=== PATIENT | male | born 1940 | race Caucasian/White ===

== ENCOUNTER → 2016-06-15 | Outpatient (CLI) | payer MEDICARE, OTHER ==
[2016-06-15 15:42] LABS: Potassium 4.4 mmol/L (3.5-5.1)
== END | disposition home or self-care (01) ==
LOC: LABWHC1 15:02
PROVIDERS: ATTEND Internal Medicine Cardiovascular Disease
DX: I50.22 Chronic systolic (congestive) heart failure (principal)
CPT/HCPCS: 36415; 80051; 82565; 84450; 84460; 84520

== ENCOUNTER → 2017-01-10 | Outpatient (CLI) | payer MEDICARE, OTHER | LOC: LABWHC1 09:52 | PROVIDERS: ATTEND Internal Medicine Endocrinology, Diabetes & Metabolism | DX: E03.9 Hypothyroidism, unspecified (principal) | CPT/HCPCS: 36415; 84439; 84443 ==

== ENCOUNTER → 2017-01-25 | Outpatient (CLI) | payer MEDICARE, OTHER ==
[2017-01-25 12:53] LABS: ALT 41 U/L (21-72); AST 27 U/L (17-59)
== END | disposition home or self-care (01) ==
LOC: LABWHC1 11:52
PROVIDERS: ATTEND Internal Medicine Cardiovascular Disease
DX: I47.2 Ventricular tachycardia (principal)
CPT/HCPCS: 36415; 84450; 84460

== ENCOUNTER → 2017-10-10 | Outpatient (CLI) | payer MEDICARE, OTHER | END | disposition home or self-care (01) | LOC: LABWHC1 08:01 | PROVIDERS: ATTEND Internal Medicine Cardiovascular Disease | DX: I65.23 Occlusion and stenosis of bilateral carotid arteries (principal); I25.10 Atherosclerotic heart disease of native coronary artery without angina pectoris; I47.2 Ventricular tachycardia; I10 Essential (primary) hypertension | CPT/HCPCS: 36415; 84443; 84450; 84460 ==

== ENCOUNTER 2017-11-26 12:52 | Emergency (ER) | payer MEDICARE, OTHER ==
[2017-11-26 13:15] VITALS: RESP 18
[2017-11-26] MEDS ORDERED: ORPHENADRINE 30 MG/ML 2 ML VIAL IM STA (13:51)
--- NOTE | 2017-11-26 14:43 | XR ---
EXAMINATION TYPE: XR Hip LT and AP Pelvis DATE OF EXAM: 11/26/2017 COMPARISON: NONE HISTORY: Trauma and pain TECHNIQUE: A single AP view of the pelvis is obtained. Two views of the left hip are obtained. FINDINGS: There is no acute fracture/dislocation evident in the pelvis. The hip and sacroiliac join ts appear symmetric and unremarkable. The overlying soft tissue appears unremarkable. Two views of left hip show no acute fracture or dislocation. No focal lytic or sclerotic lesion seen in the proximal left femur. The overlying soft tissue is unremarkable. Mild osteophytic changes ar e noted within the hips, there is marginal spurring and joint space loss. Degenerative disc changes i n the visualized spine. Vascular calcifications are present within the pelvis. 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 IMPRESSION: There is no acute fracture or dislocation in the pelvis or left hip.
--- NOTE | 2017-11-26 14:44 | XR ---
Lumbar spine HISTORY: Pain 3 views of the lumbar spine There is a mild spinal curvature which could be positional. There is multilevel spondylosis. Sclerosi s present in the posterior elements compatible with facet arthropathy. Minimal retrolisthesis grade 1 C2-3, L3-4 and L4-5, L5-S1. Loss of disc height greatest at L5-S1 where there is vacuum phenomenon, L2-3. Common iliac stent noted incidentally on the left. IMPRESSION: Degenerative disc disease and facet arthropathy.
--- NOTE | 2017-11-26 14:56 | ED ---
Back Pain HPI - General Chief Complaint: Back Pain/Injury Stated Complaint: lt sided pain Time Seen by Provider: 11/26/17 13:24 Source: patient, RN notes reviewed, old records reviewed Limitations: no limitations - History of Present Illness Initial Comments: This patient is a 77 year old male with CC of left side back pain, worse with movements after lifting a ladder in his garage. HE reports this was 2 days ago, and he has been taking naproxen with little relief. Patient reports pain occasionally radiates down leg and in his left hip. Denies saddle anesthesias. He denies abdominal pain, nausea, vomiting. Patient has a history of heart disease. - Related Data Home Medications Medication Instructions Recorded Confirmed ALPRAZolam 1 mg PO BID 09/20/14 09/23/14 Allopurinol 300 mg PO HS 09/20/14 09/23/14 Amiodarone [Cordarone] 200 mg PO HS 09/20/14 09/23/14 Aspirin 325 mg PO DAILY 09/20/14 09/23/14 Atorvastatin [Lipitor] 20 mg PO HS 09/20/14 09/23/14 Carvedilol 25 mg PO BID 09/20/14 09/23/14 Furosemide [Lasix] 40 mg PO BID 09/20/14 09/23/14 Isosorbide Mononitrate ER [Imdur] 60 mg PO BID 09/20/14 09/23/14 Lisinopril 20 mg PO BID 09/20/14 09/23/14 Multivitamins, Thera [Multivitamin 1 tab PO DAILY 09/20/14 09/23/14 (formulary)] Potassium Chloride [K-Tab ER] 10 meq PO BID 09/20/14 09/23/14 Ranitidine HCl [Zantac] 150 mg PO BID 09/20/14 09/23/14 Theophylline 12 Hour [Ashok-Dur] 300 mg PO BID 09/20/14 09/23/14 Tiotropium 18 Mcg/Puff [Spiriva] 1 puff IH HS PRN 09/20/14 09/23/14 Previous Rx's Medication Instructions Recorded Cyclobenzaprine [Flexeril] 10 mg PO TID #15 tab 11/26/17 Ibuprofen [Motrin] 600 mg PO Q6HR PRN #20 tab 11/26/17 Allergies Allergy/AdvReac Type Severity Reaction Status Date / Time prednisone AdvReac Hallucinati Verified 11/26/17 13:15 ons Review of Systems ROS Statement: Those systems with pertinent positive or pertinent negative responses have been documented in the HPI. ROS Other: All systems not noted in ROS Statement are negative. Past Medical History Past Medical History: Myocardial Infarction ([place]), Thyroid Disorder Additional Past Medical History / Comment(s): HX HIATAL HERNIA. mac degeneration. PSORIASIS. GOUT History of Any Multi-Drug Resistant Organisms: None Reported Past Surgical History: Heart Catheterization With Stent Additional Past Surgical History / Comment(s): COLONOSCOPY. AICD/PACEMAKER- [employer]. GENERATOR CHANGE-09/23/2014. leg stents Past Psychological History: No Psychological Hx Reported Smoking Status: Never smoker Past Alcohol Use History: None Reported Past Drug Use History: None Reported General Exam - General Exam Comments Initial Comments: This is a 77 year old male, pleasant. No acute distress. Limitations: no limitations General appearance: alert, in no apparent distress Head exam: Present: atraumatic, normocephalic, normal inspection Eye exam: Present: normal appearance, PERRL, EOMI. Absent: scleral icterus, conjunctival injection, periorbital swelling ENT exam: Present: normal exam, mucous membranes moist Neck exam: Present: normal inspection. Absent: tenderness, meningismus, lymphadenopathy Respiratory exam: Present: normal lung sounds bilaterally. Absent: respiratory distress, wheezes, rales, rhonchi, stridor Cardiovascular Exam: Present: regular rate, normal rhythm, normal heart sounds. Absent: systolic murmur, diastolic murmur, rubs, gallop, clicks GI/Abdominal exam: Present: soft, normal bowel sounds. Absent: distended, tenderness, guarding, rebound, rigid Extremities exam: Present: normal inspection, full ROM, normal capillary refill. Absent: tenderness, pedal edema, joint swelling, calf tenderness Back exam: Present: normal inspection, tenderness (over left lumbar paraspinal muscles into flank area. ) Neurological exam: Present: alert, oriented X3, CN II-XII intact Psychiatric exam: Present: normal affect, normal mood Skin exam: Present: warm, dry, intact, normal color. Absent: rash Course Vital Signs 11/26/17 11/26/17 13:12 15:11 Temperature 98.3 F 97.9 F Pulse Rate 63 59 L Respiratory 18 18 Rate Blood Pressure 123/73 132/72 O2 Sat by Pulse 96 98 Oximetry Medical Decision Making - Medical Decision Making This is a 77 year old male with left back pain associated with movement. It occured after lifting a ladder. Lumbar spine xray shows significant DDD. No fracture. Patient given norflex, and toradol and reports improvement. Patient advised to follow up with PCP and return to ED if any alarming signs or symptoms occur. Discharge with short course of muscle relaxer. Patient agrees to treatment plan and will comply. - Radiology Data Radiology results: report reviewed Lumbar spine shows DDD and facet arthropathy. No acute changes in pelvis and hip. Disposition Clinical Impression: Sprain of left hip, DDD (degenerative disc disease), lumbar Disposition: HOME SELF-CARE Condition: Good Instructions: Acute Low Back Pain (ED), Hip Sprain (ED) Additional Instructions: Patient advised to take muscle relaxer and anti-inflammatory medicine as prescribed. Return to emergency department if any alarming signs or symptoms occur. Prescriptions: Cyclobenzaprine [Flexeril] 10 mg PO TID #15 tab Ibuprofen [Motrin] 600 mg PO Q6HR PRN #20 tab PRN Reason: Pain Is patient prescribed a controlled substance at d/c from ED?: No When asked, does pt state using other controlled substances?: No If prescribed controlled substance>3 days was MAPS reviewed?: No If opioid is for acute pain is fill amount 7 days or less?: No If Rx opioid, was Start Talking consent form obtained?: No Referrals: Ponce Hernandez MD [Primary Care Provider] - 1-2 days Time of Disposition: 14:54
[2017-11-26 15:13] VITALS: BP 132/72; PULSE 59; TEMP 97.9
== END 2017-11-26 15:11 | disposition home or self-care (01) ==
LOC: EC 12:52
DX: S73.102A Unspecified sprain of left hip, initial encounter (principal); M51.36 Other intervertebral disc degeneration, lumbar region; I25.2 Old myocardial infarction; M10.9 Gout, unspecified; Z95.810 Presence of automatic (implantable) cardiac defibrillator; Z98.890 Other specified postprocedural states; Z79.82 Long term (current) use of aspirin; Z79.899 Other long term (current) drug therapy; Z88.8 Allergy status to other drugs, medicaments and biological substances; X50.0XXA Overexertion from strenuous movement or load, initial encounter; Y92.015 Private garage of single-family (private) house as the place of occurrence of the external cause
CPT/HCPCS: 72100; 73502; 99284; 96372; J2360

== ENCOUNTER → 2017-12-16 | Outpatient (CLI) | payer MEDICARE, OTHER ==
[2017-12-16 11:22] LABS: T4, Free (Free Thyroxine) 1.76 ng/dL (0.78-2.19)
== END | disposition home or self-care (01) ==
LOC: LABWHC1 10:20
PROVIDERS: ATTEND Internal Medicine Endocrinology, Diabetes & Metabolism
DX: E03.9 Hypothyroidism, unspecified (principal)
CPT/HCPCS: 36415; 84439; 84443

== ENCOUNTER → 2018-03-14 | Outpatient (CLI) | payer MEDICARE, OTHER ==
[2018-03-14 15:43] LABS: T4, Free (Free Thyroxine) 1.82 ng/dL (0.78-2.19)
== END | disposition home or self-care (01) ==
LOC: LABWHC1 14:46
PROVIDERS: ATTEND Internal Medicine Endocrinology, Diabetes & Metabolism
DX: E03.9 Hypothyroidism, unspecified (principal)
CPT/HCPCS: 36415; 84439; 84443

== ENCOUNTER → 2018-11-01 | Outpatient (CLI) | payer MEDICARE, OTHER | END | disposition home or self-care (01) | LOC: LABWHC1 15:50 | PROVIDERS: ATTEND Internal Medicine Cardiovascular Disease | DX: E03.2 Hypothyroidism due to medicaments and other exogenous substances (principal) | CPT/HCPCS: 36415; 84443; 84450; 84460 ==

== ENCOUNTER → 2018-11-23 | Outpatient (CLI) | payer MEDICARE, OTHER ==
[2018-11-23 18:52] LABS: T4, Free (Free Thyroxine) 1.5 ng/dL (0.80-1.80)
== END | disposition home or self-care (01) ==
LOC: LABWHC1 14:16
PROVIDERS: ATTEND Internal Medicine Endocrinology, Diabetes & Metabolism
DX: E03.9 Hypothyroidism, unspecified (principal)
CPT/HCPCS: 36415; 84439; 84443

== ENCOUNTER → 2019-04-18 | Outpatient (CLI) | payer MEDICARE, OTHER ==
[2019-04-18 12:27] LABS: Basophils # (A) 0.2 k/uL (0-0.2); Basophils % (A) 2 %; Eosinophils # (A) 0.3 k/uL (0-0.7); Eosinophils % (A) 4 %; HCT 40.9 % (39.0-53.0); Lymphocytes # (A) 1.7 k/uL (1.0-4.8); Lymphocytes % (A) 21 %; MCH 31.1 pg (25.0-35.0); MCHC 31.9 g/dL (31.0-37.0); MCV 97.4 fL (80.0-100.0); Mean Platelet Volume 10.2; Monocytes # (A) 0.5 k/uL (0-1.0); Monocytes % (A) 7 %; Neutrophils # (A) 5.1 k/uL (1.3-7.7); Neutrophils % (A) 64 %; Platelet Count 125 k/uL (150-450); RDW 12.8 % (11.5-15.5)
[2019-04-18 12:31] LABS: Appearance,Urine Clear (Clear); Bilirubin,Urine Negative (Negative); Blood,Urine Negative (Negative); Color,Urine Light Yellow; Glucose,Urine (UA) Negative (Negative); Ketones,Urine Negative (Negative); Leukocyte Esterase,Urine Negative (Negative); Nitrite,Urine Negative (Negative); Protein,Urine Negative (Negative); Specific Gravity,Urine 1.011 (1.001-1.035); Urobilinogen,Urine <2.0 mg/dL (<2.0)
[2019-04-18 20:24] LABS: % Iron Saturation 20.56 (15.00-50.00); African American GFR (CKD) 46.8 (60.0-200.0); Albumin 4.1 g/dL (3.80-4.90); Anion Gap 7.8 mmol/L (4.00-12.00); BUN/Creat Ratio 19.38 Ratio (12.00-20.00); Calcium 8.8 mg/dL (8.7-10.3); Carbon Dioxide 30.2 mmol/L (21.6-31.8); Magnesium 2.3 mg/dL (1.5-2.4); Non-African American GFR(CKD) 40.4 (60.0-200.0); Phosphorus 3.3 mg/dL (2.4-5.1); Potassium 4.8 mmol/L (3.5-5.5); Uric Acid 10.3 mg/dL (3.7-8.7)
[2019-04-18 20:31] LABS: Ferritin 211.3 ng/mL (22.0-322.0)
[2019-04-19 04:05] LABS: Creatinine,Urine Random 52.4 mg/dL; Total Protein,Urine Random 4.5 mg/dL (0.0-13.5)
== END | disposition home or self-care (01) ==
LOC: LABWHC1 10:49
PROVIDERS: ATTEND Internal Medicine Nephrology
DX: E55.9 Vitamin D deficiency, unspecified (principal); N18.3 Chronic kidney disease, stage 3 (moderate); D63.1 Anemia in chronic kidney disease; R80.9 Proteinuria, unspecified; N25.81 Secondary hyperparathyroidism of renal origin; M10.9 Gout, unspecified; N39.0 Urinary tract infection, site not specified
CPT/HCPCS: 36415; 80048; 81003; 82040; 82306; 82570; 82728; 83540; 83550; 83735; 83970; 84100; 84156; 84443; 84450; 84460; 84550; 85025

== ENCOUNTER → 2019-06-15 | Outpatient (CLI) | payer MEDICARE ==
[2019-06-15 20:32] LABS: Magnesium 2.2 mg/dL (1.5-2.4); Potassium 4.1 mmol/L (3.5-5.5)
== END | disposition home or self-care (01) ==
LOC: LABWHC1 12:26
PROVIDERS: ATTEND Internal Medicine Cardiovascular Disease
DX: I47.2 Ventricular tachycardia (principal)
CPT/HCPCS: 36415; 83735; 84132; 84443

== ENCOUNTER → 2019-12-12 | Outpatient (CLI) | payer MEDICARE, OTHER ==
[2019-12-12 19:50] LABS: African American GFR (CKD) 33.7 (60.0-200.0); Anion Gap 8.1 mmol/L (4.00-12.00); Carbon Dioxide 30.9 mmol/L (21.6-31.8); Chol/HDL Ratio 2.95; LDL Cholesterol,Calculated 53.4 mg/dL (0.0-131.0); Non-African American GFR(CKD) 29.1 (60.0-200.0); Potassium 4.3 mmol/L (3.5-5.5); VLDL Calculation 20.6 mg/dL (5.00-40.00)
== END | disposition home or self-care (01) ==
LOC: LABWHC1 08:33
PROVIDERS: ATTEND Internal Medicine Cardiovascular Disease
DX: E78.2 Mixed hyperlipidemia (principal)
CPT/HCPCS: 36415; 80051; 80061; 82565; 84443; 84450; 84460; 84520

== ENCOUNTER → 2020-08-01 | Outpatient (CLI) | payer MEDICARE, OTHER ==
[2020-08-01 11:00] LABS: African American GFR (CKD) 39 (>60 ml/min/1.73 sqM); Anion Gap 7 mmol/L; Blood Urea Nitrogen 37 mg/dL (9-20); Calcium 9.4 mg/dL (8.4-10.2); Carbon Dioxide 31 mmol/L (22-30); Chloride 103 mmol/L (98-107); Glucose 139 mg/dL (74-99); Non-African American GFR(CKD) 34 (>60 ml/min/1.73 sqM); Potassium 4.2 mmol/L (3.5-5.1); Sodium 141 mmol/L (137-145)
== END | disposition home or self-care (01) ==
LOC: LABWHC1 09:19
PROVIDERS: ATTEND Internal Medicine Cardiovascular Disease
DX: I47.2 Ventricular tachycardia (principal)
CPT/HCPCS: 36415; 80048; 84443

== ENCOUNTER 2021-02-10 05:59 | Observation (INO) | payer MEDICARE, OTHER ==
[2021-02-10] MEDS ORDERED: ASPIRIN 81 MG PO STA (06:08)
[2021-02-10] MEDS ORDERED: NITROGLYCERIN SL TABS 0.4 MG TAB SUBLINGUAL STA (06:25)
--- NOTE | 2021-02-10 06:28 | ED ---
Chest Pain HPI - General Chief Complaint: Chest Pain Stated Complaint: Chest pain Time Seen by Provider: 02/10/21 06:08 Source: patient, family, RN notes reviewed Mode of arrival: ambulatory Limitations: no limitations - History of Present Illness Initial Comments: This is an 80-year-old male presents emergency Department chief complaint chest pain. Patient states he woke up around 4 AM and states he noticed chest pain. From his chest to his upper abdomen. Patient states that it was not going away initially started just gas. Patient states he became concerned. States took some aspirin was given take his nitro but did not take it. Patient states that he has a pacemaker with defibrillator, no history of stents as Flores states he has since his legs. Patient does have a history of hypertension, hyperlipidemia has been medication for several years. Patient states he had a myocardial infarction which believes was in 1998. Patient does see a current well tester. Patient denies any fevers chills no cough or cold-like symptoms no nausea vomiting diarrhea constipation - Related Data Home Medications Medication Instructions Recorded Confirmed ALPRAZolam 1 mg PO BID 09/20/14 09/23/14 Allopurinol 300 mg PO HS 09/20/14 09/23/14 Amiodarone [Cordarone] 200 mg PO HS 09/20/14 09/23/14 Aspirin 325 mg PO DAILY 09/20/14 09/23/14 Atorvastatin [Lipitor] 20 mg PO HS 09/20/14 09/23/14 Carvedilol 25 mg PO BID 09/20/14 09/23/14 Furosemide [Lasix] 40 mg PO BID 09/20/14 09/23/14 Isosorbide Mononitrate ER [Imdur] 60 mg PO BID 09/20/14 09/23/14 Multivitamins, Thera [Multivitamin 1 tab PO DAILY 09/20/14 09/23/14 (formulary)] Potassium Chloride [K-Tab ER] 10 meq PO BID 09/20/14 09/23/14 Ranitidine HCl [Zantac] 150 mg PO BID 09/20/14 09/23/14 Theophylline 12 Hour [Ashok-Dur] 300 mg PO BID 09/20/14 09/23/14 Tiotropium 18 Mcg/Puff [Spiriva] 1 puff IH HS PRN 09/20/14 09/23/14 lisinopriL [Lisinopril] 20 mg PO BID 09/20/14 09/23/14 Previous Rx's Medication Instructions Recorded Cyclobenzaprine [Flexeril] 10 mg PO TID #15 tab 11/26/17 Ibuprofen [Motrin] 600 mg PO Q6HR PRN #20 tab 11/26/17 Allergies Allergy/AdvReac Type Severity Reaction Status Date / Time prednisone AdvReac Hallucinati Verified 02/10/21 06:24 ons Review of Systems ROS Statement: Those systems with pertinent positive or pertinent negative responses have been documented in the HPI. ROS Other: All systems not noted in ROS Statement are negative. EKG Findings - EKG Comments: EKG Findings:: EKG performed at 6:11 normal sinus rhythm prolonged QT rate of 68 [place] 202 QRS 110 QT/QTC 498/498 Past Medical History Past Medical History: Myocardial Infarction ([place]), Thyroid Disorder Additional Past Medical History / Comment(s): HX HIATAL HERNIA. mac degeneration. PSORIASIS. GOUT History of Any Multi-Drug Resistant Organisms: None Reported Past Surgical History: Heart Catheterization With Stent Additional Past Surgical History / Comment(s): COLONOSCOPY. AICD/PACEMAKER- [employer]. GENERATOR CHANGE-09/23/2014. leg stents Past Psychological History: No Psychological Hx Reported Smoking Status: Former smoker Past Alcohol Use History: None Reported Past Drug Use History: None Reported General Exam Limitations: no limitations General appearance: alert, in no apparent distress Head exam: Present: atraumatic, normocephalic, normal inspection Eye exam: Present: normal appearance, PERRL, EOMI. Absent: scleral icterus, conjunctival injection, periorbital swelling ENT exam: Present: normal exam, mucous membranes moist Neck exam: Present: normal inspection, full ROM. Absent: tenderness, meningismus, lymphadenopathy Respiratory exam: Present: normal lung sounds bilaterally. Absent: respiratory distress, wheezes, rales, rhonchi, stridor Cardiovascular Exam: Present: regular rate, normal rhythm, normal heart sounds. Absent: systolic murmur, diastolic murmur, rubs, gallop, clicks GI/Abdominal exam: Present: soft, normal bowel sounds. Absent: distended, tenderness, guarding, rebound, rigid Neurological exam: Present: alert, oriented X3 Skin exam: Present: warm, dry, intact, normal color. Absent: rash Course Vital Signs 02/10/21 02/10/21 06:00 07:39 Temperature 97.7 F Pulse Rate 83 60 Respiratory 22 16 Rate Blood Pressure 184/96 160/71 O2 Sat by Pulse 96 98 Oximetry Chest Pain MDM - MDM 8-year-old male present emergency from for chest pain. Patient's initial troponin is negative, patient has CAD, multiple risk factors be admitted for cardiac observation. Disposition Clinical Impression: Chest pain Disposition: ADMITTED IP TO THIS HOSP Condition: Fair Referrals: None,Stated [Primary Care Provider] - 1-2 days
--- NOTE | 2021-02-10 06:46 | XR ---
EXAMINATION TYPE: Chest x-ray 2 views. DATE OF EXAM: 02/10/2021 COMPARISON: 11/16/2017 HISTORY: Cough TECHNIQUE: 2 views FINDINGS: There is no heart failure nor confluent pneumonic infiltrate. Costophrenic angles are clear . There are no hilar masses. There is left axillary pacemaker.There are chest leads. Bony thorax is in tact. IMPRESSION: No active cardiopulmonary disease. No change.
[2021-02-10 06:53] LABS: Albumin 3.7 g/dL (3.5-5.0); Basophils % (A) 1 %; Calcium 9.6 mg/dL (8.4-10.2); Eosinophils # (A) 0.4 k/uL (0-0.7); Eosinophils % (A) 5 %; HCT 41.1 % (39.0-53.0); HGB 13.9 gm/dL (13.0-17.5); Lymphocytes # (A) 1.7 k/uL (1.0-4.8); Lymphocytes % (A) 21 %; MCHC 33.9 g/dL (31.0-37.0); MCV 97.3 fL (80.0-100.0); Magnesium 2.3 mg/dL (1.6-2.3); Mean Platelet Volume 10.5; Monocytes # (A) 0.6 k/uL (0-1.0); Monocytes % (A) 8 %; Neutrophils % (A) 62 %; Platelet Count 128 k/uL (150-450); RBC 4.22 m/uL (4.30-5.90); RDW 12.5 % (11.5-15.5); Total Bilirubin 0.4 mg/dL (0.2-1.3); Total Protein 6.7 g/dL (6.3-8.2)
[2021-02-10 07:06] LABS: Partial Thromboplastin Time 22.5 sec (22.0-30.0); Prothrombin Time 10.5 sec (9.0-12.0)
[2021-02-10] MEDS ORDERED: NITROGLYCERIN SL TABS 0.4 MG TAB SUBLINGUAL PRN (07:46)
[2021-02-10] MEDS: ALPRAZolam 0.5 MG TAB PO PRN ×2 (10:47→20:57)
[2021-02-10] MEDS: lisinopriL 20 MG TAB PO SCH (10:47)
[2021-02-10] MEDS: ISOSORBIDE MONONITRATE ER 60 MG TAB.ER.24H PO SCH ×2 (10:47→20:51)
[2021-02-10] MEDS: carvediloL 12.5 MG TAB PO SCH ×2 (10:48→17:10)
[2021-02-10] MEDS: THEOPHYLLINE 24 HOUR 300 MG CAP.ER.24H PO SCH (10:50)
--- NOTE | 2021-02-10 12:21 | P.CRDCN ---
History of Present Illness Consult date: 02/10/21 History of present illness: HISTORY OF PRESENT ILLNESS: This is a 80-year-old male with a past medical history significant for ischemic cardiomyopathy, ventricular tachycardia with previous AICD implantation, congestive heart failure, coronary artery disease, hypertension and hyperlipidemia. Patient follows in the office with Dr. Yeboah. We have been asked to see the patient in consultation for chest pain. Patient examined at the bedside. Patient states he woke up around 4am today to use the restroom and developed chest discomfort. He states the pain felt like gas pains and went from the epigastric region to his umbilicus. He denied any radiation of the pain. Denied shortness of breath. Denied dizziness or lightheadedness. Patient states he chewed two aspirin and then came to the emergency room for further evaluation. He states his pain was already subsiding on his way to the hospital but was completely relieved with aspirin and sublingual nitro that he received in the ER. EKG reveals sinus mechanism with no signs of acute ischemia Chest xray no active cardiac pulmonary disease Laboratory data: WBC 8.0. Hemoglobin 13.3. Platelet count 128. Sodium 144. Potassium 4.0. BUN 32. Creatinine 1.76. Magnesium 2.3. ProBNP 631. Troponin negative 2. Current home cardiac medications include lisinopril 20 mg daily, Imdur 60 g t wice a day, Lipitor 20 mg daily, aspirin 325 mg daily, amiodarone 200 mg daily, Lasix 40 mg twice a day, carvedilol 25 mg twice a day Most recent echocardiogram obtained in June 2019 revealed ejection fraction 40%. Hypokinesis of the posterior wall from the base to the mid wall. Akinesis of the inferior wall at the base. Mild mitral regurgitation. Mild tricuspid regurgitation. Patient underwent nuclear stress test and June 2019 revealing evidence of prior inferior wall myocardial infarction with moderate LV dysfunction without any acute ischemia. Cardiac catheterization history: October 2011 revealing right coronary artery which is a large caliber vessel. 100% occluded by its ostium. Left main is a large caliber vessel that is angiographically normal. It bifurcates into left ci rcumflex and left anterior descending artery. Left circumflex is 100% occluded in the proximal portion. It fills by collaterals from the left coronary system. Proximal LAD appeared to have mild disease only in the range of 10-20%. Mid LAD appeared to have mild disease only. Distal LAD is normal. The LAD gives rise to the very first day and a branch which is almost like a ramus which appeared to be normal. Then the second third diagonal branches are small caliber arteries which also appeared to be normal. Medical management was recommended. REVIEW OF SYSTEMS: At the time of my exam: CONSTITUTIONAL: Denies fever or chills. HEENT: Denies blurred vision, vision changes, or eye pain. Denies hemoptysis CARDIOVASCULAR: Denies chest pain. Denies orthopnea. Denies PND. Denies palpitations RESPIRATORY: Denies shortness of breath. GASTROINTESTINAL: Denies abdominal pain. Denies nausea or vomiting. HEMATOLOGIC: Denies bleeding disorders. GENITOURINARY: Denies any blood in urine. SKIN: Denies pruitis. Denies rash. PHYSICAL EXAM: VITAL SIGNS: Reviewed. GENERAL: Well-developed in no acute distress. HEENT: Head is normocephalic. Pupils are equal, round. Sclerae anicteric. Mucous membranes of the mouth are moist. Neck supple. No JVD or thyromegaly LUNGS: Respirations even and unlabored. Lungs essentially clear to auscultation bilaterally. HEART: Regular rate and rhythm. S1 and S2 heard. ABDOMEN: Soft. Nondistended. Nontender. EXTREMITIES: Normal range of motion. No clubbing or cyanosis. Peripheral pulses intact. Trace bilateral lower extremity edema NEUROLOGIC: Awake and alert. Oriented x 3. ASSESSMENT: Chest pain, troponin negative x 2 Coronary artery disease with known occlusion of RCA and circumflex Ischemic cardiomyopathy Chronic systolic congestive heart failure History of ventricular tachycardia History of AICD implantation Chronic kidney disease Hypertension Hyperlipidemia Obesity: BMI 35.8 PLAN: An acute coronary event has been ruled out Resume home cardiac medications Obtain 2D echo to assess cardiac structure and function No plans for stress testing as patient as known occlusions of RCA and circumflex If patient continues to have chest pain, will consider cardiac catheterization Further recommendations pending patient's course Nurse practitioner note has been reviewed by physician. Signing provider agrees with the documented findings, assessment, and plan of care. Past Medical History Past Medical History: Myocardial Infarction ([place]), Thyroid Disorder Additional Past Medical History / Comment(s): HX HIATAL HERNIA. mac degeneration. PSORIASIS. GOUT History of Any Multi-Drug Resistant Organisms: None Reported Past Surgical History: Heart Catheterization With Stent Additional Past Surgical History / Comment(s): COLONOSCOPY. AICD/PACEMAKER- [employer]. GENERATOR CHANGE-09/23/2014. leg stents Past Psychological History: No Psychological Hx Reported Smoking Status: Former smoker Past Alcohol Use History: None Reported Past Drug Use History: None Reported Medications and Allergies Home Medications Medication Instructions Recorded Confirmed Type Amiodarone [Cordarone] 200 mg PO HS 09/20/14 02/10/21 History Aspirin 325 mg PO DAILY 09/20/14 02/10/21 History Atorvastatin [Lipitor] 20 mg PO HS 09/20/14 02/10/21 History Carvedilol 25 mg PO BID 09/20/14 02/10/21 History Furosemide [Lasix] 40 mg PO BID 09/20/14 02/10/21 History Isosorbide Mononitrate ER [Imdur] 60 mg PO BID 09/20/14 02/10/21 History Multivitamins, Thera [Multivitamin 1 tab PO DAILY 09/20/14 02/10/21 History (formulary)] Potassium Chloride [K-Tab ER] 10 meq PO BID 09/20/14 02/10/21 History Theophylline 12 Hour [Ashok-Dur] 300 mg PO BID 09/20/14 02/10/21 History lisinopriL [Lisinopril] 20 mg PO DAILY 09/20/14 02/10/21 History ALPRAZolam [Xanax] 0.5 mg PO BID PRN 02/10/21 02/10/21 History Allopurinol [Zyloprim] 100 mg PO BID 02/10/21 02/10/21 History Ergocalciferol [Vitamin D2 (1250 1,250 mcg PO MO 02/10/21 02/10/21 History Mcg = 96204 Iu)] Nitroglycerin Sl Tabs [Nitrostat] 0.4 mg SUBLINGUAL Q5M PRN 02/10/21 02/10/21 History Vit C/E/Zn/Coppr/Lutein/Zeaxan 1 cap PO BID 02/10/21 02/10/21 History [Preservision Areds 2 Softgel] calcitrioL [Calcitriol] 0.25 mcg PO MO 02/10/21 02/10/21 History Allergies Allergy/AdvReac Type Severity Reaction Status Date / Time prednisone AdvReac Hallucinati Verified 02/10/21 07:50 ons Physical Exam Vitals: Vital Signs Temp Pulse Resp BP Pulse Ox 02/10/21 07:39 60 16 160/71 98 02/10/21 06:00 97.7 F 83 22 184/96 96 Intake and Output 02/09/21 02/10/21 02/10/21 22:59 06:59 14:59 Other: Weight 100.698 kg Results 02/10/21 06:23 02/10/21 06:23 Cardiac Enzymes 02/10/21 02/10/21 02/10/21 Range/Units 06:23 06:23 08:21 AST 24 (17-59) U/L Troponin I <0.012 <0.012 (0.000-0.034) ng/mL Coagulation 02/10/21 Range/Units 06:23 PT 10.5 (9.0-12.0) sec APTT 22.5 (22.0-30.0) sec CBC 02/10/21 Range/Units 06:23 WBC 8.0 (3.8-10.6) k/uL RBC 4.22 L (4.30-5.90) m/uL Hgb 13.9 (13.0-17.5) gm/dL Hct 41.1 (39.0-53.0) % Plt Count 128 L (150-450) k/uL Comprehensive Metabolic Panel 02/10/21 Range/Units 06:23 Sodium 144 (137-145) mmol/L Potassium 4.0 (3.5-5.1) mmol/L Chloride 107 (98-107) mmol/L Carbon Dioxide 29 (22-30) mmol/L BUN 32 H (9-20) mg/dL Creatinine 1.76 H (0.66-1.25) mg/dL Glucose 134 H (74-99) mg/dL Calcium 9.6 (8.4-10.2) mg/dL AST 24 (17-59) U/L ALT 19 (4-49) U/L Alkaline Phosphatase 117 (38-126) U/L Total Protein 6.7 (6.3-8.2) g/dL Albumin 3.7 (3.5-5.0) g/dL Current Medications Generic Name Dose Route Start Last Admin Trade Name Freq PRN Reason Stop Dose Admin Allopurinol 100 mg 02/10/21 21:00 Allopurinol 100 Mg Tab PO BID ADDIE Alprazolam 0.5 mg 02/10/21 10:17 02/10/21 10:47 Alprazolam 0.5 Mg Tab PO 0.5 mg BID PRN Administration Anxiety Amiodarone HCl 200 mg 02/10/21 21:00 Amiodarone 200 Mg Tab PO HS ADDIE Aspirin 81 mg 02/11/21 09:00 Aspirin 81 Mg PO DAILY ADDIE Atorvastatin Calcium 20 mg 02/10/21 21:00 Atorvastatin 20 Mg Tab PO HS ADDIE Calcitriol 0.25 mcg 02/16/21 09:00 Calcitriol 0.25 Mcg Cap PO MO ADDIE Carvedilol 25 mg 02/10/21 10:30 02/10/21 10:48 Carvedilol 12.5 Mg Tab PO 25 mg AC-BID ADDIE Administration Furosemide 40 mg 02/10/21 16:00 Furosemide 40 Mg Tab PO BID@0900,1600 ADDIE Isosorbide Mononitrate 60 mg 02/10/21 11:00 02/10/21 10:47 Isosorbide Mononitrate Er 60 Mg Tab.Er.24h PO 60 mg BID ADDIE Administration Lisinopril 20 mg 02/10/21 11:00 02/10/21 10:47 Lisinopril 20 Mg Tab PO 20 mg DAILY ADDIE Administration Multivitamins 1 each 02/11/21 09:00 Multivitamins, Thera 1 Each Tab PO DAILY ADDIE Nitroglycerin 0.4 mg 02/10/21 07:46 Nitroglycerin Sl Tabs 0.4 Mg Tab SUBLINGUAL Q5M PRN Chest Pain Potassium Chloride 10 meq 02/10/21 21:00 Potassium Chloride Er 10 Meq Tab.Er.Prt PO BID ADDIE Theophylline 600 mg 02/10/21 12:00 02/10/21 10:50 Theophylline 24 Hour 300 Mg Cap.Er.24h PO 600 mg DAILY ADDIE Administration Intake and Output 02/09/21 02/10/21 02/10/21 22:59 06:59 14:59 Other: Weight 100.698 kg 02/10/21 06:23 02/10/21 06:23
--- NOTE | 2021-02-10 16:10 | P.HPIM ---
History of Present Illness H&P Date: 02/10/21 02/10/2021 This is a pleasant 80-year-old male who has a past medical history that is significant for congestive heart failure, hypertension, hyperlipidemia, COPD, chronic kidney disease stage III. Patient does follow closely with Dr. Veras as well as Dr. Hodges for endocrinology. He was just evaluated in the office last week with his PCP as well. Patient states that at the time, he was taking too much Lasix, and to cut back in half. Patient states that he has just been taking it daily for now. Patient presented to the emergency room yesterday after having some nonexertional chest pressure that presented from his midline sternum all the way down to his lower abdomen. Patient states that did not radiate, denies any shortness of breath, denies nausea, vomiting. Patient denied any dizziness or lightheadedness. Patient states that he took 2 chewable aspirin at home. When he got to the emergency room he was given 2 additional chewable aspirin, and a supplemental nitroglycerin. Chest pain has been resolved at this time, and patient is not experiencing any chest pain the time of my examination. Patient has an implantable ICD/pacemaker that he has had since 2003. Patient states that he has frequent episodes of arrhythmia, and was nervous which is why he came to the ER. Patient states that his [id number]-[id number]-chw had , and he developed the chest pain, yesterday after his services. Patient denies any heartburn, indigestion, history of GERD. He denies any cough. Vital signs remained stable this time, blood pressure 123/52, heart rate 62, 97% on 2 L nasal cannula, afebrile. Patient has a resumed on her home medications. Labwork revealed a [place] 32, creatinine of 1.76. Troponins were negative 3, proBNP 631. Patient was negative for COVID. Pat ient's chest x-ray was negative for an acute cardiopulmonary process. REVIEW OF SYSTEMS: CONSTITUTIONAL: No fever, no malaise, no fatigue. HEENT: No recent visual problems or hearing problems. Denied any sore throat. CARDIOVASCULAR: No chest pain, orthopnea, PND, no palpitations, no syncope. PULMONARY: No shortness of breath, no cough, no hemoptysis. GASTROINTESTINAL: No diarrhea, no nausea, no vomiting, no abdominal pain. NEUROLOGICAL: No headaches, no weakness, no numbness. HEMATOLOGICAL: Denies any bleeding or petechiae. GENITOURINARY: Denies any burning micturition, frequency, or urgency. MUSCULOSKELETAL/RHEUMATOLOGICAL: Denies any joint pain, swelling, or any muscle pain. ENDOCRINE: Denies any polyuria or polydipsia. The rest of the 14-point review of systems is negative. PHYSICAL EXAMINATION: GENERAL: The patient is alert and oriented x3, not in any acute distress. Well developed, well nourished. HEENT: Pupils are round and equally reacting to light. EOMI. No scleral icterus. No conjunctival pallor. Normocephalic, atraumatic. No pharyngeal erythema. No thyromegaly. CARDIOVASCULAR: S1 and S2 present. No murmurs, rubs, or gallops. PULMONARY: Chest is clear to auscultation, no wheezing or crackles. ABDOMEN: Soft, nontender, nondistended, normoactive bowel sounds. No palpable organomegaly. MUSCULOSKELETAL: No joint swelling or deformity. EXTREMITIES: No cyanosis, clubbing, or pedal edema. NEUROLOGICAL: Gross neurological examination did not reveal any focal deficits. SKIN: No rashes. Assessment and plan Hypothyroidism continue on Levoxyl Hypertension continue on current cardiac medications Hyperlipidemia continue on Lipitor Chest pain, atypical, troponins negative 3, echocardiogram pending, acute coronary event ruled out from cardiology Coronary artery disease known occlusion of RCA and circumflex Ischemic cardiomyopathy - patient has an AICD, pacemaker Chronic systolic congestive heart failure, echocardiogram pending, continues on oral Lasix Chronic kidney disease stage III due to uncontrolled hypertension, repeat labs in the morning COPD, not in acute exacerbation, patient is maintained on theophylline, follows with Dr. Haeth History of tobacco dependence, quit in 1998 - was a 3 pack per day smoker GI prophylaxis Protonix DVT prophylaxis encourage ambulation Plan Patient has an echocardiogram pending, cardiology would like to monitor patient for the next 24 hours. No plans for stress test due to no blockages, cardiology will plan for cardiac catheterization patient could be sent chest pain. If patient continues to be chest pain-free, patient will be discharged home to follow-up with Dr. Veras. Past Medical History Past Medical History: Myocardial Infarction (MT), Thyroid Disorder Additional Past Medical History / Comment(s): HX HIATAL HERNIA. mac degeneration. PSORIASIS. GOUT History of Any Multi-Drug Resistant Organisms: None Reported Past Surgical History: Heart Catheterization With Stent Additional Past Surgical History / Comment(s): COLONOSCOPY. AICD/PACEMAKER- [employer]. GENERATOR CHANGE-09/23/2014. leg stents Past Psychological History: No Psychological Hx Reported Smoking Status: Former smoker Past Alcohol Use History: None Reported Past Drug Use History: None Reported Medications and Allergies Home Medications Medication Instructions Recorded Confirmed Type Amiodarone [Cordarone] 200 mg PO HS 09/20/14 02/10/21 History Aspirin 325 mg PO DAILY 09/20/14 02/10/21 History Atorvastatin [Lipitor] 20 mg PO HS 09/20/14 02/10/21 History Carvedilol 25 mg PO BID 09/20/14 02/10/21 History Furosemide [Lasix] 40 mg PO BID 09/20/14 02/10/21 History Isosorbide Mononitrate ER [Imdur] 60 mg PO BID 09/20/14 02/10/21 History Multivitamins, Thera [Multivitamin 1 tab PO DAILY 09/20/14 02/10/21 History (formulary)] Potassium Chloride [K-Tab ER] 10 meq PO BID 09/20/14 02/10/21 History Theophylline 12 Hour [Ashok-Dur] 300 mg PO BID 09/20/14 02/10/21 History lisinopriL [Lisinopril] 20 mg PO DAILY 09/20/14 02/10/21 History ALPRAZolam [Xanax] 0.5 mg PO BID PRN 02/10/21 02/10/21 History Allopurinol [Zyloprim] 100 mg PO BID 02/10/21 02/10/21 History Ergocalciferol [Vitamin D2 (1250 1,250 mcg PO MO 02/10/21 02/10/21 History Mcg = 35580 Iu)] Nitroglycerin Sl Tabs [Nitrostat] 0.4 mg SUBLINGUAL Q5M PRN 02/10/21 02/10/21 History Vit C/E/Zn/Coppr/Lutein/Zeaxan 1 cap PO BID 02/10/21 02/10/21 History [Preservision Areds 2 Softgel] calcitrioL [Calcitriol] 0.25 mcg PO MO 02/10/21 02/10/21 History Allergies Allergy/AdvReac Type Severity Reaction Status Date / Time prednisone AdvReac Hallucinati Verified 02/10/21 07:50 ons Physical Exam Vitals: Vital Signs Temp Pulse Resp BP Pulse Ox 02/10/21 07:39 60 16 160/71 98 02/10/21 06:00 97.7 F 83 22 184/96 96 Intake and Output 02/09/21 02/10/21 02/10/21 22:59 06:59 14:59 Other: Weight 100.698 kg Results CBC & Chem 7: 02/10/21 06:23 02/10/21 06:23 Labs: Abnormal Lab Results - Last 24 Hours (Table) 02/10/21 02/10/21 Range/Units 06:23 06:23 RBC 4.22 L (4.30-5.90) m/uL Plt Count 128 L (150-450) k/uL BUN 32 H (9-20) mg/dL Creatinine 1.76 H (0.66-1.25) mg/dL Glucose 134 H (74-99) mg/dL
[2021-02-10] MEDS: PANTOPRAZOLE 40 MG TABLET PO SCH (17:07)
[2021-02-10] MEDS: FUROSEMIDE 40 MG TAB PO SCH (17:07)
[2021-02-10] MEDS: POTASSIUM CHLORIDE ER 10 MEQ TAB.ER.PRT PO SCH (20:51)
[2021-02-10] MEDS: allopurinoL 100 MG TAB PO SCH (20:51)
[2021-02-10] MEDS ORDERED: ATORVASTATIN 20 MG TAB PO SCH (21:00)
[2021-02-10] MEDS ORDERED: AMIODARONE 200 MG TAB PO SCH (21:00)
[2021-02-10 21:47] VITALS: RESP 16
[2021-02-11 06:32] LABS: African American GFR (CKD) 46 (>60 ml/min/1.73 sqM); Anion Gap 9 mmol/L; Blood Urea Nitrogen 28 mg/dL (9-20); Calcium 9.4 mg/dL (8.4-10.2); Carbon Dioxide 27 mmol/L (22-30); Chloride 106 mmol/L (98-107); Glucose 112 mg/dL (74-99); Non-African American GFR(CKD) 40 (>60 ml/min/1.73 sqM); Potassium 3.8 mmol/L (3.5-5.1); Sodium 142 mmol/L (137-145)
[2021-02-11] MEDS: PANTOPRAZOLE 40 MG TABLET PO SCH (08:52)
[2021-02-11] MEDS: carvediloL 12.5 MG TAB PO SCH (08:52)
[2021-02-11] MEDS: allopurinoL 100 MG TAB PO SCH (08:52)
[2021-02-11] MEDS: ISOSORBIDE MONONITRATE ER 60 MG TAB.ER.24H PO SCH (08:52)
[2021-02-11] MEDS: THEOPHYLLINE 24 HOUR 300 MG CAP.ER.24H PO SCH (08:53)
[2021-02-11] MEDS: FUROSEMIDE 40 MG TAB PO SCH (08:53)
[2021-02-11] MEDS: POTASSIUM CHLORIDE ER 10 MEQ TAB.ER.PRT PO SCH (08:53)
[2021-02-11] MEDS: lisinopriL 20 MG TAB PO SCH (08:53)
[2021-02-11] MEDS ORDERED: ASPIRIN 81 MG PO SCH (09:00)
[2021-02-11] MEDS ORDERED: MULTIVITAMINS, THERA 1 EACH TAB PO SCH (09:00)
[2021-02-11] MEDS ORDERED: ASPIRIN 325 MG TAB PO SCH ×2 (09:00)
[2021-02-11 09:31] LABS: Basophils # (A) 0.03 X 10*3/uL (0.00-0.10); Basophils % (A) 0.3 %; Eosinophils # (A) 0.04 X 10*3/uL (0.04-0.35); Eosinophils % (A) 0.4 %; HCT 35.4 % (39.6-50.0); HGB 11.4 g/dL (13.0-17.0); Lymphocytes # (A) 1.07 X 10*3/uL (0.90-5.00); Lymphocytes % (A) 11.6 %; MCH 31.1 pg (27.0-32.0); MCHC 32.2 g/dL (32.0-37.0); MCV 96.7 fL (80.0-97.0); Monocytes # (A) 0.91 X 10*3/uL (0.20-1.00); Monocytes % (A) 9.9 %; Neutrophils # (A) 7.13 X 10*3/uL (1.80-7.70); Neutrophils % (A) 77.4 %; Platelet Count 117 X 10*3/uL (140-440); RBC 3.66 X 10*6/uL (4.40-5.60); RDW 12.6 % (11.5-14.5); WBC 9.22 X 10*3/uL (4.50-10.00)
--- NOTE | 2021-02-11 11:12 | P.PN ---
Subjective Progress Note Date: 02/11/21 HISTORY OF PRESENT ILLNESS: This is a 80-year-old male with a past medical history significant for ischemic cardiomyopathy, ventricular tachycardia with previous AICD implantation, c ongestive heart failure, coronary artery disease, hypertension and hyperlipidemia. Patient follows in the office with Dr. Yeboah. We have been asked to see the patient in consultation for chest pain. Patient examined at the bedside. Patient states he woke up around 4am today to use the restroom and de veloped chest discomfort. He states the pain felt like gas pains and went from the epigastric region to his umbilicus. He denied any radiation of the pain. Denied shortness of breath. Denied dizziness or lightheadedness. Patient states he chewed two aspirin and then came to the emergency room for further evaluation. He states his pain was already subsiding on his way to the hospital but was completely relieved with aspirin and sublingual nitro that he received in the ER. EKG reveals sinus mechanism with no signs of acute ischemia Chest xray no active cardiac pulmonary disease Laboratory data: WBC 8.0. Hemoglobin 13.3. Platelet count 128. Sodium 144. Potassium 4.0. BUN 32. Creatinine 1.76. Magnesium 2.3. ProBNP 631. Troponin negative 2. Current home cardiac medications include lisinopril 20 mg daily, Imdur 60 g twice a day, Lipitor 20 mg daily, aspirin 325 mg daily, amiodarone 200 mg daily, Lasix 40 mg twice a day, carvedilol 25 mg twice a day Most recent echocardiogram obtained in June 2019 revealed ejection fraction 40%. Hypokinesis of the posterior wall from the base to the mid wall. Akinesis of the inferior wall at the base. Mild mitral regurgitation. Mild tricuspid regurgitation. Patient underwent nuclear stress test and June 2019 revealing evidence of prior inferior wall myocardial infarction with moderate LV dysfunction without any acute ischemia. Cardiac catheterization history: October 2011 revealing right coronary artery which is a large caliber vessel. 100% occluded by its ostium. Left main is a large caliber vessel that is angiographically normal. It bifurcates into left circumflex and left anterior descending artery. Left circumflex is 100% occluded in the proximal portion. It fills by collaterals from the left coronary system. Proximal LAD appeared to have mild disease only in the range of 10-20%. Mid LAD appeared to have mild disease only. Distal LAD is normal. The LAD gives rise to the very first day and a branch which is almost like a ramus which appeared to be normal. Then the second third diagonal branches are small caliber arteries which also appeared to be normal. Medical management was recommended. 02/11/2021 Patient examined this morning at the bedside. Patient denies chest pain or pr essure. He denies shortness of breath. Patient states he had 2 large bowel movements yesterday afternoon and all his symptoms resolved after that. PHYSICAL EXAM: VITAL SIGNS: Reviewed. GENERAL: Well-developed in no acute distress. HEENT: Head is normocephalic. Pupils are equal, round. Sclerae anicteric. Mucous membranes of the mouth are moist. Neck supple. No JVD or thyromegaly LUNGS: Respirations even and unlabored. Lungs essentially clear to auscultation bilaterally. HEART: Regular rate and rhythm. S1 and S2 heard. ABDOMEN: Soft. Nondistended. Nontender. EXTREMITIES: Normal range of motion. No clubbing or cyanosis. Peripheral pulses intact. Trace bilateral lower extremity edema NEUROLOGIC: Awake and alert. Oriented x 3. ASSESSMENT: Chest pain, troponin negative x 2 Coronary artery disease with known occlusion of RCA and circumflex Ischemic cardiomyopathy Chronic systolic congestive heart failure History of ventricular tachycardia History of AICD implantation Chronic kidney disease Hypertension Hyperlipidemia Obesity: BMI 35.8 PLAN: Await results of 2D echo Anticipate discharge home this afternoon Further recommendations pending patient's course Nurse practitioner note has been reviewed by physician. Signing provider agrees with the documented findings, assessment, and plan of care. Objective - Vital Signs Vital signs: Vital Signs Temp 99.6 F 02/11/21 07:00 Pulse 79 02/11/21 07:00 Resp 16 02/11/21 07:00 BP 172/64 02/11/21 07:00 Pulse Ox 98 02/11/21 09:16 Intake & Output 02/10/21 02/11/21 02/11/21 18:59 06:59 18:59 Weight 100.698 kg Other: Voiding Method Toilet Toilet Toilet # Voids 1 - Labs CBC & Chem 7: 02/11/21 05:34 02/11/21 05:34 Labs: Abnormal Lab Results - Last 24 Hours (Table) 02/11/21 02/11/21 Range/Units 05:34 05:34 RBC 3.66 L (4.40-5.60) X 10*6/uL Hgb 11.4 L (13.0-17.0) g/dL Hct 35.4 L (39.6-50.0) % Plt Count 117 L (140-440) X 10*3/uL MPV 13.0 H (9.5-12.2) fL BUN 28 H (9-20) mg/dL Creatinine 1.61 H (0.66-1.25) mg/dL Glucose 112 H (74-99) mg/dL
[2021-02-11 11:25] LABS: Chol/HDL Ratio 3.36; Cholesterol 111 mg/dL (0-200); LDL Cholesterol,Calculated 57.8 mg/dL (0.0-131.0)
--- NOTE | 2021-02-11 13:29 | ECHOF ---
Referral Reason:chest pain MEASUREMENTS -------- HEIGHT: 165.1 cm WEIGHT: 29.9 kg BP: IVSd: 1.9 cm (0.6 - 1.1) LVIDd: 4.5 cm (3.9 - 5.3) LVPWd: 1.5 cm (0.6 - 1.1) IVSs: 2.2 cm LVIDs: 3.4 cm LVPWs: 1.7 cm LAESV Index (A-L): 56.55 ml/m Ao Diam: 3.0 cm (2.0 - 3.7) AV Cusp: 1.4 cm (1.5 - 2.6) LA Diam: 3.6 cm (2.7 - 3.8) MV E Hector: 0.43 m/s MV DecT: 297 ms MV A Hector: 0.74 m/s MV E/A Ratio: 0.58 RAP: 5.00 mmHg RVSP: 11.77 mmHg FINDINGS -------- Paced rhythm. This was a technically adequate study. The left ventricular size is normal. Left ventricular wall thickness is decreased. Overall left v entricular systolic function is mild-moderately impaired with, an EF between 40 - 45 %. Basal infer ior LV wall motion is hypokinetic. The right ventricle is normal in size. LA is severely dilated >40 ml/m2 The right atrial size is normal. There is mild aortic valve sclerosis. There is no evidence of aortic regurgitation. Mild mitral regurgitation is present. Mild tricuspid regurgitation present. Right ventricular systolic pressure is normal at < 35 mmHg. The pulmonic valve was not well visualized. Echo free space represents a pericardial fat pad. CONCLUSIONS -------- 1. The left ventricular size is normal. 2. Left ventricular wall thickness is decreased. 3. Overall left ventricular systolic function is mild-moderately impaired with, an EF between 40 - 45 %. 4. Basal inferior LV wall motion is hypokinetic. 5. The right ventricle is normal in size. 6. LA is severely dilated >40 ml/m2 7. The right atrial size is normal. 8. There is mild aortic valve sclerosis. 9. Mild mitral regurgitation is present. 10. Mild tricuspid regurgitation present. 11. The pulmonic valve was not well visualized. 12. Echo free space represents a pericardial fat pad. VECTOR CONTROL SPECIALIST: Danna London RDCS
[2021-02-11 14:20] VITALS: BP 146/73; PULSE 66; TEMP 98
--- NOTE | 2021-02-11 14:30 | P.DS ---
Providers Date of admission: 02/10/21 07:56 Attending physician: Bradley Ovalles Consults: 02/10/21 07:46 Consult Physician Urgent Consulting Provider: Bartolome Veras Consult Reason/Comments: chest pain Do you want consulting provider notified?: Yes Primary care physician: Stated None Hospital Course: Final diagnoses Hypothyroidism continue on Levoxyl Hypertension continue on current cardiac medications Hyperlipidemia continue on Lipitor Chest pain, atypical, troponins negative 3, echocardiogram pending, acute coronary event ruled out from cardiology Coronary artery disease known occlusion of RCA and circumflex Ischemic cardiomyopathy - patient has an AICD, pacemaker Chronic systolic congestive heart failure, current EF 40-45% Chronic kidney disease stage III due to uncontrolled hypertension COPD, not in acute exacerbation, patient is maintained on theophylline, follows with Dr. Heath History of tobacco dependence, quit in 1998 - was a 3 pack per day smoker GERD Discharge disposition Patient is discharged home in a stable condition. Patient has not had any more episodes of chest pain since arrival to the [facility]. Patient states that he did have a bowel movement, and his epigastric and abdominal pressure subsided. Patient will be given a prescription for a 7 day supply of a PPI at discharge. Patient has an appointment with Dr. Veras, and will follow-up with his PCP. Hospital course This is a pleasant 80-year-old male with a past medical history is significant for congestive heart failure, hypertension, hyperlipidemia, COPD, chronic kidney disease stage III, AICD, Ischemic cardiomyopathy. Patient follows closely Dr. Veras, Dr. Hodges, Dr. Del Toro. Patient was evaluated in the office last week with no issues. Patient presented to the emergency room yesterday after having some nonexertional chest pressure that presented from his midline sternum all the way down to his lower abdomen. Patient states that did not radiate, denies any shortness of breath, denies nausea, vomiting. Patient denied any dizziness or lightheadedness. Patient states that he took 2 chewable aspirin at home. When he got to the emergency room he was given 2 additional chewable aspirin, and a supplemental nitroglycerin. Chest pain has been resolved at this time, and patient is not experiencing any chest pain the time of my examination. Patient has an implantable ICD/pacemaker that he has had since 2003. Patient states that he has frequent episodes of arrhythmia, and was nervous which is why he came to the ER. Patient states that his [id number] had , and he developed the chest pain, yesterday after his services. Patient denies any heartburn, indigestion, history of GERD. He denies any cough. Vital signs remained stable this time, blood pressure 143/52, heart rate 62, 97% on 2 L nasal cannula, afebrile. Patient has a resumed on her home medications. Labwork revealed a BUN 32, creatinine of 1.76. Troponins were negative 3, proBNP 631. Patient was negative for COVID. Patient's chest x-ray was negative for an acute cardiopulmonary process. Patient had an echocardiogram completed that revealed an ejection fraction of 40-45%. Patient has denied any chest pain since admission to the hospital, patient states that he had a bowel movement and his symptoms have completely subsided throughout the evening. Patient will keep be given a seven-day trial for a PPI on discharge. Patient will follow-up with his PCP, Dr. Eda canales. Vital signs have remained stable this admission, afebrile, heart rate 66, blood pressure 146/73, 90% on room air. Patient will continue on all home medications. Cor virus was not detectable this admission. Patient's BUN is 28, creatinine 1.61 on discharge. Patient's cholesterol panel was within normal limits, HDL slightly low at 33. 02/11/2021 Patient is evaluated today resting in bed. He states that he is chest pain- free, denies cough, shortness of breath, palpitations. He denies any dizziness or lightheadedness. Patient denies any nausea, vomiting, diarrhea. Patient states he would like to go home today, he feels ready. Cardiology has cleared the patient for discharge with no changes to his home medications. This possible that patient experienced some symptoms of GERD, will trial a seven-day course of PPI on discharge. Patient is educated to return to the ER if he is experiencing chest pain. Vital signs are stable, lungs are clear on my examination, patient does not have any peripheral edema. S1 and S2 are heard with auscultation. Patient has no neurological focal deficits. Thank you for allowing us to participate in the care of this patient. Please see medication reconciliation for list of current medications. Patient Condition at Discharge: Fair Plan - Discharge Summary Discharge Rx Participant: No New Discharge Prescriptions: New Pantoprazole [Protonix] 40 mg PO DAILY #7 tab Continue Theophylline 12 Hour [Ashok-Dur] 300 mg PO BID Aspirin 325 mg PO DAILY Isosorbide Mononitrate ER [Imdur] 60 mg PO BID Furosemide [Lasix] 40 mg PO BID Atorvastatin [Lipitor] 20 mg PO HS Amiodarone [Cordarone] 200 mg PO HS Potassium Chloride [K-Tab ER] 10 meq PO BID Multivitamins, Thera [Multivitamin (formulary)] 1 tab PO DAILY lisinopriL [Lisinopril] 20 mg PO DAILY Carvedilol 25 mg PO BID ALPRAZolam [Xanax] 0.5 mg PO BID PRN PRN Reason: Anxiety calcitrioL [Calcitriol] 0.25 mcg PO MO Nitroglycerin Sl Tabs [Nitrostat] 0.4 mg SUBLINGUAL Q5M PRN PRN Reason: Chest Pain Ergocalciferol [Vitamin D2 (1250 Mcg = 04883 Iu)] 1,250 mcg PO MO Allopurinol [Zyloprim] 100 mg PO BID Vit C/E/Zn/Coppr/Lutein/Zeaxan [Preservision Areds 2 Softgel] 1 cap PO BID Discharge Medication List Amiodarone [Cordarone] 200 mg PO HS 09/20/14 [History] Aspirin 325 mg PO DAILY 09/20/14 [History] Atorvastatin [Lipitor] 20 mg PO HS 09/20/14 [History] Carvedilol 25 mg PO BID 09/20/14 [History] Furosemide [Lasix] 40 mg PO BID 09/20/14 [History] Isosorbide Mononitrate ER [Imdur] 60 mg PO BID 09/20/14 [History] Multivitamins, Thera [Multivitamin (formulary)] 1 tab PO DAILY 09/20/14 [History] Potassium Chloride [K-Tab ER] 10 meq PO BID 09/20/14 [History] Theophylline 12 Hour [Ashok-Dur] 300 mg PO BID 09/20/14 [History] lisinopriL [Lisinopril] 20 mg PO DAILY 09/20/14 [History] ALPRAZolam [Xanax] 0.5 mg PO BID PRN 02/10/21 [History] Allopurinol [Zyloprim] 100 mg PO BID 02/10/21 [History] Ergocalciferol [Vitamin D2 (1250 Mcg = 30535 Iu)] 1,250 mcg PO MO 02/10/21 [History] Nitroglycerin Sl Tabs [Nitrostat] 0.4 mg SUBLINGUAL Q5M PRN 02/10/21 [History] Vit C/E/Zn/Coppr/Lutein/Zeaxan [Preservision Areds 2 Softgel] 1 cap PO BID 02/10/21 [History] calcitrioL [Calcitriol] 0.25 mcg PO MO 02/10/21 [History] Pantoprazole [Protonix] 40 mg PO DAILY #7 tab 02/11/21 [Rx] Follow up Appointment(s)/Referral(s): None,Stated [Primary Care Provider] - 1-2 days
== END 2021-02-11 15:10 | disposition home or self-care (01) ==
LOC: EC 05:59 → 6NMEDSUR 07:56
PROVIDERS: ADMIT Hospitalist; ATTEND Hospitalist
DX: R07.89 Other chest pain (principal); I13.0 Hypertensive heart and chronic kidney disease with heart failure and stage 1 through stage 4 chronic kidney disease, or unspecified chronic kidney disease; I50.22 Chronic systolic (congestive) heart failure; N18.30 Chronic kidney disease, stage 3 unspecified; I25.5 Ischemic cardiomyopathy; E78.5 Hyperlipidemia, unspecified; I25.2 Old myocardial infarction; I25.10 Atherosclerotic heart disease of native coronary artery without angina pectoris; I25.82 Chronic total occlusion of coronary artery; I08.3 Combined rheumatic disorders of mitral, aortic and tricuspid valves; J44.9 Chronic obstructive pulmonary disease, unspecified; E03.9 Hypothyroidism, unspecified; K44.9 Diaphragmatic hernia without obstruction or gangrene; H35.30 Unspecified macular degeneration; L40.9 Psoriasis, unspecified; M10.9 Gout, unspecified; K21.9 Gastro-esophageal reflux disease without esophagitis; I08.1 Rheumatic disorders of both mitral and tricuspid valves; E66.9 Obesity, unspecified; Z68.35 Body mass index [BMI] 35.0-35.9, adult; Z20.822 Contact with and (suspected) exposure to COVID-19; Z79.82 Long term (current) use of aspirin; Z79.899 Other long term (current) drug therapy; Z88.8 Allergy status to other drugs, medicaments and biological substances; Z95.5 Presence of coronary angioplasty implant and graft; Z95.828 Presence of other vascular implants and grafts; Z95.810 Presence of automatic (implantable) cardiac defibrillator; Z87.891 Personal history of nicotine dependence; Z86.79 Personal history of other diseases of the circulatory system; Z98.890 Other specified postprocedural states
CPT/HCPCS: 99285; 36415; 93005; 93306; 83880; 80061; 80053; 80048; 83690; 83735; 84484; 85025 ×2; 85610; 85730; 87635; 71046; G0378 ×2

== ENCOUNTER → 2021-08-18 | Outpatient (CLI) | payer MEDICARE, OTHER ==
[2021-08-18 21:22] LABS: African American GFR (CKD) 42.9 (60.0-200.0); Anion Gap 11.8 mmol/L (10.00-18.00); BUN/Creat Ratio 9.53 Ratio (12.00-20.00); Blood Urea Nitrogen 16.2 mg/dL (9.0-27.0); Calcium 9.5 mg/dL (8.7-10.3); Carbon Dioxide 27.2 mmol/L (20.0-27.5); Potassium 3.9 mmol/L (3.5-5.5)
== END | disposition home or self-care (01) ==
LOC: LABWHC1 13:10
PROVIDERS: ATTEND Internal Medicine Cardiovascular Disease
DX: I47.2 Ventricular tachycardia (principal)
CPT/HCPCS: 36415; 80048; 84443

== ENCOUNTER 2021-09-07 14:42 | Emergency (ER) | payer MEDICARE, OTHER ==
[2021-09-07 14:55] VITALS: RESP 18
[2021-09-07 15:05] VITALS: TEMP 98
--- NOTE | 2021-09-07 15:33 | ED ---
General Adult HPI - General Chief complaint: Recheck/Abnormal Lab/Rx Stated complaint: Low BP Time Seen by Provider: 09/07/21 15:01 Source: EMS Mode of arrival: EMS Limitations: no limitations - History of Present Illness Initial comments: This 81-year-old male with past medical history of MN and thyroid disorder presents emergency department after being sent from his primary care provider. Patient states he was at his yearly checkup when the nurse took his blood pressure and it was 100/66. Patient states at that time he did not have any symptoms, however he states he did send him into the hospital as his blood pressure is usually in the 160s/80s. Patient denied any headache, dizziness, lightheadedness, chest pain, shortness of breath, abdominal pain, nausea, vomiting, change in vision, change in bowel or bladder. Patient states he has no complaints and feels his normal self. Patient states only thing he can think of that was change recently was his Lasix dosage was 40 mg 2 times a day for the last couple of years and about 8 weeks ago his dose was cut in half up until 3 weeks ago his dose Back to his normal 40 mg 2 times a day as he was turning to retain water. Patient states he does have a pacemaker and defibrillator which he states was checked 3 weeks ago and they informed him that he was also sent for another couple of years. - Related Data Home Medications Medication Instructions Recorded Confirmed Aspirin 325 mg PO DAILY 09/20/14 09/07/21 Atorvastatin [Lipitor] 20 mg PO HS 09/20/14 09/07/21 Carvedilol 25 mg PO BID 09/20/14 09/07/21 Furosemide [Lasix] 40 mg PO BID 09/20/14 09/07/21 Isosorbide Mononitrate ER [Imdur] 60 mg PO BID 09/20/14 09/07/21 Multivitamins, Thera [Multivitamin 1 tab PO DAILY 09/20/14 09/07/21 (formulary)] Potassium Chloride [K-Tab ER] 10 meq PO BID 09/20/14 09/07/21 Theophylline 12 Hour [Ashok-Dur] 300 mg PO BID 09/20/14 09/07/21 lisinopriL [Lisinopril] 20 mg PO DAILY 09/20/14 09/07/21 ALPRAZolam [Xanax] 0.5 mg PO BID 02/10/21 09/07/21 Ergocalciferol [Vitamin D2 (1250 1,250 mcg PO MO 02/10/21 09/07/21 Mcg = 41263 Iu)] Nitroglycerin Sl Tabs [Nitrostat] 0.4 mg SUBLINGUAL Q5M PRN 02/10/21 09/07/21 Vit C/E/Zn/Coppr/Lutein/Zeaxan 1 cap PO BID 02/10/21 09/07/21 [Preservision Areds 2 Softgel] Amiodarone [Cordarone] 100 mg PO HS 09/07/21 09/07/21 Levothyroxine Sodium [Levoxyl] 56 mcg PO TORRES 09/07/21 09/07/21 Levothyroxine Sodium [Levoxyl] 112 mcg PO MOTUWETHFRSA 09/07/21 09/07/21 Sertraline [Zoloft] 50 mg PO DAILY 09/07/21 09/07/21 Previous Rx's Medication Instructions Recorded Pantoprazole [Protonix] 40 mg PO DAILY #7 tab 02/11/21 Allergies Allergy/AdvReac Type Severity Reaction Status Date / Time prednisone AdvReac Hallucinati Verified 09/07/21 14:55 ons Review of Systems ROS Statement: Those systems with pertinent positive or pertinent negative responses have been documented in the HPI. ROS Other: All systems not noted in ROS Statement are negative. Past Medical History Past Medical History: Myocardial Infarction ([place]), Thyroid Disorder Additional Past Medical History / Comment(s): HX HIATAL HERNIA. mac degeneration. PSORIASIS. GOUT Last Myocardial Infarction Date:: unk History of Any Multi-Drug Resistant Organisms: None Reported Past Surgical History: Heart Catheterization With Stent Additional Past Surgical History / Comment(s): COLONOSCOPY. AICD/PACEMAKER- [employer]. GENERATOR CHANGE-09/23/2014. leg stents Date of Last Stent Placement:: unk Past Psychological History: No Psychological Hx Reported Smoking Status: Former smoker Past Alcohol Use History: None Reported Past Drug Use History: None Reported General Exam Limitations: no limitations General appearance: alert, in no apparent distress Head exam: Present: atraumatic, normocephalic, normal inspection Eye exam: Present: normal appearance, PERRL, EOMI. Absent: scleral icterus, conjunctival injection, periorbital swelling ENT exam: Present: normal exam, mucous membranes moist Neck exam: Present: normal inspection, full ROM. Absent: tenderness, meningismus, lymphadenopathy Respiratory exam: Present: normal lung sounds bilaterally. Absent: respiratory distress, wheezes, rales, rhonchi, stridor, chest wall tenderness Cardiovascular Exam: Present: regular rate, normal rhythm, normal heart sounds. Absent: systolic murmur, diastolic murmur, rubs, gallop, clicks GI/Abdominal exam: Present: soft, normal bowel sounds. Absent: distended, tenderness, guarding, rebound, rigid Extremities exam: Present: normal inspection, full ROM, normal capillary refill. Absent: tenderness, pedal edema, joint swelling, calf tenderness Back exam: Present: normal inspection, full ROM. Absent: CVA tenderness (R), CVA tenderness (L), paraspinal tenderness, vertebral tenderness Neurological exam: Present: alert, oriented X3, CN II-XII intact Psychiatric exam: Present: normal affect, normal mood Skin exam: Present: warm, dry, intact, normal color. Absent: rash Course Vital Signs 09/07/21 09/07/21 09/07/21 14:49 15:08 16:01 Temperature 98 F Pulse Rate 56 L 80 Pulse Rate [ 60 Sitting] Pulse Rate [ 68 Standing] Pulse Rate [ 52 L Supine] Respiratory 18 18 Rate Blood Pressure 140/68 120/62 Blood Pressure 143/58 [Sitting] Blood Pressure 118/70 [Standing] Blood Pressure 138/63 [Supine] O2 Sat by Pulse 96 Oximetry EKG Findings - EKG Comments: EKG Findings:: EKG impression: Sinus bradycardia. Ventricular rate 55 bpm. HI interval 242. QRS duration 96. QT/QTc 461/450 Medical Decision Making - Medical Decision Making This 81-year-old male presents to the emergency department after being sent by his primary care physician for low blood pressure at the office of 100/66. Patient's blood pressure in EMS and in the emergency department with stable. Patient asymptomatic and requesting discharge as he states he has a day with his Rory's and hour and half. Chest x-ray without any acute abnormalities. Urine with moderate leukocyte esterase and no white blood cells, patient without any urinary symptoms and urine was sent for culture. Patient instructed to follow-up with primary care provider next 1-2 days. Instructed patient to log his blood pressure at home 2-3 times a day. Instructed patient to return if any symptoms arise as he states he has no symptoms at this time. Strict return precautions were discussed. Patient verbally agreed to plan. Patient sent home in stable condition. Case discussed in detail my attending, Dr. Barr. - Lab Data Result diagrams: 09/07/21 15:25 09/07/21 15:25 Lab Results 09/07/21 09/07/21 09/07/21 Range/Units 15:25 15:25 15:54 WBC 9.4 (3.8-10.6) k/uL RBC 4.18 L (4.30-5.90) m/uL Hgb 13.1 (13.0-17.5) gm/dL Hct 39.9 (39.0-53.0) % MCV 95.5 (80.0-100.0) fL MCH 31.3 (25.0-35.0) pg MCHC 32.8 (31.0-37.0) g/dL RDW 12.5 (11.5-15.5) % Plt Count 124 L (150-450) k/uL MPV 12.0 Neutrophils % 68 % Lymphocytes % 20 % Monocytes % 7 % Eosinophils % 2 % Basophils % 1 % Neutrophils # 6.4 (1.3-7.7) k/uL Lymphocytes # 1.9 (1.0-4.8) k/uL Monocytes # 0.7 (0-1.0) k/uL Eosinophils # 0.2 (0-0.7) k/uL Basophils # 0.1 (0-0.2) k/uL Sodium 140 (137-145) mmol/L Potassium 3.9 (3.5-5.1) mmol/L Chloride 101 (98-107) mmol/L Carbon Dioxide 30 (22-30) mmol/L Anion Gap 9 mmol/L BUN 34 H (9-20) mg/dL Creatinine 2.08 H (0.66-1.25) mg/dL Est GFR (CKD-EPI)AfAm 34 (>60 ml/min/1.73 sqM) Est GFR (CKD-EPI)NonAf 29 (>60 ml/min/1.73 sqM) Glucose 114 H (74-99) mg/dL Calcium 9.4 (8.4-10.2) mg/dL Total Bilirubin 0.8 (0.2-1.3) mg/dL AST 32 (17-59) U/L ALT 32 (4-49) U/L Alkaline Phosphatase 90 (38-126) U/L Total Protein 7.1 (6.3-8.2) g/dL Albumin 4.0 (3.5-5.0) g/dL Urine Color Yellow Urine Appearance Clear (Clear) Urine pH 5.5 (5.0-8.0) Ur Specific [place] 1.012 (1.001-1.035) Urine Protein Negative (Negative) Urine Glucose (UA) Negative (Negative) Urine Ketones Negative (Negative) Urine Blood Negative (Negative) Urine Nitrite Negative (Negative) Urine Bilirubin Negative (Negative) Urine Urobilinogen <2.0 (<2.0) mg/dL Ur Leukocyte Esterase Moderate H (Negative) Urine RBC 1 (0-5) /hpf Urine WBC 3 (0-5) /hpf Ur Squamous Epith Cells <1 (0-4) /hpf Urine Bacteria Rare H (None) /hpf Hyaline Casts 67 H (0-2) /lpf Urine Mucus Rare H (None) /hpf Disposition Clinical Impression: Blood pressure check Disposition: HOME SELF-CARE Condition: Stable Instructions (If sedation given, give patient instructions): Hypotension (ED) Additional Instructions: Please return to the emergency department with any new, worsening or concerning symptoms. Follow-up with your primary care provider in next 24-48 hours. Is patient prescribed a controlled substance at d/c from ED?: No Referrals: Nonstaff,Physician [Primary Care Provider] - 1-2 days Time of Disposition: 16:18
[2021-09-07 15:35] LABS: Basophils # (A) 0.1 k/uL (0-0.2); Basophils % (A) 1 %; Eosinophils # (A) 0.2 k/uL (0-0.7); Eosinophils % (A) 2 %; HCT 39.9 % (39.0-53.0); HGB 13.1 gm/dL (13.0-17.5); Lymphocytes # (A) 1.9 k/uL (1.0-4.8); Lymphocytes % (A) 20 %; MCH 31.3 pg (25.0-35.0); MCHC 32.8 g/dL (31.0-37.0); MCV 95.5 fL (80.0-100.0); Monocytes # (A) 0.7 k/uL (0-1.0); Monocytes % (A) 7 %; Neutrophils # (A) 6.4 k/uL (1.3-7.7); Neutrophils % (A) 68 %; Platelet Count 124 k/uL (150-450); RBC 4.18 m/uL (4.30-5.90); RDW 12.5 % (11.5-15.5); WBC 9.4 k/uL (3.8-10.6)
--- NOTE | 2021-09-07 15:43 | XR ---
EXAMINATION TYPE: XR chest 2V DATE OF EXAM: 09/07/2021 COMPARISON: 02/10/2021 HISTORY: Shortness of breath TECHNIQUE: Frontal and lateral views of the chest are obtained. FINDINGS: Scattered senescent parenchymal changes noted. Hyperinflation compatible with COPD. No evidence for infiltrate. No evidence for atelectasis. Heart size is stable. Mediastinal structures are stable and grossly unremarkable. No evidence for hilar prominence. Degenerative changes dorsal spine. IMPRESSION: 1. No evidence for acute pulmonary disease.
[2021-09-07 15:51] LABS: Calcium 9.4 mg/dL (8.4-10.2); Potassium 3.9 mmol/L (3.5-5.1); Total Bilirubin 0.8 mg/dL (0.2-1.3); Total Protein 7.1 g/dL (6.3-8.2)
[2021-09-07 16:02] VITALS: BP 120/62; PULSE 80
[2021-09-07 16:12] LABS: Appearance,Urine Clear (Clear); Bacteria,Urine Rare /hpf; Bilirubin,Urine Negative (Negative); Blood,Urine Negative (Negative); Color,Urine Yellow; Glucose,Urine (UA) Negative (Negative); Hyaline Casts,Urine 67 /lpf (0-2); Ketones,Urine Negative (Negative); Leukocyte Esterase,Urine Moderate (Negative); Mucus,Urine Rare /hpf; Nitrite,Urine Negative (Negative); PH, Urine 5.5 (5.0-8.0); Protein,Urine Negative (Negative); RBC,Urine 1 /hpf (0-5); Specific Gravity,Urine 1.012 (1.001-1.035); Squamous Epithelial Cell,Urine <1 /hpf (0-4); Urobilinogen,Urine <2.0 mg/dL (<2.0); WBC,Urine 3 /hpf (0-5)
== END 2021-09-07 16:38 | disposition home or self-care (01) ==
LOC: EC 14:42
DX: Z01.30 Encounter for examination of blood pressure without abnormal findings (principal); I25.2 Old myocardial infarction; E07.9 Disorder of thyroid, unspecified; Z79.899 Other long term (current) drug therapy; Z87.891 Personal history of nicotine dependence; Z88.8 Allergy status to other drugs, medicaments and biological substances
CPT/HCPCS: 36415; 71046; 80053; 81001; 85025; 93005; 99284

== ENCOUNTER → 2022-02-18 | Outpatient (CLI) | payer MEDICARE, OTHER ==
[2022-02-18 19:14] LABS: Anion Gap 11.2 mmol/L (10.00-18.00); Carbon Dioxide 28.3 mmol/L (20.0-27.5); Potassium 3.5 mmol/L (3.5-5.5)
== END | disposition home or self-care (01) ==
LOC: LABWHC1 14:06
PROVIDERS: ATTEND Internal Medicine Cardiovascular Disease
DX: I47.2 Ventricular tachycardia (principal)
CPT/HCPCS: 36415; 80051; 84450; 84460

== ENCOUNTER → 2022-09-22 | Outpatient (CLI) | payer MEDICARE, OTHER ==
--- NOTE | 2022-09-22 11:05 | CT ---
EXAMINATION TYPE: CT soft tissue neck wo con DATE OF EXAM: 09/22/2022 COMPARISON: CT mastoids July 30, 2022 HISTORY: LUMP BEHIND LEFT EAR CT DLP: 607.9 mGycm. Automated Exposure Control for Dose Reduction was Utilized. TECHNIQUE: CT scan of the neck is performed without IV contrast. IV contrast could not be given as o rdered due to diminished renal function. FINDINGS: Lack of IV contrast was noted to limit evaluation for subtle mucosal lesions and subcentime ter neck adenopathy. Airway: Moderate emphysematous change of the visualized upper lungs is present. No obvious mass. Thyr oid gland within normal limits. Parotid/submandibular glands: Corresponding to recent CT there is large lobulated hyperdense or solid mass along the posterior aspect of the left parotid gland measuring 4.4 x 3.3 cm axial image 74 x 4. 0 cm craniocaudal dimension on coronal image 39. This is bulging the left aspect of the skin at this level posterior to the left ear. This abuts the left mastoid shows no bony destruction or suspicious opacification of the mastoid air cells. The external auditory canal is patent. Finding appears simila r to prior. Second smaller ring-enhancing 9 mm mass anterior inferior left parotid gland as much as 7 7 is redemonstrated. Submandibular glands are symmetric and within normal limits. Osseous structures: Moderate multilevel spurring and disc space narrowing an spondylolisthesis in the cervical spine C3-C4 through C6-C7 levels. Other: Partial visualization of left-sided pacemaker and wires. Extensive paranasal sinus disease redemonstrated. There is nearly completely opacified left maxillary sinus with moderate mucosal thickening and dependent fluid in the right maxillary sinus both have sc lerotic thickened hartman. There are completely opacified ethmoid sinuses bilaterally redemonstrated. T here is near complete opacification of the bilateral sphenoid sinuses. Ethmoid and sphenoid sinus dis ease more prominent from prior. There are completely opacified bilateral frontal sinuses. Scattered prominent but subcentimeter lymph nodes throughout the neck. There is slightly more suspici ous left-sided lymph node submandibular level anteriorly measuring 1.7 x 1.3 cm axial image 61. There is suspicious lymph node just superior posterior lateral to this measuring 2.0 x 1.4 cm axial image 64. These were outside field of view on prior exam. Severe calcified plaque left carotid bulb extends into proximal internal and external carotid arterie s. More mild to moderate peripheral plaque right carotid bulb. IMPRESSION: 1. Persistent left ear solid mass worrisome for neoplasm. Suspicious left neck adenopathy above the h yoid bone. Suboptimal study without IV contrast. 2. Paranasal pansinusitis noted as detailed above.
== END | disposition home or self-care (01) ==
LOC: RADCTMAIN 08:33
PROVIDERS: ATTEND Radiology Radiation Oncology
DX: C44.222 Squamous cell carcinoma of skin of right ear and external auricular canal (principal); J32.4 Chronic pansinusitis
CPT/HCPCS: 36415; 70490; 82565; 84520

== ENCOUNTER → 2022-10-02 | Outpatient (CLI) | payer MEDICARE, OTHER ==
--- NOTE | 2022-10-03 09:08 | PE ---
EXAMINATION TYPE: PET CT fusion skull to thigh DATE OF EXAM: 10/02/2022 CLINICAL INDICATION:Male, 82 years old with history of C44.229; TECHNIQUE: Following the intravenous administration of 10.3 mCi of F-18 FDG, whole body images are performed from the skull base to the midthigh. Images are reviewed on the computer in the coronal, a xial, and sagittal planes. Reconstructed rotating images are created on independent workstation and reviewed on the computer. A non-contrast CT is performed in conjunction with the PET scan. Glucose level 128 mg/dL COMPARISON: CT 09/22/2022, 07/30/2022, PET/CT None, FINDINGS: Mediastinal SUV mean is 1.9. Hepatic parenchyma SUV mean is 3.0. SKULL BASE AND NECK: Abnormal soft tissue mass with increased FDG activity within the left neck: * Left posterior-inferior auricular mass measuring 4.7 x 1.8 cm Max SUV 14.9 * Anterior left ear 9 mm max SUV 7.4. * Left neck lymph nodes level 2 measuring 12 mm Max SUV 10.2 * Left neck lymph nodes level 3 measuring 13 mm Max SUV 12.7 CHEST, MEDIASTINUM, AND HILAR REGION: No suspicious radiotracer activity. ABDOMEN AND PELVIS: No suspicious radiotracer activity. OSSEOUS STRUCTURES: No suspicious radiotracer activity. OTHER CT: Bilaterally aphakia. There is paranasal sinus disease. Atherosclerosis of the carotid bifur cations. Greater interstitial lung prominence there is cardiac conduction device with leads terminati ng in the right ventricle and right atrium. Coronary artery calcifications are present. Layering gall stones in the gallbladder lumen. Scattered colonic diverticula. IMPRESSION: Left neck dominant mass with associated FDG avid lymph nodes concerning for malignancy with metastati c disease. No suspicious FDG activity within the thorax or abdomen and pelvis.
== END | disposition home or self-care (01) ==
LOC: RADPETMAIN 09:38
PROVIDERS: ATTEND Radiology Radiation Oncology
DX: C44.229 Squamous cell carcinoma of skin of left ear and external auricular canal (principal); R22.1 Localized swelling, mass and lump, neck
CPT/HCPCS: 78815; A9552

== ENCOUNTER 2022-10-08 00:47 | Emergency (ER) | payer MEDICARE, OTHER ==
[2022-10-08 00:59] VITALS: BP 116/68; PULSE 76; RESP 18; TEMP 98
[2022-10-08] MEDS ORDERED: TRANEXAMIC ACID 1,000 MG/10 ML VIAL IRRIGATION ONE (01:29)
--- NOTE | 2022-10-08 01:29 | ED ---
General Adult HPI - General Chief complaint: Wound/Laceration Stated complaint: sore on ear Time Seen by Provider: 10/08/22 01:01 Source: patient Mode of arrival: ambulatory - History of Present Illness Initial comments: Patient is an 82-year-old male who presents to the emergency department for bleeding of ear lesion. Patient was diagnosed with skin cancer of the left ear. He follows with Dr. Camacho. Patient states he coughed tonight at dinner which caused bleeding of the ear. He takes aspirin otherwise no blood thinner use. He denies ear pain, lightheadedness, dizziness, weakness. No chest pain or shortness of breath. - Related Data Home Medications Medication Instructions Recorded Confirmed Aspirin 325 mg PO DAILY 09/20/14 09/07/21 Atorvastatin [Lipitor] 20 mg PO HS 09/20/14 09/07/21 Carvedilol 25 mg PO BID 09/20/14 09/07/21 Furosemide [Lasix] 40 mg PO BID 09/20/14 09/07/21 Isosorbide Mononitrate ER [Imdur] 60 mg PO BID 09/20/14 09/07/21 Multivitamins, Thera [Multivitamin 1 tab PO DAILY 09/20/14 09/07/21 (formulary)] Potassium Chloride [K-Tab ER] 10 meq PO BID 09/20/14 09/07/21 Theophylline 12 Hour [Ashok-Dur] 300 mg PO BID 09/20/14 09/07/21 lisinopriL [Lisinopril] 20 mg PO DAILY 09/20/14 09/07/21 ALPRAZolam [Xanax] 0.5 mg PO BID 02/10/21 09/07/21 Ergocalciferol [Vitamin D2 (1250 1,250 mcg PO MO 02/10/21 09/07/21 Mcg = 45891 Iu)] Nitroglycerin Sl Tabs [Nitrostat] 0.4 mg SUBLINGUAL Q5M PRN 02/10/21 09/07/21 Vit C/E/Zn/Coppr/Lutein/Zeaxan 1 cap PO BID 02/10/21 09/07/21 [Preservision Areds 2 Softgel] Amiodarone [Cordarone] 100 mg PO HS 09/07/21 09/07/21 Levothyroxine Sodium [Levoxyl] 56 mcg PO TORRES 09/07/21 09/07/21 Levothyroxine Sodium [Levoxyl] 112 mcg PO MOTUWETHFRSA 09/07/21 09/07/21 Sertraline [Zoloft] 50 mg PO DAILY 09/07/21 09/07/21 Previous Rx's Medication Instructions Recorded Pantoprazole [Protonix] 40 mg PO DAILY #7 tab 02/11/21 Allergies Allergy/AdvReac Type Severity Reaction Status Date / Time prednisone AdvReac Hallucinati Verified 10/08/22 00:59 ons Review of Systems ROS Statement: Those systems with pertinent positive or pertinent negative responses have been documented in the HPI. ROS Other: All systems not noted in ROS Statement are negative. Past Medical History Past Medical History: Cancer, Myocardial Infarction ([place]), Thyroid Disorder Additional Past Medical History / Comment(s): HX HIATAL HERNIA. mac degeneration. PSORIASIS. GOUT Last Myocardial Infarction Date:: unk History of Any Multi-Drug Resistant Organisms: None Reported Past Surgical History: Heart Catheterization With Stent Additional Past Surgical History / Comment(s): COLONOSCOPY. AICD/PACEMAKER- [employer]. GENERATOR CHANGE-09/23/2014. leg stents Date of Last Stent Placement:: unk Past Psychological History: No Psychological Hx Reported Smoking Status: Former smoker Past Alcohol Use History: None Reported Past Drug Use History: None Reported General Exam General appearance: alert, in no apparent distress ENT exam: Present: TM's normal bilaterally. Absent: normal external ear exam (left ear: chronic cancerous post auricular lesion without active bleeding) Respiratory exam: Present: normal lung sounds bilaterally. Absent: respiratory distress, wheezes, rales, rhonchi, stridor Cardiovascular Exam: Present: regular rate, normal rhythm, normal heart sounds. Absent: systolic murmur, diastolic murmur, rubs, gallop, clicks Neurological exam: Present: alert, oriented X3, CN II-XII intact Psychiatric exam: Present: normal affect, normal mood Skin exam: Present: warm, dry, intact, normal color. Absent: rash Course Vital Signs 10/08/22 00:55 Temperature 98.0 F Pulse Rate 76 Respiratory 18 Rate Blood Pressure 116/68 O2 Sat by Pulse 97 Oximetry Medical Decision Making - Medical Decision Making Was pt. sent in by a medical professional or institution (, PA, SUPPLY ROOM CLERK, urgent care, hospital, or long-term...) When possible be specific @ -No Did you speak to anyone other than the patient for history (EMS, parent, family, police, friend...)? What history was obtained from this source @ -No Did you review nursing and triage notes (agree or disagree)? Why? @ -I reviewed and agree with nursing and triage notes Were old charts reviewed (outside hosp., previous admission, EMS record, old EKG, old radiological studies, urgent care reports/EKG's, long-term records)? Report findings @ -No old charts were reviewed Differential Diagnosis (chest pain, altered mental status, abdominal pain women, abdominal pain men, vaginal bleeding, weakness, fever, dyspnea, syncope, headache, dizziness, GI bleed, back pain, seizure, CVA, palpatations, mental health)? @ -not applicable EKG interpreted by me (3pts min.). @ -As above X-rays interpreted by me (1pt min.). @ -None done CT interpreted by me (1pt min.). @ -None done U/S interpreted by me (1pt. min.). @ -None done What testing was considered but not performed or refused? (CT, X-rays, U/S, labs)? Why? @ -None What meds were considered but not given or refused? Why? @ -None Did you discuss the management of the patient with other professionals (professionals i.e. , PA, SUPPLY ROOM CLERK, lab, RT, psych nurse, social work job titles, dropper tank storage, teacher, ship's officer, case therapist)? Give summary @ -No Was smoking cessation discussed for >3mins.? @ -No Was critical care preformed (if so, how long)? @ -No Were there social determinants of health that impacted care today? How? (Homelessness, low income, unemployed, alcoholism, drug addiction, transportation, low edu. Level, literacy, decrease access to med. care, senior care, rehab)? @ -No Was there de-escalation of care discussed even if they declined (Discuss DNR or withdrawal of care, Hospice)? DNR status @ -No What co-morbidities impacted this encounter? (DM, HTN, Smoking, COPD, CAD, Cancer, CVA, ARF, Chemo, Hep., AIDS, mental health diagnosis, sleep apnea, morbid obesity)? @ -skin cancer Was patient admitted / discharged? Hospital course, mention meds given and route, prescriptions, significant lab abnormalities, going to OR and other pertinent info. @ -Patient presenting with bleeding of cancer lesion. Patient has no symptoms or signs of anemia. Patient has non-bleeding chronic cancer lesion behind left ear. The tissue appears very friable. A pressure dressing was applied with TXA gauze we discussed strict return parameters. Undiagnosed new problem with uncertain prognosis? @ -No Drug Therapy requiring intensive monitoring for toxicity (Heparin, Nitro, Insulin, Cardizem)? @ -No Were any procedures done? @ -No Diagnosis/symptom? @ -Lesion of left ear Acute, or Chronic, or Acute on Chronic? @ -Chronic Uncomplicated (without systemic symptoms) or Complicated (systemic symptoms)? @ -default Side effects of treatment? @ -No Exacerbation, Progression, or Severe Exacerbation? @ -No Poses a threat to life or bodily function? How? (Chest pain, [place], [place], pneumonia, PE, COPD, DKA, ARF, appy, cholecystitis, CVA, Diverticulitis, Homicidal, Suicidal, threat to staff... and all critical care pts) @ -No Dr. Wheat is my attending Disposition Clinical Impression: Lesion of left ear Disposition: HOME SELF-CARE Condition: Good Instructions (If sedation given, give patient instructions): Chronic Wound Care (ED) Additional Instructions: Please follow-up with your oncologist in 1-2 days. Return to the emergency department if you experience new, concerning, or worsening symptoms. Is patient prescribed a controlled substance at d/c from ED?: No Referrals: Joanie Awad MD [Primary Care Provider] - 1-2 days
== END 2022-10-08 02:29 | disposition home or self-care (01) ==
LOC: EC 00:47
DX: S09.91XA Unspecified injury of ear, initial encounter (principal); I25.2 Old myocardial infarction; E07.9 Disorder of thyroid, unspecified; Z79.82 Long term (current) use of aspirin; Z79.899 Other long term (current) drug therapy; Z79.890 Hormone replacement therapy; Z87.891 Personal history of nicotine dependence; Z88.8 Allergy status to other drugs, medicaments and biological substances; X58.XXXA Exposure to other specified factors, initial encounter
CPT/HCPCS: 99283

== ENCOUNTER → 2023-01-20 | Outpatient (CLI) | payer MEDICARE, OTHER ==
[2023-01-20 19:47] LABS: ALT 28 U/L (10-49); AST 22 U/L (14-35); Chol/HDL Ratio 2.22 Ratio; LDL Cholesterol,Calculated 36.2 mg/dL (0.0-131.0)
== END | disposition home or self-care (01) ==
LOC: LABWHC1 14:23
PROVIDERS: ATTEND Internal Medicine Cardiovascular Disease
DX: E78.2 Mixed hyperlipidemia (principal)
CPT/HCPCS: 36415; 80061; 84450; 84460

== ENCOUNTER 2023-07-15 15:48 | Inpatient (IN) | payer MEDICARE, OTHER ==
--- NOTE | 2023-07-15 15:56 | ED ---
General Adult HPI - General Chief complaint: Neuro Symptoms/Deficit Stated complaint: Unresponsive Time Seen by Provider: 07/15/23 15:52 Source: EMS, RN notes reviewed, old records reviewed Mode of arrival: EMS Limitations: altered mental status - History of Present Illness Initial comments: 83-year-old male brought in from correction with complaints of decreased level of consciousness. He has a history of anemia cancer COPD thyroid disease hypertension chronic renal disease. He was seen at [facility] yesterday and discharged back to his correction. He was back today apparently has had decreased level of consciousness decreased oral intake. He was brought in by EMS. - Related Data Home Medications Medication Instructions Recorded Confirmed Aspirin 325 mg PO DAILY@09/20/07/15/23 Atorvastatin [Lipitor] 20 mg PO HS@09/20/07/15/23 Isosorbide Mononitrate ER [Imdur] 60 mg PO BID@0800,09/20/07/15/23 ALPRAZolam [Xanax] 0.5 mg PO BID PRN 02/10/21 07/15/23 Ergocalciferol [Vitamin D2 (1250 1,250 mcg PO TU@0800 02/10/21 07/15/23 Mcg = 60401 Iu)] Nitroglycerin Sl Tabs [Nitrostat] 0.4 mg SL Q5M PRN 02/10/21 07/15/23 Amiodarone [Cordarone] 100 mg PO HS@212909/07/21 07/15/23 Levothyroxine Sodium [Levoxyl] 112 mcg PO DAILY@79909/07/21 07/15/23 Sertraline [Zoloft] 50 mg PO DAILY@0809/07/21 07/15/23 Amoxic-Pot Clav 875-125Mg 1 tab PO Q12HR@0800,2100 07/15/23 07/15/23 [Augmentin 875-125] Ensure Enlive 237 ml PO TID@0800,1200,1700 07/15/23 07/15/23 Ipratropium-Albuterol Nebulize 3 ml INHALATION RT-Q6H 07/15/23 07/15/23 [Duoneb 0.5 mg-3 mg/3 ml Soln] Magnesium Hydroxide [Milk of 7,200 mg PO DAILY PRN 07/15/23 07/15/23 Magnesia Concentrate] Na Phos,M-B/Na Phos,Di-Ba [Fleet 133 ml RECTAL DAILY PRN 07/15/23 07/15/23 Adult] Pantoprazole [Protonix] 40 mg PO DAILY@0800 07/15/23 07/15/23 Tamsulosin HCl [Flomax] 0.4 mg PO DAILY@0800 07/15/23 07/15/23 Theophylline 24 Hour [Ashok-24] 300 mg PO DAILY@0800 07/15/23 07/15/23 allopurinoL [Zyloprim] 200 mg PO DAILY@0800 07/15/23 07/15/23 bisacodyL [Dulcolax] 10 mg RECTAL Q24H PRN 07/15/23 07/15/23 carvediloL [Coreg] 12.5 mg PO BID@0800,1700 07/15/23 07/15/23 hydrALAZINE HCL [Apresoline] 50 mg PO Q8HR@0600,1400,2200 07/15/23 07/15/23 Allergies Allergy/AdvReac Type Severity Reaction Status Date / Time prednisone AdvReac Hallucinati Verified 07/15/23 18:38 ons Review of Systems ROS Statement: Those systems with pertinent positive or pertinent negative responses have been documented in the HPI. ROS Other: All systems not noted in ROS Statement are negative. Past Medical History Past Medical History: Cancer, Myocardial Infarction (CO), Thyroid Disorder Additional Past Medical History / Comment(s): HX HIATAL HERNIA. mac degeneration. PSORIASIS. GOUT Last Myocardial Infarction Date:: unk History of Any Multi-Drug Resistant Organisms: None Reported Past Surgical History: Heart Catheterization With Stent Additional Past Surgical History / Comment(s): COLONOSCOPY. 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 GENERATOR CHANGE-09/23/2014. leg stents Date of Last Stent Placement:: unk Past Psychological History: No Psychological Hx Reported Smoking Status: Former smoker Past Alcohol Use History: None Reported Past Drug Use History: None Reported General Exam - General Exam Comments Initial Comments: Is a well-developed well-nourished patient who is responsive to painful stimuli no definitive evidence of focal deficits Limitations: altered mental status General appearance: lethargic ENT exam: Present: mucous membranes dry, other (Postsurgical changes left ear) Neck exam: Present: normal inspection, full ROM, other Respiratory exam: Present: decreased breath sounds ( no stridor JVD or bruits) Cardiovascular Exam: Present: systolic murmur GI/Abdominal exam: Present: soft. Absent: guarding, rebound, bruit, pulsatile mass Rectal exam: Present: deferred exam: Present: normal inspection Neurological exam: Present: altered, CN II-XII intact, motor sensory deficit Psychiatric exam: Present: flat affect Course Vital Signs 07/15/23 07/15/23 07/15/23 15:50 16:41 18:17 Temperature 91 F L Pulse Rate 81 81 79 Respiratory 18 18 18 Rate Blood Pressure 162/102 173/80 173/77 O2 Sat by Pulse 92 L 96 98 Oximetry 07/15/23 19:40 Temperature Pulse Rate 81 Respiratory 21 Rate Blood Pressure 180/86 O2 Sat by Pulse 98 Oximetry - Reevaluation(s) Reevaluation #1: 07/15/23 21:17 Evaluates the patient he was still not responding very well but then when family arrived he did respond to family members. He still is not his usual self or family. EKG Findings - EKG Results: EKG: interpreted by ERMD (EKG interpreted by me sinus rhythm of 80 GA to 144 QRS ration 129 QT/QTc 452/488 with nonspecific inferior changes) Medical Decision Making - Medical Decision Making I did discuss findings with the patient's family reexamination of the patient revealed intermittent episodes of confused state. I did discuss case with Dr. Awad the patient will be admitted consultation by neurology and cardiology. She does have an elevated troponin clinical evidence of dehydration he did have urinary retention. Was pt. sent in by a medical professional or institution (, PA, ONLINE USER EXPERIENCE STRATEGIST, urgent care, hospital, or correction...) When possible be specific @ -No Did you speak to anyone other than the patient for history (EMS, parent, family, police, friend...)? What history was obtained from this source @ -Paramedics upon arrival as well as family Did you review nursing and triage notes (agree or disagree)? Why? @ -I reviewed and agree with nursing and triage notes Were old charts reviewed (outside hosp., previous admission, EMS record, old EKG, old radiological studies, urgent care reports/EKG's, correction records)? Report findings @ -Old charts were reviewed Differential Diagnosis (chest pain, altered mental status, abdominal pain women, abdominal pain men, vaginal bleeding, weakness, fever, dyspnea, syncope, headache, dizziness, GI bleed, back pain, seizure, CVA, palpatations, mental health, musculoskeletal)? @ -Altered mental status EKG interpreted by me (3pts min.). @ -As above EKG interpreted by me sinus rhythm at 80 occasional PVCs GA interval 144 QRS ration 129 QT/QTc 452/488 nonspecific inferior configuration X-rays interpreted by me (1pt min.). @ -X-ray interpreted by me no definitive acute changes or there are increased markings in the right lower lobe.. CT interpreted by me (1pt min.). @ -Evidence of sinus disease and left mastoid air cell disease this was interpreted by me U/S interpreted by me (1pt. min.). @ -None done What testing was considered but not performed or refused? (CT, X-rays, U/S, labs)? Why? @ -None What meds were considered but not given or refused? Why? @ -None Did you discuss the management of the patient with other professionals (professionals i.e. , PA, ONLINE USER EXPERIENCE STRATEGIST, lab, RT, psych nurse, medical social consultant, slps, teacher, branch officer, onsite case manager)? Give summary @ -Dr. wAad Was smoking cessation discussed for >3mins.? @ -No Was critical care preformed (if so, how long)? @ -No Were there social determinants of health that impacted care today? How? (Homelessness, low income, unemployed, alcoholism, drug addiction, transportation, low edu. Level, literacy, decrease access to med. care, fdc, rehab)? @ -No Was there de-escalation of care discussed even if they declined (Discuss DNR or withdrawal of care, Hospice)? DNR status @ -No What co-morbidities impacted this encounter? (DM, HTN, Smoking, COPD, CAD, Cancer, CVA, ARF, Chemo, Hep., AIDS, mental health diagnosis, sleep apnea, m orbid obesity)? @ -History of CO with stents squamous cell cancer thyroid disease defibrillator pacemaker Was patient admitted / discharged? Hospital course, mention meds given and route, prescriptions, significant lab abnormalities, going to OR and other pertinent info. @ -Hospital course patient was admitted for IV hydration and evaluation by cardiology and neurology. Undiagnosed new problem with uncertain prognosis? @ -No Drug Therapy requiring intensive monitoring for toxicity (Heparin, Nitro, Insulin, Cardizem)? @ -No Were any procedures done? @ -No Diagnosis/symptom? @ -Altered mental status, dehydration, urinary retention acute, chronic sinusitis elevated troponin Acute, or Chronic, or Acute on Chronic? @ -Acute Uncomplicated (without systemic symptoms) or Complicated (systemic symptoms)? @ -Default Side effects of treatment? @ -No Exacerbation, Progression, or Severe Exacerbation? @ -No Poses a threat to life or bodily function? How? (Chest pain, USA, CO, pneumonia, PE, COPD, DKA, ARF, appy, cholecystitis, CVA, Diverticulitis, Homicidal, Suicidal, threat to staff... and all critical care pts) @ -No - Lab Data Result diagrams: 07/15/23 15:58 07/15/23 15:58 Lab Results 07/15/23 07/15/23 07/15/23 Range/Units 15:58 15:58 15:58 WBC 7.7 (3.8-10.6) k/uL RBC 3.02 L (4.30-5.90) m/uL Hgb 9.7 L (13.0-17.5) gm/dL Hct 30.0 L (39.0-53.0) % MCV 99.2 (80.0-100.0) fL MCH 32.1 (25.0-35.0) pg MCHC 32.4 (31.0-37.0) g/dL RDW 14.2 (11.5-15.5) % Plt Count 122 L (150-450) k/uL MPV 10.7 Neutrophils % 82 % Lymphocytes % 9 % Monocytes % 7 % Eosinophils % 1 % Basophils % 0 % Neutrophils # 6.3 (1.3-7.7) k/uL Lymphocytes # 0.7 L (1.0-4.8) k/uL Monocytes # 0.5 (0-1.0) k/uL Eosinophils # 0.1 (0-0.7) k/uL Basophils # 0.0 (0-0.2) k/uL Macrocytosis Slight PT 11.4 (10.0-12.5) sec INR 1.0 (<1.2) APTT 21.8 L (22.0-30.0) sec Sodium 140 (137-145) mmol/L Potassium 3.5 (3.5-5.1) mmol/L Chloride 111 H (98-107) mmol/L Carbon Dioxide 27 (22-30) mmol/L Anion Gap 2 mmol/L BUN 26 H (9-20) mg/dL Creatinine 1.38 H (0.66-1.25) mg/dL Est GFR (CKD-EPI)AfAm 54 (>60 ml/min/1.73 sqM) Est GFR (CKD-EPI)NonAf 47 (>60 ml/min/1.73 sqM) Glucose 108 H (74-99) mg/dL Plasma Lactic Acid Louis (0.7-2.0) mmol/L Calcium 9.4 (8.4-10.2) mg/dL Total Bilirubin 0.5 (0.2-1.3) mg/dL AST 35 (17-59) U/L ALT 26 (4-49) U/L Alkaline Phosphatase 70 (38-126) U/L Ammonia (<30) umol/L Troponin I (0.000-0.034) ng/mL Total Protein 5.5 L (6.3-8.2) g/dL Albumin 2.9 L (3.5-5.0) g/dL Urine Color Urine Appearance (Clear) Urine pH (5.0-8.0) Ur Specific [place] (1.001-1.035) Urine Protein (Negative) Urine Glucose (UA) (Negative) Urine Ketones (Negative) Urine Blood (Negative) Urine Nitrite (Negative) Urine Bilirubin (Negative) Urine Urobilinogen (<2.0) mg/dL Ur Leukocyte Esterase (Negative) Urine RBC (0-5) /hpf Urine WBC (0-5) /hpf Ur Squamous Epith Cells (0-4) /hpf Ur Transition Epith Cell (0-1) /hpf Calcium Oxalate Crystal (None) /hpf Urine Bacteria (None) /hpf Hyaline Casts (0-2) /lpf Urine Mucus (None) /hpf Urine Opiates Screen (NotDetected) Ur Oxycodone Screen (NotDetected) Urine Methadone Screen (NotDetected) Ur Barbiturates Screen (NotDetected) U Tricyclic Antidepress (NotDetected) Ur Phencyclidine Scrn (NotDetected) Ur Amphetamines Screen (NotDetected) U Methamphetamines Scrn (NotDetected) U Benzodiazepines Scrn (NotDetected) Urine Cocaine Screen (NotDetected) U Marijuana (THC) Screen (NotDetected) Influenza Type A (PCR) (Not Detectd) Influenza Type B (PCR) (Not Detectd) RSV (PCR) (Not Detectd) SARS-CoV-2 (PCR) (Not Detectd) 07/15/23 07/15/23 07/15/23 Range/Units 15:58 15:58 16:10 WBC (3.8-10.6) k/uL RBC (4.30-5.90) m/uL Hgb (13.0-17.5) gm/dL Hct (39.0-53.0) % MCV (80.0-100.0) fL MCH (25.0-35.0) pg MCHC (31.0-37.0) g/dL RDW (11.5-15.5) % Plt Count (150-450) k/uL MPV Neutrophils % % Lymphocytes % % Monocytes % % Eosinophils % % Basophils % % Neutrophils # (1.3-7.7) k/uL Lymphocytes # (1.0-4.8) k/uL Monocytes # (0-1.0) k/uL Eosinophils # (0-0.7) k/uL Basophils # (0-0.2) k/uL Macrocytosis PT (10.0-12.5) sec INR (<1.2) APTT (22.0-30.0) sec Sodium (137-145) mmol/L Potassium (3.5-5.1) mmol/L Chloride (98-107) mmol/L Carbon Dioxide (22-30) mmol/L Anion Gap mmol/L BUN (9-20) mg/dL Creatinine (0.66-1.25) mg/dL Est GFR (CKD-EPI)AfAm (>60 ml/min/1.73 sqM) Est GFR (CKD-EPI)NonAf (>60 ml/min/1.73 sqM) Glucose (74-99) mg/dL Plasma Lactic Acid Louis 0.7 (0.7-2.0) mmol/L Calcium (8.4-10.2) mg/dL Total Bilirubin (0.2-1.3) mg/dL AST (17-59) U/L ALT (4-49) U/L Alkaline Phosphatase (38-126) U/L Ammonia <9 (<30) umol/L Troponin I 0.060 H* (0.000-0.034) ng/mL Total Protein (6.3-8.2) g/dL Albumin (3.5-5.0) g/dL Urine Color Yellow Urine Appearance Clear (Clear) Urine pH 5.5 (5.0-8.0) Ur Specific [place] 1.023 (1.001-1.035) Urine Protein 2+ H (Negative) Urine Glucose (UA) Negative (Negative) Urine Ketones Negative (Negative) Urine Blood Small H (Negative) Urine Nitrite Negative (Negative) Urine Bilirubin Negative (Negative) Urine Urobilinogen 2.0 (<2.0) mg/dL Ur Leukocyte Esterase Negative (Negative) Urine RBC 2 (0-5) /hpf Urine WBC 4 (0-5) /hpf Ur Squamous Epith Cells <1 (0-4) /hpf Ur Transition Epith Cell <1 (0-1) /hpf Calcium Oxalate Crystal Rare H (None) /hpf Urine Bacteria Rare H (None) /hpf Hyaline Casts 13 H (0-2) /lpf Urine Mucus Occasional H (None) /hpf Urine Opiates Screen Not Detected (NotDetected) Ur Oxycodone Screen Not Detected (NotDetected) Urine Methadone Screen Not Detected (NotDetected) Ur Barbiturates Screen Not Detected (NotDetected) U Tricyclic Antidepress Not Detected (NotDetected) Ur Phencyclidine Scrn Not Detected (NotDetected) Ur Amphetamines Screen Not Detected (NotDetected) U Methamphetamines Scrn Not Detected (NotDetected) U Benzodiazepines Scrn Not Detected (NotDetected) Urine Cocaine Screen Not Detected (NotDetected) U Marijuana (THC) Screen Not Detected (NotDetected) Influenza Type A (PCR) (Not Detectd) Influenza Type B (PCR) (Not Detectd) RSV (PCR) (Not Detectd) SARS-CoV-2 (PCR) (Not Detectd) 07/15/23 Range/Units 16:10 WBC (3.8-10.6) k/uL RBC (4.30-5.90) m/uL Hgb (13.0-17.5) gm/dL Hct (39.0-53.0) % MCV (80.0-100.0) fL MCH (25.0-35.0) pg MCHC (31.0-37.0) g/dL RDW (11.5-15.5) % Plt Count (150-450) k/uL MPV Neutrophils % % Lymphocytes % % Monocytes % % Eosinophils % % Basophils % % Neutrophils # (1.3-7.7) k/uL Lymphocytes # (1.0-4.8) k/uL Monocytes # (0-1.0) k/uL Eosinophils # (0-0.7) k/uL Basophils # (0-0.2) k/uL Macrocytosis PT (10.0-12.5) sec INR (<1.2) APTT (22.0-30.0) sec Sodium (137-145) mmol/L Potassium (3.5-5.1) mmol/L Chloride (98-107) mmol/L Carbon Dioxide (22-30) mmol/L Anion Gap mmol/L BUN (9-20) mg/dL Creatinine (0.66-1.25) mg/dL Est GFR (CKD-EPI)AfAm (>60 ml/min/1.73 sqM) Est GFR (CKD-EPI)NonAf (>60 ml/min/1.73 sqM) Glucose (74-99) mg/dL Plasma Lactic Acid Louis (0.7-2.0) mmol/L Calcium (8.4-10.2) mg/dL Total Bilirubin (0.2-1.3) mg/dL AST (17-59) U/L ALT (4-49) U/L Alkaline Phosphatase (38-126) U/L Ammonia (<30) umol/L Troponin I (0.000-0.034) ng/mL Total Protein (6.3-8.2) g/dL Albumin (3.5-5.0) g/dL Urine Color Urine Appearance (Clear) Urine pH (5.0-8.0) Ur Specific [place] (1.001-1.035) Urine Protein (Negative) Urine Glucose (UA) (Negative) Urine Ketones (Negative) Urine Blood (Negative) Urine Nitrite (Negative) Urine Bilirubin (Negative) Urine Urobilinogen (<2.0) mg/dL Ur Leukocyte Esterase (Negative) Urine RBC (0-5) /hpf Urine WBC (0-5) /hpf Ur Squamous Epith Cells (0-4) /hpf Ur Transition Epith Cell (0-1) /hpf Calcium Oxalate Crystal (None) /hpf Urine Bacteria (None) /hpf Hyaline Casts (0-2) /lpf Urine Mucus (None) /hpf Urine Opiates Screen (NotDetected) Ur Oxycodone Screen (NotDetected) Urine Methadone Screen (NotDetected) Ur Barbiturates Screen (NotDetected) U Tricyclic Antidepress (NotDetected) Ur Phencyclidine Scrn (NotDetected) Ur Amphetamines Screen (NotDetected) U Methamphetamines Scrn (NotDetected) U Benzodiazepines Scrn (NotDetected) Urine Cocaine Screen (NotDetected) U Marijuana (THC) Screen (NotDetected) Influenza Type A (PCR) Not Detected (Not Detectd) Influenza Type B (PCR) Not Detected (Not Detectd) RSV (PCR) Not Detected (Not Detectd) SARS-CoV-2 (PCR) Not Detected (Not Detectd) Disposition Clinical Impression: Altered mental status, Elevated troponin, Failure to thrive Disposition: ADMITTED IP TO THIS [facility] Condition: Fair Referrals: None,Stated [REFERRING] - 1-2 days Decision Date: 07/15/23 Decision Time: 20:30
[2023-07-15] MEDS: SODIUM CHLORIDE 0.9% 500 ML 500 ML IV ONE (16:08)
[2023-07-15] MEDS: SODIUM CHLORIDE 0.9% 1,000 ML IV STA (16:09)
[2023-07-15 16:10] LABS: Basophils % (A) 0 %; Eosinophils # (A) 0.1 k/uL (0-0.7); Eosinophils % (A) 1 %; HGB 9.7 gm/dL (13.0-17.5); Lymphocytes # (A) 0.7 k/uL (1.0-4.8); Lymphocytes % (A) 9 %; MCH 32.1 pg (25.0-35.0); MCHC 32.4 g/dL (31.0-37.0); MCV 99.2 fL (80.0-100.0); Macrocytosis Slight; Mean Platelet Volume 10.7; Monocytes # (A) 0.5 k/uL (0-1.0); Monocytes % (A) 7 %; Neutrophils # (A) 6.3 k/uL (1.3-7.7); Neutrophils % (A) 82 %; Platelet Count 122 k/uL (150-450); RBC 3.02 m/uL (4.30-5.90); RDW 14.2 % (11.5-15.5); WBC 7.7 k/uL (3.8-10.6)
[2023-07-15 16:25] LABS: Partial Thromboplastin Time 21.8 sec (22.0-30.0); Prothrombin Time 11.4 sec (10.0-12.5)
[2023-07-15 16:26] LABS: Lactic Acid, Venous 0.7 mmol/L (0.7-2.0)
[2023-07-15 16:27] LABS: ALT 26 U/L (4-49); AST 35 U/L (17-59); African American GFR (CKD) 54 (>60 ml/min/1.73 sqM); Albumin 2.9 g/dL (3.5-5.0); Alkaline Phosphatase 70 U/L (38-126); Anion Gap 2 mmol/L; Blood Urea Nitrogen 26 mg/dL (9-20); Calcium 9.4 mg/dL (8.4-10.2); Carbon Dioxide 27 mmol/L (22-30); Chloride 111 mmol/L (98-107); Glucose 108 mg/dL (74-99); Non-African American GFR(CKD) 47 (>60 ml/min/1.73 sqM); Potassium 3.5 mmol/L (3.5-5.1); Sodium 140 mmol/L (137-145); Total Bilirubin 0.5 mg/dL (0.2-1.3); Total Protein 5.5 g/dL (6.3-8.2)
[2023-07-15 16:54] LABS: Amphetamine Screen,Urine Not Detected (NotDetected); Appearance,Urine Clear (Clear); Bacteria,Urine Rare /hpf; Barbiturate Screen,Urine Not Detected (NotDetected); Benzodiazepines Screen,Urine Not Detected (NotDetected); Bilirubin,Urine Negative (Negative); Blood,Urine Small (Negative); Calcium Oxalate Crystals,Urine Rare /hpf; Cocaine Screen,Urine Not Detected (NotDetected); Color,Urine Yellow; Glucose,Urine (UA) Negative (Negative); Hyaline Casts,Urine 13 /lpf (0-2); Ketones,Urine Negative (Negative); Leukocyte Esterase,Urine Negative (Negative); Methadone Screen, Urine Not Detected (NotDetected); Mucus,Urine Occasional /hpf; Nitrite,Urine Negative (Negative); Opiate Screen,Urine Not Detected (NotDetected); Oxycodone Screen, Urine Not Detected (NotDetected); PH, Urine 5.5 (5.0-8.0); Phencyclidine Screen,Urine Not Detected (NotDetected); Protein,Urine 2+ (Negative); RBC,Urine 2 /hpf (0-5); Specific Gravity,Urine 1.023 (1.001-1.035); Squamous Epithelial Cell,Urine <1 /hpf (0-4); Transitional Epi Cells,Urine <1 /hpf (0-1); Tricyclic Antidepressant,Urine Not Detected (NotDetected); Urn Cannabinoid Scrn Not Detected (NotDetected); WBC,Urine 4 /hpf (0-5)
--- NOTE | 2023-07-15 17:27 | CT ---
EXAMINATION TYPE: CT brain wo con CT DLP: 1148.4 mGycm, Automated exposure control for dose reduction was used. DATE OF EXAM: 07/15/2023 5:11 PM COMPARISON: 03/11/2023. CLINICAL INDICATION:Male, 83 years old with history of Altered mental status, AMS TECHNIQUE: Brain: Axial CT images of the brain were obtained with coronal and sagittal reformats created and rev iewed. Contrast used: None. Oral contrast used: None. FINDINGS: Brain: Extra-axial spaces: No abnormal extra-axial fluid collections. Ventricular system: Dilatation in proportion to cerebral atrophy. Cerebral parenchyma: Cerebral atrophy. No acute intraparenchymal hemorrhage or mass effect. The knight -white junction is well differentiated. Scattered hypoattenuating areas are seen within the white mat ter. Cerebellum: Unremarkable. Mass effect: No evidence of midline shift. Intracranial vasculature: Atherosclerotic calcifications of the intracranial vessels. Soft tissues: Normal. Calvarium/osseous structures: No depressed skull fracture. Paranasal sinuses and mastoid air cells: Severe paranasal sinus disease. Scattered mastoid air cell e ffusion and the left. Visualized orbits: Bilateral aphakia IMPRESSION: 1. No acute intracranial process. 2. Nonspecific white matter changes, likely secondary to chronic small vessel ischemic disease. 3. Severe paranasal sinus disease with left mastoid air cell effusion.
--- NOTE | 2023-07-15 18:16 | XR ---
EXAMINATION TYPE: XR chest 2V DATE OF EXAM: 07/15/2023 5:45 PM CLINICAL INDICATION:Male, 83 years old with history of altered mental status; [facility] COMPARISON: Chest radiographs from 09/07/2021. TECHNIQUE: XR chest 2V Frontal and lateral views of the chest. FINDINGS: Lungs/Pleura: Airspace opacities project over the lung right lung base. There is no evidence of pleur al effusion, left focal consolidation, or pneumothorax. Pulmonary vascularity: Unremarkable. Heart/mediastinum: Cardiomediastinal silhouette is enlarged and stable. Musculoskeletal: No acute osseous pathology. Other findings: None IMPRESSION: Airspace opacities project over the right lung base correlate for pneumonia.
[2023-07-15] MEDS ORDERED: NALOXONE 0.4 MG/ML 1 ML VIAL IV PRN (21:26)
[2023-07-15] MEDS ORDERED: NITROGLYCERIN SL TABS 0.4 MG TAB SUBLINGUAL PRN (21:29)
[2023-07-15] MEDS ORDERED: ALPRAZolam 0.5 MG TAB PO PRN (21:29)
[2023-07-15] MEDS ORDERED: MAGNESIUM HYDROXIDE 2,400 MG/30 ML CUP PO PRN (22:00)
[2023-07-15] MEDS: AMIODARONE 100 MG TAB PO SCH (23:00)
[2023-07-15] MEDS: ATORVASTATIN 20 MG TAB PO SCH (23:00)
[2023-07-15] MEDS: hydrALAZINE HCL 50 MG TAB PO SCH (23:00)
[2023-07-16] MEDS ORDERED: IPRATROPIUM-ALBUTEROL 3 ML NEB INHALATION SCH (02:00)
[2023-07-16] MEDS: SODIUM CHLORIDE 0.9% 1,000 ML IV SCH (07:10)
[2023-07-16] MEDS: ISOSORBIDE MONONITRATE ER 60 MG TAB.ER.24H PO SCH (07:37)
[2023-07-16] MEDS: AMOXIC-POT CLAV 875-125MG 1 EACH TAB PO SCH (07:37)
[2023-07-16] MEDS: THEOPHYLLINE 24 HOUR 300 MG CAP.ER.24H PO SCH (07:37)
[2023-07-16] MEDS: PANTOPRAZOLE 40 MG TABLET PO SCH (07:37)
[2023-07-16] MEDS: SERTRALINE 50 MG TAB PO SCH (07:37)
[2023-07-16] MEDS: carvediloL 12.5 MG TAB PO SCH (07:37)
[2023-07-16] MEDS: TAMSULOSIN 0.4 MG CAP.ER.24H PO SCH (07:37)
[2023-07-16] MEDS: LEVOTHYROXINE 112 MCG TAB PO SCH (07:37)
[2023-07-16] MEDS: allopurinoL 100 MG TAB PO SCH (07:38)
[2023-07-16] MEDS ORDERED: NON FORMULARY DRUG (Ensure Enlive 237 ML) PO SCH (08:00)
[2023-07-16] MEDS: IPRATROPIUM-ALBUTEROL 3 ML NEB INHALATION SCH (08:05)
[2023-07-16] MEDS: NITROGLYCERIN OINT 1 INCH/GM PACKET TOPICAL SCH (08:23)
[2023-07-16] MEDS ORDERED: NA PHOS,M-B/NA PHOS,DI-BA 133 ML ENEMA RECTAL PRN (09:00)
--- NOTE | 2023-07-16 09:01 | P.CRDCN ---
History of Present Illness Consult date: 07/16/23 Reason for Consult (text): Elevated troponins History of present illness: History of present illness: This is an 83-year-old male patient of Dr. 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 We have been asked to evaluate the patient for elevated troponins. Patient is on had a recent hospitalization at [facility] for infected scalp wound post radiation therapy with confusion and sepsis, acute kidney injury. Patient was stabilized and discharged to [facility] where he continued to have problems with mental status changes. 2 days ago he was sent to [facility] and was discharged back to the intermediate. Apparently, mental status changes worsened and patient had decreased oral intake and was brought in to [facility]. Patient is seen today on the cardiac stepdown unit. Patient is quite confused and unable to provide any history. EKG sinus rhythm Chest x-ray: Airspace opacities project over the right lung base correlate for pneumonia. CAT scan of the brain no acute finding. WBC 7.7, hemoglobin 9.7, platelet count 122. INR 1. Sodium 140, potassium 3.5, BUN 26 and creatinine 1.38. Troponins 0.06, 0.064, 0.071. Liver function test are within normal limits. Urine drug screen small amount of blood rare bacteria. Urine drug screen was negative. Influenza A, influenza B, RSV and COVID-19 not detected. Home cardiac medications: Amiodarone 100 mg at bedtime, aspirin 325 mg daily Lipitor 20 mg at bedtime, Coreg 12.5 mg twice daily, hydralazine 50 mg every 8 hours, Imdur 60 mg twice daily, levothyroxine 112 mcg daily, Nitrostat as needed. Echocardiogram performed in the office on 06/17/2022 revealed EF of 45 to 50%. Mild to moderate mitral vegetation, mild to moderate tricuspid regurgitation, PASP 42 mmHg. Lexiscan Cardiolite stress test performed in the office on 11/03/2019 was negative stress by EKG criteria. Abnormal nuclear scan showing evidence of prior inferior wall myocardial infarction with moderate LV dysfunction without any ischemia. Cardiac catheterization history: October 2011 revealing right coronary artery which is a large caliber vessel. 100% occluded by its ostium. Left main is a large caliber vessel that is angiographically normal. It bifurcates into left circumflex and left anterior descending artery. Left circumflex is 100% occluded in the proximal portion. It fills by collaterals from the left coronary system. Proximal LAD appeared to have mild disease only in the range of 10-20%. Mid LAD appeared to have mild disease only. Distal LAD is normal. The LAD gives rise to the very first day and a branch which is almost like a ramus which appeared to be normal. Then the second third diagonal branches are small caliber arteries which also appeared to be normal. Medical management was recommended. Review Of Systems: At the time of my exam: CONSTITUTIONAL: Denies fever or chills. HEENT: Denies blurred vision, vision changes, or eye pain. Denies hemoptysis CARDIOVASCULAR: Denies chest pain. Denies orthopnea. Denies PND. Denies palpitations RESPIRATORY: Denies shortness of breath. GASTROINTESTINAL: Denies abdominal pain. Denies nausea or vomiting. HEMATOLOGIC: Denies bleeding disorders. GENITOURINARY: Denies any blood in urine. SKIN: Denies pruitis. Denies rash. Physical examination: Gen: This is an 83-year-old male in no acute distress. VS: reviewed HEENT: Head is atraumatic, normocephalic. Pupils equal, round. Sclerae is anicteric. NECK: Supple. No JVD. LUNGS: Clear to auscultation. No wheezes or rhonchi. No intercostal retractions. HEART: Regular rate and rhythm. No murmur. ABDOMEN: Soft No tenderness. EXTREMITIES: No pedal edema. No calf tenderness. NEUROLOGICAL: Patient is awake, confused. Assessment: Elevated troponins of unclear significance not type I or type II [place] Metabolic encephalopathy of unclear etiology Squamous cell carcinoma left ear status post radiation with wound Coronary artery disease with known occlusion of the RCA and circumflex Ischemic cardiomyopathy Chronic systolic heart failure History of ventricular tachycardia History of AICD implantation Chronic kidney disease Hypertension Hyperlipidemia Plan: Resume patient's home cardiac medications Obtain 2-D echocardiogram and Doppler study to assess cardiac structure and function Further recommendations to follow based upon clinical course Thank you kindly for this consultation. Nurse practitioner note has been reviewed, I agree with documented findings and plan of care. Patient was seen and examined. Past Medical History Past Medical History: Cancer, Myocardial Infarction ([place]), Thyroid Disorder Additional Past Medical History / Comment(s): HX HIATAL HERNIA. mac degeneration. PSORIASIS. GOUT Last Myocardial Infarction Date:: unk History of Any Multi-Drug Resistant Organisms: None Reported Past Surgical History: Heart Catheterization With Stent Additional Past Surgical History / Comment(s): COLONOSCOPY. AICD/[employer]EM[employer]- [employer]. GENERATOR CHANGE-09/23/2014. leg stents Date of Last Stent Placement:: unk Past Psychological History: No Psychological Hx Reported Smoking Status: Former smoker Past Alcohol Use History: None Reported Past Drug Use History: None Reported Medications and Allergies Home Medications Medication Instructions Recorded Confirmed Type Aspirin 325 mg PO DAILY@169909/20/14 07/15/23 History Atorvastatin [Lipitor] 20 mg PO HS@212909/20/14 07/15/23 History Isosorbide Mononitrate ER [Imdur] 60 mg PO BID@0800,169909/20/14 07/15/23 History ALPRAZolam [Xanax] 0.5 mg PO BID PRN 02/10/21 07/15/23 History Ergocalciferol [Vitamin D2 (1250 1,250 mcg PO TU@0800 02/10/21 07/15/23 History Mcg = 88978 Iu)] Nitroglycerin Sl Tabs [Nitrostat] 0.4 mg SL Q5M PRN 02/10/21 07/15/23 History Amiodarone [Cordarone] 100 mg PO HS@212909/07/21 07/15/23 History Levothyroxine Sodium [Levoxyl] 112 mcg PO DAILY@0809/07/21 07/15/23 History Sertraline [Zoloft] 50 mg PO DAILY@0800 09/07/21 07/15/23 History Amoxic-Pot Clav 875-125Mg 1 tab PO Q12HR@0800,2100 07/15/23 07/15/23 History [Augmentin 875-125] Ensure Enlive 237 ml PO TID@0800,1200,1700 07/15/23 07/15/23 History Ipratropium-Albuterol Nebulize 3 ml INHALATION RT-Q6H 07/15/23 07/15/23 History [Duoneb 0.5 mg-3 mg/3 ml Soln] Magnesium Hydroxide [Milk of 7,200 mg PO DAILY PRN 07/15/23 07/15/23 History Magnesia Concentrate] Na Phos,M-B/Na Phos,Di-Ba [Fleet 133 ml RECTAL DAILY PRN 07/15/23 07/15/23 History Adult] Pantoprazole [Protonix] 40 mg PO DAILY@0800 07/15/23 07/15/23 History Tamsulosin HCl [Flomax] 0.4 mg PO DAILY@0800 07/15/23 07/15/23 History Theophylline 24 Hour [Ashok-24] 300 mg PO DAILY@0800 07/15/23 07/15/23 History allopurinoL [Zyloprim] 200 mg PO DAILY@0800 07/15/23 07/15/23 History bisacodyL [Dulcolax] 10 mg RECTAL Q24H PRN 07/15/23 07/15/23 History carvediloL [Coreg] 12.5 mg PO BID@0800,1700 07/15/23 07/15/23 History hydrALAZINE HCL [Apresoline] 50 mg PO Q8HR@0600,1400,2200 07/15/23 07/15/23 History Allergies Allergy/AdvReac Type Severity Reaction Status Date / Time prednisone AdvReac Hallucinati Verified 07/15/23 18:38 ons Physical Exam Vitals: Vital Signs Temp Pulse Pulse Resp BP BP Pulse Ox 07/16/23 04:00 96 20 172/75 94 L 07/16/23 01:10 16 07/16/23 01:00 98.2 F 16 119/72 95 07/16/23 00:30 77 12 176/75 98 07/16/23 00:00 79 12 173/76 95 07/15/23 23:00 99.6 F 80 14 167/72 95 07/15/23 22:30 80 12 166/77 95 07/15/23 22:00 80 14 169/73 95 07/15/23 21:30 89 17 163/82 95 07/15/23 21:00 92 20 164/87 95 07/15/23 20:30 84 17 171/85 94 L 07/15/23 20:00 78 15 167/80 99 02/16/24 19:40 81 21 180/86 98 07/15/23 19:30 84 12 162/87 98 07/15/23 19:23 81 19 165/88 95 07/15/23 18:17 79 18 173/77 98 07/15/23 16:41 81 18 173/80 96 07/15/23 15:50 91 F L 81 18 162/102 92 L Intake and Output 07/15/23 07/16/23 07/16/23 22:59 06:59 14:59 Output Total 1020 1 Balance -1020 -1 Output: Urine 500 1 Uretheral (Soto) 500 Post Void Residual 520 Other: Voiding Method Indwelling Catheter Weight 83.915 kg Results 07/15/23 15:58 07/15/23 15:58 Cardiac Enzymes 07/15/23 07/15/23 07/15/23 Range/Units 15:58 15:58 22:10 AST 35 (17-59) U/L Troponin I 0.060 H* 0.064 H* (0.000-0.034) ng/mL 07/16/23 Range/Units 01:41 AST (17-59) U/L Troponin I 0.071 H* (0.000-0.034) ng/mL Coagulation 07/15/23 Range/Units 15:58 PT 11.4 (10.0-12.5) sec APTT 21.8 L (22.0-30.0) sec CBC 07/15/23 Range/Units 15:58 WBC 7.7 (3.8-10.6) k/uL RBC 3.02 L (4.30-5.90) m/uL Hgb 9.7 L (13.0-17.5) gm/dL Hct 30.0 L (39.0-53.0) % Plt Count 122 L (150-450) k/uL Comprehensive Metabolic Panel 07/15/23 Range/Units 15:58 Sodium 140 (137-145) mmol/L Potassium 3.5 (3.5-5.1) mmol/L Chloride 111 H (98-107) mmol/L Carbon Dioxide 27 (22-30) mmol/L BUN 26 H (9-20) mg/dL Creatinine 1.38 H (0.66-1.25) mg/dL Glucose 108 H (74-99) mg/dL Calcium 9.4 (8.4-10.2) mg/dL AST 35 (17-59) U/L ALT 26 (4-49) U/L Alkaline Phosphatase 70 (38-126) U/L Total Protein 5.5 L (6.3-8.2) g/dL Albumin 2.9 L (3.5-5.0) g/dL Current Medications Generic Name Dose Route Start Last Admin Trade Name Freq PRN Reason Stop Dose Admin Albuterol/Ipratropium 3 ml 07/15/23 21:38 Ipratropium-Albuterol 3 Ml Neb INHALATION RT-Q2H PRN Shortness Of Breath Or Wheezing Albuterol/Ipratropium 3 ml 07/16/23 08:00 Ipratropium-Albuterol 3 Ml Neb INHALATION RT-QID [facility] Allopurinol 200 mg 07/16/23 08:00 Allopurinol 100 Mg Tab PO DAILY@0800 [facility] Alprazolam 0.5 mg 07/15/23 21:29 Alprazolam 0.5 Mg Tab PO BID PRN Anxiety Amiodarone HCl 100 mg 07/15/23 21:30 07/15/23 23:00 Amiodarone 100 Mg Tab PO Not Given HS@2130 [facility] Amoxicillin/Clavulanate Potassium 1 each 07/16/23 08:00 Amoxic-Pot Clav 875-125mg 1 Each Tab PO Q12HR@0800,2100 [facility] Protocol Aspirin 325 mg 07/16/23 17:00 Aspirin 325 Mg Tab PO DAILY@1700 [facility] Atorvastatin Calcium 20 mg 07/15/23 21:30 07/15/23 23:00 Atorvastatin 20 Mg Tab PO Not Given HS@2130 [facility] Bisacodyl 10 mg 07/16/23 09:00 Bisacodyl 10 Mg Supp RECTAL Q24H PRN Constipation Carvedilol 12.5 mg 07/16/23 08:00 Carvedilol 12.5 Mg Tab PO BID@0800,1700 [facility] Ergocalciferol 1,250 mcg 07/19/23 08:00 Ergocalciferol 1,250 Mcg (50,000 Iu) Capsule PO TU@0800 [facility] Hydralazine HCl 50 mg 07/15/23 22:00 07/16/23 07:09 Hydralazine Hcl 50 Mg Tab PO 50 mg Q8HR@0600,1400,2200 [facility] Administration Sodium Chloride 1,000 mls @ 130 mls/hr 07/15/23 21:30 07/16/23 07:12 Saline 0.9% IV Not Given .Q7H42M [facility] Isosorbide Mononitrate 60 mg 07/16/23 08:00 Isosorbide Mononitrate Er 60 Mg Tab.Er.24h PO BID@0800,1700 [facility] Levothyroxine Sodium 112 mcg 07/16/23 08:00 Levothyroxine 112 Mcg Tab PO DAILY@0800 [facility] Magnesium Hydroxide 2,400 mg 07/15/23 22:00 Magnesium Hydroxide 2,400 Mg/30 Ml Cup PO DAILY PRN Constipation Naloxone HCl 0.2 mg 07/15/23 21:26 Naloxone 0.4 Mg/Ml 1 Ml Vial IV Q2M PRN Opioid Reversal Nitroglycerin 0.4 mg 07/15/23 21:29 Nitroglycerin Sl Tabs 0.4 Mg Tab SUBLINGUAL Q5M PRN Chest Pain Pantoprazole Sodium 40 mg 07/16/23 08:00 Pantoprazole 40 Mg Tablet PO DAILY@0800 [facility] Sertraline HCl 50 mg 07/16/23 08:00 Sertraline 50 Mg Tab PO DAILY@0800 [facility] Sodium Biphosphate/Sodium Phosphate 133 ml 07/16/23 09:00 Na Phos,M-B/Na Phos,Di-Ba 133 Ml Enema RECTAL DAILY PRN Constipation Tamsulosin HCl 0.4 mg 07/16/23 08:00 Tamsulosin 0.4 Mg Cap.Er.24h PO DAILY@0800 [facility] Theophylline 300 mg 07/16/23 08:00 Theophylline 24 Hour 300 Mg Cap.Er.24h PO DAILY@0800 [facility] Intake and Output 07/15/23 07/16/23 07/16/23 22:59 06:59 14:59 Output Total 1020 1 Balance -1020 -1 Output: Urine 500 1 Uretheral (Soto) 500 Post Void Residual 520 Other: Voiding Method Indwelling Catheter Weight 83.915 kg 07/15/23 15:58 07/15/23 15:58
[2023-07-16] MEDS ORDERED: VANCOMYCIN IV PER PHARMACY 1 EACH MISC MISCELLANE PRN (11:37)
[2023-07-16] MEDS: CEFEPIME 2 GM in SODIUM CHLORIDE 0.9% 100 ML IVPB SCH (12:23)
[2023-07-16] MEDS: VANCOMYCIN 1,000 MG in SODIUM CHLORIDE 0.9% 250 ML IVPB STA (12:29)
[2023-07-16] MEDS: VANCOMYCIN 1,500 MG in SODIUM CHLORIDE 0.9% 500 ML 500 ML IVPB SCH (12:57)
[2023-07-16 13:21] VITALS: BMI 26.5
--- NOTE | 2023-07-16 13:29 | P.HPIM ---
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, patient was recently hospitalized at [facility] for what appears to be an infected wound due to his radiation therapy behind his ear, the culture at that time showed Staphylococcus aureus as well as Corynebacterium species he was started on cefepime 2 g IV piggyback every 8 hours as well as vancomycin with pharmacy to dose, he was seen in consultation by infectious disease, his CT scan of the brain at that time did not show any evidence of acute abnormalities, patient was transitioned into oral Augmentin 875 mg orally twice every day for 10 days, patient went tomorrow for physical therapy and rehabilitation while he was at moderate he developed to have a significant mental status changes he became quite unresponsive does not follow much commands, he was not eating or drinking much, these symptoms waxes and wane on and off, patient initially was sent back to the emergency department at [facility], he had a CT scan of the brain did not show evidence of acute abnormalities his laboratory evaluation were fine he did appear to have a bit of infiltrate of the right lower lobe, he was sent back home since his procalcitonin level was negative, his BNP was lower, white count were normal, patient went back tomorrow and he became more drowsy subtended does not follow any commands, the nursing staff has contacted me yesterday he was directed to go to the ER at [facility], he had a chest x-ray that showed possible right lower lobe pneumonia, CT scan of the brain did not show evidence of acute abnormalities, his troponin was slightly elevated suggestive of type II IL due to possible sepsis, he was seen in consultation by cardiology who recommended echocardiogram for evaluation of LV function, he was started back on his Augmentin I will discontinue that and start the patient on cefepime 2 g IV piggyback every 12 hours along with vancomycin pharmacy to dose will obtain infectious disease consultation, will obtain neurology consultation as well as for evaluation of his mental status changes will continue to follow-up with the patient REVIEW OF SYSTEMS: Constitutional: low grade fever, no chills, no night sweats. No weight change. positive for weakness,positive for fatigue and lethargy. positive for daytime sleepiness. EENT: No headache. No blurred vision or double vision, no loss of vision. No loss of Hearing, no ringing in the ears, no dizziness. No nasal drainage or congestion. No epistaxis. No sore throat. Lungs: No shortness of breath, no cough, no sputum production. No wheezing. Reports dyspnea with activity. Cardiovascular: No chest pain, no lower extremity edema. No palpitations. No paroxysmal nocturnal dyspnea. No orthopnea. No lightheadedness or dizziness. No syncopal episodes. Abdominal: Reports abdominal pain. No nausea, vomiting. No diarrhea. No constipation. No bloody or tarry stools reports loss of appetite. Genitourinary: No dysuria, increased frequency, urgency. No urinary retention. Musculoskeletal: No myalgias. positive for muscle weakness, no gait dysfunction, positive for frequent falls. No back pain. No neck pain. Integumentary: wound behind left ear post radiation for SCC, no lesions. No rash or pruritus. No unusual bruising. No change in hair or nails. Neurologic: No aphasia. No facial droop. positive for change in mentation. No head injury. No headache. No paralysis. No paresthesia. Psychiatric: positive for depression. positive for anxiety. No mood swings.positive for paranoia Endocrine: No abnormal blood sugars. No weight change. PAST MEDICAL HISTORY: Coronary artery disease status post PCI Ischemic cardiomyopathy status post AICD. Hypertension and hypertensive cardiovascular disease Mixed hyperlipidemia COPD Major depressive disorder. Peptic ulcer disease. Gout chronic Chronic kidney disease stage IIIb. Squamous cell carcinoma behind the left ear status post radiation therapy Enlarged prostate. Osteoarthritis Dry eye syndrome. PAST SURGICAL HISTORY: Heart catheterization with PCI. Left carpal tunnel release. Bilateral cataract surgery Colonoscopy 2015 CAD post PTCA with a stent placement in both legs. 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 postradiation therapy ICD implantation. With generator exchange 2014 SOCIAL HISTORY: Patient used to smoke 3 pack every day since the age of 12 and he quit in 1998, he drinks socially, he denies any drug use or abuse, he lives with his FAMILY HISTORY: Patient is adopted he does not know his parent, patient has a brother with hypertension, and patient has 2 sons alive and well and 3 daughters alive and well PHYSICAL EXAMINATION: General: 83-year-old male laying down in bed appears to be quite confused nonverbal. HEENT: Head is atraumatic, normocephalic, pupils were equal round reactive to light and recommendation, extraocular muscle movement were intact, sclera nonic teric, conjunctivae were pale, mucous membranes of the mouth are somewhat dry, the large wound behind the left ear with a clean base minimal drainage Neck: Supple, no JVP, normal carotid upstroke bilaterally, no lymphadenopathy. Chest: Decreased breath sounds at the bases, few rhonchi, no expiratory wheezes, no chest wall tenderness, no intercostal retractions. Heart: First heart sound is normal, second heart sound is normal there is systolic ejection murmur 2/6 located in the left sternal border, there is AICD in the left upper precordium slightly tender to touch Abdomen: Soft, nontender, nondistended, positive bowel sounds. Extremities: There is +1 edema no calf tenderness DP +2 bilaterally. Neurologic examination: Patient is confused opens his eyes in response to verbal stimuli, nonverbal, follows some commands not all the commands, moves all his extremities respond to the questions very well. ASSESSMENT AND PLAN: 1. Metabolic encephalopathy likely due to sepsis due to gram-negative right lower lobe pneumonia and possible infected wound behind his left ear. Blood culture, wound culture, aerobic and anaerobic, start the patient on vancomycin 1 g IV piggyback x 1 start cefepime 2 g IV piggyback every 12 hours, infectious disease consultation, neurology consultation, I will consult radiation oncology Dr. Welsh from [facility], reevaluate the patient, unfortunately patient cannot go for MRI due to AICD placement, we will continue to monitor the patient very closely this been going on for the past 10 days. 2. Gram negative pneumonia likely patient was at [facility] and continue cefepime and vancomycin, sputum culture if possible blood culture, oxygen support, start the patient on nebulized treatment DuoNeb 3 mL nebulization 4 times every day. 3. Acute urinary retention. Status post Soto catheterization his postvoid residual was greater than 500 mL yesterday continue Flomax 0.4 mg once every day, keep Soto catheter in for now, urine does not appear to be infected. 4. 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 Echocardiogram ordered results are still pending at the time of dictation, cardiology is following, continue patient on carvedilol 12.5 mg orally twice a , continue Lipitor 20 mg once every day, continue aspirin 81 mg once every day. 5. History of coronary artery disease with three-vessel disease status post PCI under the care of cardiology Dr. Veras on a regular basis. Continue aspirin, carvedilol 12.5 mg orally twice a and Lipitor consult cardiology. 6. Hypertension and hypertensive cardiovascular disease. Continue patient on carvedilol 12.5 mg orally twice a day, continue hydralazine 50 mg orally 3 times every day, continue isosorbide mononitrate 60 mg orally twice every day. 7. Hypothyroidism. Continue Synthroid 112 mcg orally once every day, 8. Enlarged prostate with urinary retention. Continue patient on Flomax 0.4 mg once every day. 9. Moderate COPD. Continue oxygen 2 L nasal cannula, continue DuoNeb 3 mL nebulization 4 times every day, continue Theodur 300 mg once at bedtime, 10.Ventricular tachycardia status post ICD implantation continue amiodarone 100 mg orally once every day. 11. Chronic kidney disease stage IIIb. Avoid nephrotoxins, monitor the patient's CMP over the next 24 hours. 12. DVT prophylaxis. Continue patient on Lovenox 30 mg subcutaneously every 24 hours. 13. GI prophylaxis. Protonix 40 mg once every day. 14. Admit to inpatient. Estimated length of stay 2 midnights. 15. Full Code. Past Medical History Past Medical History: Coronary Artery Disease (CAD), Cancer, Chest Pain / Angina, Heart Failure, COPD, Myocardial Infarction ([place]), Prostate Disorder, Thyroid Disorder Additional Past Medical History / Comment(s): HX HIATAL HERNIA. mac degeneration. PSORIASIS. GOUT Last Myocardial Infarction Date:: unk History of Any Multi-Drug Resistant Organisms: None Reported Past Surgical History: Heart Catheterization With Stent Additional Past Surgical History / Comment(s): COLONOSCOPY. AICD/PACEMAKER- [employer]. GENERATOR CHANGE-09/23/2014. leg stents Date of Last Stent Placement:: unk Past Psychological History: No Psychological Hx Reported Smoking Status: Former smoker Past Alcohol Use History: None Reported Past Drug Use History: None Reported - Past Family History Mother History Unknown: Yes Medications and Allergies Home Medications Medication Instructions Recorded Confirmed Type Aspirin 325 mg PO DAILY@1700 09/20/14 07/15/23 History Atorvastatin [Lipitor] 20 mg PO HS@212909/20/14 07/15/23 History Isosorbide Mononitrate ER [Imdur] 60 mg PO BID@0800,1700 09/20/14 07/15/23 History ALPRAZolam [Xanax] 0.5 mg PO BID PRN 02/10/21 07/15/23 History Ergocalciferol [Vitamin D2 (1250 1,250 mcg PO TU@0802/10/21 07/15/23 History Mcg = 75869 Iu)] Nitroglycerin Sl Tabs [Nitrostat] 0.4 mg SL Q5M PRN 02/10/21 07/15/23 History Amiodarone [Cordarone] 100 mg PO HS@212909/07/21 07/15/23 History Levothyroxine Sodium [Levoxyl] 112 mcg PO DAILY@79909/07/21 07/15/23 History Sertraline [Zoloft] 50 mg PO DAILY@79909/07/21 07/15/23 History Amoxic-Pot Clav 875-125Mg 1 tab PO Q12HR@0800,2100 07/15/23 07/15/23 History [Augmentin 875-125] Ensure Enlive 237 ml PO TID@0800,1200,1700 07/15/23 07/15/23 History Ipratropium-Albuterol Nebulize 3 ml INHALATION RT-Q6H 07/15/23 07/15/23 History [Duoneb 0.5 mg-3 mg/3 ml Soln] Magnesium Hydroxide [Milk of 7,200 mg PO DAILY PRN 07/15/23 07/15/23 History Magnesia Concentrate] Na Phos,M-B/Na Phos,Di-Ba [Fleet 133 ml RECTAL DAILY PRN 07/15/23 07/15/23 History Adult] Pantoprazole [Protonix] 40 mg PO DAILY@79907/15/23 07/15/23 History Tamsulosin HCl [Flomax] 0.4 mg PO DAILY@79907/15/23 07/15/23 History Theophylline 24 Hour [Ashok-24] 300 mg PO DAILY@79907/15/23 07/15/23 History allopurinoL [Zyloprim] 200 mg PO DAILY@0800 07/15/23 07/15/23 History bisacodyL [Dulcolax] 10 mg RECTAL Q24H PRN 07/15/23 07/15/23 History carvediloL [Coreg] 12.5 mg PO BID@0800,1700 07/15/23 07/15/23 History hydrALAZINE HCL [Apresoline] 50 mg PO Q8HR@0600,1400,2200 07/15/23 07/15/23 History Allergies Allergy/AdvReac Type Severity Reaction Status Date / Time prednisone AdvReac Hallucinati Verified 07/15/23 18:38 ons Physical Exam Vitals: Vital Signs Temp Pulse Pulse Resp BP BP Pulse Ox 07/16/23 11:08 97.9 F 69 18 159/75 98 07/16/23 07:36 97.6 F 78 18 176/82 97 07/16/23 04:00 96 20 172/75 94 L 07/16/23 01:10 16 07/16/23 01:00 98.2 F 16 119/72 95 07/16/23 00:30 77 12 176/75 98 07/16/23 00:00 79 12 173/76 95 07/15/23 23:00 99.6 F 80 14 167/72 95 07/15/23 22:30 80 12 166/77 95 07/15/23 22:00 80 14 169/73 95 07/15/23 21:30 89 17 163/82 95 07/15/23 21:00 92 20 164/87 95 07/15/23 20:30 84 17 171/85 94 L 07/15/23 20:00 78 15 167/80 99 07/15/23 19:40 81 21 180/86 98 07/15/23 19:30 84 12 162/87 98 07/15/23 19:23 81 19 165/88 95 07/15/23 18:17 79 18 173/77 98 07/15/23 16:41 81 18 173/80 96 07/15/23 15:50 91 F L 81 18 162/102 92 L Intake and Output 07/15/23 07/16/23 07/16/23 22:59 06:59 14:59 Output Total 1020 1 Balance -1020 -1 Output: Urine 500 1 Uretheral (Soto) 500 Post Void Residual 520 Other: Voiding Method Indwelling Catheter Indwelling Catheter # Bowel Movements 1 Weight 83.915 kg Results CBC & Chem 7: 07/17/23 06:57 07/17/23 06:57 Labs: Abnormal Lab Results - Last 24 Hours (Table) 07/15/23 07/15/23 07/15/23 Range/Units 15:58 15:58 15:58 RBC 3.02 L (4.30-5.90) m/uL Hgb 9.7 L (13.0-17.5) gm/dL Hct 30.0 L (39.0-53.0) % Plt Count 122 L (150-450) k/uL Lymphocytes # 0.7 L (1.0-4.8) k/uL APTT 21.8 L (22.0-30.0) sec Chloride 111 H (98-107) mmol/L BUN 26 H (9-20) mg/dL Creatinine 1.38 H (0.66-1.25) mg/dL Glucose 108 H (74-99) mg/dL Troponin I (0.000-0.034) ng/mL Total Protein 5.5 L (6.3-8.2) g/dL Albumin 2.9 L (3.5-5.0) g/dL Urine Protein (Negative) Urine Blood (Negative) Calcium Oxalate Crystal (None) /hpf Urine Bacteria (None) /hpf Hyaline Casts (0-2) /lpf Urine Mucus (None) /hpf 07/15/23 07/15/23 07/15/23 Range/Units 15:58 16:10 22:10 RBC (4.30-5.90) m/uL Hgb (13.0-17.5) gm/dL Hct (39.0-53.0) % Plt Count (150-450) k/uL Lymphocytes # (1.0-4.8) k/uL APTT (22.0-30.0) sec Chloride (98-107) mmol/L BUN (9-20) mg/dL Creatinine (0.66-1.25) mg/dL Glucose (74-99) mg/dL Troponin I 0.060 H* 0.064 H* (0.000-0.034) ng/mL Total Protein (6.3-8.2) g/dL Albumin (3.5-5.0) g/dL Urine Protein 2+ H (Negative) Urine Blood Small H (Negative) Calcium Oxalate Crystal Rare H (None) /hpf Urine Bacteria Rare H (None) /hpf Hyaline Casts 13 H (0-2) /lpf Urine Mucus Occasional H (None) /hpf 07/16/23 Range/Units 01:41 RBC (4.30-5.90) m/uL Hgb (13.0-17.5) gm/dL Hct (39.0-53.0) % Plt Count (150-450) k/uL Lymphocytes # (1.0-4.8) k/uL APTT (22.0-30.0) sec Chloride (98-107) mmol/L BUN (9-20) mg/dL Creatinine (0.66-1.25) mg/dL Glucose (74-99) mg/dL Troponin I 0.071 H* (0.000-0.034) ng/mL Total Protein (6.3-8.2) g/dL Albumin (3.5-5.0) g/dL Urine Protein (Negative) Urine Blood (Negative) Calcium Oxalate Crystal (None) /hpf Urine Bacteria (None) /hpf Hyaline Casts (0-2) /lpf Urine Mucus (None) /hpf Thrombosis Risk Factor Assmnt - Choose All That Apply Any of the Below Risk Factors Present?: Yes Each Factor Represents 1 point: Abnormal pulmonary function (COPD), Medical pt on bed rest, Obesity (BMI >25), Swollen legs (current) Each Risk Factor Represents 2 Points: Patient confined to bed Each Risk Factor Represents 3 Points: Age 75 years or older Thrombosis Risk Factor Assessment Total Risk Factor Score: 9 Thrombosis Risk Factor Assessment Level: High Risk
--- NOTE | 2023-07-16 13:43 | P.CNNES ---
History of Present Illness Consult date: 07/16/23 Requesting physician: Jamie Cooper Reason for Consult: altered mental status History of Present Illness: This is an 83-year-old gentleman who presents from nursing facility because of decreased level of consciousness. History is obtained from medical record and his nurse. Upon seeing the patient he was sleeping to the side. Per the ED notes it seems that the patient presented because of decreased level of consciousness from the nursing facility and is seems that he was seen at [facility] 2 days ago and was discharged back to the nursing facility. Seems that he had decreased level of consciousness there as well as decrease or intake. Per one of the nursing staff member she stated earlier he was talking to her and the he was taking his pills but was talking gibberish. Some other workup during his hospital visit consisted of Presented with temperature of 91 Fahrenheit on presentation that was only one time otherwise has been normal. White blood cell is 7.7 thousand. Sodium is 140, plasma lactic acid venous 0.7, serum glucose is 107, creatinine is 1.38 and the BX 26, AST is 35 ALT 26, ammonia is less than 9, troponin is 0.06 as high as a 0.071. UDS is not detected Influenza A/B, RSV and SARS-CoV-[address] PCR are not detected. CT of the head is reported as no acute intracranial process. Nonspecific white matter changes, likely secondary due to chronic small vessel ischemic disease. Severe paranasal sinus disease with left mastoid air cell effusion. I personally reviewed the CT of the head and I reviewed the report. Chest x-ray is reported as airspace opacities project over the right lung base correlate for pneumonia. Review of Systems Limited but positive and negative as per HPI. Past Medical History Past Medical History: Coronary Artery Disease (CAD), Cancer, Chest Pain / Angina, Heart Failure, COPD, Myocardial Infarction ([place]), Prostate Disorder, Thyroid Disorder Additional Past Medical History / Comment(s): HX HIATAL HERNIA. mac degeneration. PSORIASIS. GOUT Last Myocardial Infarction Date:: unk History of Any Multi-Drug Resistant Organisms: None Reported Past Surgical History: Heart Catheterization With Stent Additional Past Surgical History / Comment(s): COLONOSCOPY. AICD/PACEMAKER- [facility] [place]. GENERATOR CHANGE-09/23/2014. leg stents Date of Last Stent Placement:: unk Past Psychological History: No Psychological Hx Reported Smoking Status: Former smoker Past Alcohol Use History: None Reported Past Drug Use History: None Reported Medications and Allergies Home Medications Medication Instructions Recorded Confirmed Type Aspirin 325 mg PO DAILY@1700 09/20/14 07/15/23 History Atorvastatin [Lipitor] 20 mg PO HS@212909/20/14 07/15/23 History Isosorbide Mononitrate ER [Imdur] 60 mg PO BID@0800,1700 09/20/14 07/15/23 History ALPRAZolam [Xanax] 0.5 mg PO BID PRN 02/10/21 07/15/23 History Ergocalciferol [Vitamin D2 (1250 1,250 mcg PO TU@0800 02/10/21 07/15/23 History Mcg = 59522 Iu)] Nitroglycerin Sl Tabs [Nitrostat] 0.4 mg SL Q5M PRN 02/10/21 07/15/23 History Amiodarone [Cordarone] 100 mg PO HS@212909/07/21 07/15/23 History Levothyroxine Sodium [Levoxyl] 112 mcg PO DAILY@0809/07/21 07/15/23 History Sertraline [Zoloft] 50 mg PO DAILY@0809/07/21 07/15/23 History Amoxic-Pot Clav 875-125Mg 1 tab PO Q12HR@0800,2100 07/15/23 07/15/23 History [Augmentin 875-125] Ensure Enlive 237 ml PO TID@0800,1200,1700 07/15/23 07/15/23 History Ipratropium-Albuterol Nebulize 3 ml INHALATION RT-Q6H 07/15/23 07/15/23 History [Duoneb 0.5 mg-3 mg/3 ml Soln] Magnesium Hydroxide [Milk of 7,200 mg PO DAILY PRN 07/15/23 07/15/23 History Magnesia Concentrate] Na Phos,M-B/Na Phos,Di-Ba [Fleet 133 ml RECTAL DAILY PRN 07/15/23 07/15/23 His tory Adult] Pantoprazole [Protonix] 40 mg PO DAILY@0800 07/15/23 07/15/23 History Tamsulosin HCl [Flomax] 0.4 mg PO DAILY@0800 07/15/23 07/15/23 History Theophylline 24 Hour [Ashok-24] 300 mg PO DAILY@0800 07/15/23 07/15/23 History allopurinoL [Zyloprim] 200 mg PO DAILY@0800 07/15/23 07/15/23 History bisacodyL [Dulcolax] 10 mg RECTAL Q24H PRN 07/15/23 07/15/23 History carvediloL [Coreg] 12.5 mg PO BID@0800,1700 07/15/23 07/15/23 History hydrALAZINE HCL [Apresoline] 50 mg PO Q8HR@0600,1400,2200 07/15/23 07/15/23 History Allergies Allergy/AdvReac Type Severity Reaction Status Date / Time prednisone AdvReac Hallucinati Verified 07/15/23 18:38 ons Physical Examination - Vital Signs Vital Signs: Vital Signs Temp Pulse Pulse Resp BP BP Pulse Ox 07/16/23 11:08 97.9 F 69 18 159/75 98 07/16/23 07:36 97.6 F 78 18 176/82 97 07/16/23 04:00 96 20 172/75 94 L 07/16/23 01:10 16 07/16/23 01:00 98.2 F 16 119/72 95 07/16/23 00:30 77 12 176/75 98 07/16/23 00:00 79 12 173/76 95 07/15/23 23:00 99.6 F 80 14 167/72 95 07/15/23 22:30 80 12 166/77 95 07/15/23 22:00 80 14 169/73 95 07/15/23 21:30 89 17 163/82 95 07/15/23 21:00 92 20 164/87 95 07/15/23 20:30 84 17 171/85 94 L 07/15/23 20:00 78 15 167/80 99 07/15/23 19:40 81 21 180/86 98 07/15/23 19:30 84 12 162/87 98 07/15/23 19:23 81 19 165/88 95 07/15/23 18:17 79 18 173/77 98 07/15/23 16:41 81 18 173/80 96 07/15/23 15:50 91 F L 81 18 162/102 92 L Intake and Output 02/16/24 02/17/24 02/17/24 22:59 06:59 14:59 Output Total 1020 1 400 Balance -1020 -1 -400 Output: Urine 500 1 400 Uretheral (Soto) 500 Post Void Residual 520 Other: Voiding Method Indwelling Catheter Indwelling Catheter # Bowel Movements 1 Weight 83.915 kg 83.915 kg General: Lying in bed and does not appear in acute distress. HENT: Supple. Neuro: Very Limited. Patient would attempt to open his eyes but then upon asking him to open his eyes more than he would close him all of a sudden and resist opening on even with the Yann trying to open him. He'll cross his arms on his chest. Unable to appreciate any the weakness appeared patient is not verbalizing. Motor is unable to assess. Painful stimuli patient will frown. Reflexes is 2 positive throughout except ankles are 1 positive. Plantars are mute Results - Laboratory Findings CBC and BMP: 07/15/23 15:58 07/15/23 15:58 Abnormal Lab Findings: Abnormal Labs 07/15/23 07/15/23 07/15/23 15:58 15:58 15:58 RBC 3.02 L Hgb 9.7 L Hct 30.0 L Plt Count 122 L Lymphocytes # 0.7 L APTT 21.8 L Chloride 111 H BUN 26 H Creatinine 1.38 H Glucose 108 H Troponin I Total Protein 5.5 L Albumin 2.9 L Urine Protein Urine Blood Calcium Oxalate Crystal Urine Bacteria Hyaline Casts Urine Mucus 07/15/23 07/15/23 07/15/23 15:58 16:10 22:10 RBC Hgb Hct Plt Count Lymphocytes # APTT Chloride BUN Creatinine Glucose Troponin I 0.060 H* 0.064 H* Total Protein Albumin Urine Protein 2+ H Urine Blood Small H Calcium Oxalate Crystal Rare H Urine Bacteria Rare H Hyaline Casts 13 H Urine Mucus Occasional H 07/16/23 01:41 RBC Hgb Hct Plt Count Lymphocytes # APTT Chloride BUN Creatinine Glucose Troponin I 0.071 H* Total Protein Albumin Urine Protein Urine Blood Calcium Oxalate Crystal Urine Bacteria Hyaline Casts Urine Mucus Assessment and Plan Assessment: This is an 83-year-old gentleman who presents to the emergency department from his nursing facility because of decreased level of consciousness as well as decr eased oral intake. It seems that the patient was at [facility] the prior to presented to our facility and was discharged back to his nursing facility. CT of the head is unremarkable for any acute processes. He has minimally elevated troponin and this chest x-ray is questionable for pneumonia Encephalopathy seems due to underlying metabolic as well as due to probable pneumonia. He had a temperature of 91 Fahrenheit only one time.. Possible pneumonia on the right side Elevated the troponin slight Chronic kidney insufficiency Plan: I ordered MRI of the brain, routine EEG 2-D echo was ordered by cardiology team is pending Ordered TSH, vitamin B-12, folate ID team is on board We'll defer the rest of the medical management to primary team and other specialists I discussed with the patient nurse Thank you consultation Time with Patient: Greater than 30
--- NOTE | 2023-07-16 14:28 | CA ---
Transthoracic Echo Report Name: Everardo Artis Age: 83 Gender: M : 1940 Exam Date: 07/16/2023 10:42 Exam Location: [facility] Ht (in): 70 Wt (lb): 185 Ordering Physician: Debra Li Attending/Referring Phys: [id number], Guillermo Farm Technician Omayra Duffy RDCS Procedure CPT: Indications: LVF Cardiac Hx: Technical Quality: Fair Contrast 1: Total Dose (mL): Contrast 2: Total Dose (mL): MEASUREMENTS (Male / Female) Normal Values 2D ECHO LV Diastolic Diameter PLAX 6.0 cm 4.2 - 5.9 / 3.9 - 5.3 cm LV Systolic Diameter PLAX 4.4 cm IVS Diastolic Thickness 1.3 cm 0.6 - 1.0 / 0.6 - 0.9 cm LVPW Diastolic Thickness 1.2 cm 0.6 - 1.0 / 0.6 - 0.9 cm LV Relative Wall Thickness 0.4 RV Internal Dim ED PLAX 3.1 cm LVOT Diameter 2.4 cm LA Systolic Diameter LX 3.6 cm 3.0 - 4.0 / 2.7 - 3.8 cm LV Diastolic Volume MOD BP 107.6 cm??? 67 - 155 / 56 - 104 cm??? LV Systolic Volume MOD BP 55.9 cm??? - 58 / 19 - 49 cm??? LV Ejection Fraction MOD BP 48.0 % >= 55 % LV Cardiac Index MOD BP 1665.1 cm???/min???m??? LV Diastolic Volume MOD 4C 96.5 cm??? LV Systolic Volume MOD 4C 49.6 cm??? LV Ejection Fraction MOD 4C 48.6 % LV Cardiac Index MOD 4C 1509.1 cm???/min???m??? LV Diastolic Length 4C 7.3 cm LV Systolic Length 4C 6.2 cm LV Diastolic Volume MOD 2C 120.7 cm??? LV Systolic Volume MOD 2C 65.3 cm??? LV Ejection Fraction MOD 2C 45.9 % LV Cardiac Index MOD 2C 1784.1 cm???/min???m??? LV Diastolic Length 2C 7.2 cm LV Systolic Length 2C 6.0 cm LA Volume 52.8 cm??? 18 - 58 / 22 - 52 cm??? LA Volume Index 25.8 cm???/m??? 16 - 28 cm???/m??? M-MODE Aortic Root Diameter MM 3.5 cm AV Cusp Separation MM 2.1 cm DOPPLER MV Area PHT 1.8 cm??? Mitral E Point Velocity 65.3 cm/s Mitral A Point Velocity 105.7 cm/s Mitral E to A Ratio 0.6 MV Deceleration Time 413.7 ms TR Peak Velocity 268.5 cm/s TR Peak Gradient 28.8 mmHg Right Ventricular Systolic Press 43.8 mmHg FINDINGS Left Ventricle Left ventricular ejection fraction is estimated at 45 %. Mildly increased septal wall thickness. Mildly increased left ventricular diastolic diameter. Mildly decreased left ventricular ejection fraction. Basel inferior hypokinesis Right Ventricle Normal right ventricular size. Mild pulmonary hypertension. Right Atrium Right atrium not well visualized. Left Atrium Normal left atrial size. Mitral Valve Structurally normal mitral valve. Trace to mild mitral regurgitation. Aortic Valve Trileaflet aortic valve. Thickened aortic valve without stenosis. Tricuspid Valve Structurally normal tricuspid valve. Mild tricuspid regurgitation. Pulmonic Valve Structurally normal pulmonic valve. No pulmonic regurgitation. Pericardium No pericardial effusion. Aorta Normal size aortic root and proximal ascending aorta. CONCLUSIONS Mild LV systolic dysfunction Akinetic basal inferior wall suggestive of prior myocardial infarction Mild mitral and tricuspid regurgitation Previewed by: Dr. Bartolome Veras MD (Electronically Signed) Final Date: 16 July 2023 14:27
[2023-07-16 15:43] LABS: Theophylline 11.5 ug/mL
[2023-07-16] MEDS: ASPIRIN 325 MG TAB PO SCH (16:34)
[2023-07-16] MEDS: HYDROmorphone 0.5 MG/0.5 ML SYRINGE IVP PRN (21:26)
--- NOTE | 2023-07-16 22:11 | P.CONS ---
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 apparently patient was recently admitted at [facility] for infected wound due to his radiation therapy behind his ear and apparently culture that primary grew Staph aureus patient has been treated with cefepime and vancomycin and subsequently treated with oral Augmentin patient was at [facility] undergoing [facility] therapy and the patient was noted to have significant mental status changes but became unresponsive with decreased oral intake, patient was evaluated clinical on ER evaluated subsequently discharged home however with persistent symptoms patient was directed to go to the [facility] ER on arrival to the ER patient was noticed to be hypothermic subsequently did have a low-grade fever of 99.6 pat ient was not tachycardic or hypotensive he was hypoxic with O2 sats of 92% currently on 3 L nasal cannula oxygen patient did have a white count of 7.7 creatinine is 1.38 her liver isms are normal Cardizem drip elevated urine is negative urine testing was negative influenza RSV COVID testing was negative patient did have a chest x-ray airspace opacity right lung base correlate for pneumonia CT of the brain no acute intracranial process nonspecific white matter changes patient has been admitted to the hospital he was started on cefepime and vancomycin concerning for gram-negative pneumonia infectious he was consulted for further management of antibiotic therapy most information has been obtained from review the chart talking nursing staff as the patient did not provide any history Past Medical History Past Medical History: Cancer, Myocardial Infarction (ND), Thyroid Disorder Additional Past Medical History / Comment(s): HX HIATAL HERNIA. mac degeneration. PSORIASIS. GOUT Last Myocardial Infarction Date:: unk History of Any Multi-Drug Resistant Organisms: None Reported Past Surgical History: Heart Catheterization With Stent Additional Past Surgical History / Comment(s): COLONOSCOPY. AICD/PACEMAKER- 2heuresavant. GENERATOR CHANGE-09/23/2014. leg stents Date of Last Stent Placement:: unk Past Psychological History: No Psychological Hx Reported Smoking Status: Former smoker Past Alcohol Use History: None Reported Past Drug Use History: None Reported - Past Family History Mother History Unknown: Yes Medications and Allergies Home Medications Medication Instructions Recorded Confirmed Type Aspirin 325 mg PO DAILY@1700 09/20/14 07/15/23 History Atorvastatin [Lipitor] 20 mg PO HS@212909/20/14 07/15/23 History Isosorbide Mononitrate ER [Imdur] 60 mg PO BID@0800,1700 09/20/14 07/15/23 History ALPRAZolam [Xanax] 0.5 mg PO BID PRN 02/10/21 07/15/23 History Ergocalciferol [Vitamin D2 (1250 1,250 mcg PO TU@0802/10/21 07/15/23 History Mcg = 55911 Iu)] Nitroglycerin Sl Tabs [Nitrostat] 0.4 mg SL Q5M PRN 02/10/21 07/15/23 History Amiodarone [Cordarone] 100 mg PO HS@212909/07/21 07/15/23 History Levothyroxine Sodium [Levoxyl] 112 mcg PO DAILY@79909/07/21 07/15/23 History Sertraline [Zoloft] 50 mg PO DAILY@79909/07/21 07/15/23 History Amoxic-Pot Clav 875-125Mg 1 tab PO Q12HR@0800,2100 07/15/23 07/15/23 History [Augmentin 875-125] Ensure Enlive 237 ml PO TID@0800,1200,1700 07/15/23 07/15/23 History Ipratropium-Albuterol Nebulize 3 ml INHALATION RT-Q6H 07/15/23 07/15/23 History [Duoneb 0.5 mg-3 mg/3 ml Soln] Magnesium Hydroxide [Milk of 7,200 mg PO DAILY PRN 07/15/23 07/15/23 History Magnesia Concentrate] Na Phos,M-B/Na Phos,Di-Ba [Fleet 133 ml RECTAL DAILY PRN 07/15/23 07/15/23 History Adult] Pantoprazole [Protonix] 40 mg PO DAILY@0807/15/23 07/15/23 History Tamsulosin HCl [Flomax] 0.4 mg PO DAILY@0807/15/23 07/15/23 History Theophylline 24 Hour [Ashok-24] 300 mg PO DAILY@79907/15/23 07/15/23 History allopurinoL [Zyloprim] 200 mg PO DAILY@0800 07/15/23 07/15/23 History bisacodyL [Dulcolax] 10 mg RECTAL Q24H PRN 07/15/23 07/15/23 History carvediloL [Coreg] 12.5 mg PO BID@0800,1700 07/15/23 07/15/23 History hydrALAZINE HCL [Apresoline] 50 mg PO Q8HR@0600,1400,2200 07/15/23 07/15/23 History Allergies Allergy/AdvReac Type Severity Reaction Status Date / Time prednisone AdvReac Hallucinati Verified 07/15/23 18:38 ons Physical Exam Vitals: Vital Signs Temp Pulse Pulse Resp BP BP Pulse Ox 07/16/23 11:08 97.9 F 69 18 159/75 98 07/16/23 07:36 97.6 F 78 18 176/82 97 07/16/23 04:00 96 20 172/75 94 L 07/16/23 01:10 16 07/16/23 01:00 98.2 F 16 119/72 95 07/16/23 00:30 77 12 176/75 98 07/16/23 00:00 79 12 173/76 95 07/15/23 23:00 99.6 F 80 14 167/72 95 07/15/23 22:30 80 12 166/77 95 07/15/23 22:00 80 14 169/73 95 07/15/23 21:30 89 17 163/82 95 07/15/23 21:00 92 20 164/87 95 07/15/23 20:30 84 17 171/85 94 L 07/15/23 20:00 78 15 167/80 99 07/15/23 19:40 81 21 180/86 98 07/15/23 19:30 84 12 162/87 98 07/15/23 19:23 81 19 165/88 95 07/15/23 18:17 79 18 173/77 98 07/15/23 16:41 81 18 173/80 96 07/15/23 15:50 91 F L 81 18 162/102 92 L Intake and Output 07/15/23 07/16/23 07/16/23 22:59 06:59 14:59 Output Total 1020 1 Balance -1020 -1 Output: Urine 500 1 Uretheral (Soto) 500 Post Void Residual 520 Other: Voiding Method Indwelling Catheter Indwelling Catheter # Bowel Movements 1 Weight 83.915 kg Results CBC & Chem 7: 07/15/23 15:58 07/15/23 15:58 Labs: Abnormal Lab Results - Last 24 Hours (Table) 07/15/23 07/15/23 07/15/23 Range/Units 15:58 15:58 15:58 RBC 3.02 L (4.30-5.90) m/uL Hgb 9.7 L (13.0-17.5) gm/dL Hct 30.0 L (39.0-53.0) % Plt Count 122 L (150-450) k/uL Lymphocytes # 0.7 L (1.0-4.8) k/uL APTT 21.8 L (22.0-30.0) sec Chloride 111 H (98-107) mmol/L BUN 26 H (9-20) mg/dL Creatinine 1.38 H (0.66-1.25) mg/dL Glucose 108 H (74-99) mg/dL Troponin I (0.000-0.034) ng/mL Total Protein 5.5 L (6.3-8.2) g/dL Albumin 2.9 L (3.5-5.0) g/dL Urine Protein (Negative) Urine Blood (Negative) Calcium Oxalate Crystal (None) /hpf Urine Bacteria (None) /hpf Hyaline Casts (0-2) /lpf Urine Mucus (None) /hpf 07/15/23 07/15/23 07/15/23 Range/Units 15:58 16:10 22:10 RBC (4.30-5.90) m/uL Hgb (13.0-17.5) gm/dL Hct (39.0-53.0) % Plt Count (150-450) k/uL Lymphocytes # (1.0-4.8) k/uL APTT (22.0-30.0) sec Chloride (98-107) mmol/L BUN (9-20) mg/dL Creatinine (0.66-1.25) mg/dL Glucose (74-99) mg/dL Troponin I 0.060 H* 0.064 H* (0.000-0.034) ng/mL Total Protein (6.3-8.2) g/dL Albumin (3.5-5.0) g/dL Urine Protein 2+ H (Negative) Urine Blood Small H (Negative) Calcium Oxalate Crystal Rare H (None) /hpf Urine Bacteria Rare H (None) /hpf Hyaline Casts 13 H (0-2) /lpf Urine Mucus Occasional H (None) /hpf 07/16/23 Range/Units 01:41 RBC (4.30-5.90) m/uL Hgb (13.0-17.5) gm/dL Hct (39.0-53.0) % Plt Count (150-450) k/uL Lymphocytes # (1.0-4.8) k/uL APTT (22.0-30.0) sec Chloride (98-107) mmol/L BUN (9-20) mg/dL Creatinine (0.66-1.25) mg/dL Glucose (74-99) mg/dL Troponin I 0.071 H* (0.000-0.034) ng/mL Total Protein (6.3-8.2) g/dL Albumin (3.5-5.0) g/dL Urine Protein (Negative) Urine Blood (Negative) Calcium Oxalate Crystal (None) /hpf Urine Bacteria (None) /hpf Hyaline Casts (0-2) /lpf Urine Mucus (None) /hpf Assessment and Plan Plan: 1patient presented to hospital with mental status changes weakness in this patient who did have a 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 w ith an ulcerated wound and the patient noticed to have infiltrate on the chest x-ray concerning for pneumonia in this patient who has been out of the hospital we will need to cover for resistant gram-positive as well as gram-negative pathogen 2-try to obtain a sputum for Gram stain culture check a CRP and a procalcitonin level 3-patient to continue with cefepime and vancomycin while waiting for the culture to finalize 4-local wound care to the left behind the ear wound with Medihoney followed by moist changing daily keep the area of the pressure We will follow on clinical condition and cultures to further adjust medication if needed Thank you for this consultation we will follow the patient along with you Dictation was produced using [employer])ation software. please excuse any grammatical, word or spelling errors. Time with Patient: Greater than 30
[2023-07-17 08:30] LABS: Basophils % (A) 0 %; Eosinophils # (A) 0.2 k/uL (0-0.7); Eosinophils % (A) 2 %; HCT 27.1 % (39.0-53.0); HGB 8.9 gm/dL (13.0-17.5); Lymphocytes # (A) 0.6 k/uL (1.0-4.8); Lymphocytes % (A) 8 %; MCH 33.1 pg (25.0-35.0); MCHC 32.8 g/dL (31.0-37.0); MCV 100.8 fL (80.0-100.0); Macrocytosis Slight; Mean Platelet Volume 11.4; Monocytes # (A) 0.5 k/uL (0-1.0); Monocytes % (A) 7 %; Neutrophils # (A) 5.6 k/uL (1.3-7.7); Neutrophils % (A) 81 %; Platelet Count 100 k/uL (150-450); RBC 2.69 m/uL (4.30-5.90); RDW 14.6 % (11.5-15.5)
[2023-07-17 08:48] LABS: ALT 20 U/L (4-49); AST 26 U/L (17-59); African American GFR (CKD) 65 (>60 ml/min/1.73 sqM); Albumin 2.5 g/dL (3.5-5.0); Alkaline Phosphatase 65 U/L (38-126); Anion Gap 9 mmol/L; Blood Urea Nitrogen 23 mg/dL (9-20); Calcium 8.7 mg/dL (8.4-10.2); Carbon Dioxide 21 mmol/L (22-30); Chloride 112 mmol/L (98-107); Glucose 83 mg/dL (74-99); Non-African American GFR(CKD) 56 (>60 ml/min/1.73 sqM); Potassium 3.2 mmol/L (3.5-5.1); Sodium 142 mmol/L (137-145); Total Bilirubin 0.5 mg/dL (0.2-1.3); Total Protein 4.9 g/dL (6.3-8.2)
[2023-07-17] MEDS: ENOXAPARIN 30 MG/0.3 ML SYRINGE SQ SCH (08:57)
[2023-07-17] MEDS: POTASSIUM CHLORIDE ER 20 MEQ TAB.ER PO STA (09:02)
[2023-07-17 09:03] LABS: C Reactive Protein 3.6 mg/dL (<1.0)
--- NOTE | 2023-07-17 09:06 | P.PN ---
Subjective Progress Note Date: 07/17/23 Reason for Consult (text): Elevated troponins History of present illness: This is an 83-year-old male patient of Dr. 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 We have been asked to evaluate the patient for elevated troponins. Patient is on had a recent hospitalization at [facility] for infected scalp wound post radiation therapy with confusion and sepsis, acute kidney injury. Patient was stabilized and discharged to [facility] where he continued to have problems with mental status changes. 2 days ago he was sent to [facility] and was discharged back to the senior living. Apparently, mental status changes worsened and patient had decreased oral intake and was brought in to [facility]. Patient is seen today on the cardiac stepdown unit. Patient is quite confused and unable to provide any history. EKG sinus rhythm Chest x-ray: Airspace opacities project over the right lung base correlate for pneumonia. CAT scan of the brain no acute finding. WBC 7.7, hemoglobin 9.7, platelet count 122. INR 1. Sodium 140, potassium 3.5, BUN 26 and creatinine 1.38. Troponins 0.06, 0.064, 0.071. Liver function test are within normal limits. Urine drug screen small amount of blood rare bacteria. Urine drug screen was negative. Influenza A, influenza B, RSV and COVID-19 not detected. Home cardiac medications: Amiodarone 100 mg at bedtime, aspirin 325 mg daily Lipitor 20 mg at bedtime, Coreg 12.5 mg twice daily, hydralazine 50 mg every 8 hours, Imdur 60 mg twice daily, levothyroxine 112 mcg daily, Nitrostat as needed. Echocardiogram performed in the office on 06/17/2022 revealed EF of 45 to 50%. Mild to moderate mitral vegetation, mild to moderate tricuspid regurgitation, PASP 42 mmHg. Lexiscan Cardiolite stress test performed in the office on 11/03/2019 was negative stress by EKG criteria. Abnormal nuclear scan showing evidence of prior inferior wall myocardial infarction with moderate LV dysfunction without any ischemia. Cardiac catheterization history: October 2011 revealing right coronary artery which is a large caliber vessel. 100% occluded by its ostium. Left main is a large caliber vessel that is angiographically normal. It bifurcates into left circumflex and left anterior descending artery. Left circumflex is 100% occluded in the proximal portion. It fills by collaterals from the left coronary system. Proximal LAD appeared to have mild disease only in the range of 10-20%. Mid LAD appeared to have mild disease only. Distal LAD is normal. The LAD gives rise to the very first day and a branch which is almost like a ramus which appeared to be normal. Then the second third diagonal branches are small caliber arteries which also appeared to be normal. Medical management was recommended. 07/17 Patient is seen today in follow-up. Patient's mental status is continues to be confused not back to his baseline. He underwent echocardiogram yesterday that showed an EF of 45%. Blood pressure 152/64, heart rate 82, pulse ox 93% on 3 L nasal cannula. Repeat blood work reveals WBC 7, hemoglobin 8.9, platelet count 100. Sodium 142, potassium 3.2, chloride 113, CO2 21, BUN 23 creatinine 1.19. Potassium has been replaced. Patient is followed by ID and neurology. Physical examination: Gen: This is an 83-year-old male in no acute distress. VS: reviewed HEENT: Head is atraumatic, normocephalic. Pupils equal, round. Sclerae is anicteric. LUNGS: Clear to auscultation. No wheezes or rhonchi. No intercostal retractions. HEART: Regular rate and rhythm. No murmur. EXTREMITIES: No pedal edema. No calf tenderness. NEUROLOGICAL: Patient is awake, confused. Assessment: Elevated troponins of unclear significance not type I or type II CT Metabolic encephalopathy of unclear etiology Squamous cell carcinoma left ear status post radiation with wound Coronary artery disease with known occlusion of the RCA and circumflex Ischemic cardiomyopathy Chronic systolic heart failure History of ventricular tachycardia History of AICD implantation Chronic kidney disease Hypertension Hyperlipidemia Plan: Continue patient's home cardiac medications Further recommendations to follow based upon clinical course check and see if we can sign on Nurse practitioner note has been reviewed, I agree with documented findings and plan of care. Patient was seen and examined. Objective - Vital Signs Vital signs: Vital Signs Temp 98.1 F 07/16/23 19:34 Pulse 82 07/17/23 04:00 Resp 16 07/17/23 04:00 BP 152/64 07/17/23 04:00 Pulse Ox 93 L 07/17/23 04:00 FiO2 Intake & Output 07/16/23 07/17/23 07/17/23 18:59 06:59 18:59 Output Total 400 200 Balance -400 -200 Weight 83.915 kg Output: Urine 400 200 Other: Voiding Method Indwelling Catheter Indwelling Catheter # Bowel Movements 1 - Labs CBC & Chem 7: 07/17/23 06:57 07/17/23 06:57
--- NOTE | 2023-07-17 10:14 | P.PN ---
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, patient was recently hospitalized at [facility] for what appears to be an infected wound due to his radiation therapy behind his ear, the culture at that time showed Staphylococcus aureus as well as Corynebacterium species he was started on cefepime 2 g IV piggyback every 8 hours as well as vancomycin with pharmacy to dose, he was seen in consultation by infectious disease, his CT scan of the brain at that time did not show any evidence of acute abnormalities, patient was transitioned into oral Augmentin 875 mg orally twice every day for 10 days, patient went tomorrow for physical therapy and rehabilitation while he was at moderate he developed to have a significant mental status changes he became quite unresponsive does not follow much commands, he was not eating or drinking much, these symptoms waxes and wane on and off, patient initially was sent back to the emergency department at [facility], he had a CT scan of the brain did not show evidence of acute abnormalities his laboratory evaluation were fine he did appear to have a bit of infiltrate of the right lower lobe, he was sent back home since his procalcitonin level was negative, his BNP was lower, white count were normal, patient went back tomorrow and he became more drowsy subtended does not follow any commands, the nursing staff has contacted me yesterday he was directed to go to the ER at [facility], he had a chest x-ray that showed possible right lower lobe pneumonia, CT scan of the brain did not show evidence of acute abnormalities, his troponin was slightly elevated suggestive of type II [place] due to possible sepsis, he was seen in consultation by cardiology who recommended echocardiogram for evaluation of LV function, he was started back on his Augmentin I will discontinue that and start the patient on cefepime 2 g IV piggyback every 12 hours along with vanc omycin pharmacy to dose will obtain infectious disease consultation, will obtain neurology consultation as well as for evaluation of his mental status changes will continue to follow-up with the patient 07/17: Patient is still confused better than yesterday, he is more awake today however he is not making sense, he denies any fever or chills, he continues to have pain in the left shoulder, he continues to have pain all over his body, patient was seen earlier by cardiology as well as by neurology, MRI could not be done because of the AICD, he continues to be on IV antibiotic in the form of cefepime and vancomycin, consulted radiation oncology Dr. Welsh for further recommendation, if the blood cultures are positive we will arrange for a transesophageal echocardiogram discussed with Dr. Yeboah from cardiology REVIEW OF SYSTEMS: Constitutional: low grade fever, no chills, no night sweats. No weight change. positive for weakness,positive for fatigue and lethargy. positive for daytime sleepiness. EENT: No headache. No blurred vision or double vision, no loss of vision. No loss of Hearing, no ringing in the ears, no dizziness. No nasal drainage or congestion. No epistaxis. No sore throat. Lungs: No shortness of breath, no cough, no sputum production. No wheezing. Reports dyspnea with activity. Cardiovascular: No chest pain, no lower extremity edema. No palpitations. No p aroxysmal nocturnal dyspnea. No orthopnea. No lightheadedness or dizziness. No syncopal episodes. Abdominal: Reports abdominal pain. No nausea, vomiting. No diarrhea. No constipation. No bloody or tarry stools reports loss of appetite. Genitourinary: No dysuria, increased frequency, urgency. No urinary retention. Musculoskeletal: No myalgias. positive for muscle weakness, no gait dysfunction, positive for frequent falls. No back pain. No neck pain. Integumentary: wound behind left ear post radiation for SCC, no lesions. No rash or pruritus. No unusual bruising. No change in hair or nails. Neurologic: No aphasia. No facial droop. positive for change in mentation. No head injury. No headache. No paralysis. No paresthesia. Psychiatric: positive for depression. positive for anxiety. No mood swings.positive for paranoia Endocrine: No abnormal blood sugars. No weight change. PHYSICAL EXAMINATION: General: 83-year-old male laying down in bed appears to be quite confused nonverbal. HEENT: Head is atraumatic, normocephalic, pupils were equal round reactive to l ight and recommendation, extraocular muscle movement were intact, sclera nonicteric, conjunctivae were pale, mucous membranes of the mouth are somewhat dry, the large wound behind the left ear with a clean base minimal drainage Neck: Supple, no JVP, normal carotid upstroke bilaterally, no lymphadenopathy. Chest: Decreased breath sounds at the bases, few rhonchi, no expiratory wheezes, no chest wall tenderness, no intercostal retractions. Heart: First heart sound is normal, second heart sound is normal there is systolic ejection murmur 2/6 located in the left sternal border, there is AICD in the left upper precordium slightly tender to touch Abdomen: Soft, nontender, nondistended, positive bowel sounds. Extremities: There is +1 edema no calf tenderness DP +2 bilaterally. Neurologic examination: Patient is confused opens his eyes in response to verbal stimuli, nonverbal, follows some commands not all the commands, moves all his extremities respond to the questions very well. ASSESSMENT AND PLAN: 1. Metabolic encephalopathy likely due to sepsis due to gram-negative right lower lobe pneumonia and possible infected wound behind his left ear. Blood culture, wound culture, aerobic and anaerobic, will continue vancomycin 1500 mg IV daily along with cefepime 2 g IV piggyback every 12 hours, infectious disease consultation, neurology consultation, I will consult radiation oncology Dr. Welsh from [facility], reevaluate the patient, unfortunately patient cannot go for MRI due to AICD placement, we will continue to monitor the patient very closely this been going on for the past 10 days. 2. Gram negative pneumonia likely patient was at [facility] would continue cefepime and vancomycin, sputum culture if possible blood culture, oxygen support, start the patient on nebulized treatment DuoNeb 3 mL nebulization 4 times every day. 3. Acute urinary retention. Status post Soto catheterization his postvoid residual was greater than 500 mL yesterday continue Flomax 0.4 mg once every day, keep Soto catheter in for now, urine does not appear to be infected. 4. Type II NJ likely related to sepsis. Echocardiogram ejection fraction of 45%, cardiology is following, continue patient on carvedilol 12.5 mg orally twice a , continue Lipitor 20 mg once every day, continue aspirin 81 mg once every day. 5. History of coronary artery disease with three-vessel disease status post PCI under the care of cardiology Dr. Veras on a regular basis. Continue aspirin, carvedilol 12.5 mg orally twice a and Lipitor consult cardiology. 6. Hypertension and hypertensive cardiovascular disease. Continue patient on carvedilol 12.5 mg orally twice a day, continue hydralazine 50 mg orally 3 times every day, continue isosorbide mononitrate 60 mg orally twice every day. 7. Hypothyroidism. Continue Synthroid 112 mcg orally once every day, 8. Enlarged prostate with urinary retention. Continue patient on Flomax 0.4 mg once every day. 9. Moderate COPD. Continue oxygen 2 L nasal cannula, continue DuoNeb 3 mL nebulization 4 times every day, continue Theodur 300 mg once at bedtime, 10.Ventricular tachycardia status post ICD implantation continue amiodarone 100 mg orally once every day. 11. Chronic kidney disease stage IIIb. Avoid nephrotoxins, monitor the patient's CMP over the next 24 hours. 12. DVT prophylaxis. Continue patient on Lovenox 30 mg subcutaneously every 24 hours. 13. GI prophylaxis. Protonix 40 mg once every day. 14. PT OT evaluation. 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 16. Guarded prognosis Objective - Vital Signs Vital signs: Vital Signs Temp 98.1 F 07/16/23 19:34 Pulse 80 07/17/23 08:14 Resp 16 07/17/23 04:00 BP 152/64 07/17/23 04:00 Pulse Ox 93 L 07/17/23 04:00 FiO2 Intake & Output 07/16/23 07/17/23 07/17/23 18:59 06:59 18:59 Output Total 400 200 Balance -400 -200 Weight 83.915 kg Output: Urine 400 200 Other: Voiding Method Indwelling Catheter Indwelling Catheter # Bowel Movements 1 - Labs CBC & Chem 7: 07/17/23 06:57 07/17/23 06:57 Labs: Abnormal Lab Results - Last 24 Hours (Table) 07/17/23 07/17/23 Range/Units 06:57 06:57 RBC 2.69 L (4.30-5.90) m/uL Hgb 8.9 L (13.0-17.5) gm/dL Hct 27.1 L (39.0-53.0) % MCV 100.8 H (80.0-100.0) fL Plt Count 100 L (150-450) k/uL Lymphocytes # 0.6 L (1.0-4.8) k/uL Potassium 3.2 L (3.5-5.1) mmol/L Chloride 112 H (98-107) mmol/L Carbon Dioxide 21 L (22-30) mmol/L BUN 23 H (9-20) mg/dL Total Protein 4.9 L (6.3-8.2) g/dL Albumin 2.5 L (3.5-5.0) g/dL
--- NOTE | 2023-07-17 12:43 | P.PN ---
Subjective Progress Note Date: 07/17/23 am following-up with patient and per his nurse, mentation is improved but was notified not back to baseline. Upon seeing him he feels he is doing well. He is more aware today. Still he is unable to provide history. Objective - Vital Signs Vital signs: Vital Signs Temp 97.9 F 07/17/23 08:00 Pulse 80 07/17/23 08:23 Resp 16 07/17/23 08:00 BP 108/64 07/17/23 08:00 Pulse Ox 96 07/17/23 08:00 FiO2 Intake & Output 07/16/23 07/17/23 07/17/23 18:59 06:59 18:59 Output Total 400 200 Balance -400 -200 Weight 83.915 kg Output: Urine 400 200 Other: Voiding Method Indwelling Catheter Indwelling Catheter Indwelling Catheter # Bowel Movements 1 - Exam General: Lying in bed and is not in acute distress. Neuro: Patient is awake, alert, oriented to self. With options he correctly stated he was in the hospital. Following few simple commands. Language is very limited. Pupils are round, equal and reactive to light. Pupils are 3mm. No facial weakness. Is severely hypophonic. Motor: Strength is limited because of cooperation. But lifting arms briefly above gravity. wiggling toes symmetrically. Some other workup during his hospital visit consisted of Presented with temperature of 91 Fahrenheit on presentation that was only one time otherwise has been normal. White blood cell is 7.7 thousand. Sodium is 140, plasma lactic acid venous 0.7, serum glucose is 107, creatinine is 1.38 and the BX 26, AST is 35 ALT 26, ammonia is less than 9, troponin is 0.06 as high as a 0.071. UDS is not detected Ammonia is less than 9 TSH is 0.608 Influenza A/B, RSV and SARS-CoV-[address] PCR are not detected. CT of the head is reported as no acute intracranial process. Nonspecific white matter changes, likely secondary due to chronic small vessel ischemic disease. Severe paranasal sinus disease with left mastoid air cell effusion. I vesna kraus reviewed the CT of the head and I reviewed the report. Chest x-ray is reported as airspace opacities project over the right lung base correlate for pneumonia. 2D echo: Mild left ventricle systolic dysfunction. Akinetic basal inferior wall suggestive of prior myocardial infarction. - Labs CBC & Chem 7: 07/17/23 06:57 07/17/23 06:57 Labs: Abnormal Lab Results - Last 24 Hours (Table) 07/17/23 07/17/23 Range/Units 06:57 06:57 RBC 2.69 L (4.30-5.90) m/uL Hgb 8.9 L (13.0-17.5) gm/dL Hct 27.1 L (39.0-53.0) % MCV 100.8 H (80.0-100.0) fL Plt Count 100 L (150-450) k/uL Lymphocytes # 0.6 L (1.0-4.8) k/uL Potassium 3.2 L (3.5-5.1) mmol/L Chloride 112 H (98-107) mmol/L Carbon Dioxide 21 L (22-30) mmol/L BUN 23 H (9-20) mg/dL C-Reactive Protein 3.6 H (<1.0) mg/dL Total Protein 4.9 L (6.3-8.2) g/dL Albumin 2.5 L (3.5-5.0) g/dL Assessment and Plan Assessment: This is an 83-year-old gentleman who presents to the emergency department from his nursing facility because of decreased level of consciousness as well as decreased oral intake. It seems that the patient was at [facility] the prior to presented to our facility and was discharged back to his nursing facility. CT of the head is unremarkable for any acute processes. He has minimally elevated troponin and this chest x-ray is questionable for pneumonia Encephalopathy seems due to underlying metabolic as well as due to probable pneu monia. He had a temperature of 91 Fahrenheit only one time---mentation is improving compared to yesterday Possible pneumonia on the right side Elevated the troponin slight Akinetic basal inferior wall suggestive of prior SD on echo Chronic kidney insufficiency Plan: Pending MRI of the brain, routine EEG If he does have acute/subacute stroke, will get rest of stroke work-up: vascular imaging of brain/carotid and lipid panel. Cardiology is on board Pending vitamin B-12, folate ID team is on board We'll defer the rest of the medical management to primary team and other specialists I discussed with the patient nurse. Dr. Lorenzo will resume neurology service tomorrow A.M. Time with Patient: Less than 30
[2023-07-18] MEDS: levETIRAcetam IV 500 MG/5 ML VIAL IVP SCH (00:33)
--- NOTE | 2023-07-18 11:20 | P.PN ---
Subjective HISTORY OF PRESENT ILLNESS: This is an 83-year-old male patient of Dr. 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 We have been asked to evaluate the patient for elevated troponins. Patient is on had a recent hospitalization at [facility] for infected scalp wound post radiation therapy with confusion and sepsis, acute kidney injury. Patient was stabilized and discharged to [facility] where he continued to have problems with mental status changes. 2 days ago he was sent to [facility] and was discharged back to the care home. Apparently, mental status changes worsened and patient had decreased oral intake and was brought in to [facility]. Patient is seen today on the cardiac stepdown unit. Patient is quite confused and unable to provide any history. EKG sinus rhythm Chest x-ray: Airspace opacities project over the right lung base correlate for pneumonia. CAT scan of the brain no acute finding. WBC 7.7, hemoglobin 9.7, platelet count 122. INR 1. Sodium 140, potassium 3.5, BUN 26 and creatinine 1.38. Troponins 0.06, 0.064, 0.071. Liver function test are within normal limits. Urine drug screen small amount of blood rare bacteria. Urine drug screen was negative. Influenza A, influenza B, RSV and COVID-19 not detected. Home cardiac medications: Amiodarone 100 mg at bedtime, aspirin 325 mg daily Lipitor 20 mg at bedtime, Coreg 12.5 mg twice daily, hydralazine 50 mg every 8 hours, Imdur 60 mg twice daily, levothyroxine 112 mcg daily, Nitrostat as needed. Echocardiogram performed in the office on 06/17/2022 revealed EF of 45 to 50%. Mild to moderate mitral vegetation, mild to moderate tricuspid regurgitation, PASP 42 mmHg. Lexiscan Cardiolite stress test performed in the office on 11/03/2019 was negative stress by EKG criteria. Abnormal nuclear scan showing evidence of prior inferior wall myocardial infarction with moderate LV dysfunction without any ischemia. Cardiac catheterization history: October 2011 revealing right coronary artery which is a large caliber vessel. 100% occluded by its ostium. Left main is a large caliber vessel that is angiographically normal. It bifurcates into left circumflex and left anterior descending artery. Left circumflex is 100% occluded in the proximal portion. It fills by collaterals from the left coronary system. Proximal LAD appeared to have mild disease only in the range of 10-20%. Mid LAD appeared to have mild disease only. Distal LAD is normal. The LAD gives rise to the very first day and a branch which is almost like a ramus which appeared to be normal. Then the second third diagonal branches are small caliber arteries which also appeared to be normal. Medical management was recommended. 07/17 Patient is seen today in follow-up. Patient's mental status is continues to be confused not back to his baseline. He underwent echocardiogram yesterday that showed an EF of 45%. Blood pressure 152/64, heart rate 82, pulse ox 93% on 3 L nasal cannula. Repeat blood work reveals WBC 7, hemoglobin 8.9, platelet count 100. Sodium 142, potassium 3.2, chloride 113, CO2 21, BUN 23 creatinine 1.19. Potassium has been replaced. Patient is followed by ID and neurology. 07/18/2023 Patient examined this morning at bedside. Patient denies chest pain or pressure. He denies shortness of breath. Vital signs are stable. PHYSICAL EXAM: VITAL SIGNS: Reviewed. GENERAL: Well-developed in no acute distress. NECK: Supple. No JVD or thyromegaly LUNGS: Respirations even and unlabored. Lungs essentially clear to auscultation bilaterally. HEART: Regular rate and rhythm. S1 and S2 heard. EXTREMITIES: Normal range of motion. No clubbing or cyanosis. Peripheral pulses intact. No lower extremity edema ASSESSMENT: Elevated troponins of unclear significance Metabolic encephalopathy of unclear etiology Squamous cell carcinoma left ear status post radiation with wound Coronary artery disease with known occlusion of the RCA and circumflex Ischemic cardiomyopathy Chronic systolic heart failure History of ventricular tachycardia History of AICD implantation Chronic kidney disease Hypertension Hyperlipidemia PLAN: Continue current cardiac medications No further inpatient recommendations from a cardiac standpoint We will sign off. Please reconsult if needed. Nurse practitioner note has been reviewed by physician. Signing provider agrees with the documented findings, assessment, and plan of care documented by [employer] as a scribe. Objective - Vital Signs Vital signs: Vital Signs Temp 97.9 F 07/18/23 08:00 Pulse 77 07/18/23 08:00 Resp 18 07/18/23 08:00 BP 134/63 07/18/23 08:00 Pulse Ox 100 07/18/23 08:00 FiO2 Intake & Output 07/17/23 07/18/23 07/18/23 18:59 06:59 18:59 Intake Total 718 Output Total 225 300 250 Balance 493 -300 -250 Intake: Intake, IV Titration 600 Amount Cefepime 2 gm In Sodium 100 Chloride 0.9% 100 ml @ 25 mls/hr IVPB Q12HR ADDIE Rx #:[id number] Vancomycin 1,500 mg In 500 Sodium Chloride 0.9% 500 ml 500 ml @ 167 mls/hr IVPB Q24H ADDIE Rx#: [id number] Oral 118 Output: Urine 225 300 250 Other: Voiding Method Indwelling Catheter Indwelling Catheter Indwelling Catheter - Labs CBC & Chem 7: 07/17/23 06:57 07/17/23 06:57 Labs: Abnormal Lab Results - Last 24 Hours (Table) 07/16/23 Range/Units 14:15 Vitamin B12 1196.0 H (200.0-944.0) pg/mL Microbiology - Last 24 Hours (Table) 07/16/23 11:46 Blood Culture - Preliminary Blood 07/16/23 13:15 Gram Stain - Preliminary Ear - Left Wound Culture - Preliminary Yeast species 07/16/23 13:10 Nasal Screen MRSA/MSSA - Final Nasopharyngeal Swab
--- NOTE | 2023-07-18 11:31 | P.PN ---
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 Patient now presented to hospital with worsening of his respiratory status concerning for pneumonia possible gram-negative. On today's evaluation that is 07/17/2023,the patient is more awake and alert today and denies any fever or any chills, patient is breathing comfortably on 3 L nasal cannula oxygen the patient denies chest pain shortness of breath and no significant cough, patient denies abdominal pain, no nausea vomiting or diarrhea. And no worsening pain to the left behind the ear area. Patient did have a white count of 7.0, creatinine is 1.19 blood cultures pending MRSA nasal swab pending no sputum collected Objective - Vital Signs Vital signs: Vital Signs Temp 97.9 F 07/17/23 08:00 Pulse 80 07/17/23 08:14 Resp 16 07/17/23 08:00 BP 108/64 07/17/23 08:00 Pulse Ox 96 07/17/23 08:00 FiO2 Intake & Output 07/16/23 07/17/23 07/17/23 18:59 06:59 18:59 Output Total 400 200 Balance -400 -200 Weight 83.915 kg Output: Urine 400 200 Other: Voiding Method Indwelling Catheter Indwelling Catheter Indwelling Catheter # Bowel Movements 1 - Exam GENERAL DESCRIPTION: An elderly male lying in bed in no distress RESPIRATORY SYSTEM: Unlabored breathing , decreased breath sounds at bases HEART: S1 S2 regular rate and rhythm , ABDOMEN: Soft , no tenderness EXTREMITIES: No edema feet - Labs CBC & Chem 7: 07/17/23 06:57 07/17/23 06:57 Labs: Abnormal Lab Results - Last 24 Hours (Table) 07/17/23 07/17/23 Range/Units 06:57 06:57 RBC 2.69 L (4.30-5.90) m/uL Hgb 8.9 L (13.0-17.5) gm/dL Hct 27.1 L (39.0-53.0) % MCV 100.8 H (80.0-100.0) fL Plt Count 100 L (150-450) k/uL Lymphocytes # 0.6 L (1.0-4.8) k/uL Potassium 3.2 L (3.5-5.1) mmol/L Chloride 112 H (98-107) mmol/L Carbon Dioxide 21 L (22-30) mmol/L BUN 23 H (9-20) mg/dL C-Reactive Protein 3.6 H (<1.0) mg/dL Total Protein 4.9 L (6.3-8.2) g/dL Albumin 2.5 L (3.5-5.0) g/dL Assessment and Plan (1) Pneumonia Current Visit: Yes Status: Acute Code(s): J18.9 - PNEUMONIA, UNSPECIFIED ORGANISM SNOMED Code(s): 204935513 (2) Wound, open, head Current Visit: Yes Status: Acute Code(s): S01.90XA - UNSP OPEN WOUND OF UNSPECIFIED PART OF HEAD, INIT ENCNTR SNOMED Code(s): 74021285 Plan: 1patient presented to hospital with mental status changes weakness in this patient who did have a 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 and the patient noticed to have infiltrate on the chest x-ray concerning for pneumonia in this patient who has been out of the hospital we will need to cover for resistant gram-positive as well as gram-negative pathogen 2-try to obtain a sputum for Gram stain culture currently waiting for CRP and a procalcitonin level 3-patient to continue with cefepime and vancomycin while waiting for the culture to finalize 4-local wound care to the left behind the ear wound with Medihoney followed by moist changing daily keep the area of the pressure Family at the bedside questions were answered Dictation was produced using [employer] dictation software. please excuse any grammatical, word or spelling errors. Time with Patient: Less than 30
[2023-07-18 11:33] LABS: Basophils % (A) 0 %; Eosinophils # (A) 0.2 k/uL (0-0.7); Eosinophils % (A) 3 %; HCT 29.3 % (39.0-53.0); Hypochromasia Slight; Lymphocytes # (A) 0.5 k/uL (1.0-4.8); Lymphocytes % (A) 9 %; MCH 31.6 pg (25.0-35.0); MCHC 30.6 g/dL (31.0-37.0); MCV 103.4 fL (80.0-100.0); Macrocytosis Slight; Mean Platelet Volume 10.8; Monocytes # (A) 0.4 k/uL (0-1.0); Monocytes % (A) 6 %; Neutrophils # (A) 4.8 k/uL (1.3-7.7); Neutrophils % (A) 80 %; Platelet Count 107 k/uL (150-450); RBC 2.83 m/uL (4.30-5.90); RDW 14.5 % (11.5-15.5)
--- NOTE | 2023-07-18 11:33 | P.PN ---
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 Patient now presented to hospital with worsening of his respiratory status concerning for pneumonia possible gram-negative. On today's evaluation that is 07/18/2023,the patient is lethargic t today and did not answer any question, patient is however breathing comfortably on 2 L nasal cannula oxygen no vomiting diarrhea or any other changes reported by the nursing staff Patient did have a white count of 7.0, creatinine is 1.19 as of 07/17/2023 blood cultures pending MRSA nasal swab negative culture from the wound behind the ear is growing Megan Objective - Vital Signs Vital signs: Vital Signs Temp 97.9 F 07/18/23 08:00 Pulse 77 07/18/23 08:00 Resp 18 07/18/23 08:00 BP 134/63 07/18/23 08:00 Pulse Ox 100 07/18/23 08:00 FiO2 Intake & Output 07/17/23 07/18/23 07/18/23 18:59 06:59 18:59 Intake Total 718 Output Total 225 300 250 Balance 493 -300 -250 Intake: Intake, IV Titration 600 Amount Cefepime 2 gm In Sodium 100 Chloride 0.9% 100 ml @ 25 mls/hr IVPB Q12HR [facility] Rx #:[id number] Vancomycin 1,500 mg In 500 Sodium Chloride 0.9% 500 ml 500 ml @ 167 mls/hr IVPB Q24H [facility] Rx#: [id number] Oral 118 Output: Urine 225 300 250 Other: Voiding Method Indwelling Catheter Indwelling Catheter Indwelling Catheter - Exam GENERAL DESCRIPTION: An elderly male lying in bed in no distress RESPIRATORY SYSTEM: Unlabored breathing , decreased breath sounds at bases HEART: S1 S2 regular rate and rhythm , ABDOMEN: Soft , no tenderness EXTREMITIES: No edema feet - Labs CBC & Chem 7: 07/17/23 06:57 07/17/23 06:57 Labs: Abnormal Lab Results - Last 24 Hours (Table) 07/16/23 Range/Units 14:15 Vitamin B12 1196.0 H (200.0-944.0) pg/mL Microbiology - Last 24 Hours (Table) 07/16/23 11:46 Blood Culture - Preliminary Blood 07/16/23 13:15 Gram Stain - Preliminary Ear - Left Wound Culture - Preliminary Yeast species 07/16/23 13:10 Nasal Screen MRSA/MSSA - Final Nasopharyngeal Swab Assessment and Plan (1) Pneumonia Current Visit: Yes Status: Acute Code(s): J18.9 - PNEUMONIA, UNSPECIFIED ORGANISM SNOMED Code(s): 032023764 (2) Wound, open, head Current Visit: Yes Status: Acute Code(s): S01.90XA - UNSP OPEN WOUND OF UNSPECIFIED PART OF HEAD, INIT ENCNTR SNOMED Code(s): 74504215 Plan: 1patient presented to hospital with mental status changes weakness in this patient who did have a 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 and the patient noticed to have infiltrate on the chest x-ray concerning for pneumonia in this patient who has been out of the hospital we will need to cover for resistant gram-positive as well as gram-negative pathogen 2-patient did not have significant elevated CRP and a procalcitonin level 3-patient to continue with cefepime however will discontinue vancomycin as the cultures so far negative for MRSA 4-local wound care to the left behind the ear wound with Medihoney, cultures are currently growing Megan more likely colonizer no need for antifungal Dictation was produced using [employer] dictation software. please excuse any grammatical, word or spelling errors. Time with Patient: Less than 30
[2023-07-18 11:45] LABS: ALT 20 U/L (4-49); AST 23 U/L (17-59); African American GFR (CKD) 53 (>60 ml/min/1.73 sqM); Albumin 2.5 g/dL (3.5-5.0); Alkaline Phosphatase 62 U/L (38-126); Anion Gap 4 mmol/L; Blood Urea Nitrogen 27 mg/dL (9-20); Carbon Dioxide 25 mmol/L (22-30); Chloride 114 mmol/L (98-107); Glucose 87 mg/dL (74-99); Non-African American GFR(CKD) 46 (>60 ml/min/1.73 sqM); Sodium 143 mmol/L (137-145); Total Bilirubin 0.4 mg/dL (0.2-1.3)
--- NOTE | 2023-07-18 16:22 | P.CONS ---
History of Present Illness - Reason for Consult Consult date: 07/18/23 AMS Requesting physician: Joanie Awad - Chief Complaint AMS - History of Present Illness The patient is an 83-year-old male previously treated for a squamous cell carcinoma of the left ear in March 2022 with surgical resection. The patient unfortunately developed recurrent disease as well as metastatic disease to the neck. He underwent definitive radiation finishing 70 Gy in November of 2022. He presents secondary to recent alteration in mental status and failure to thrive. The patient presented to the ER on 07/15/2023. He was reported to have decreased level of consciousness and was quite lethargic. He reportedly was difficult to wake up and not responding to commands. There've been concerns for possible pneumonia as well as infection along the left post-auricular region. The patient has been on antibiotics recently. He was hospitalized with concern for sepsis. A CT of the brain was unremarkable. At the time of my visit, the patient is awake. He is able to answer questions yes or no, but is not speaking beyond this. According to the nursing staff, he is eating very little. He reports pain, but apparently has bedsores. Review of Systems ROS unobtainable: due to mental status Past Medical History Past Medical History: Coronary Artery Disease (CAD), Cancer, Chest Pain / Angina, Heart Failure, COPD, Myocardial Infarction (CO), Prostate Disorder, Thyroid Disorder Additional Past Medical History / Comment(s): HX HIATAL HERNIA. mac de generation. PSORIASIS. GOUT Last Myocardial Infarction Date:: unk History of Any Multi-Drug Resistant Organisms: None Reported Past Surgical History: Heart Catheterization With Stent Additional Past Surgical History / Comment(s): COLONOSCOPY. AICD/PACEM[employer]ER- [employer]. GENERATOR CHANGE-09/23/2014. leg stents Date of Last Stent Placement:: unk Past Psychological History: No Psychological Hx Reported Smoking Status: Former smoker Past Alcohol Use History: None Reported Past Drug Use History: None Reported - Past Family History Mother History Unknown: Yes Medications and Allergies Home Medications Medication Instructions Recorded Confirmed Type Aspirin 325 mg PO DAILY@1700 09/20/14 07/15/23 History Atorvastatin [Lipitor] 20 mg PO HS@2130 09/20/14 07/15/23 History Isosorbide Mononitrate ER [Imdur] 60 mg PO BID@0800,1700 09/20/14 07/15/23 History ALPRAZolam [Xanax] 0.5 mg PO BID PRN 02/10/21 07/15/23 History Ergocalciferol [Vitamin D2 (1250 1,250 mcg PO TU@0800 02/10/21 07/15/23 History Mcg = [id number] Iu)] Nitroglycerin Sl Tabs [Nitrostat] 0.4 mg SL Q5M PRN 02/10/21 07/15/23 History Amiodarone [Cordarone] 100 mg PO HS@2130 09/07/21 07/15/23 History Levothyroxine Sodium [Levoxyl] 112 mcg PO DAILY@0809/07/21 07/15/23 History Sertraline [Zoloft] 50 mg PO DAILY@79909/07/21 07/15/23 History Amoxic-Pot Clav 875-125Mg 1 tab PO Q12HR@0800,2100 07/15/23 07/15/23 History [Augmentin 875-125] Ensure Enlive 237 ml PO TID@0800,1200,1700 07/15/23 07/15/23 History Ipratropium-Albuterol Nebulize 3 ml INHALATION RT-Q6H 07/15/23 07/15/23 History [Duoneb 0.5 mg-3 mg/3 ml Soln] Magnesium Hydroxide [Milk of 7,200 mg PO DAILY PRN 07/15/23 07/15/23 History Magnesia Concentrate] Na Phos,M-B/Na Phos,Di-Ba [Fleet 133 ml RECTAL DAILY PRN 07/15/23 07/15/23 History Adult] Pantoprazole [Protonix] 40 mg PO DAILY@79907/15/23 07/15/23 History Tamsulosin HCl [Flomax] 0.4 mg PO DAILY@79907/15/23 07/15/23 History Theophylline 24 Hour [Ashok-24] 300 mg PO DAILY@79907/15/23 07/15/23 History allopurinoL [Zyloprim] 200 mg PO DAILY@0800 07/15/23 07/15/23 History bisacodyL [Dulcolax] 10 mg RECTAL Q24H PRN 07/15/23 07/15/23 History carvediloL [Coreg] 12.5 mg PO BID@0800,1700 07/15/23 07/15/23 History hydrALAZINE HCL [Apresoline] 50 mg PO Q8HR@0600,1400,2200 07/15/23 07/15/23 History Allergies Allergy/AdvReac Type Severity Reaction Status Date / Time prednisone AdvReac Hallucinati Verified 07/15/23 18:38 ons Physical Exam Vitals: Vital Signs Temp Pulse Pulse Resp BP Pulse Ox 07/18/23 16:02 68 20 07/18/23 12:00 66 20 175/78 97 07/18/23 11:55 80 16 07/18/23 11:46 82 16 07/18/23 08:00 97.9 F 77 18 134/63 100 07/18/23 04:00 97.9 F 75 18 115/64 100 07/18/23 02:00 64 20 07/18/23 00:00 97.7 F 64 20 131/69 99 07/17/23 20:00 98.1 F 72 20 132/70 99 Intake and Output 07/18/23 07/18/23 07/18/23 06:59 14:59 22:59 Output Total 300 250 Balance -300 -250 Output: Urine 300 250 Other: Voiding Method Indwelling Catheter Indwelling Catheter Weight 83.915 kg - Constitutional General appearance: disheveled - EENT Eyes: EOMI, PERRLA Ears: left: other (Post-auricular ulcer open 3 x 2 cm, appears clean, serous drainage.) - Neck Neck: no lymphadenopathy - Respiratory Respiratory: bilateral: CTA - Cardiovascular Rhythm: regular - Gastrointestinal General gastrointestinal: no distended, no tenderness - Neurologic Neurologic: CNII-XII intact - Psychiatric Psychiatric: no A&O x's 3 Results CBC & Chem 7: 07/18/23 10:30 07/18/23 10:30 Labs: Abnormal Lab Results - Last 24 Hours (Table) 07/18/23 07/18/23 Range/Units 10:30 10:30 RBC 2.83 L (4.30-5.90) m/uL Hgb 9.0 L (13.0-17.5) gm/dL Hct 29.3 L (39.0-53.0) % MCV 103.4 H (80.0-100.0) fL MCHC 30.6 L (31.0-37.0) g/dL Plt Count 107 L (150-450) k/uL Lymphocytes # 0.5 L (1.0-4.8) k/uL Chloride 114 H (98-107) mmol/L BUN 27 H (9-20) mg/dL Creatinine 1.42 H (0.66-1.25) mg/dL Total Protein 5.0 L (6.3-8.2) g/dL Albumin 2.5 L (3.5-5.0) g/dL Microbiology - Last 24 Hours (Table) 07/16/23 11:46 Blood Culture - Preliminary Blood 07/16/23 13:15 Gram Stain - Preliminary Ear - Left Wound Culture - Preliminary Yeast species 07/16/23 13:10 Nasal Screen MRSA/MSSA - Final Nasopharyngeal Swab CT Scan - head: report reviewed, image reviewed Assessment and Plan Assessment: The patient is an 83-year-old male previously treated for a squamous cell carcinoma of the left ear in March 2022 with surgical resection. The patient unfortunately developed recurrent disease as well as metastatic disease to the neck. He underwent definitive radiation finishing 70 Gy in November of 2022. He presents secondary to recent alteration in mental status and failure to thrive. Plan: 1. AMS: Uncertain of exact etiology - possibly due to infection vs medication. I am skeptical this is from his malignancy. Most recent imaging form 02/2023 did not show metastatic disease. MRI brain would be helpful, but cannot obtain due to implanted defibrillator. 2. Squamous cell carcinoma behind ear: Depression does not appear infected on my exam, but patient has been on Abx. Uncertain if finding is stable - will have Dr. Camacho evaluate patient as well. Time with Patient: Less than 30
--- NOTE | 2023-07-18 17:34 | P.PN ---
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, patient was recently hospitalized at [facility] for what appears to be an infected wound due to his radiation therapy behind his ear, the culture at that time showed Staphylococcus aureus as well as Corynebacterium species he was started on cefepime 2 g IV piggyback every 8 hours as well as vancomycin with pharmacy to dose, he was seen in consultation by infectious disease, his CT scan of the brain at that time did not show any evidence of acute abnormalities, patient was transitioned into oral Augmentin 875 mg orally twice every day for 10 days, patient went tomorrow for physical therapy and rehabilitation while he was at moderate he developed to have a significant mental status changes he became quite unresponsive does not follow much commands, he was not eating or drinking much, these symptoms waxes and wane on and off, patient initially was sent back to the emergency department at [facility], he had a CT scan of the brain did not show evidence of acute abnormalities his laboratory evaluation were fine he did appear to have a bit of infiltrate of the right lower lobe, he was sent back home since his procalcitonin level was negative, his BNP was lower, white count were normal, patient went back tomorrow and he became more drowsy subtended does not follow any commands, the nursing staff has contacted me yesterday he was directed to go to the ER at [facility], he had a chest x-ray that showed possible right lower lobe pneumonia, CT scan of the brain did not show evidence of acute abnormalities, his troponin was slightly elevated suggestive of type II MO due to possible sepsis, he was seen in consultation by cardiology who recommended echocardiogram for evaluation of LV function, he was started back on his Augmentin I will discontinue that and start the patient on cefepime 2 g IV piggyback every 12 hours along with vanc omycin pharmacy to dose will obtain infectious disease consultation, will obtain neurology consultation as well as for evaluation of his mental status changes will continue to follow-up with the patient 07/17: Patient is still confused better than yesterday, he is more awake today however he is not making sense, he denies any fever or chills, he continues to have pain in the left shoulder, he continues to have pain all over his body, patient was seen earlier by cardiology as well as by neurology, MRI could not be done because of the AICD, he continues to be on IV antibiotic in the form of cefepime and vancomycin, consulted radiation oncology Dr. Welsh for further recommendation, if the blood cultures are positive we will arrange for a transesophageal echocardiogram discussed with Dr. Yeboah from cardiology 07/18: Patient is lying down in bed in no apparent distress, yesterday afternoon he became quite unresponsive and he did not respond to any verbal stimuli, he was responding to painful stimuli, today in the morning he was more awake and more alert, he sitting up in bed he does not seem to see much, he continues to be on vancomycin as well as cefepime, he will be seen in consultation by radiation oncology to get their opinion about radiation related encephalopathy, blood cultures so far are negative, if the blood cultures are positive patient will need to go for a transesophageal echocardiogram for evaluation of endocarditis, patient has been seen by multiple specialties including infectious disease, cardiology, along with neurology, patient did have his EEG today in the morning the results still pending at the time of dictation. REVIEW OF SYSTEMS: Constitutional: low grade fever, no chills, no night sweats. No weight change. positive for weakness,positive for fatigue and lethargy. positive for daytime sleepiness. EENT: No headache. No blurred vision or double vision, no loss of vision. No loss of Hearing, no ringing in the ears, no dizziness. No nasal drainage or congestion. No epistaxis. No sore throat. Lungs: No shortness of breath, no cough, no sputum production. No wheezing. Reports dyspnea with activity. Cardiovascular: No chest pain, no lower extremity edema. No palpitations. No paroxysmal nocturnal dyspnea. No orthopnea. No lightheadedness or dizziness. No syncopal episodes. Abdominal: Reports abdominal pain. No nausea, vomiting. No diarrhea. No constipation. No bloody or tarry stools reports loss of appetite. Genitourinary: No dysuria, increased frequency, urgency. No urinary retention. Musculoskeletal: No myalgias. positive for muscle weakness, no gait dysfunction, positive for frequent falls. No back pain. No neck pain. Integumentary: wound behind left ear post radiation for SCC, no lesions. No rash or pruritus. No unusual bruising. No change in hair or nails. Neurologic: No aphasia. No facial droop. positive for change in mentation. No head injury. No headache. No paralysis. No paresthesia. Psychiatric: positive for depression. positive for anxiety. No mood swings.positive for paranoia Endocrine: No abnormal blood sugars. No weight change. PHYSICAL EXAMINATION: General: 83-year-old male laying down in bed appears to be quite confused nonverbal. HEENT: Head is atraumatic, normocephalic, pupils were equal round reactive to light and recommendation, extraocular muscle movement were intact, sclera nonicteric, conjunctivae were pale, mucous membranes of the mouth are somewhat dry, the large wound behind the left ear with a clean base minimal drainage Neck: Supple, no JVP, normal carotid upstroke bilaterally, no lymphadenopathy. Chest: Decreased breath sounds at the bases, few rhonchi, no expiratory wheezes, no chest wall tenderness, no intercostal retractions. Heart: First heart sound is normal, second heart sound is normal there is systolic ejection murmur 2/6 located in the left sternal border, there is AICD in the left upper precordium slightly tender to touch Abdomen: Soft, nontender, nondistended, positive bowel sounds. Extremities: There is +1 edema no calf tenderness DP +2 bilaterally. Neurologic examination: Patient is confused opens his eyes in response to verbal stimuli, nonverbal, follows some commands not all the commands, moves all his extremities respond to the questions very well. ASSESSMENT AND PLAN: 1. Metabolic encephalopathy likely due to sepsis due to gram-negative right lower lobe pneumonia and possible infected wound behind his left ear. Blood culture, wound culture, aerobic and anaerobic, will continue vancomycin 1500 mg IV daily along with cefepime 2 g IV piggyback every 12 hours, infectious disease consultation, neurology consultation, I will consult radiation oncology Dr. Welsh from [facility], reevaluate the patient, unfortunately patient cannot go for MRI due to AICD placement, we will continue to monitor the patient very closely this been going on for the past 10 days. 2. Gram negative pneumonia likely patient was at [facility] would continue cefepime and vancomycin, sputum culture if possible blood culture, oxygen support, start the patient on nebulized treatment DuoNeb 3 mL nebulization 4 times every day. 3. Acute urinary retention. Status post Soto catheterization his postvoid residual was greater than 500 mL yesterday continue Flomax 0.4 mg once every day, keep Soto catheter in for now, urine does not appear to be infected. 4. 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 Echocardiogram ejection fraction of 45%, cardiology is following, continue patient on carvedilol 12.5 mg orally twice a , continue Lipitor 20 mg once every day, continue aspirin 81 mg once every day. 5. History of coronary artery disease with three-vessel disease status post PCI under the care of cardiology Dr. Veras on a regular basis. Continue aspirin, carvedilol 12.5 mg orally twice a and Lipitor consult cardiology. 6. Hypertension and hypertensive cardiovascular disease. Continue patient on carvedilol 12.5 mg orally twice a day, continue hydralazine 50 mg orally 3 times every day, continue isosorbide mononitrate 60 mg orally twice every day. 7. Hypothyroidism. Continue Synthroid 112 mcg orally once every day, 8. Enlarged prostate with urinary retention. Continue patient on Flomax 0.4 mg once every day. 9. Moderate COPD. Continue oxygen 2 L nasal cannula, continue DuoNeb 3 mL nebulization 4 times every day, continue Theodur 300 mg once at bedtime, 10.Ventricular tachycardia status post ICD implantation continue amiodarone 100 mg orally once every day. 11. Chronic kidney disease stage IIIb. Avoid nephrotoxins, monitor the patient's CMP 12. DVT prophylaxis. Continue patient on Lovenox 30 mg subcutaneously every 24 hours. 13. GI prophylaxis. Protonix 40 mg once every day. 14. PT OT evaluation. 15. 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 16. Guarded prognosis Objective - Vital Signs Vital signs: Vital Signs Temp 98 F 07/18/23 16:00 Pulse 68 07/18/23 16:02 Resp 20 07/18/23 16:02 BP 134/66 07/18/23 16:00 Pulse Ox 97 07/18/23 16:00 FiO2 Intake & Output 07/17/23 07/18/23 07/18/23 18:59 06:59 18:59 Intake Total 718 240 Output Total 225 300 550 Balance 493 -300 -310 Weight 83.915 kg Intake: Intake, IV Titration 600 Amount Cefepime 2 gm In Sodium 100 Chloride 0.9% 100 ml @ 25 mls/hr IVPB Q12HR [facility] Rx #:[id number] Vancomycin 1,500 mg In 500 Sodium Chloride 0.9% 500 ml 500 ml @ 167 mls/hr IVPB Q24H [facility] Rx#: [id number] Oral 118 240 Output: Urine 225 300 550 Other: Voiding Method Indwelling Catheter Indwelling Catheter Indwelling Catheter - Labs CBC & Chem 7: 07/18/23 10:30 07/18/23 10:30 Labs: Abnormal Lab Results - Last 24 Hours (Table) 07/18/23 07/18/23 Range/Units 10:30 10:30 RBC 2.83 L (4.30-5.90) m/uL Hgb 9.0 L (13.0-17.5) gm/dL Hct 29.3 L (39.0-53.0) % MCV 103.4 H (80.0-100.0) fL MCHC 30.6 L (31.0-37.0) g/dL Plt Count 107 L (150-450) k/uL Lymphocytes # 0.5 L (1.0-4.8) k/uL Chloride 114 H (98-107) mmol/L BUN 27 H (9-20) mg/dL Creatinine 1.42 H (0.66-1.25) mg/dL Total Protein 5.0 L (6.3-8.2) g/dL Albumin 2.5 L (3.5-5.0) g/dL Microbiology - Last 24 Hours (Table) 07/16/23 11:46 Blood Culture - Preliminary Blood 07/16/23 13:15 Gram Stain - Preliminary Ear - Left Wound Culture - Preliminary Yeast species 07/16/23 13:10 Nasal Screen MRSA/MSSA - Final Nasopharyngeal Swab
--- NOTE | 2023-07-19 00:13 | EEG ---
ELECTROENCEPHALOGRAM REPORT PREAMBLE: This is an 83-year-old male with history of confusion. The patient came from nursing facility because of decreased level of consciousness. Patient has been lethargic since admission. The patient suddenly had jerks every few seconds. CURRENT MEDICATIONS: 1. Albuterol. 2. Xanax. 3. Cordarone. 4. Aspirin. 5. Lipitor. 6. Coreg. 7. Cefepime. 8. Dilaudid. 9. Keppra. 10.Synthroid. 11.Protonix. 12.Zoloft. 13.Flomax. EEG FINDINGS: This is a 21-channel digital EEG recorded with video component, utilizing 10/20 international system with referential and bipolar montages. Background consists of well-developed, well-regulated moderate voltage activity and mixed 8-9 hertz alpha, with some 6-7 Hz theta activity seen in bihemispheric region. Background is posterior dominant and does not seem to be reactive to eye opening or closing. Photic driving response was not seen. The patient was drowsy during most of the study with presence of intermittent theta frequency rhythm. Deeper stages of sleep were not clearly seen. No focal or generalized epileptiform activity was seen. IMPRESSION: This is a borderline abnormal EEG due to minimal background slowing, suggestive of mild encephalopathy. No focal, lateralized or epileptiform activity was seen. MMODL / IJN: [id number] /
--- NOTE | 2023-07-19 09:14 | P.PN ---
Subjective Progress Note Date: 07/18/23 Patient was initially seen by Dr. Reji Valdes. Please refer to his note for details. Patient is a 83-year-old male with altered mental status, possible pneumonia. Patient is laying comfortably in the bed. Offers no complaints. Some other workup during his hospital visit consisted of: Presented with temperature of 91 Fahrenheit on presentation that was only one time otherwise has been normal. White blood cell is 7.7 thousand. Sodium is 140, plasma lactic acid venous 0.7, serum glucose is 107, creatinine is 1.38 and the BX 26, AST is 35 ALT 26, ammonia is less than 9, troponin is 0.06 as high as a 0.071. UDS is not detected Ammonia is less than 9 TSH is 0.608 Influenza A/B, RSV and SARS-CoV-2 PCR are not detected. CT of the head is reported as no acute intracranial process. Nonspecific white matter changes, likely secondary due to chronic small vessel ischemic disease. Severe paranasal sinus disease with left mastoid air cell effusion. I personally reviewed the CT of the head and I reviewed the report. Chest x-ray is reported as airspace opacities project over the right lung base correlate for pneumonia. 2D echo: Mild left ventricle systolic dysfunction. Akinetic basal inferior wall suggestive of prior myocardial infarction. Objective - Vital Signs Vital signs: Vital Signs Temp 98 F 07/18/23 16:00 Pulse 68 07/18/23 16:02 Resp 20 07/18/23 16:02 BP 134/66 07/18/23 16:00 Pulse Ox 97 07/18/23 16:00 FiO2 Intake & Output 07/17/23 07/18/23 07/18/23 18:59 06:59 18:59 Intake Total 718 240 Output Total 225 300 550 Balance 493 -300 -310 Weight 83.915 kg Intake: Intake, IV Titration 600 Amount Cefepime 2 gm In Sodium 100 Chloride 0.9% 100 ml @ 25 mls/hr IVPB Q12HR ADDIE Rx #:[id number] Vancomycin 1,500 mg In 500 Sodium Chloride 0.9% 500 ml 500 ml @ 167 mls/hr IVPB Q24H ADDIE Rx#: [id number] Oral 118 240 Output: Urine 225 300 550 Other: Voiding Method Indwelling Catheter Indwelling Catheter Indwelling Catheter - Exam Patient is alert and awake, laying comfortably in the bed. Patient speaks with very low volume, and often whispers. Patient denies headache. On cranial nerve examination, patient's visual singh are full on confrontation, face is symmetric. Extraocular muscles are intact. Patient's tongue protrudes to the midline. On muscle strength testing, the strength is normal in the upper limbs. In the lower limbs (right/left) hip flexion is 4-/3-, ankle dorsiflexion 4-/4+5-, plantarflexion 5-/5-. Patient was feeling pain all over when the muscles were being tested. He did not give the best effort because of the pain. Sensory to touch is equal. - Labs CBC & Chem 7: 07/18/23 10:30 07/18/23 10:30 Labs: Abnormal Lab Results - Last 24 Hours (Table) 07/18/23 07/18/23 Range/Units 10:30 10:30 RBC 2.83 L (4.30-5.90) m/uL Hgb 9.0 L (13.0-17.5) gm/dL Hct 29.3 L (39.0-53.0) % MCV 103.4 H (80.0-100.0) fL MCHC 30.6 L (31.0-37.0) g/dL Plt Count 107 L (150-450) k/uL Lymphocytes # 0.5 L (1.0-4.8) k/uL Chloride 114 H (98-107) mmol/L BUN 27 H (9-20) mg/dL Creatinine 1.42 H (0.66-1.25) mg/dL Total Protein 5.0 L (6.3-8.2) g/dL Albumin 2.5 L (3.5-5.0) g/dL Microbiology - Last 24 Hours (Table) 07/16/23 11:46 Blood Culture - Preliminary Blood 07/16/23 13:15 Gram Stain - Preliminary Ear - Left Wound Culture - Preliminary Yeast species 07/16/23 13:10 Nasal Screen MRSA/MSSA - Final Nasopharyngeal Swab Assessment and Plan Assessment: This is an 83-year-old gentleman who presents to the emergency department from his nursing facility because of decreased level of consciousness as well as decreased oral intake. It seems that the patient was at [facility] the prior to presented to our facility and was discharged back to his nursing facility. CT of the head is unremarkable for any acute processes. He has minimally elevated troponin and this chest x-ray is questionable for pneumonia Encephalopathy seems due to underlying metabolic as well as due to probable pneumonia. He had a temperature of 91 Fahrenheit only one time---mentation is improving compared to yesterday Possible pneumonia on the right side Elevated the troponin slight Akinetic basal inferior wall suggestive of prior AK on echo Chronic kidney insufficiency History of AICD placement Hyperlipidemia Hypertension CAD Plan: Patient cannot have MRI of the brain because of presence of AICD. Carotid Doppler rule out stenosis 2D echo: Mild left ventricle systolic dysfunction. Akinetic basal inferior wall suggestive of prior myocardial infarction. Lipid panel with cholesterol 105, LDL 36, HDL 47, triglycerides 107 on 01/20/2023. No need to repeat. Continue Lipitor 20 mg daily. Routine EEG performed today was borderline abnormal due to minimal background slowing, suggestive of mild encephalopathy. No focal, lateralized or epileptiform activity was seen. Continue aspirin 325 mg and Lipitor 20 mg daily. DVT prophylaxis: Patient on Lovenox 30 mg subcu daily Cardiology is on board Vitamin B-12 1196, folate 28, TSH is normal at 0.608 ID team is on board. Patient on cefepime for possible pneumonia. We'll defer the rest of the medical management to primary team and other specialists
--- NOTE | 2023-07-19 10:44 | P.CONS ---
History of Present Illness - Reason for Consult Consult date: 07/19/23 wound care - History of Present Illness This is an 83-year-old patient being seen on 3 S. 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 Patient past medical history significant for coronary artery disease, chest pain, heart failure, COPD, [place], BPH, radiation therapy. Patient has stage II pressure ulcers to the right and left buttocks. Granulation noted to the wound bed with slough and nonviable tissue. Patient also has a ulceration related to radiation injury behind the left ear. Ulceration measures approximately 2 x 1.4 x 0.2 cm with significant amount of slough and minimal granulation noted no tunneling or undermining noted. Review Of Systems: Constitutional: No fever, no chills, no night sweats. No weight change. No weakness, fatigue or lethargy. No daytime sleepiness. Integumentary:reports wounds, no lesions. No rash or pruritus. No unusual bruising. No change in hair or nails. Physical exam: General Appearance: Alert, cooperative, no distress, appears stated age. Skin: See HPI all other Skin color, texture, tugor normal, no rashes or lesions. Neurologic: Alert oriented x3 Assessment: 1. Stage II pressure ulcer left buttocks 2. Stage II pressure ulcer right buttocks 3. Soft tissue radionecrosis 4. Nonhealing ulceration other site with fat layer exposure Plan: 1. Right and left buttocks apply honey gel and bordered foam change Tuesday. Behind left ear ulceration apply honey gel and bordered foam changing Tuesday. Patient would benefit from advanced wound care and wound care setting. Will be happy to see him upon discharge. Thank you for the consultation any questions please contact the wound care center DNP note has been reviewed and discussed with Dr. Aranda and the impression and plan of care has been directed as dictated. Past Medical History Past Medical History: Coronary Artery Disease (CAD), Cancer, Chest Pain / An braxton, Heart Failure, COPD, Myocardial Infarction ([place]), Prostate Disorder, Thyroid Disorder Additional Past Medical History / Comment(s): HX HIATAL HERNIA. mac degeneration. PSORIASIS. GOUT Last Myocardial Infarction Date:: unk History of Any Multi-Drug Resistant Organisms: None Reported Past Surgical History: Heart Catheterization With Stent Additional Past Surgical History / Comment(s): COLONOSCOPY. AICD/PACEMAKER- [employer]. GENERATOR CHANGE-09/23/2014. leg stents Date of Last Stent Placement:: unk Past Psychological History: No Psychological Hx Reported Smoking Status: Former smoker Past Alcohol Use History: None Reported Past Drug Use History: None Reported - Past Family History Mother History Unknown: Yes Medications and Allergies Home Medications Medication Instructions Recorded Confirmed Type Aspirin 325 mg PO DAILY@1700 09/20/07/15/23 History Atorvastatin [Lipitor] 20 mg PO HS@09/20/07/15/23 History Isosorbide Mononitrate ER [Imdur] 60 mg PO BID@0800,1700 09/20/14 07/15/23 History ALPRAZolam [Xanax] 0.5 mg PO BID PRN 02/10/21 07/15/23 History Ergocalciferol [Vitamin D2 (1250 1,250 mcg PO TU@0800 02/10/21 07/15/23 History Mcg = 28298 Iu)] Nitroglycerin Sl Tabs [Nitrostat] 0.4 mg SL Q5M PRN 02/10/21 07/15/23 History Amiodarone [Cordarone] 100 mg PO HS@212909/07/21 07/15/23 History Levothyroxine Sodium [Levoxyl] 112 mcg PO DAILY@0800 09/07/21 07/15/23 History Sertraline [Zoloft] 50 mg PO DAILY@0800 09/07/21 07/15/23 History Amoxic-Pot Clav 875-125Mg 1 tab PO Q12HR@0800,2100 07/15/23 07/15/23 History [Augmentin 875-125] Ensure Enlive 237 ml PO TID@0800,1200,1700 07/15/23 07/15/23 History Ipratropium-Albuterol Nebulize 3 ml INHALATION RT-Q6H 07/15/23 07/15/23 History [Duoneb 0.5 mg-3 mg/3 ml Soln] Magnesium Hydroxide [Milk of 7,200 mg PO DAILY PRN 07/15/23 07/15/23 History Magnesia Concentrate] Na Phos,M-B/Na Phos,Di-Ba [Fleet 133 ml RECTAL DAILY PRN 07/15/23 07/15/23 History Adult] Pantoprazole [Protonix] 40 mg PO DAILY@0800 07/15/23 07/15/23 History Tamsulosin HCl [Flomax] 0.4 mg PO DAILY@0800 07/15/23 07/15/23 History Theophylline 24 Hour [Ashok-24] 300 mg PO DAILY@0800 07/15/23 07/15/23 History allopurinoL [Zyloprim] 200 mg PO DAILY@0800 07/15/23 07/15/23 History bisacodyL [Dulcolax] 10 mg RECTAL Q24H PRN 07/15/23 07/15/23 History carvediloL [Coreg] 12.5 mg PO BID@0800,1700 07/15/23 07/15/23 History hydrALAZINE HCL [Apresoline] 50 mg PO Q8HR@0600,1400,2200 07/15/23 07/15/23 History Allergies Allergy/AdvReac Type Severity Reaction Status Date / Time prednisone AdvReac Hallucinati Verified 07/15/23 18:38 ons Physical Exam Vitals: Vital Signs Temp Pulse Pulse Resp BP Pulse Ox 07/19/23 09:22 76 07/19/23 09:08 72 94 L 07/19/23 08:35 98.0 F 71 16 157/61 98 07/19/23 04:00 97.9 F 84 18 139/63 92 L 07/19/23 02:00 84 18 07/19/23 00:00 98.4 F 72 18 111/52 94 L 07/18/23 20:00 97.6 F 64 16 128/61 95 07/18/23 16:02 68 20 07/18/23 16:00 98 F 70 18 134/66 97 07/18/23 12:00 66 20 175/78 97 07/18/23 11:55 80 16 07/18/23 11:46 82 16 Intake and Output 07/18/23 07/19/23 07/19/23 22:59 06:59 14:59 Intake Total 240 Output Total 300 475 300 Balance -60 -475 -300 Intake: Oral 240 Output: Urine 300 475 300 Other: Voiding Method Indwelling Catheter Indwelling Catheter Indwelling Catheter Results CBC & Chem 7: 07/18/23 10:30 07/18/23 10:30 Labs: Abnormal Lab Results - Last 24 Hours (Table) 07/18/23 07/18/23 Range/Units 10:30 10:30 RBC 2.83 L (4.30-5.90) m/uL Hgb 9.0 L (13.0-17.5) gm/dL Hct 29.3 L (39.0-53.0) % MCV 103.4 H (80.0-100.0) fL MCHC 30.6 L (31.0-37.0) g/dL Plt Count 107 L (150-450) k/uL Lymphocytes # 0.5 L (1.0-4.8) k/uL Chloride 114 H (98-107) mmol/L BUN 27 H (9-20) mg/dL Creatinine 1.42 H (0.66-1.25) mg/dL Total Protein 5.0 L (6.3-8.2) g/dL Albumin 2.5 L (3.5-5.0) g/dL Microbiology - Last 24 Hours (Table) 07/16/23 13:15 Gram Stain - Final Ear - Left Wound Culture - Final Megan sp,not albicans/galbr 07/16/23 11:46 Blood Culture - Preliminary Blood Assessment and Plan (1) Stage II pressure ulcer of left buttock Current Visit: Yes Status: Acute Code(s): L89.322 - PRESSURE ULCER OF LEFT BUTTOCK, STAGE 2 SNOMED Code(s): 17658843626073 (2) Stage II pressure ulcer of right buttock Current Visit: Yes Status: Acute Code(s): L89.312 - PRESSURE ULCER OF RIGHT BUTTOCK, STAGE 2 SNOMED Code(s): 88449002234611 (3) Soft tissue radionecrosis Current Visit: Yes Status: Acute Code(s): L59.8 - OTH DISRD OF THE SKIN, SUBCU RELATED TO RADIATION; Y84.2 - RADIOLOG PROC/RADIOTHRPY CAUSE ABN REACT/COMPL, W/O MISADVNT SNOMED Code(s): 56122190 (4) Non-pressure chronic ulcer of skin of other sites with fat layer exposed Current Visit: Yes Status: Acute Code(s): L98.492 - NON-PRS CHRONIC ULCER OF SKIN OF SITES W FAT LAYER EXPOSED SNOMED Code(s): 38042068
[2023-07-19] MEDS: ERGOCALCIFEROL 1,250 MCG (50,000 IU) CAPSULE PO SCH (12:13)
--- NOTE | 2023-07-19 13:08 | P.PN ---
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 Patient now presented to hospital with worsening of his respiratory status concerning for pneumonia possible gram-negative. On today's evaluation that is 07/19/2023, the patient continues to be afebrile, the patient is on 2 L nasal cannula oxygen and breathing comfortably, The patient has been complaining of hurting all over denies any worsening cough or sputum production no vomiting or diarrhea has been reported. White count is 6.0 and creatinine 1.42 as of yesterday no blood work today blood cultures so far pending Objective - Vital Signs Vital signs: Vital Signs Temp 98.9 F 07/19/23 11:10 Pulse 83 07/19/23 11:10 Resp 16 07/19/23 11:10 BP 157/71 07/19/23 11:10 Pulse Ox 97 07/19/23 11:10 FiO2 Intake & Output 07/18/23 07/19/23 07/19/23 18:59 06:59 18:59 Intake Total 240 Output Total 550 475 300 Balance -310 -475 -300 Weight 83.915 kg Intake: Oral 240 Output: Urine 550 475 300 Other: Voiding Method Indwelling Catheter Indwelling Catheter Indwelling Catheter - Exam GENERAL DESCRIPTION: An elderly male lying in bed in no distress RESPIRATORY SYSTEM: Unlabored breathing , decreased breath sounds at bases HEART: S1 S2 regular rate and rhythm , ABDOMEN: Soft , no tenderness EXTREMITIES: No edema feet - Labs CBC & Chem 7: 07/18/23 10:30 07/18/23 10:30 Labs: Microbiology - Last 24 Hours (Table) 07/16/23 13:15 Gram Stain - Final Ear - Left Wound Culture - Final Megan sp,not albicans/galbr 07/16/23 11:46 Blood Culture - Preliminary Blood Assessment and Plan (1) Pneumonia Current Visit: Yes Status: Acute Code(s): J18.9 - PNEUMONIA, UNSPECIFIED ORGANISM SNOMED Code(s): 627154003 (2) Wound, open, head Current Visit: Yes Status: Acute Code(s): S01.90XA - UNSP OPEN WOUND OF UNSPECIFIED PART OF HEAD, INIT ENCNTR SNOMED Code(s): 50122679 Plan: 1patient presented to hospital with mental status changes weakness in this patient who did have a 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 please excuse any grammatical, word or spelling errors. Time with Patient: Less than 30
--- NOTE | 2023-07-19 21:12 | P.PN ---
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 for what appears to be an infected wound due to his radiation therapy behind his ear, the culture at that time showed Staphylococcus aureus as well as Corynebacterium species he was started on cefepime 2 g IV piggyback every 8 hours as well as vancomycin with pharmacy to dose, he was seen in consultation by infectious disease, his CT scan of the brain at that time did not show any evidence of acute abnormalities, patient was transitioned into oral Augmentin 875 mg orally twice every day for 10 days, patient went tomorrow for physical therapy and rehabilitation while he was at moderate he developed to have a significant mental status changes he became quite unresponsive does not follow much commands, he was not eating or drinking much, these symptoms waxes and wane on and off, patient initially was sent back to the emergency department at [facility], he had a CT scan of the brain did not show evidence of acute abnormalities his laboratory evaluation were fine he did appear to have a bit of infiltrate of the right lower lobe, he was sent back home since his procalcitonin level was negative, his BNP was lower, white count were normal, patient went back tomorrow and he became more drowsy subtended does not follow any commands, the nursing staff has contacted me yesterday he was directed to go to the ER at [facility], he had a chest x-ray that showed possible right lower lobe pneumonia, CT scan of the brain did not show evidence of acute abnormalities, his troponin was slightly elevated suggestive of type II OR due to possible sepsis, he was seen in consultation by cardiology who recommended echocardiogram for evaluation of LV function, he was started back on his Augmentin I will discontinue that and start the patient on cefepime 2 g IV piggyback every 12 hours along with vanc omycin pharmacy to dose will obtain infectious disease consultation, will obtain neurology consultation as well as for evaluation of his mental status changes will continue to follow-up with the patient 07/17: Patient is still confused better than yesterday, he is more awake today however he is not making sense, he denies any fever or chills, he continues to have pain in the left shoulder, he continues to have pain all over his body, patient was seen earlier by cardiology as well as by neurology, MRI could not be done because of the AICD, he continues to be on IV antibiotic in the form of cefepime and vancomycin, consulted radiation oncology Dr. Welsh for further recommendation, if the blood cultures are positive we will arrange for a transesophageal echocardiogram discussed with Dr. Yeboah from cardiology 07/18: Patient is lying down in bed in no apparent distress, yesterday afternoon he became quite unresponsive and he did not respond to any verbal stimuli, he was responding to painful stimuli, today in the morning he was more awake and more alert, he sitting up in bed he does not seem to see much, he continues to be on vancomycin as well as cefepime, he will be seen in consultation by radiation oncology to get their opinion about radiation related encephalopathy, blood cultures so far are negative, if the blood cultures are positive patient will need to go for a transesophageal echocardiogram for evaluation of endocarditis, patient has been seen by multiple specialties including infectious disease, cardiology, along with neurology, patient did have his EEG today in the morning the results still pending at the time of dictation. 07/19: Patient is lying down in bed he continues to be quite confused he does not follow much commands, I will discontinue his Dilaudid, discontinue Xanax completely, continue IV antibiotic in the form of vancomycin and cefepime, has been followed by neurology, infectious disease, as well as cardiology, patient does not appear to have any positive blood cultures at this point in time. REVIEW OF SYSTEMS: Constitutional: low grade fever, no chills, no night sweats. No weight change. positive for weakness,positive for fatigue and lethargy. positive for daytime sleepiness. EENT: No headache. No blurred vision or double vision, no loss of vision. No loss of Hearing, no ringing in the ears, no dizziness. No nasal drainage or congestion. No epistaxis. No sore throat. Lungs: No shortness of breath, no cough, no sputum production. No wheezing. Reports dyspnea with activity. Cardiovascular: No chest pain, no lower extremity edema. No palpitations. No paroxysmal nocturnal dyspnea. No orthopnea. No lightheadedness or dizziness. No syncopal episodes. Abdominal: Reports abdominal pain. No nausea, vomiting. No diarrhea. No constipation. No bloody or tarry stools reports loss of appetite. Genitourinary: No dysuria, increased frequency, urgency. No urinary retention. Musculoskeletal: No myalgias. positive for muscle weakness, no gait dysfunction, positive for frequent falls. No back pain. No neck pain. Integumentary: wound behind left ear post radiation for SCC, no lesions. No rash or pruritus. No unusual bruising. No change in hair or nails. Neurologic: No aphasia. No facial droop. positive for change in mentation. No head injury. No headache. No paralysis. No paresthesia. Psychiatric: positive for depression. positive for anxiety. No mood swings.positive for paranoia Endocrine: No abnormal blood sugars. No weight change. PHYSICAL EXAMINATION: General: 83-year-old male laying down in bed appears to be quite confused nonverbal. HEENT: Head is atraumatic, normocephalic, pupils were equal round reactive to light and recommendation, extraocular muscle movement were intact, sclera nonicteric, conjunctivae were pale, mucous membranes of the mouth are somewhat dry, the large wound behind the left ear with a clean base minimal drainage Neck: Supple, no JVP, normal carotid upstroke bilaterally, no lymphadenopathy. Chest: Decreased breath sounds at the bases, few rhonchi, no expiratory wheezes, no chest wall tenderness, no intercostal retractions. Heart: First heart sound is normal, second heart sound is normal there is systolic ejection murmur 2/6 located in the left sternal border, there is AICD in the left upper precordium slightly tender to touch Abdomen: Soft, nontender, nondistended, positive bowel sounds. Extremities: There is +1 edema no calf tenderness DP +2 bilaterally. Neurologic examination: Patient is confused opens his eyes in response to verbal stimuli, nonverbal, follows some commands not all the commands, moves all his extremities respond to the questions very well. ASSESSMENT AND PLAN: 1. Metabolic encephalopathy likely due to sepsis due to gram-negative right lower lobe pneumonia and possible infected wound behind his left ear. Blood culture, wound culture, aerobic and anaerobic, will continue vancomycin 1500 mg IV daily along with cefepime 2 g IV piggyback every 12 hours, infectious disease consultation, neurology consultation, patient was seen in consultation by radiation oncology do not think radiation has anything to do with it at this point we will continue to monitor the patient very closely 2. Gram negative pneumonia likely patient was at [facility] would continue cefepime and vancomycin, sputum culture if possible blood culture, oxygen support, start the patient on nebulized treatment DuoNeb 3 mL nebulization 4 times every day. 3. Acute urinary retention. Status post Soto catheterization continue Flomax 0.4 mg once every day, keep Soto catheter in for now, urine does not appear to be infected. 4. Type II OR likely related to sepsis. Echocardiogram ejection fraction of 45%, cardiology is following, continue patient on carvedilol 12.5 mg orally twice a , continue Lipitor 20 mg once every day, continue aspirin 81 mg once every day. 5. History of coronary artery disease with three-vessel disease status post PCI under the care of cardiology Dr. Veras on a regular basis. Continue aspirin, carvedilol 12.5 mg orally twice a and Lipitor consult cardiology. 6. Hypertension and hypertensive cardiovascular disease. Continue patient on carvedilol 12.5 mg orally twice a day, continue hydralazine 50 mg orally 3 times every day, continue isosorbide mononitrate 60 mg orally twice every day. 7. Hypothyroidism. Continue Synthroid 112 mcg orally once every day, 8. Enlarged prostate with urinary retention. Continue patient on Flomax 0.4 mg once every day. 9. Moderate COPD. Continue oxygen 2 L nasal cannula, continue DuoNeb 3 mL nebulization 4 times every day, continue Theodur 300 mg once at bedtime, 10.Ventricular tachycardia status post ICD implantation continue amiodarone 100 mg orally once every day. 11. Chronic kidney disease stage IIIb. Avoid nephrotoxins, monitor the patient's CMP 12. DVT prophylaxis. Continue patient on Lovenox 30 mg subcutaneously every 24 hours. 13. GI prophylaxis. Protonix 40 mg once every day. 14. PT OT evaluation. 15. 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 16. Guarded prognosis Objective - Vital Signs Vital signs: Vital Signs Temp 98.9 F 07/19/23 11:10 Pulse 83 07/19/23 11:10 Resp 16 07/19/23 11:10 BP 157/71 07/19/23 11:10 Pulse Ox 97 07/19/23 11:10 FiO2 Intake & Output 07/18/23 07/19/23 07/19/23 18:59 06:59 18:59 Intake Total 240 Output Total 550 475 300 Balance -310 -475 -300 Weight 83.915 kg Intake: Oral 240 Output: Urine 550 475 300 Other: Voiding Method Indwelling Catheter Indwelling Catheter Indwelling Catheter - Labs CBC & Chem 7: 07/18/23 10:30 07/18/23 10:30 Labs: Microbiology - Last 24 Hours (Table) 07/16/23 13:15 Gram Stain - Final Ear - Left Wound Culture - Final Megan sp,not albicans/galbr 07/16/23 11:46 Blood Culture - Preliminary Blood
[2023-07-19] MEDS: THEOPHYLLINE ANHYDROUS 100 MG CAP.ER.24H PO SCH (22:51)
--- NOTE | 2023-07-20 10:12 | P.PN ---
Subjective Progress Note Date: 07/19/23 07/19/2023: Patient was seen for a follow-up. Patient is sleeping. Did not wake him up. 07/18/2023: Patient was initially seen by Dr. Reji Valdes. Please refer to his note for details. Patient is a 83-year-old male with altered mental status, possible pneumonia. Patient is laying comfortably in the bed. Offers no complaints. Some other workup during his hospital visit consisted of: Presented with temperature of 91 Fahrenheit on presentation that was only one time otherwise has been normal. White blood cell is 7.7 thousand. Sodium is 140, plasma lactic acid venous 0.7, serum glucose is 107, creatinine is 1.38 and the BX 26, AST is 35 ALT 26, ammonia is less than 9, troponin is 0.06 as high as a 0.071. UDS is not detected Ammonia is less than 9 TSH is 0.608 Influenza A/B, RSV and SARS-CoV-[address] PCR are not detected. CT of the head is reported as no acute intracranial process. Nonspecific white matter changes, likely secondary due to chronic small vessel ischemic disease. Severe paranasal sinus disease with left mastoid air cell effusion. I personally reviewed the CT of the head and I reviewed the report. Chest x-ray is reported as airspace opacities project over the right lung base correlate for pneumonia. 2D echo: Mild left ventricle systolic dysfunction. Akinetic basal inferior wall suggestive of prior myocardial infarction. Objective - Vital Signs Vital signs: Vital Signs Temp 98.1 F 07/19/23 16:00 Pulse 83 07/19/23 16:00 Resp 20 07/19/23 16:00 BP 163/69 07/19/23 16:00 Pulse Ox 94 L 07/19/23 16:00 FiO2 Intake & Output 07/18/23 07/19/23 07/19/23 18:59 06:59 18:59 Intake Total 240 Output Total 716 475 700 Balance -310 -221 -053 Weight 83.915 kg Intake: Oral 240 Output: Urine 550 475 700 Other: Voiding Method Indwelling Catheter Indwelling Catheter Indwelling Catheter - Exam 07/19/2023: Examination deferred as patient is asleep. 07/18/2023: Patient is alert and awake, laying comfortably in the bed. Patient speaks with very low volume, and often whispers. Patient denies headache. On cranial nerve examination, patient's visual singh are full on confrontation, face is symmetric. Extraocular muscles are intact. Patient's tongue protrudes to the midline. On muscle strength testing, the strength is normal in the upper limbs. In the lower limbs (right/left) hip flexion is 4-/3-, ankle dorsiflexion 4-/4+5-, plantarflexion 5-/5-. Patient was feeling pain all over when the muscles were being tested. He did not give the best effort because of the pain. Sensory to touch is equal. - Labs CBC & Chem 7: 07/18/23 10:30 07/18/23 10:30 Labs: Microbiology - Last 24 Hours (Table) 07/16/23 13:15 Gram Stain - Final Ear - Left Wound Culture - Final Megan sp,not albicans/galbr 07/16/23 11:46 Blood Culture - Preliminary Blood Assessment and Plan Assessment: This is an 83-year-old gentleman who presents to the emergency department from his nursing facility because of decreased level of consciousness as well as decreased oral intake. It seems that the patient was at [facility] the prior to presented to our facility and was discharged back to his nursing facility. CT of the head is unremarkable for any acute processes. He has minimally elevated troponin and this chest x-ray is questionable for pneumonia Encephalopathy seems due to underlying metabolic as well as due to probable pneumonia. He had a temperature of 91 Fahrenheit only one time---mentation is improving compared to yesterday Possible pneumonia on the right side Elevated the troponin slight Akinetic basal inferior wall suggestive of prior [place] on echo Chronic kidney insufficiency History of AICD placement Hyperlipidemia Hypertension CAD Plan: Patient cannot have MRI of the brain because of presence of AICD. Carotid Doppler not able to be checked because patient would not cooperate. It was canceled. 2D echo: Mild left ventricle systolic dysfunction. Akinetic basal inferior wall suggestive of prior myocardial infarction. Lipid panel with cholesterol 105, LDL 36, HDL 47, triglycerides 107 on 01/20/2023. No need to repeat. Continue Lipitor 20 mg daily. Routine EEG performed today was borderline abnormal due to minimal background sl owing, suggestive of mild encephalopathy. No focal, lateralized or epileptiform activity was seen. Continue aspirin 325 mg and Lipitor 20 mg daily. DVT prophylaxis: Patient on Lovenox 30 mg subcu daily Cardiology is on board Vitamin B-12 1196, folate 28, TSH is normal at 0.608 ID team is on board. Patient on cefepime for possible pneumonia. We'll defer the rest of the medical management to primary team and other specialists
--- NOTE | 2023-07-20 11:28 | P.PN ---
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 for infected wound due to his radiation therapy behind his ear and apparently culture that primary grew Staph aureus. Patient now presented to hospital with worsening of his respiratory status concerning for pneumonia possible gram-negative. On today's evaluation that is 07/20/2023, Patient is afebrile patient is currently on 2 L nasal cannula oxygen patient is sleepy lethargic but arousable and denies having any shortness of breath, the patient denies any chest pain or cough, no vomiting or diarrhea has been reported No new labs obtained today blood culture negative Objective - Vital Signs Vital signs: Vital Signs Temp 98.5 F 07/20/23 04:00 Pulse 82 07/20/23 08:09 Resp 16 07/20/23 08:09 BP 134/60 07/20/23 04:00 Pulse Ox 96 07/20/23 08:09 FiO2 Intake & Output 07/19/23 07/20/23 07/20/23 18:59 06:59 18:59 Output Total 700 860 Balance -700 -860 Output: Urine 700 860 Uretheral (Soto) 200 Other: Voiding Method Indwelling Catheter Indwelling Catheter - Exam GENERAL DESCRIPTION: An elderly male lying in bed in no distress RESPIRATORY SYSTEM: Unlabored breathing , decreased breath sounds at bases HEART: S1 S2 regular rate and rhythm , ABDOMEN: Soft , no tenderness EXTREMITIES: No edema feet - Labs CBC & Chem 7: 07/18/23 10:30 07/18/23 10:30 Labs: Microbiology - Last 24 Hours (Table) 07/16/23 11:46 Blood Culture - Preliminary Blood Assessment and Plan (1) Pneumonia Current Visit: Yes Status: Acute Code(s): J18.9 - PNEUMONIA, UNSPECIFIED ORGANISM SNOMED Code(s): 067433722 (2) Wound, open, head Current Visit: Yes Status: Acute Code(s): S01.90XA - UNSP OPEN WOUND OF UNSPECIFIED PART OF HEAD, INIT ENCNTR SNOMED Code(s): 42976020 Plan: 1patient presented to hospital with mental status changes weakness in this patient who did have a 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 please excuse any grammatical, word or spelling errors. Time with Patient: Less than 30
--- NOTE | 2023-07-20 13:59 | P.PN ---
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, patient was recently hospitalized at [facility] for what appears to be an infected wound due to his radiation therapy behind his ear, the culture at that time showed Staphylococcus aureus as well as Corynebacterium species he was started on cefepime 2 g IV piggyback every 8 hours as well as vancomycin with pharmacy to dose, he was seen in consultation by infectious disease, his CT scan of the brain at that time did not show any evidence of acute abnormalities, patient was transitioned into oral Augmentin 875 mg orally twice every day for 10 days, patient went tomorrow for physical therapy and rehabilitation while he was at moderate he developed to have a significant mental status changes he became quite unresponsive does not follow much commands, he was not eating or drinking much, these symptoms waxes and wane on and off, patient initially was sent back to the emergency department at [facility], he had a CT scan of the brain did not show evidence of acute abnormalities his laboratory evaluation were fine he did appear to have a bit of infiltrate of the right lower lobe, he was sent back home since his procalcitonin level was negative, his BNP was lower, white count were normal, patient went back tomorrow and he became more drowsy subtended does not follow any commands, the nursing staff has contacted me yesterday he was directed to go to the ER at [facility], he had a chest x-ray that showed possible right lower lobe pneumonia, CT scan of the brain did not show evidence of acute abnormalities, his troponin was slightly elevated suggestive of type II HI due to possible sepsis, he was seen in consultation by cardiology who recommended echocardiogram for evaluation of LV function, he was started back on his Augmentin I will discontinue that and start the patient on cefepime 2 g IV piggyback every 12 hours along with vanc omycin pharmacy to dose will obtain infectious disease consultation, will obtain neurology consultation as well as for evaluation of his mental status changes will continue to follow-up with the patient 07/17: Patient is still confused better than yesterday, he is more awake today however he is not making sense, he denies any fever or chills, he continues to have pain in the left shoulder, he continues to have pain all over his body, patient was seen earlier by cardiology as well as by neurology, MRI could not be done because of the AICD, he continues to be on IV antibiotic in the form of cefepime and vancomycin, consulted radiation oncology Dr. Welsh for further recommendation, if the blood cultures are positive we will arrange for a transesophageal echocardiogram discussed with Dr. Yeboah from cardiology 07/18: Patient is lying down in bed in no apparent distress, yesterday afternoon he became quite unresponsive and he did not respond to any verbal stimuli, he was responding to painful stimuli, today in the morning he was more awake and more alert, he sitting up in bed he does not seem to see much, he continues to be on vancomycin as well as cefepime, he will be seen in consultation by radiation oncology to get their opinion about radiation related encephalopathy, blood cultures so far are negative, if the blood cultures are positive patient will need to go for a transesophageal echocardiogram for evaluation of endocarditis, patient has been seen by multiple specialties including infectious disease, cardiology, along with neurology, patient did have his EEG today in the morning the results still pending at the time of dictation. 07/19: Patient is lying down in bed he continues to be quite confused he does not follow much commands, I will discontinue his Dilaudid, discontinue Xanax completely, continue IV antibiotic in the form of vancomycin and cefepime, has been followed by neurology, infectious disease, as well as cardiology, patient does not appear to have any positive blood cultures at this point in time. 07/20: Patient seems to be in more of a catatonic state. He is not consistently following commands. He will not verbalize any answers to questions. He has been continued on antibiotics per ID and also followed by neurology. Will add and as psychiatry consult today. This has been discussed with the patient's at the bedside. Vital signs been stable. Repeat blood work will be ordered for tomorrow. REVIEW OF SYSTEMS: Constitutional: low grade fever, no chills, no night sweats. No weight change. positive for weakness,positive for fatigue and lethargy. positive for daytime sleepiness. EENT: No headache. No blurred vision or double vision, no loss of vision. No loss of Hearing, no ringing in the ears, no dizziness. No nasal drainage or congestion. No epistaxis. No sore throat. Lungs: No shortness of breath, no cough, no sputum production. No wheezing. Reports dyspnea with activity. Cardiovascular: No chest pain, no lower extremity edema. No palpitations. No paroxysmal nocturnal dyspnea. No orthopnea. No lightheadedness or dizziness. No syncopal episodes. Abdominal: Reports abdominal pain. No nausea, vomiting. No diarrhea. No constipation. No bloody or tarry stools reports loss of appetite. Genitourinary: No dysuria, increased frequency, urgency. No urinary retention. Musculoskeletal: No myalgias. positive for muscle weakness, no gait dysfunction, positive for frequent falls. No back pain. No neck pain. Integumentary: wound behind left ear post radiation for SCC, no lesions. No rash or pruritus. No unusual bruising. No change in hair or nails. Neurologic: No aphasia. No facial droop. positive for change in mentation. No head injury. No headache. No paralysis. No paresthesia. Psychiatric: positive for depression. positive for anxiety. No mood swings.positive for paranoia Endocrine: No abnormal blood sugars. No weight change. PHYSICAL EXAMINATION: General: 83-year-old male laying down in bed appears to be quite confused nonverbal. HEENT: Head is atraumatic, normocephalic, pupils were equal round reactive to light and recommendation, extraocular muscle movement were intact, sclera nonicteric, conjunctivae were pale, mucous membranes of the mouth are somewhat dry, the large wound behind the left ear with a clean base minimal drainage Neck: Supple, no JVP, normal carotid upstroke bilaterally, no lymphadenopathy. Chest: Decreased breath sounds at the bases, few rhonchi, no expiratory wheezes, no chest wall tenderness, no intercostal retractions. Heart: First heart sound is normal, second heart sound is normal there is systolic ejection murmur 2/6 located in the left sternal border, there is AICD in the left upper precordium slightly tender to touch Abdomen: Soft, nontender, nondistended, positive bowel sounds. Extremities: There is +1 edema no calf tenderness DP +2 bilaterally. Neurologic examination: Patient is confused opens his eyes in response to verbal stimuli, nonverbal, follows some commands not all the commands, moves all his extremities respond to the questions very well. ASSESSMENT AND PLAN: 1. Metabolic encephalopathy likely due to sepsis due to gram-negative right lower lobe pneumonia and possible infected wound behind his left ear. Blood culture, wound culture, aerobic and anaerobic, will continue cefepime 2 g IV piggyback every 12 hours, infectious disease consultation, neurology consultation, patient was seen in consultation by radiation oncology do not think radiation has anything to do with it at this point we will continue to monitor the patient very closely 2. Gram negative pneumonia likely patient was at [facility] would continue cefepime, sputum culture if possible blood culture, oxygen support, start the patient on nebulized treatment DuoNeb 3 mL nebulization 4 times every day. 3. Acute urinary retention. Status post Soto catheterization continue Flomax 0.4 mg once every day, keep Soto catheter in for now, urine does not appear to be infected. 4. Type II HI likely related to sepsis. Echocardiogram ejection fraction of 45%, cardiology is following, continue patient on carvedilol 12.5 mg orally twice a , continue Lipitor 20 mg once every day, continue aspirin 81 mg once every day. 5. History of coronary artery disease with three-vessel disease status post PCI under the care of cardiology Dr. Veras on a regular basis. Continue aspirin, carvedilol 12.5 mg orally twice a and Lipitor consult cardiology. 6. Hypertension and hypertensive cardiovascular disease. Continue patient on carvedilol 12.5 mg orally twice a day, continue hydralazine 50 mg orally 3 times every day, continue isosorbide mononitrate 60 mg orally twice every day. 7. Hypothyroidism. Continue Synthroid 112 mcg orally once every day, 8. Enlarged prostate with urinary retention. Continue patient on Flomax 0.4 mg once every day. 9. Moderate COPD. Continue oxygen 2 L nasal cannula, continue DuoNeb 3 mL nebulization 4 times every day, continue Theodur 300 mg once at bedtime, 10. Ventricular tachycardia status post ICD implantation continue amiodarone 100 mg orally once every day. 11. Chronic kidney disease stage IIIb. Avoid nephrotoxins, monitor the patient's CMP 12. DVT prophylaxis. Continue patient on Lovenox 30 mg subcutaneously every 24 hours. 13. GI prophylaxis. Protonix 40 mg once every day. 14. PT OT evaluation. 15. laundry worker consultation. 16. Guarded prognosis Impression and plan of care have been directed as dictated by the signing physician. Debra Li nurse practitioner acting as scribe for signing physician. Objective - Vital Signs Vital signs: Vital Signs Temp 98.5 F 07/20/23 04:00 Pulse 82 07/20/23 12:52 Resp 16 07/20/23 12:52 BP 134/60 07/20/23 04:00 Pulse Ox 96 07/20/23 08:09 FiO2 Intake & Output 07/19/23 07/20/23 07/20/23 18:59 06:59 18:59 Output Total 700 860 Balance -700 -860 Output: Urine 700 860 Uretheral (Soto) 200 Other: Voiding Method Indwelling Catheter Indwelling Catheter - Labs CBC & Chem 7: 07/18/23 10:30 07/18/23 10:30 Labs: Microbiology - Last 24 Hours (Table) 07/16/23 11:46 Blood Culture - Preliminary Blood
[2023-07-20] MEDS: levETIRAcetam IV 500 MG/5 ML VIAL IVP SCH (14:40)
[2023-07-20] MEDS: CEFEPIME 2 GM in SODIUM CHLORIDE 0.9% 100 ML IVPB SCH (14:40)
--- NOTE | 2023-07-21 13:20 | P.CN ---
Psychiatric Consult - . Consult date: 07/21/23 Consult:: 07/21/23 13:13 Patient Name: Everardo Artis Date of : 1940 Patient Status: Inpatient Attending Provider: Joanie Awad Date: 07/21/[address] Chris Geronimo M.D. dictating the psychiatric assessment on Everardo Artis who is a 83-year-old male and was currently hospitalized on the medical floor with decreased of consciousness The patient is a poor historian and is unable to give much any information Ramos information is available at this time except for the chart review Following Zyprexa from the assessment done in the hospital: Per the ED notes it seems that the patient presented because of decreased level of consciousness from the nursing facility and is seems that he was seen at [facility] 2 days ago and was discharged back to the nursing facility. Seems that he had decreased level of consciousness there as well as decrease or intake. Per one of the nursing staff member she stated earlier he was talking to her and the he was taking his pills but was talking gibberish. Some other workup during his hospital visit consisted of Presented with temperature of 91 Fahrenheit on presentation that was only one time otherwise has been normal. White blood cell is 7.7 thousand. Sodium is 140, plasma lactic acid venous 0.7, serum glucose is 107, creatinine is 1.38 and the BX 26, AST is 35 ALT 26, ammonia is less than 9, troponin is 0.06 as high as a 0.071. UDS is not detected Influenza A/B, RSV and SARS-CoV-[address] PCR are not detected. CT of the head is reported as no acute intracranial process. Nonspecific white matter changes, likely secondary due to chronic small vessel ischemic disease. Severe paranasal sinus disease with left mastoid air cell effusion. I personally reviewed the CT of the head and I reviewed the report. Chest x-ray is reported as airspace opacities project over the right lung base correlate for pneumonia. Past Medical History Past Medical History: Coronary Artery Disease (CAD), Cancer, Chest Pain / Angina, Heart Failure, COPD, Myocardial Infarction (DE), Prostate Disorder, Thyroid Disorder Additional Past Medical History / Comment(s): HX HIATAL HERNIA. mac degeneration. PSORIASIS. GOUT Last Myocardial Infarction Date:: unk History of Any Multi-Drug Resistant Organisms: None Reported Past Surgical History: Heart Catheterization With Stent Additional Past Surgical History / Comment(s): COLONOSCOPY. AICD/PACEM[employer]ER- [employer]. GENERATOR CHANGE-09/23/2014. leg stents Date of Last Stent Placement:: unk Past Psychological History: No Psychological Hx Reported Smoking Status: Former smoker Past Alcohol Use History: None Reported Past Drug Use History: None Reported Mental status examination: An attempt was made to evaluate the patient He was resting comfortably in bed and open his eyes when addressed Patient however continues to stare but was unable to interact He did not seem to be able to understand or could not be assessed if was able to Patient continues to stare out and after a while filled fatigued and went back to laying down and put his head back on the pillow and closed his eyes Several attempts were made to have the patient engage in a conversation where he open his eyes few times but then back to trying to sleep Assessment: This is a 83-year-old elderly male who has been hospitalized due to decreased level of consciousness as well as poor oral intake Patient this time appears to be needing supervised care and support from the staff to maintain his ADLs and for general nutrition appears to have limited awareness of his surroundings and poor interaction However we cannot conclusively do an assessment due to limited and superficial interaction at this time In general patient appears to be at a stage where his symptoms are most likely involving and will be working progress Meantime it appears that the patient may need total care either in the hospital or residential care if a lower level of care is recommended Psychiatric intervention at this time would be limited to any intervention for any aggressive acting out or agitation which does not appear to be the case Please contact us if there is any further such intervention as necessary Thank you very much for the kind referral please contact me if any further questions Chris Mena M.D.
--- NOTE | 2023-07-21 13:21 | P.PN ---
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, patient was recently hospitalized at [facility] for what appears to be an infected wound due to his radiation therapy behind his ear, the culture at that time showed Staphylococcus aureus as well as Corynebacterium species he was started on cefepime 2 g IV piggyback every 8 hours as well as vancomycin with pharmacy to dose, he was seen in consultation by infectious disease, his CT scan of the brain at that time did not show any evidence of acute abnormalities, patient was transitioned into oral Augmentin 875 mg orally twice every day for 10 days, patient went tomorrow for physical therapy and rehabilitation while he was at moderate he developed to have a significant mental status changes he became quite unresponsive does not follow much commands, he was not eating or drinking much, these symptoms waxes and wane on and off, patient initially was sent back to the emergency department at [facility], he had a CT scan of the brain did not show evidence of acute abnormalities his laboratory evaluation were fine he did appear to have a bit of infiltrate of the right lower lobe, he was sent back home since his procalcitonin level was negative, his BNP was lower, white count were normal, patient went back tomorrow and he became more drowsy subtended does not follow any commands, the nursing staff has contacted me yesterday he was directed to go to the ER at [facility], he had a chest x-ray that showed possible right lower lobe pneumonia, CT scan of the brain did not show evidence of acute abnormalities, his troponin was slightly elevated suggestive of type II MA due to possible sepsis, he was seen in consultation by cardiology who recommended echocardiogram for evaluation of LV function, he was started back on his Augmentin I will discontinue that and start the patient on cefepime 2 g IV piggyback every 12 hours along with vanc omycin pharmacy to dose will obtain infectious disease consultation, will obtain neurology consultation as well as for evaluation of his mental status changes will continue to follow-up with the patient 07/17: Patient is still confused better than yesterday, he is more awake today however he is not making sense, he denies any fever or chills, he continues to have pain in the left shoulder, he continues to have pain all over his body, patient was seen earlier by cardiology as well as by neurology, MRI could not be done because of the AICD, he continues to be on IV antibiotic in the form of cefepime and vancomycin, consulted radiation oncology Dr. Welsh for further recommendation, if the blood cultures are positive we will arrange for a transesophageal echocardiogram discussed with Dr. Yeboah from cardiology 07/18: Patient is lying down in bed in no apparent distress, yesterday afternoon he became quite unresponsive and he did not respond to any verbal stimuli, he was responding to painful stimuli, today in the morning he was more awake and more alert, he sitting up in bed he does not seem to see much, he continues to be on vancomycin as well as cefepime, he will be seen in consultation by radiation oncology to get their opinion about radiation related encephalopathy, blood cultures so far are negative, if the blood cultures are positive patient will need to go for a transesophageal echocardiogram for evaluation of endocarditis, patient has been seen by multiple specialties including infectious disease, cardiology, along with neurology, patient did have his EEG today in the morning the results still pending at the time of dictation. 07/19: Patient is lying down in bed he continues to be quite confused he does not follow much commands, I will discontinue his Dilaudid, discontinue Xanax completely, continue IV antibiotic in the form of vancomycin and cefepime, has been followed by neurology, infectious disease, as well as cardiology, patient does not appear to have any positive blood cultures at this point in time. 07/20: Patient seems to be in more of a catatonic state. He is not consistently following commands. He will not verbalize any answers to questions. He has been continued on antibiotics per ID and also followed by neurology. Will add and as psychiatry consult today. This has been discussed with the patient's at the bedside. Vital signs been stable. Repeat blood work will be ordered for tomorrow. 07/21: Patient continues to have significant mental status changes, he opens his eyes not responding not following directions well. He has not been eating or drinking. He is on IV fluids of 0.9 will switch to D5W 0.45. We are waiting for psychiatric evaluation. Blood pressure 110/53, heart rate 72, pulse ox 93% on 3 L nasal cannula. Neurology has ordered CT of the brain. REVIEW OF SYSTEMS: Constitutional: low grade fever, no chills, no night sweats. No weight change. positive for weakness,positive for fatigue and lethargy. positive for daytime sleepiness. EENT: No headache. No blurred vision or double vision, no loss of vision. No loss of Hearing, no ringing in the ears, no dizziness. No nasal drainage or congestion. No epistaxis. No sore throat. Lungs: No shortness of breath, no cough, no sputum production. No wheezing. Reports dyspnea with activity. Cardiovascular: No chest pain, no lower extremity edema. No palpitations. No paroxysmal nocturnal dyspnea. No orthopnea. No lightheadedness or dizziness. No syncopal episodes. Abdominal: Reports abdominal pain. No nausea, vomiting. No diarrhea. No const ipation. No bloody or tarry stools reports loss of appetite. Genitourinary: No dysuria, increased frequency, urgency. No urinary retention. Musculoskeletal: No myalgias. positive for muscle weakness, no gait dysfunction, positive for frequent falls. No back pain. No neck pain. Integumentary: wound behind left ear post radiation for SCC, no lesions. No rash or pruritus. No unusual bruising. No change in hair or nails. Neurologic: No aphasia. No facial droop. positive for change in mentation. No head injury. No headache. No paralysis. No paresthesia. Psychiatric: positive for depression. positive for anxiety. No mood swings.positive for paranoia Endocrine: No abnormal blood sugars. No weight change. PHYSICAL EXAMINATION: General: 83-year-old male laying down in bed appears to be quite confused nonverbal. HEENT: Head is atraumatic, normocephalic, pupils were equal round reactive to light and recommendation, extraocular muscle movement were intact, sclera nonicteric, conjunctivae were pale, mucous membranes of the mouth are somewhat dry, the large wound behind the left ear with a clean base minimal drainage Neck: Supple, no JVP, normal carotid upstroke bilaterally, no lymphadenopathy. Chest: Decreased breath sounds at the bases, few rhonchi, no expiratory wheezes, no chest wall tenderness, no intercostal retractions. Heart: First heart sound is normal, second heart sound is normal there is systolic ejection murmur 2/6 located in the left sternal border, there is AICD in the left upper precordium slightly tender to touch Abdomen: Soft, nontender, nondistended, positive bowel sounds. Extremities: There is +1 edema no calf tenderness DP +2 bilaterally. Neurologic examination: Patient is confused opens his eyes in response to verbal stimuli, nonverbal, follows some commands not all the commands, moves all his extremities respond to the questions very well. ASSESSMENT AND PLAN: 1. Metabolic encephalopathy likely due to sepsis due to gram-negative right lower lobe pneumonia and possible infected wound behind his left ear. Blood culture, wound culture, aerobic and anaerobic, will continue cefepime 2 g IV piggyback every 12 hours, infectious disease consultation, neurology consultation, patient was seen in consultation by radiation oncology do not think radiation has anything to do with it at this point we will continue to monitor the patient very closely. Neurology has ordered CAT scan of the brain. Consult with psychiatry added. 2. Gram negative pneumonia likely patient was at [facility] would continue cefepime, sputum culture if possible blood culture, oxygen support, start the patient on nebulized treatment DuoNeb 3 mL nebulization 4 times every day. 3. Acute urinary retention. Status post Soto catheterization continue Flomax 0.4 mg once every day, keep Soto catheter in for now, urine does not appear to be infected. 4. Type II MA likely related to sepsis. Echocardiogram ejection fraction of 45%, cardiology is following, continue patient on carvedilol 12.5 mg orally twice a , continue Lipitor 20 mg once every day, continue aspirin 81 mg once every day. 5. History of coronary artery disease with three-vessel disease status post PCI under the care of cardiology Dr. Veras on a regular basis. Continue aspirin, carvedilol 12.5 mg orally twice a and Lipitor consult cardiology. 6. Hypertension and hypertensive cardiovascular disease. Continue patient on carvedilol 12.5 mg orally twice a day, continue hydralazine 50 mg orally 3 times every day, continue isosorbide mononitrate 60 mg orally twice every day. 7. Hypothyroidism. Continue Synthroid 112 mcg orally once every day, 8. Enlarged prostate with urinary retention. Continue patient on Flomax 0.4 mg once every day. 9. Moderate COPD. Continue oxygen 2 L nasal cannula, continue DuoNeb 3 mL nebulization 4 times every day, continue Theodur 300 mg once at bedtime, 10. Ventricular tachycardia status post ICD implantation continue amiodarone 100 mg orally once every day. 11. Chronic kidney disease stage IIIb. Avoid nephrotoxins, monitor the patient's CMP 12. DVT prophylaxis. Continue patient on Lovenox 30 mg subcutaneously every 24 hours. 13. GI prophylaxis. Protonix 40 mg once every day. 14. PT OT evaluation. 15. 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 16. Guarded prognosis Impression and plan of care have been directed as dictated by the signing physician. Debra Li nurse practitioner acting as scribe for signing physician. Objective - Vital Signs Vital signs: Vital Signs Temp 97.9 F 07/21/23 08:05 Pulse 80 07/21/23 11:39 Resp 16 07/21/23 08:05 BP 110/53 07/21/23 08:05 Pulse Ox 93 L 07/21/23 08:05 FiO2 Intake & Output 07/20/23 07/21/23 07/21/23 18:59 06:59 18:59 Output Total 650 525 Balance -650 -525 Weight 83.915 kg Output: Urine 650 525 Other: Voiding Method Indwelling Catheter Indwelling Catheter Indwelling Catheter - Labs CBC & Chem 7: 07/18/23 10:30 07/18/23 10:30
--- NOTE | 2023-07-21 14:13 | CT ---
EXAMINATION TYPE: CT brain wo con DATE OF EXAM: 07/21/2023 COMPARISON: 07/15/2023. HISTORY: Altered mental status. CT DLP: 1242.4 mGycm Automated exposure control for dose reduction was used. FINDINGS: There is no acute intracranial hemorrhage, mass, mass effect, midline shift, extra-axial fluid collec tion or hydrocephalus. There is patchy hypoattenuation the periventricular, subcortical and deep white matter which is likel y related to chronic ischemic small vessel change. The knight-white distinction is otherwise intact wit hout evidence of an acute major vessel infarct. Extensive sinus opacification is seen throughout the ethmoid air cells and maxillary sinuses bilatera lly as well as diffuse opacification of the left mastoid air cells is unchanged. IMPRESSION: 1. Chronic changes with no acute intracranial process. 2. Unchanged significant sinus disease and left mastoid opacification.
--- NOTE | 2023-07-21 15:32 | P.PN ---
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 Patient now presented to hospital with worsening of his respiratory status concerning for pneumonia possible gram-negative. On today's evaluation that is 07/21/2023,the patient remains to be sleepy lethargic and did not answer any questions the patient is currently on 3 L nasal cannula oxygen and is not running a fever no vomiting diarrhea or any other changes reported by the nursing staff. Patient last blood work from 07/18/2023 white count was 6 creatinine was 1.42 Objective - Vital Signs Vital signs: Vital Signs Temp 97.9 F 07/21/23 08:05 Pulse 79 07/21/23 13:00 Resp 16 07/21/23 13:00 BP 133/51 07/21/23 12:05 Pulse Ox 92 L 07/21/23 12:05 FiO2 Intake & Output 07/20/23 07/21/23 07/21/23 18:59 06:59 18:59 Output Total 650 525 Balance -650 -525 Weight 83.915 kg Output: Urine 650 525 Other: Voiding Method Indwelling Catheter Indwelling Catheter Indwelling Catheter - Exam GENERAL DESCRIPTION: An elderly male lying in bed in no distress RESPIRATORY SYSTEM: Unlabored breathing , decreased breath sounds at bases HEART: S1 S2 regular rate and rhythm , ABDOMEN: Soft , no tenderness EXTREMITIES: No edema feet - Labs CBC & Chem 7: 07/18/23 10:30 07/18/23 10:30 Assessment and Plan (1) Pneumonia Current Visit: Yes Status: Acute Code(s): J18.9 - PNEUMONIA, UNSPECIFIED ORGANISM SNOMED Code(s): 395830847 (2) Wound, open, head Current Visit: Yes Status: Acute Code(s): S01.90XA - UNSP OPEN WOUND OF UNSPECIFIED PART OF HEAD, INIT ENCNTR SNOMED Code(s): 46816943 Plan: 1patient presented to hospital with mental status changes weakness in this patient who did have a 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 please excuse any grammatical, word or spelling errors. Time with Patient: Less than 30
[2023-07-21] MEDS: DEXTROSE 5%-0.45% NACL 1,000 ML IV SCH (16:37)
[2023-07-22] MEDS: PANTOPRAZOLE 40 MG/10 ML VIAL IV SCH (09:31)
[2023-07-22] MEDS: cloNIDine 0.1 MG/24HR PATCH TRANSDERM SCH (11:44)
--- NOTE | 2023-07-22 12:13 | P.PN ---
Subjective Progress Note Date: 07/21/23 07/21/2023: Patient was seen for a follow-up. Patient is laying in the bed, somnolent. He does wake up to calling his name, but is very groggy. 07/19/2023: Patient was seen for a follow-up. Patient is sleeping. Did not wake him up. 07/18/2023: Patient was initially seen by Dr. Reji Valdes. Please refer to his note for details. Patient is a 83-year-old male with altered mental status, possible pneumonia. Patient is laying comfortably in the bed. Offers no complaints. Some other workup during his hospital visit consisted of: Presented with temperature of 91 Fahrenheit on presentation that was only one time otherwise has been normal. White blood cell is 7.7 thousand. Sodium is 140, plasma lactic acid venous 0.7, serum glucose is 107, creatinine is 1.38 and the BX 26, AST is 35 ALT 26, ammonia is less than 9, troponin is 0.06 as high as a 0.071. UDS is not detected Ammonia is less than 9 TSH is 0.608 Influenza A/B, RSV and SARS-CoV-[address] PCR are not detected[address] CT of the head is reported as no acute intracranial process. Nonspecific white matter changes, likely secondary due to chronic small vessel ischemic disease. Severe paranasal sinus disease with left mastoid air cell effusion. I personally reviewed the CT of the head and I reviewed the report. Chest x-ray is reported as airspace opacities project over the right lung base correlate for pneumonia. 2D echo: Mild left ventricle systolic dysfunction. Akinetic basal inferior wall suggestive of prior myocardial infarction. Objective - Vital Signs Vital signs: Vital Signs Temp 97.9 F 07/21/23 08:05 Pulse 80 07/21/23 11:39 Resp 16 07/21/23 08:05 BP 110/53 07/21/23 08:05 Pulse Ox 93 L 07/21/23 08:05 FiO2 Intake & Output 07/20/23 07/21/23 07/21/23 18:59 06:59 18:59 Output Total 650 525 Balance -650 -525 Weight 83.915 kg Output: Urine 650 525 Other: Voiding Method Indwelling Catheter Indwelling Catheter Indwelling Catheter - Exam 07/21/2023: Patient sleeping. On waking up, patient does wake up but is very groggy. Rn Immunology is equal bilaterally. 07/19/2023: Examination deferred as patient is asleep. 07/18/2023: Patient is alert and awake, laying comfortably in the bed. Patient speaks with very low volume, and often whispers. Patient denies headache. On cranial nerve examination, patient's visual singh are full on confrontation, face is symmetric. Extraocular muscles are intact. Patient's tongue protrudes to the midline. On muscle strength testing, the strength is normal in the upper limbs. In the lower limbs (right/left) hip flexion is 4-/3-, ankle dorsiflexion 4-/4+5-, plantarflexion 5-/5-. Patient was feeling pain all over when the muscles were being tested. He did not give the best effort because of the pain. Sensory to touch is equal. - Labs CBC & Chem 7: 07/18/23 10:30 07/18/23 10:30 Assessment and Plan Assessment: This is an 83-year-old gentleman who presents to the emergency department from his nursing facility because of decreased level of consciousness as well as decreased oral intake. It seems that the patient was at [facility] the prior to presented to our facility and was discharged back to his nursing facility. CT of the head is unremarkable for any acute processes. He has minimally elevated troponin and this chest x-ray is questionable for pneumonia Encephalopathy seems due to underlying metabolic as well as due to probable pneumonia. Possible pneumonia on the right side Squamous 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, ID on board. Pansinusitis Elevated troponin slight Akinetic basal inferior wall suggestive of prior DE on echo Chronic kidney insufficiency History of AICD placement Hyperlipidemia Hypertension CAD Plan: Patient cannot have MRI of the brain because of presence of AICD. Repeat CT head performed today revealed chronic changes with no acute intracranial process. Unchanged significant sinus disease and left mastoid opacification. I personally reviewed CT head agree with the findings. There is complete opacification of bilateral maxillary, sphenoid, ethmoid and frontal sinuses, consistent with pansinusitis. Also opacification of the left mastoid air cells. Patient currently on cefepime, which should cover sinusitis. However consider ENT consultation to see if it needs drainage. Carotid Doppler not able to be checked because patient would not cooperate. It was canceled. 2D echo: Mild left ventricle systolic dysfunction. Akinetic basal inferior wall suggestive of prior myocardial infarction. Lipid panel with cholesterol 105, LDL 36, HDL 47, triglycerides 107 on 01/20/2023. No need to repeat. Continue Lipitor 20 mg daily. Routine EEG 07/18/2023 was borderline abnormal due to minimal background slowing, suggestive of mild encephalopathy. No focal, lateralized or epileptiform activity was seen. Continue aspirin 325 mg and Lipitor 20 mg daily. DVT prophylaxis: Patient on Lovenox 30 mg subcu daily Cardiology is on board Vitamin B-12 1196, folate 28, TSH is normal at 0.608 ID team is on board. Patient on cefepime for possible pneumonia. We'll defer the rest of the medical management to primary team and other specialists
--- NOTE | 2023-07-22 12:28 | P.PN ---
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 Patient now presented to hospital with worsening of his respiratory status concerning for pneumonia possible gram-negative. On today's evaluation that is 07/22/2023,the patient remains to be afebrile, patient is slightly more awake and alert today currently on 2 L nasal cannula oxygen denies any chest pain no worsening of abdominal pain no diarrhea has been reported. Patient white count 6.0 creatinine 1.42 as of 07/18/2023 blood culture negative Objective - Vital Signs Vital signs: Vital Signs Temp 98.1 F 07/22/23 11:48 Pulse 74 07/22/23 11:48 Resp 20 07/22/23 11:48 BP 192/85 07/22/23 11:48 Pulse Ox 98 07/22/23 11:48 FiO2 Intake & Output 07/21/23 07/22/23 07/22/23 18:59 06:59 18:59 Intake Total 140 0 Output Total 750 560 300 Balance -750 -420 -300 Weight 83.915 kg Intake: Intake, IV Titration 140 Amount Cefepime 2 gm In Sodium 100 Chloride 0.9% 100 ml @ 25 mls/hr IVPB Q12H ADDIE Rx# :[id number] Sodium Chloride 0.9% 1, 40 000 ml @ 20 mls/hr IV . Q24H ADDIE Rx#:[id number] Oral 0 0 Output: Urine 750 560 300 Uretheral (Soto) 460 300 Other: Voiding Method Indwelling Catheter Indwelling Catheter Indwelling Catheter - Exam GENERAL DESCRIPTION: An elderly male lying in bed in no distress RESPIRATORY SYSTEM: Unlabored breathing , decreased breath sounds at bases HEART: S1 S2 regular rate and rhythm , ABDOMEN: Soft , no tenderness EXTREMITIES: No edema feet - Labs CBC & Chem 7: 07/18/23 10:30 07/18/23 10:30 Labs: Microbiology - Last 24 Hours (Table) 07/16/23 11:46 Blood Culture - Final Blood Assessment and Plan (1) Pneumonia Current Visit: Yes Status: Acute Code(s): J18.9 - PNEUMONIA, UNSPECIFIED ORGANISM SNOMED Code(s): 179887326 (2) Wound, open, head Current Visit: Yes Status: Acute Code(s): S01.90XA - UNSP OPEN WOUND OF UNSPECIFIED PART OF HEAD, INIT ENCNTR SNOMED Code(s): 23932572 Plan: 1patient presented to hospital with mental status changes weakness in this patient who did have a 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 and the patient noticed to have infiltrate on the chest x-ray concerning for pneumonia in this patient who has been out of the hospital we will need to cover for resistant gram-positive as well as gram-negative pa thogen 2-patient did not have significant elevated CRP and a procalcitonin level of 0.08 3-patient is afebrile last white count was normal, patient CT of the brain that shows evidence of significant sinusitis however the patient not running a fever or elevated white count may benefit from nasal decongestion to help drain the sinuses for now continue with the cefepime and monitor clinical course closely Dictation was produced using [employer] dictation software. please excuse any grammatical, word or spelling errors. Time with Patient: Less than 30
--- NOTE | 2023-07-22 13:32 | P.PN ---
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 for what appears to be an infected wound due to his radiation therapy behind his ear, the culture at that time showed Staphylococcus aureus as well as Corynebacterium species he was started on cefepime 2 g IV piggyback every 8 hours as well as vancomycin with pharmacy to dose, he was seen in consultation by infectious disease, his CT scan of the brain at that time did not show any evidence of acute abnormalities, patient was transitioned into oral Augmentin 875 mg orally twice every day for 10 days, patient went tomorrow for physical therapy and rehabilitation while he was at moderate he developed to have a significant mental status changes he became quite unresponsive does not follow much commands, he was not eating or drinking much, these symptoms waxes and wane on and off, patient initially was sent back to the emergency department at [facility], he had a CT scan of the brain did not show evidence of acute abnormalities his laboratory evaluation were fine he did appear to have a bit of infiltrate of the right lower lobe, he was sent back home since his procalcitonin level was negative, his BNP was lower, white count were normal, patient went back tomorrow and he became more drowsy subtended does not follow any commands, the nursing staff has contacted me yesterday he was directed to go to the ER at [facility], he had a chest x-ray that showed possible right lower lobe pneumonia, CT scan of the brain did not show evidence of acute abnormalities, his troponin was slightly elevated suggestive of type II VT due to possible sepsis, he was seen in consultation by cardiology who recommended echocardiogram for evaluation of LV function, he was started back on his Augmentin I will discontinue that and start the patient on cefepime 2 g IV piggyback every 12 hours along with vanc omycin pharmacy to dose will obtain infectious disease consultation, will obtain neurology consultation as well as for evaluation of his mental status changes will continue to follow-up with the patient 07/17: Patient is still confused better than yesterday, he is more awake today however he is not making sense, he denies any fever or chills, he continues to have pain in the left shoulder, he continues to have pain all over his body, patient was seen earlier by cardiology as well as by neurology, MRI could not be done because of the AICD, he continues to be on IV antibiotic in the form of cefepime and vancomycin, consulted radiation oncology Dr. Welsh for further recommendation, if the blood cultures are positive we will arrange for a transesophageal echocardiogram discussed with Dr. Yeboah from cardiology 07/18: Patient is lying down in bed in no apparent distress, yesterday afternoon he became quite unresponsive and he did not respond to any verbal stimuli, he was responding to painful stimuli, today in the morning he was more awake and more alert, he sitting up in bed he does not seem to see much, he continues to be on vancomycin as well as cefepime, he will be seen in consultation by radiation oncology to get their opinion about radiation related encephalopathy, blood cultures so far are negative, if the blood cultures are positive patient will need to go for a transesophageal echocardiogram for evaluation of endocarditis, patient has been seen by multiple specialties including infectious disease, cardiology, along with neurology, patient did have his EEG today in the morning the results still pending at the time of dictation. 07/19: Patient is lying down in bed he continues to be quite confused he does not follow much commands, I will discontinue his Dilaudid, discontinue Xanax completely, continue IV antibiotic in the form of vancomycin and cefepime, has been followed by neurology, infectious disease, as well as cardiology, patient does not appear to have any positive blood cultures at this point in time. 07/20: Patient seems to be in more of a catatonic state. He is not consistently following commands. He will not verbalize any answers to questions. He has been continued on antibiotics per ID and also followed by neurology. Will add and as psychiatry consult today. This has been discussed with the patient's at the bedside. Vital signs been stable. Repeat blood work will be ordered for tomorrow. 07/21: Patient continues to have significant mental status changes, he opens his eyes not responding not following directions well. He has not been eating or drinking. He is on IV fluids of 0.9 will switch to D5W 0.45. We are waiting for psychiatric evaluation. Blood pressure 110/53, heart rate 72, pulse ox 93% on 3 L nasal cannula. Neurology has ordered CT of the brain. 07/22: Patient is more responsive today, able to drink Ensure but not eating his meals. He is not taking his medications. He was seen by psychiatry yesterday with no additional recommendations. Repeat CT of the brain revealed chronic changes with no acute intracranial process. Unchanged significant sinus disease. Left mastoid opacification. Blood pressure 162/87, heart rate in the 70s and 80s, pulse ox 98% on 3 L nasal cannula. Telemetry is sinus rhythm. EEG reveals borderline abnormal EEG due to minimal background slowing suggestive of mild encephalopathy. No focal lateralized or epileptiform activity. Neurology has started the patient on IV Keppra 500 mg twice daily. Urine culture is showing only Megan. Patient has extra fluid today for which IV Lasix 1 dose will be given and IV fluids will be decreased to KVO. Patient started coughing with Ensure so speech therapy consult will be added as well as chest x-ray today. REVIEW OF SYSTEMS: Constitutional: low grade fever, no chills, no night sweats. No weight change. positive for weakness,positive for fatigue and lethargy. positive for daytime sleepiness. EENT: No headache. No blurred vision or double vision, no loss of vision. No loss of Hearing, no ringing in the ears, no dizziness. No nasal drainage or congestion. No epistaxis. No sore throat. Lungs: No shortness of breath, no cough, no sputum production. No wheezing. Reports dyspnea with activity. Cardiovascular: No chest pain, no lower extremity edema. No palpitations. No paroxysmal nocturnal dyspnea. No orthopnea. No lightheadedness or dizziness. No syncopal episodes. Abdominal: Reports abdominal pain. No nausea, vomiting. No diarrhea. No constipation. No bloody or tarry stools reports loss of appetite. Genitourinary: No dysuria, increased frequency, urgency. No urinary retention. Musculoskeletal: No myalgias. positive for muscle weakness, no gait dysfunction, positive for frequent falls. No back pain. No neck pain. Integumentary: wound behind left ear post radiation for SCC, no lesions. No rash or pruritus. No unusual bruising. No change in hair or nails. Neurologic: No aphasia. No facial droop. positive for change in mentation. No head injury. No headache. No paralysis. No paresthesia. Psychiatric: positive for depression. positive for anxiety. No mood swings.positive for paranoia Endocrine: No abnormal blood sugars. No weight change. PHYSICAL EXAMINATION: General: 83-year-old male laying down in bed appears to be quite confused nonverbal. HEENT: Head is atraumatic, normocephalic, pupils were equal round reactive to light and recommendation, extraocular muscle movement were intact, sclera nonicteric, conjunctivae were pale, mucous membranes of the mouth are somewhat dry, the large wound behind the left ear with a clean base minimal drainage Neck: Supple, no JVP, normal carotid upstroke bilaterally, no lymphadenopathy. Chest: Decreased breath sounds at the bases, few rhonchi, no expiratory wheezes, no chest wall tenderness, no intercostal retractions. Heart: First heart sound is normal, second heart sound is normal there is systolic ejection murmur 2/6 located in the left sternal border, there is AICD in the left upper precordium slightly tender to touch Abdomen: Soft, nontender, nondistended, positive bowel sounds. Extremities: There is +1 edema no calf tenderness DP +2 bilaterally. Neurologic examination: Patient is confused opens his eyes in response to verbal stimuli, nonverbal, follows some commands not all the commands, moves all his extremities respond to the questions very well. ASSESSMENT AND PLAN: 1. Metabolic encephalopathy likely due to sepsis due to gram-negative right lower lobe pneumonia and possible infected wound behind his left ear. Patient has been maintained on cefepime 2 g IV piggyback every 12 hours per infectious disease. Patient has been seen by neurology, psychiatry, radiation oncology. Patient continues to be in a catatonic state. He has been started on Keppra by neurology. 2. Gram negative pneumonia likely patient was at [facility]. Continue patient on cefepime, nebulized treatment DuoNeb 3 mL nebulization 4 times every day. 3. Acute urinary retention. Status post Soto catheterization continue Flomax 0.4 mg once every day, keep Soto catheter in for now, urine does not appear to be infected. 4. Type II VT likely related to sepsis. Echocardiogram ejection fraction of 45%, cardiology is following, continue patient on carvedilol 12.5 mg orally twice a , continue Lipitor 20 mg once every day, continue aspirin 81 mg once every day. 5. History of coronary artery disease with three-vessel disease status post PCI under the care of cardiology Dr. Veras on a regular basis. Continue aspirin, carvedilol 12.5 mg orally twice a and Lipitor consult cardiology. 6. Hypertension and hypertensive cardiovascular disease. Continue patient on carvedilol 12.5 mg orally twice a day, continue hydralazine 50 mg orally 3 times every day, continue isosorbide mononitrate 60 mg orally twice every day. 7. Hypothyroidism. Continue Synthroid 112 mcg orally once every day, 8. Enlarged prostate with urinary retention. Continue patient on Flomax 0.4 mg once every day. 9. Moderate COPD. Continue oxygen 2 L nasal cannula, continue DuoNeb 3 mL nebulization 4 times every day, continue Theodur 300 mg once at bedtime, 10. Ventricular tachycardia status post ICD implantation continue amiodarone 100 mg orally once every day. 11. Chronic kidney disease stage IIIb. Avoid nephrotoxins, monitor the patient's CMP 12. DVT prophylaxis. Continue patient on Lovenox 30 mg subcutaneously every 24 hours. 13. GI prophylaxis. Protonix 40 mg once every day. 14. Coughing with Ensure. Obtain portable chest x-ray and speech therapy evaluation 15. finish repair worker consultation. 16. Guarded prognosis Impression and plan of care have been directed as dictated by the signing physician. Debra Li nurse practitioner acting as scribe for signing physician. Objective - Vital Signs Vital signs: Vital Signs Temp 98.1 F 07/22/23 08:00 Pulse 80 07/22/23 08:44 Resp 20 07/22/23 08:00 BP 188/78 07/22/23 08:00 Pulse Ox 98 07/22/23 08:00 FiO2 Intake & Output 07/21/23 07/22/23 07/22/23 18:59 06:59 18:59 Intake Total 140 0 Output Total 750 560 300 Balance -750 -420 -300 Intake: Intake, IV Titration 140 Amount Cefepime 2 gm In Sodium 100 Chloride 0.9% 100 ml @ 25 mls/hr IVPB Q12H [facility] Rx# :[id number] Sodium Chloride 0.9% 1, 40 000 ml @ 20 mls/hr IV . Q24H [facility] Rx#:[id number] Oral 0 0 Output: Urine 750 560 300 Uretheral (Soto) 460 300 Other: Voiding Method Indwelling Catheter Indwelling Catheter Indwelling Catheter - Labs CBC & Chem 7: 07/18/23 10:30 07/18/23 10:30 Labs: Microbiology - Last 24 Hours (Table) 07/16/23 11:46 Blood Culture - Final Blood
--- NOTE | 2023-07-22 14:42 | XR ---
EXAMINATION TYPE: XR chest 1V portable DATE OF EXAM: 07/22/2023 COMPARISON: 07/15/2023 HISTORY: Cough TECHNIQUE: Single frontal view of the chest is obtained. FINDINGS: Bilateral lower lobe infiltrate and small effusion. Cardiac device seen. There is biapical pleural thickening. Calcification along the left humeral head is often associated with calcific tend inosis. Underlying COPD. Atherosclerotic change aorta. IMPRESSION: 1. Bilateral lower lobe infiltrate and small effusion.
[2023-07-22] MEDS: FUROSEMIDE 10 MG/ML 4 ML VIAL IV STA (14:55)
--- NOTE | 2023-07-22 19:23 | P.PN ---
Subjective Progress Note Date: 07/22/23 07/22/2023: Patient was seen for a follow-up. Patient is laying in the bed. Patient appears to be using accessory muscles of respiration, appears somewhat tachypneic. He admits to having headache. He appears short of breath. 07/21/2023: Patient was seen for a follow-up. Patient is laying in the bed, somnolent. He does wake up to calling his name, but is very groggy. 07/19/2023: Patient was seen for a follow-up. Patient is sleeping. Did not wake him up. 07/18/2023: Patient was initially seen by Dr. Reji Valdes. Please refer to his note for details. Patient is a 83-year-old male with altered mental status, possible pneumonia. Patient is laying comfortably in the bed. Offers no complaints. Some other workup during his hospital visit consisted of: Presented with temperature of 91 Fahrenheit on presentation that was only one time otherwise has been normal. White blood cell is 7.7 thousand. Sodium is 140, plasma lactic acid venous 0.7, serum glucose is 107, creatinine is 1.38 and the BX 26, AST is 35 ALT 26, ammonia is less than 9, troponin is 0.06 as high as a 0.071. UDS is not detected Ammonia is less than 9 TSH is 0.608 Influenza A/B, RSV and SARS-CoV-[address] PCR are not detected. CT of the head is reported as no acute intracranial process. Nonspecific white matter changes, likely secondary due to chronic small vessel ischemic disease. Severe paranasal sinus disease with left mastoid air cell effusion. I personally reviewed the CT of the head and I reviewed the report. Chest x-ray is reported as airspace opacities project over the right lung base correlate for pneumonia. 2D echo: Mild left ventricle systolic dysfunction. Akinetic basal inferior wall suggestive of prior myocardial infarction. Objective - Vital Signs Vital signs: Vital Signs Temp 98.1 F 07/22/23 14:58 Pulse 84 07/22/23 15:14 Resp 16 07/22/23 14:58 BP 186/75 07/22/23 14:58 Pulse Ox 96 07/22/23 14:58 FiO2 Intake & Output 07/21/23 07/22/23 07/22/23 18:59 06:59 18:59 Intake Total 140 600 Output Total 750 560 300 Balance -750 -420 300 Weight 83.915 kg Intake: Intake, IV Titration 140 600 Amount Cefepime 2 gm In Sodium 100 200 Chloride 0.9% 100 ml @ 25 mls/hr IVPB Q12H [facility] Rx# :[id number] Dextrose 5%-0.45% NaCl 1, 400 000 ml @ 50 mls/hr IV . Q20H [facility] Rx#:[id number] Sodium Chloride 0.9% 1, 40 000 ml @ 20 mls/hr IV . Q24H [facility] Rx#:[id number] Oral 0 0 Output: Urine 750 560 300 Uretheral (Soto) 460 300 Other: Voiding Method Indwelling Catheter Indwelling Catheter Indwelling Catheter - Exam Patient is alert and awake, laying comfortably in the bed. Patient able to name objects like glasses, ears. He is encephalopathic. He has very delayed latency to answer questions. Sometimes he would not even answer, stares. Speech is slightly more clear. Patient could not tell the month or year. On cranial examination pupils are equal, round and reacting. Visual singh could not be tested as he would not cooperate. He would just look at you. Face is symmetric, tongue protrudes midline. On muscle strength testing there is no pronator drift. The script writer are 5, biceps 4+, triceps 4+, deltoids 5-bilaterally. In the lower limbs the hip flexion is 4 4-bilaterally, ankle dorsiflexion 3+ on the right, 5 left. Patient has a murmur, with extension to the neck. - Labs CBC & Chem 7: 07/18/23 10:30 07/18/23 10:30 Labs: Microbiology - Last 24 Hours (Table) 07/16/23 11:46 Blood Culture - Final Blood Assessment and Plan Assessment: This is an 83-year-old gentleman who presents to the emergency department from his nursing facility because of decreased level of consciousness as well as decreased oral intake. It seems that the patient was at [facility] the prior to presented to our facility and was discharged back to his nursing facility. CT of the head is unremarkable for any acute processes. He has minimally elevated troponin and this chest x-ray is questionable for pneumonia Metabolic encephalopathy, likely due to probable pneumonia, and other medical conditions mentioned below. Possible pneumonia on the right side Squamous 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, ID on board. Pansinusitis Elevated troponin slight Akinetic basal inferior wall suggestive of prior NV on echo Chronic kidney insufficiency History of AICD placement Hyperlipidemia Hypertension Anemia CAD Plan: Patient cannot have MRI of the brain because of presence of AICD. Repeat CT head performed today revealed chronic changes with no acute intracranial process. Unchanged significant sinus disease and left mastoid opacification. I personally reviewed CT head agree with the findings. There is complete opacification of bilateral maxillary, sphenoid, ethmoid and frontal sinuses, consistent with pansinusitis. Also opacification of the left mastoid air cells. Patient currently on cefepime, which should cover sinusitis. However consider ENT consultation to see if it needs drainage. Carotid Doppler not able to be checked because patient would not cooperate. It was canceled. 2D echo: Mild left ventricle systolic dysfunction. Akinetic basal inferior wall suggestive of prior myocardial infarction. Lipid panel with cholesterol 105, LDL 36, HDL 47, triglycerides 107 on 01/20/2023. No need to repeat. Continue Lipitor 20 mg daily. Routine EEG 07/18/2023 was borderline abnormal due to minimal background slowing, suggestive of mild encephalopathy. No focal, lateralized or epileptiform activity was seen. I am not sure as to the cause of starting Keppra by Dr. Valdes. EEG did not reveal any epileptiform activity. We will decrease Keppra down to 500 mg once daily. May consider stopping Keppra by Tuesday or Tuesday. Continue aspirin 325 mg and Lipitor 20 mg daily. DVT prophylaxis: Patient on Lovenox 30 mg subcu daily Cardiology is on board Vitamin B-12 1196, folate 28, TSH is normal at 0.608 ID team is on board. Patient on cefepime for possible pneumonia. We'll defer the rest of the medical management to primary team and other specialists Dr. Perry will be covering neurology service over the weekend for any neurologi jacob concerns and Dr. Valdes starting from Tuesday morning.
[2023-07-23] MEDS: levETIRAcetam 500 MG TAB PO SCH (09:24)
--- NOTE | 2023-07-23 11:43 | P.PN ---
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 Patient now presented to hospital with worsening of his respiratory status concerning for pneumonia possible gram-negative. On today's evaluation that is 07/23/2023, the patient continues to be afebrile, the patient is on 2 L nasal cannula oxygen and breathing comfortably, the Pt is more awake today and opens eyes to his name but did not answer any question no vomiting diarrhea or any other changes reported by the nursing staff. No new labs today Objective - Vital Signs Vital signs: Vital Signs Temp 97.6 F 07/23/23 07:46 Pulse 80 07/23/23 08:51 Resp 16 07/23/23 07:46 BP 183/73 07/23/23 07:46 Pulse Ox 97 07/23/23 08:40 FiO2 Intake & Output 07/22/23 07/23/23 07/23/23 18:59 06:59 18:59 Intake Total 600 Output Total 1900 2300 400 Balance -1300 -2300 -400 Weight 83.915 kg Intake: Intake, IV Titration 600 Amount Cefepime 2 gm In Sodium 200 Chloride 0.9% 100 ml @ 25 mls/hr IVPB Q12H [facility] Rx# :[id number] Dextrose 5%-0.45% NaCl 1, 400 000 ml @ 20 mls/hr IV . Q24H [facility] Rx#:[id number] Oral 0 Output: Urine 1900 2300 400 Uretheral (Soto) 900 Other: Voiding Method Indwelling Catheter Indwelling Catheter - Exam GENERAL DESCRIPTION: An elderly male lying in bed in no distress RESPIRATORY SYSTEM: Unlabored breathing , decreased breath sounds at bases HEART: S1 S2 regular rate and rhythm , ABDOMEN: Soft , no tenderness EXTREMITIES: No edema feet - Labs CBC & Chem 7: 07/18/23 10:30 07/18/23 10:30 Assessment and Plan (1) Pneumonia Current Visit: Yes Status: Acute Code(s): J18.9 - PNEUMONIA, UNSPECIFIED ORGANISM SNOMED Code(s): 525604939 (2) Wound, open, head Current Visit: Yes Status: Acute Code(s): S01.90XA - UNSP OPEN WOUND OF UNSPECIFIED PART OF HEAD, INIT ENCNTR SNOMED Code(s): 99802629 Plan: 1patient presented to hospital with mental status changes weakness in this patient who did have a 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 and the patient noticed to have infiltrate on the chest x-ray concerning for pneumonia in this patient who has been out of the hospital we will need to cover for resistant gram-positive as well as gram-negative pathogen 2-patient did not have significant elevated CRP and a procalcitonin level of 0.08 3-patient is afebrile last white count was normal, patient CT of the brain that shows evidence of significant sinusitis however the patient not running a fever or elevated white count 4-patient to continue with cefepime while inpatient and monitor clinical course closely Dictation was produced using [employer] dictation software. please excuse any grammatical, word or spelling errors. Time with Patient: Less than 30
--- NOTE | 2023-07-23 13:23 | P.PN ---
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, patient was recently hospitalized at [facility] for what appears to be an infected wound due to his radiation therapy behind his ear, the culture at that time showed Staphylococcus aureus as well as Corynebacterium species he was started on cefepime 2 g IV piggyback every 8 hours as well as vancomycin with pharmacy to dose, he was seen in consultation by infectious disease, his CT scan of the brain at that time did not show any evidence of acute abnormalities, patient was transitioned into oral Augmentin 875 mg orally twice every day for 10 days, patient went tomorrow for physical therapy and rehabilitation while he was at moderate he developed to have a significant mental status changes he became quite unresponsive does not follow much commands, he was not eating or drinking much, these symptoms waxes and wane on and off, patient initially was sent back to the emergency department at [facility], he had a CT scan of the brain did not show evidence of acute abnormalities his laboratory evaluation were fine he did appear to have a bit of infiltrate of the right lower lobe, he was sent back home since his procalcitonin level was negative, his BNP was lower, white count were normal, patient went back tomorrow and he became more drowsy subtended does not follow any commands, the nursing staff has contacted me yesterday he was directed to go to the ER at [facility], he had a chest x-ray that showed possible right lower lobe pneumonia, CT scan of the brain did not show evidence of acute abnormalities, his troponin was slightly elevated suggestive of type II LA due to possible sepsis, he was seen in consultation by cardiology who recommended echocardiogram for evaluation of LV function, he was started back on his Augmentin I will discontinue that and start the patient on cefepime 2 g IV piggyback every 12 hours along with vancomycin pharmacy to dose will obtain infectious disease consultation, will obtain neurology consultation as well as for evaluation of his mental status changes will continue to follow-up with the patient 07/17: Patient is still confused better than yesterday, he is more awake today however he is not making sense, he denies any fever or chills, he continues to have pain in the left shoulder, he continues to have pain all over his body, tamela harrell was seen earlier by cardiology as well as by neurology, MRI could not be done because of the AICD, he continues to be on IV antibiotic in the form of cefepime and vancomycin, consulted radiation oncology Dr. Welsh for further recommendation, if the blood cultures are positive we will arrange for a transesophageal echocardiogram discussed with Dr. Yeboah from cardiology 07/18: Patient is lying down in bed in no apparent distress, yesterday afternoon he became quite unresponsive and he did not respond to any verbal stimuli, he was responding to painful stimuli, today in the morning he was more awake and more alert, he sitting up in bed he does not seem to see much, he continues to be on vancomycin as well as cefepime, he will be seen in consultation by radiation oncology to get their opinion about radiation related encephalopathy, blood cultures so far are negative, if the blood cultures are positive patient will need to go for a transesophageal echocardiogram for evaluation of endoc arditis, patient has been seen by multiple specialties including infectious disease, cardiology, along with neurology, patient did have his EEG today in the morning the results still pending at the time of dictation. 07/19: Patient is lying down in bed he continues to be quite confused he does not follow much commands, I will discontinue his Dilaudid, discontinue Xanax completely, continue IV antibiotic in the form of vancomycin and cefepime, has been followed by neurology, infectious disease, as well as cardiology, patient does not appear to have any positive blood cultures at this point in time. 07/20: Patient seems to be in more of a catatonic state. He is not consistently following commands. He will not verbalize any answers to questions. He has been continued on antibiotics per ID and also followed by neurology. Will add and as psychiatry consult today. This has been discussed with the patient's at the bedside. Vital signs been stable. Repeat blood work will be ordered for tomorrow. 07/21: Patient continues to have significant mental status changes, he opens his eyes not responding not following directions well. He has not been eating or drinking. He is on IV fluids of 0.9 will switch to D5W 0.45. We are waiting for psychiatric evaluation. Blood pressure 110/53, heart rate 72, pulse ox 93% on 3 L nasal cannula. Neurology has ordered CT of the brain. 07/22: Patient is more responsive today, able to drink Ensure but not eating his meals. He is not taking his medications. He was seen by psychiatry yesterday with no additional recommendations. Repeat CT of the brain revealed chronic changes with no acute intracranial process. Unchanged significant sinus disease. Left mastoid opacification. Blood pressure 162/87, heart rate in the 70s and 80s, pulse ox 98% on 3 L nasal cannula. Telemetry is sinus rhythm. EEG reveals borderline abnormal EEG due to minimal background slowing suggestive of mild encephalopathy. No focal lateralized or epileptiform activity. Neurology has started the patient on IV Keppra 500 mg twice daily. Urine culture is s howing only Megan. Patient has extra fluid today for which IV Lasix 1 dose will be given and IV fluids will be decreased to KVO. Patient started coughing with Ensure so speech therapy consult will be added as well as chest x-ray today. 07/23. Patient seen and examined. Patient is alert. Patient has poor appetite. Vital signs stable REVIEW OF SYSTEMS: CONSTITUTIONAL: No fever, no malaise,. CARDIOVASCULAR: No chest pain, no palpitations, no syncope. PULMONARY: No shortness of breath, no cough, GASTROINTESTINAL: No diarrhea, no nausea, no vomiting, no abdominal pain. NEUROLOGICAL: No headaches, no weakness, PHYSICAL EXAMINATION: GENERAL: The patient is alert and oriented x1, not in any acute distress. Chronically ill looking HEENT: Pupils are round and equally reacting to light. EOMI. No scleral icterus. No conjunctival pallor. Normocephalic, atraumatic. No pharyngeal erythema. No thyromegaly. CARDIOVASCULAR: S1 and S2 present. No murmurs, rubs, or gallops. PULMONARY: Chest is clear to auscultation, no wheezing or crackles. ABDOMEN: Soft, nontender, nondistended, normoactive bowel sounds. No palpable organomegaly. MUSCULOSKELETAL: No joint swelling or deformity. EXTREMITIES: No cyanosis, clubbing, or pedal edema. NEUROLOGICAL: Gross neurological examination did not reveal any focal deficits. SKIN: No rashes. Assessment and plan Metabolic encephalopathy likely due to sepsis due to gram-negative right lower lobe pneumonia and possible infected wound behind his left ear. Monitor vital signs Monitor CBC Monitor CMP Continue cefepime ID following 2. Gram negative pneumonia . Continue patient on cefepime, nebulized treatment DuoNeb 3 mL nebulization 4 times every day. 3. Acute urinary retention. Status post Soto catheterization continue Flomax 0.4 mg once every day, keep Soto catheter in for now, urine does not appear to be infected. 4. Type II LA likely related to sepsis. Echocardiogram ejection fraction of 45%, cardiology is following, continue patient on carvedilol 12.5 mg orally twice a , continue Lipitor 20 mg once every day, continue aspirin 81 mg once every day. 5. History of coronary artery disease with three-vessel disease status post PCI under the care of cardiology Dr. Veras on a regular basis. Continue aspirin, carvedilol 12.5 mg orally twice a and Lipitor 6. Hypertension and hypertensive cardiovascular disease. Continue patient on carvedilol 12.5 mg orally twice a day, continue hydralazine 50 mg orally 3 times every day, continue isosorbide mononitrate 60 mg orally twice every day. 7. Hypothyroidism. Continue Synthroid 112 mcg orally once every day, 8. Enlarged prostate with urinary retention. Continue patient on Flomax 0.4 mg once every day. 9. Moderate COPD. Continue oxygen 2 L nasal cannula, continue DuoNeb 3 mL nebulization 4 times every day, continue Theodur 300 mg once at bedtime, 10. Ventricular tachycardia status post ICD implantation continue amiodarone 100 mg orally once every day. 11. Chronic kidney disease stage IIIb. Avoid nephrotoxins, monitor the patient's CMP Labs and medication were reviewed.. Continue same treatment. Continue with symptomatic treatment. Resume home medication. Monitor labs and vitals. DVT and GI prophylaxis. Further recommendations as per clinical course of the patient Dictation was produced using [email or web address] dictation software. please excuse any grammatical, word or spelling errors. Objective - Vital Signs Vital signs: Vital Signs Temp 97.6 F 07/23/23 07:46 Pulse 80 07/23/23 08:51 Resp 16 07/23/23 07:46 BP 183/73 07/23/23 07:46 Pulse Ox 97 07/23/23 08:40 FiO2 Intake & Output 07/22/23 07/23/23 07/23/23 18:59 06:59 18:59 Intake Total 600 Output Total 1900 2300 400 Balance -1300 -2300 -400 Weight 83.915 kg Intake: Intake, IV Titration 600 Amount Cefepime 2 gm In Sodium 200 Chloride 0.9% 100 ml @ 25 mls/hr IVPB Q12H ADDIE Rx# :[id number] Dextrose 5%-0.45% NaCl 1, 400 000 ml @ 20 mls/hr IV . Q24H ADDIE Rx#:[id number] Oral 0 Output: Urine 1900 2300 400 Uretheral (Soto) 900 Other: Voiding Method Indwelling Catheter Indwelling Catheter Indwelling Catheter - Labs CBC & Chem 7: 07/18/23 10:30 07/18/23 10:30
[2023-07-24 09:18] LABS: Basophils # (A) 0.04 X 10*3/uL (0.00-0.10); Basophils % (A) 0.6 %; Eosinophils # (A) 0.17 X 10*3/uL (0.04-0.35); Eosinophils % (A) 2.8 %; HCT 27.5 % (39.6-50.0); HGB 8.7 g/dL (13.0-17.0); Lymphocytes # (A) 0.51 X 10*3/uL (0.90-5.00); Lymphocytes % (A) 8.3 %; MCH 31.4 pg (27.0-32.0); MCHC 31.6 g/dL (32.0-37.0); MCV 99.3 FL (80.0-97.0); Mean Platelet Volume 12.9 FL (9.5-12.2); Monocytes # (A) 0.79 X 10*3/uL (0.20-1.00); Monocytes % (A) 12.8 %; NRBC Per 100 WBC 0 X 10*3/uL (0.00-0.01); Neutrophils # (A) 4.66 X 10*3/uL (1.80-7.70); Neutrophils % (A) 75.3 %; Platelet Count 110 X 10*3/uL (140-440); RBC 2.77 X 10*6/uL (4.40-5.60); RDW 14.6 % (11.5-14.5); WBC 6.18 X 10*3/uL (4.50-10.00)
[2023-07-24 11:10] LABS: ALT 17 U/L (10-49); AST 19 U/L (14-35); Albumin 3.1 g/dL (3.8-4.9); Albumin/Globulin Ratio 1.41 Ratio (1.60-3.17); Alkaline Phosphatase 59 U/L (41-126); BUN/Creat Ratio 16.27 Ratio (12.00-20.00); Blood Urea Nitrogen 24.4 mg/dL (9.0-27.0); Calcium 9.7 mg/dL (8.7-10.3); Carbon Dioxide 25.8 mmol/L (21.6-31.8); Chloride 111 mmol/L (96-109); Globulin 2.2 g/dL (1.6-3.3); Glucose 99 mg/dL (70-110); Potassium 3.1 mmol/L (3.5-5.5); Sodium 149 mmol/L (135-145); Total Bilirubin 0.3 mg/dL (0.3-1.2); Total Protein 5.3 g/dL (6.2-8.2)
--- NOTE | 2023-07-24 12:55 | P.PN ---
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, patient was recently hospitalized at [facility] for what appears to be an infected wound due to his radiation therapy behind his ear, the culture at that time showed Staphylococcus aureus as well as Corynebacterium species he was started on cefepime 2 g IV piggyback every 8 hours as well as vancomycin with pharmacy to dose, he was seen in consultation by infectious disease, his CT scan of the brain at that time did not show any evidence of acute abnormalities, patient was transitioned into oral Augmentin 875 mg orally twice every day for 10 days, patient went tomorrow for physical therapy and rehabilitation while he was at moderate he developed to have a significant mental status changes he became quite unresponsive does not follow much commands, he was not eating or drinking much, these symptoms waxes and wane on and off, patient initially was sent back to the emergency department at [facility], he had a CT scan of the brain did not show evidence of acute abnormalities his laboratory evaluation were fine he did appear to have a bit of infiltrate of the right lower lobe, he was sent back home since his procalcitonin level was negative, his BNP was lower, white count were normal, patient went back tomorrow and he became more drowsy subtended does not follow any commands, the nursing staff has contacted me yesterday he was directed to go to the ER at [facility], he had a chest x-ray that showed possible right lower lobe pneumonia, CT scan of the brain did not show evidence of acute abnormalities, his troponin was slightly elevated suggestive of type II [place] due to possible sepsis, he was seen in consultation by cardiology who recommended echocardiogram for evaluation of LV function, he was started back on his Augmentin I will discontinue that and start the patient on cefepime 2 g IV piggyback every 12 hours along with vancomycin pharmacy to dose will obtain infectious disease consultation, will obtain neurology consultation as well as for evaluation of his mental status changes will continue to follow-up with the patient 07/17: Patient is still confused better than yesterday, he is more awake today however he is not making sense, he denies any fever or chills, he continues to have pain in the left shoulder, he continues to have pain all over his body, tamela harrell was seen earlier by cardiology as well as by neurology, MRI could not be done because of the AICD, he continues to be on IV antibiotic in the form of cefepime and vancomycin, consulted radiation oncology Dr. Welsh for further recommendation, if the blood cultures are positive we will arrange for a transesophageal echocardiogram discussed with Dr. Yeboah from cardiology 07/18: Patient is lying down in bed in no apparent distress, yesterday afternoon he became quite unresponsive and he did not respond to any verbal stimuli, he was responding to painful stimuli, today in the morning he was more awake and more alert, he sitting up in bed he does not seem to see much, he continues to be on vancomycin as well as cefepime, he will be seen in consultation by radiation oncology to get their opinion about radiation related encephalopathy, blood cultures so far are negative, if the blood cultures are positive patient will need to go for a transesophageal echocardiogram for evaluation of endoc arditis, patient has been seen by multiple specialties including infectious disease, cardiology, along with neurology, patient did have his EEG today in the morning the results still pending at the time of dictation. 07/19: Patient is lying down in bed he continues to be quite confused he does not follow much commands, I will discontinue his Dilaudid, discontinue Xanax completely, continue IV antibiotic in the form of vancomycin and cefepime, has been followed by neurology, infectious disease, as well as cardiology, patient does not appear to have any positive blood cultures at this point in time. 07/20: Patient seems to be in more of a catatonic state. He is not consistently following commands. He will not verbalize any answers to questions. He has been continued on antibiotics per ID and also followed by neurology. Will add and as psychiatry consult today. This has been discussed with the patient's at the bedside. Vital signs been stable. Repeat blood work will be ordered for tomorrow. 07/21: Patient continues to have significant mental status changes, he opens his eyes not responding not following directions well. He has not been eating or drinking. He is on IV fluids of 0.9 will switch to D5W 0.45. We are waiting for psychiatric evaluation. Blood pressure 110/53, heart rate 72, pulse ox 93% on 3 L nasal cannula. Neurology has ordered CT of the brain. 07/22: Patient is more responsive today, able to drink Ensure but not eating his meals. He is not taking his medications. He was seen by psychiatry yesterday with no additional recommendations. Repeat CT of the brain revealed chronic changes with no acute intracranial process. Unchanged significant sinus disease. Left mastoid opacification. Blood pressure 162/87, heart rate in the 70s and 80s, pulse ox 98% on 3 L nasal cannula. Telemetry is sinus rhythm. EEG reveals borderline abnormal EEG due to minimal background slowing suggestive of mild encephalopathy. No focal lateralized or epileptiform activity. Neurology has started the patient on IV Keppra 500 mg twice daily. Urine culture is s howing only Megan. Patient has extra fluid today for which IV Lasix 1 dose will be given and IV fluids will be decreased to KVO. Patient started coughing with Ensure so speech therapy consult will be added as well as chest x-ray today. 07/23. Patient seen and examined. Patient is alert. Patient has poor appetite. Vital signs stable 07/24. Patient seen and examined. Currently sitting in the chair. According to nursing staff patient is much more alert and talkative compared to yesterday. States he has poor appetite but is drinking Ensure. REVIEW OF SYSTEMS: CONSTITUTIONAL: No fever, no malaise,. CARDIOVASCULAR: No chest pain, no palpitations, no syncope. PULMONARY: No shortness of breath, no cough, GASTROINTESTINAL: No diarrhea, no nausea, no vomiting, no abdominal pain. NEUROLOGICAL: No headaches, no weakness, PHYSICAL EXAMINATION: GENERAL: The patient is alert and oriented x1, not in any acute distress. Chronically ill looking HEENT: Pupils are round and equally reacting to light. EOMI. No scleral icterus. No conjunctival pallor. Normocephalic, atraumatic. No pharyngeal erythema. No thyromegaly. CARDIOVASCULAR: S1 and S2 present. No murmurs, rubs, or gallops. PULMONARY: Chest is clear to auscultation, no wheezing or crackles. ABDOMEN: Soft, nontender, nondistended, normoactive bowel sounds. No palpable organomegaly. MUSCULOSKELETAL: No joint swelling or deformity. EXTREMITIES: No cyanosis, clubbing, or pedal edema. NEUROLOGICAL: Gross neurological examination did not reveal any focal deficits. SKIN: No rashes. Assessment and plan Metabolic encephalopathy likely due to sepsis due to gram-negative right lower lobe pneumonia and possible infected wound behind his left ear. Monitor vital signs Monitor CBC Monitor CMP Continue cefepime ID following Gram negative pneumonia . Continue patient on cefepime, nebulized treatment DuoNeb 3 mL nebulization 4 times every day. Acute urinary retention. Status post Soto catheterization continue Flomax 0.4 mg once every day, keep Soto catheter in for now, urine does not appear to be infected. Type II [place] likely related to sepsis. Echocardiogram ejection fraction of 45%, cardiology is following, continue patient on carvedilol 12.5 mg orally twice a , continue Lipitor 20 mg once every day, continue aspirin 81 mg once every day. History of coronary artery disease with three-vessel disease status post PCI under the care of cardiology Dr. Veras on a regular basis. Continue aspirin, carvedilol 12.5 mg orally twice a and Lipitor Hypertension and hypertensive cardiovascular disease. Continue patient on carvedilol 12.5 mg orally twice a day, continue hydralazine 50 mg orally 3 times every day, continue isosorbide mononitrate 60 mg orally twice every day. Hypothyroidism. Continue Synthroid 112 mcg orally once every day, Enlarged prostate with urinary retention. Continue patient on Flomax 0.4 mg once every day. Moderate COPD. Continue oxygen 2 L nasal cannula, continue DuoNeb 3 mL nebulization 4 times every day, continue Theodur 300 mg once at bedtime, Ventricular tachycardia status post ICD implantation continue amiodarone 100 mg orally once every day. Chronic kidney disease stage IIIb. Avoid nephrotoxins, monitor the patient's CMP Labs and medication were reviewed.. Continue same treatment. Continue with symptomatic treatment. Resume home medication. Monitor labs and vitals. DVT and GI prophylaxis. Further recommendations as per clinical course of the patient Dictation was produced using [employer] dictation software. please excuse any grammatical, word or spelling errors. Objective - Vital Signs Vital signs: Vital Signs Temp 97.4 F L 07/24/23 08:00 Pulse 76 07/24/23 09:29 Resp 18 07/24/23 08:00 BP 179/68 07/24/23 08:00 Pulse Ox 98 07/24/23 08:00 FiO2 Intake & Output 02/07/24/23 07/24/23 18:59 06:59 18:59 Output Total 450 Balance -450 Output: Urine 450 Other: Voiding Method Indwelling Catheter Indwelling Catheter Indwelling Catheter - Labs CBC & Chem 7: 07/24/23 06:02 07/24/23 06:02 Labs: Abnormal Lab Results - Last 24 Hours (Table) 07/24/23 07/24/23 Range/Units 06:02 06:02 RBC 2.77 L (4.40-5.60) X 10*6/uL Hgb 8.7 L (13.0-17.0) g/dL Hct 27.5 L (39.6-50.0) % MCV 99.3 H (80.0-97.0) FL MCHC 31.6 L (32.0-37.0) g/dL RDW 14.6 H (11.5-14.5) % Plt Count 110 L (140-440) X 10*3/uL MPV 12.9 H (9.5-12.2) FL Lymphocytes # 0.51 L (0.90-5.00) X 10*3/uL Sodium 149 H (135-145) mmol/L Potassium 3.1 L (3.5-5.5) mmol/L Chloride 111 H (96-109) mmol/L Anion Gap 12.20 H (4.00-12.00) mmol/L Est GFR (CKD-EPI) 46 L (>=60) Total Protein 5.3 L (6.2-8.2) g/dL Albumin 3.1 L (3.8-4.9) g/dL Albumin/Globulin Ratio 1.41 L (1.60-3.17) Ratio
--- NOTE | 2023-07-24 14:39 | P.PN ---
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 Patient now presented to hospital with worsening of his respiratory status concerning for pneumonia possible gram-negative. On today's evaluation that is 07/24/2023, Patient is afebrile ,patient is currently on 2 L nasal cannula oxygen patient is awake but did not answer any question does not seem to be any distress no vomiting diarrhea or any other changes reported by the nursing staff. Patient white count is 6.18, creatinine is 1.5 last chest x-ray on 07/22/2023 bilateral lower lobe infiltrate and effusion Objective - Vital Signs Vital signs: Vital Signs Temp 97.4 F L 07/24/23 08:00 Pulse 76 07/24/23 09:29 Resp 18 07/24/23 08:00 BP 179/68 07/24/23 08:00 Pulse Ox 98 07/24/23 08:00 FiO2 Intake & Output 07/23/23 07/24/23 07/24/23 18:59 06:59 18:59 Output Total 450 Balance -450 Output: Urine 450 Other: Voiding Method Indwelling Catheter Indwelling Catheter Indwelling Catheter - Exam GENERAL DESCRIPTION: An elderly male lying in bed in no distress RESPIRATORY SYSTEM: Unlabored breathing , decreased breath sounds at bases HEART: S1 S2 regular rate and rhythm , ABDOMEN: Soft , no tenderness EXTREMITIES: No edema feet - Labs CBC & Chem 7: 07/24/23 06:02 07/24/23 06:02 Labs: Abnormal Lab Results - Last 24 Hours (Table) 07/24/23 07/24/23 Range/Units 06:02 06:02 RBC 2.77 L (4.40-5.60) X 10*6/uL Hgb 8.7 L (13.0-17.0) g/dL Hct 27.5 L (39.6-50.0) % MCV 99.3 H (80.0-97.0) FL MCHC 31.6 L (32.0-37.0) g/dL RDW 14.6 H (11.5-14.5) % Plt Count 110 L (140-440) X 10*3/uL MPV 12.9 H (9.5-12.2) FL Lymphocytes # 0.51 L (0.90-5.00) X 10*3/uL Sodium 149 H (135-145) mmol/L Potassium 3.1 L (3.5-5.5) mmol/L Chloride 111 H (96-109) mmol/L Anion Gap 12.20 H (4.00-12.00) mmol/L Est GFR (CKD-EPI) 46 L (>=60) Total Protein 5.3 L (6.2-8.2) g/dL Albumin 3.1 L (3.8-4.9) g/dL Albumin/Globulin Ratio 1.41 L (1.60-3.17) Ratio Assessment and Plan (1) Pneumonia Current Visit: Yes Status: Acute Code(s): J18.9 - PNEUMONIA, UNSPECIFIED ORGANISM SNOMED Code(s): 482646132 (2) Wound, open, head Current Visit: Yes Status: Acute Code(s): S01.90XA - UNSP OPEN WOUND OF UNSPECIFIED PART OF HEAD, INIT ENCNTR SNOMED Code(s): 45978568 Plan: 1patient presented to hospital with mental status changes weakness in this patient who did have a 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 and the patient noticed to have infiltrate on the chest x-ray concerning for pneumonia in this patient who has been out of the hospital we will need to cover for resistant gram-positive as well as gram-negative pathogen 2-patient did not have significant elevated CRP and a procalcitonin level of 0.08 3-patient is afebrile did have a normal white count, chest x-ray with bilateral lobe infiltrate and effusion, patient CT of the brain that shows evidence of significant sinusitis however the patient not running a fever or elevated white count 4-patient to continue with cefepime while inpatient and continue supportive care Dictation was produced using [employer] dictation software. please excuse any grammatical, word or spelling errors. Time with Patient: Less than 30
[2023-07-25 11:01] LABS: Basophils % (A) 0 %; Eosinophils # (A) 0.1 k/uL (0-0.7); Eosinophils % (A) 2 %; HCT 29.6 % (39.0-53.0); HGB 9.6 gm/dL (13.0-17.5); Lymphocytes # (A) 0.5 k/uL (1.0-4.8); Lymphocytes % (A) 8 %; MCH 32.2 pg (25.0-35.0); MCHC 32.3 g/dL (31.0-37.0); MCV 99.6 fL (80.0-100.0); Macrocytosis Slight; Mean Platelet Volume 11.7; Monocytes # (A) 0.4 k/uL (0-1.0); Monocytes % (A) 7 %; Neutrophils % (A) 80 %; Platelet Count 113 k/uL (150-450); RBC 2.98 m/uL (4.30-5.90); RDW 14.3 % (11.5-15.5); WBC 6.2 k/uL (3.8-10.6)
[2023-07-25 11:14] LABS: ALT 18 U/L (4-49); AST 25 U/L (17-59); African American GFR (CKD) 55 (>60 ml/min/1.73 sqM); Albumin 2.9 g/dL (3.5-5.0); Alkaline Phosphatase 67 U/L (38-126); Anion Gap 4 mmol/L; Blood Urea Nitrogen 26 mg/dL (9-20); Calcium 9.6 mg/dL (8.4-10.2); Carbon Dioxide 31 mmol/L (22-30); Chloride 112 mmol/L (98-107); Globulin 2.8 g/dL; Glucose 104 mg/dL (74-99); Non-African American GFR(CKD) 48 (>60 ml/min/1.73 sqM); Potassium 3.2 mmol/L (3.5-5.1); Sodium 147 mmol/L (137-145); Total Bilirubin 0.7 mg/dL (0.2-1.3); Total Protein 5.7 g/dL (6.3-8.2)
--- NOTE | 2023-07-25 12:07 | P.PN ---
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 Patient now presented to hospital with worsening of his respiratory status concerning for pneumonia possible gram-negative. On today's evaluation that is 07/25/2023,the patient is more awake and alert today denies any fever or any chills, patient is breathing comfortably on 2 L nasal cannula oxygen, the patient denies chest pain shortness of breath and no significant cough, patient denies abdominal pain, no nausea vomiting or diarrhea. Patient white count is 6.2, creatinine is 1.36 Objective - Vital Signs Vital signs: Vital Signs Temp 98.3 F 07/25/23 07:31 Pulse 77 07/25/23 07:31 Resp 18 07/25/23 07:31 BP 156/92 07/25/23 07:31 Pulse Ox 95 07/25/23 09:12 FiO2 Intake & Output 07/24/23 07/25/23 07/25/23 18:59 06:59 18:59 Output Total 700 500 Balance -700 -500 Output: Urine 700 500 Other: Voiding Method Indwelling Catheter Indwelling Catheter - Exam GENERAL DESCRIPTION: An elderly male lying in bed in no distress RESPIRATORY SYSTEM: Unlabored breathing , decreased breath sounds at bases HEART: S1 S2 regular rate and rhythm , ABDOMEN: Soft , no tenderness EXTREMITIES: No edema feet - Labs CBC & Chem 7: 07/25/23 10:39 07/25/23 10:39 Labs: Abnormal Lab Results - Last 24 Hours (Table) 07/25/23 07/25/23 Range/Units 10:39 10:39 RBC 2.98 L (4.30-5.90) m/uL Hgb 9.6 L (13.0-17.5) gm/dL Hct 29.6 L (39.0-53.0) % Plt Count 113 L (150-450) k/uL Lymphocytes # 0.5 L (1.0-4.8) k/uL Sodium 147 H (137-145) mmol/L Potassium 3.2 L (3.5-5.1) mmol/L Chloride 112 H (98-107) mmol/L Carbon Dioxide 31 H (22-30) mmol/L BUN 26 H (9-20) mg/dL Creatinine 1.36 H (0.66-1.25) mg/dL Glucose 104 H (74-99) mg/dL Total Protein 5.7 L (6.3-8.2) g/dL Albumin 2.9 L (3.5-5.0) g/dL Assessment and Plan (1) Pneumonia Current Visit: Yes Status: Acute Code(s): J18.9 - PNEUMONIA, UNSPECIFIED ORGANISM SNOMED Code(s): 549544209 (2) Wound, open, head Current Visit: Yes Status: Acute Code(s): S01.90XA - UNSP OPEN WOUND OF UNSPECIFIED PART OF HEAD, INIT ENCNTR SNOMED Code(s): 71917924 Plan: 1patient presented to hospital with mental status changes weakness in this patient who did have a 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 and the patient noticed to have infiltrate on the chest x-ray concerning for pneumonia in this patient who has been out of the hospital we will need to cover for resistant gram-positive as well as gram-negative pathogen 2-patient did not have significant elevated CRP and a procalcitonin level of 0.08 3-patient is afebrile did have a normal white count, chest x-ray with bilateral lobe infiltrate and effusion, patient CT of the brain that shows evidence of significant sinusitis however the patient not running a fever or elevated white count 4-patient has shown clinical improvement to continue with cefepime while inpatient and short course of oral Avelox on discharge Dictation was produced using [employer] dictation software. please excuse any gr ammatical, word or spelling errors. Time with Patient: Less than 30
[2023-07-25] MEDS ORDERED: Potassium Replacement Protocol 1 EACH MISC MISCELLANE PRN ×2 (13:16→16:15)
--- NOTE | 2023-07-25 13:18 | P.PN ---
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, patient was recently hospitalized at [facility] for what appears to be an infected wound due to his radiation therapy behind his ear, the culture at that time showed Staphylococcus aureus as well as Corynebacterium species he was started on cefepime 2 g IV piggyback every 8 hours as well as vancomycin with pharmacy to dose, he was seen in consultation by infectious disease, his CT scan of the brain at that time did not show any evidence of acute abnormalities, patient was transitioned into oral Augmentin 875 mg orally twice every day for 10 days, patient went tomorrow for physical therapy and rehabilitation while he was at moderate he developed to have a significant mental status changes he became quite unresponsive does not follow much commands, he was not eating or drinking much, these symptoms waxes and wane on and off, patient initially was sent back to the emergency department at [facility], he had a CT scan of the brain did not show evidence of acute abnormalities his laboratory evaluation were fine he did appear to have a bit of infiltrate of the right lower lobe, he was sent back home since his procalcitonin level was negative, his BNP was lower, white count were normal, patient went back tomorrow and he became more drowsy subtended does not follow any commands, the nursing staff has contacted me yesterday he was directed to go to the ER at [facility], he had a chest x-ray that showed possible right lower lobe pneumonia, CT scan of the brain did not show evidence of acute abnormalities, his troponin was slightly elevated suggestive of type II [place] due to possible sepsis, he was seen in consultation by cardiology who recommended echocardiogram for evaluation of LV function, he was started back on his Augmentin I will discontinue that and start the patient on cefepime 2 g IV piggyback every 12 hours along with vancomycin pharmacy to dose will obtain infectious disease consultation, will obtain neurology consultation as well as for evaluation of his mental status changes will continue to follow-up with the patient 07/17: Patient is still confused better than yesterday, he is more awake today however he is not making sense, he denies any fever or chills, he continues to have pain in the left shoulder, he continues to have pain all over his body, tamela harrell was seen earlier by cardiology as well as by neurology, MRI could not be done because of the AICD, he continues to be on IV antibiotic in the form of cefepime and vancomycin, consulted radiation oncology Dr. Welsh for further recommendation, if the blood cultures are positive we will arrange for a transesophageal echocardiogram discussed with Dr. Yeboah from cardiology 07/18: Patient is lying down in bed in no apparent distress, yesterday afternoon he became quite unresponsive and he did not respond to any verbal stimuli, he was responding to painful stimuli, today in the morning he was more awake and more alert, he sitting up in bed he does not seem to see much, he continues to be on vancomycin as well as cefepime, he will be seen in consultation by radiation oncology to get their opinion about radiation related encephalopathy, blood cultures so far are negative, if the blood cultures are positive patient will need to go for a transesophageal echocardiogram for evaluation of endoc arditis, patient has been seen by multiple specialties including infectious disease, cardiology, along with neurology, patient did have his EEG today in the morning the results still pending at the time of dictation. 07/19: Patient is lying down in bed he continues to be quite confused he does not follow much commands, I will discontinue his Dilaudid, discontinue Xanax completely, continue IV antibiotic in the form of vancomycin and cefepime, has been followed by neurology, infectious disease, as well as cardiology, patient does not appear to have any positive blood cultures at this point in time. 07/20: Patient seems to be in more of a catatonic state. He is not consistently following commands. He will not verbalize any answers to questions. He has been continued on antibiotics per ID and also followed by neurology. Will add and as psychiatry consult today. This has been discussed with the patient's at the bedside. Vital signs been stable. Repeat blood work will be ordered for tomorrow. 07/21: Patient continues to have significant mental status changes, he opens his eyes not responding not following directions well. He has not been eating or drinking. He is on IV fluids of 0.9 will switch to D5W 0.45. We are waiting for psychiatric evaluation. Blood pressure 110/53, heart rate 72, pulse ox 93% on 3 L nasal cannula. Neurology has ordered CT of the brain. 07/22: Patient is more responsive today, able to drink Ensure but not eating his meals. He is not taking his medications. He was seen by psychiatry yesterday with no additional recommendations. Repeat CT of the brain revealed chronic changes with no acute intracranial process. Unchanged significant sinus disease. Left mastoid opacification. Blood pressure 162/87, heart rate in the 70s and 80s, pulse ox 98% on 3 L nasal cannula. Telemetry is sinus rhythm. EEG reveals borderline abnormal EEG due to minimal background slowing suggestive of mild encephalopathy. No focal lateralized or epileptiform activity. Neurology has started the patient on IV Keppra 500 mg twice daily. Urine culture is s howing only Megan. Patient has extra fluid today for which IV Lasix 1 dose will be given and IV fluids will be decreased to KVO. Patient started coughing with Ensure so speech therapy consult will be added as well as chest x-ray today. 07/23. Patient seen and examined. Patient is alert. Patient has poor appetite. Vital signs stable 07/24. Patient seen and examined. Currently sitting in the chair. According to nursing staff patient is much more alert and talkative compared to yesterday. States he has poor appetite but is drinking Ensure. 07/25. Patient seen and examined. Denies any acute events overnight. Blood work done this morning showed WBC 6.2, hemoglobin 9.6, platelet count 113, sodium 147, potassium 3.2, BUN 26, creatinine 1.36. Encourage oral hydration. Potassium placement ordered. REVIEW OF SYSTEMS: CONSTITUTIONAL: No fever, no malaise,. CARDIOVASCULAR: No chest pain, no palpitations, no syncope. PULMONARY: No shortness of breath, no cough, GASTROINTESTINAL: No diarrhea, no nausea, no vomiting, no abdominal pain. NEUROLOGICAL: No headaches, no weakness, PHYSICAL EXAMINATION: GENERAL: The patient is alert and oriented x1, not in any acute distress. Chronically ill looking HEENT: Pupils are round and equally reacting to light. EOMI. No scleral icterus. No conjunctival pallor. Normocephalic, atraumatic. No pharyngeal erythema. No thyromegaly. CARDIOVASCULAR: S1 and S2 present. No murmurs, rubs, or gallops. PULMONARY: Chest is clear to auscultation, no wheezing or crackles. ABDOMEN: Soft, nontender, nondistended, normoactive bowel sounds. No palpable organomegaly. MUSCULOSKELETAL: No joint swelling or deformity. EXTREMITIES: No cyanosis, clubbing, or pedal edema. NEUROLOGICAL: Gross neurological examination did not reveal any focal deficits. SKIN: No rashes. Assessment and plan Metabolic encephalopathy likely due to sepsis due to gram-negative right lower lobe pneumonia and possible infected wound behind his left ear. Monitor vital signs Monitor CBC Monitor CMP Continue cefepime ID following Hypernatremia; monitor electrolytes, encourage oral hydration Hypokalemia; Potassium placement ordered Gram negative pneumonia . Continue patient on cefepime, nebulized treatment DuoNeb 3 mL nebulization 4 times every day. Acute urinary retention. Status post Soto catheterization continue Flomax 0.4 mg once every day, keep Soto catheter in for now, urine does not appear to be infected. Type II [place] likely related to sepsis. Echocardiogram ejection fraction of 45%, cardiology is following, continue patient on carvedilol 12.5 mg orally twice a , continue Lipitor 20 mg once every day, continue aspirin 81 mg once every day. History of coronary artery disease with three-vessel disease status post PCI under the care of cardiology Dr. Veras on a regular basis. Continue aspirin, carvedilol 12.5 mg orally twice a and Lipitor Hypertension and hypertensive cardiovascular disease. Continue patient on carvedilol 12.5 mg orally twice a day, continue hydralazine 50 mg orally 3 times every day, continue isosorbide mononitrate 60 mg orally twice every day. Hypothyroidism. Continue Synthroid 112 mcg orally once every day, Enlarged prostate with urinary retention. Continue patient on Flomax 0.4 mg on ce every day. Moderate COPD. Continue oxygen 2 L nasal cannula, continue DuoNeb 3 mL nebulization 4 times every day, continue Theodur 300 mg once at bedtime, Ventricular tachycardia status post ICD implantation continue amiodarone 100 mg orally once every day. Chronic kidney disease stage IIIb. Avoid nephrotoxins, monitor the patient's CMP Labs and medication were reviewed.. Continue same treatment. Continue with symptomatic treatment. Resume home medication. Monitor labs and vitals. DVT and GI prophylaxis. Further recommendations as per clinical course of the patient Dictation was produced using [employer] dictation software. please excuse any grammatical, word or spelling errors. Objective - Vital Signs Vital signs: Vital Signs Temp 98.3 F 07/25/23 07:31 Pulse 77 07/25/23 07:31 Resp 18 07/25/23 07:31 BP 156/92 07/25/23 07:31 Pulse Ox 95 07/25/23 09:12 FiO2 Intake & Output 07/24/23 07/25/23 07/25/23 18:59 06:59 18:59 Output Total 700 500 Balance -700 -500 Output: Urine 700 500 Other: Voiding Method Indwelling Catheter Indwelling Catheter - Labs CBC & Chem 7: 07/25/23 10:39 07/25/23 10:39 Labs: Abnormal Lab Results - Last 24 Hours (Table) 07/24/23 Range/Units 06:02 Sodium 149 H (135-145) mmol/L Potassium 3.1 L (3.5-5.5) mmol/L Chloride 111 H (96-109) mmol/L Anion Gap 12.20 H (4.00-12.00) mmol/L Est GFR (CKD-EPI) 46 L (>=60) Total Protein 5.3 L (6.2-8.2) g/dL Albumin 3.1 L (3.8-4.9) g/dL Albumin/Globulin Ratio 1.41 L (1.60-3.17) Ratio
--- NOTE | 2023-07-25 15:36 | P.PN ---
Subjective Progress Note Date: 07/25/23 I am following-up with patient and last some I felt the patient during this admission was on 2023. Overnight just before Dr. De Leon took over this service the nurse notified me the patient was having shaken and he was concern about a seizure therefore I started the Keppra. Patient had an EEG which there is no seizure discharges reported but shows mild slowing. During this admission Dr. De Leon was weaning the Keppra and Dr. De Leon stated that he is not sure about the start of the Keppra and I assumed the nurse would notify him since happened past midnight and no one reach out to me to find out clarification what the Keppra was started. Objective - Vital Signs Vital signs: Vital Signs Temp 97.7 F 07/25/23 14:36 Pulse 80 07/25/23 14:36 Resp 19 07/25/23 14:36 BP 174/78 07/25/23 14:36 Pulse Ox 95 07/25/23 09:12 FiO2 Intake & Output 07/24/23 07/25/23 07/25/23 18:59 06:59 18:59 Output Total 700 500 Balance -700 -500 Output: Urine 700 500 Other: Voiding Method Indwelling Catheter Indwelling Catheter Indwelling Catheter - Exam General patient is lying in bed and is not in acute distress Neuro-is limited but patient is awake alert oriented to self and place. He is following few simple commands. No facial weakness. Motor the strength is limited because of his overall Cooperation but he's lifting arms and wiggling the toes - Labs CBC & Chem 7: 07/25/23 10:39 07/25/23 10:39 Labs: Abnormal Lab Results - Last 24 Hours (Table) 07/25/23 07/25/23 Range/Units 10:39 10:39 RBC 2.98 L (4.30-5.90) m/uL Hgb 9.6 L (13.0-17.5) gm/dL Hct 29.6 L (39.0-53.0) % Plt Count 113 L (150-450) k/uL Lymphocytes # 0.5 L (1.0-4.8) k/uL Sodium 147 H (137-145) mmol/L Potassium 3.2 L (3.5-5.1) mmol/L Chloride 112 H (98-107) mmol/L Carbon Dioxide 31 H (22-30) mmol/L BUN 26 H (9-20) mg/dL Creatinine 1.36 H (0.66-1.25) mg/dL Glucose 104 H (74-99) mg/dL Total Protein 5.7 L (6.3-8.2) g/dL Albumin 2.9 L (3.5-5.0) g/dL Assessment and Plan Assessment: This is an 83-year-old gentleman who presents to the emergency department from his nursing facility because of decreased level of consciousness as well as decreased oral intake. It seems that the patient was at [facility] the prior to presented to our facility and was discharged back to his nursing facility. CT of the head is unremarkable for any acute processes. He has minimally elevated troponin and this chest x-ray is questionable for pneumonia Metabolic encephalopathy, likely due to probable pneumonia, and other medical conditions mentioned below. Possible pneumonia on the right side Squamous 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, ID on board. Pansinusitis Elevated troponin slight Akinetic basal inferior wall suggestive of prior GA on echo Chronic kidney insufficiency History of AICD placement Hyperlipidemia Hypertension Anemia CAD Plan: Patient cannot have MRI of the brain because of presence of AICD. Repeat CT head performed revealed chronic changes with no acute intracranial process. Unchanged significant sinus disease and left mastoid opacification. I personally reviewed CT head agree with the findings. There is complete opacification of bilateral maxillary, sphenoid, ethmoid and frontal sinuses, consistent with pansinusitis. Also opacification of the left mastoid air cells. Patient currently on cefepime, which should cover sinusitis. However consider ENT consultation to see if it needs drainage per Dr. Lorenzo. Carotid Doppler not able to be checked because patient would not cooperate. It was canceled. 2D echo: Mild left ventricle systolic dysfunction. Akinetic basal inferior wall suggestive of prior myocardial infarction. Lipid panel with cholesterol 105, LDL 36, HDL 47, triglycerides 107 on 01/20/2023. No need to repeat. Continue Lipitor 20 mg daily. Routine EEG 07/18/2023 was borderline abnormal due to minimal background slowing, suggestive of mild encephalopathy. No focal, lateralized or epileptiform activity was seen. I started the patient on Keppra on 07-18. The nurse called me past midnight and he stated the patient was shaky and he was concerned about a seizure, that is why he was started on Keppra. During this hospital stay patient is being weaned down off of Keppra by Dr. Lorenzo from 500mg bid to daily and recommend stopping medication. I will discontinue the Keppra and we'll evaluate if any further seizure-like activity as no further seizure-like activity we can hold off on the medication. On aspirin 325 mg and Lipitor 20 mg daily. DVT prophylaxis: Patient on Lovenox 30 mg subcu daily Cardiology is on board Vitamin B-12 1196, folate 28, TSH is normal at 0.608 ID team is on board. Patient on cefepime for possible pneumonia. We'll defer the rest of the medical management to primary team and other specialists On discharge recommend the patient to follow-up with a neurologist as an outpatient within 1-2 weeks. We'll continue to follow up sporadically. Plan is discussed with his nurse. Time with Patient: Less than 30
[2023-07-25] MEDS: POTASSIUM CHLORIDE ER 20 MEQ TAB.ER PO SCH (16:52)
[2023-07-25] MEDS: POTASSIUM CHLORIDE 10 MEQ in WATER FOR INJECTION 1 100ML.BAG IVPB SCH (19:20)
[2023-07-26 06:27] LABS: Basophils % (A) 0 %; Eosinophils # (A) 0.1 k/uL (0-0.7); Eosinophils % (A) 2 %; Hypochromasia Slight; Lymphocytes # (A) 0.5 k/uL (1.0-4.8); Lymphocytes % (A) 9 %; MCH 32.3 pg (25.0-35.0); MCV 100.9 fL (80.0-100.0); Macrocytosis Slight; Mean Platelet Volume 11.3; Monocytes # (A) 0.6 k/uL (0-1.0); Monocytes % (A) 10 %; Neutrophils # (A) 4.5 k/uL (1.3-7.7); Neutrophils % (A) 75 %; Platelet Count 105 k/uL (150-450); RBC 2.77 m/uL (4.30-5.90); RDW 14.6 % (11.5-15.5)
[2023-07-26 08:58] LABS: ALT 18 U/L (10-49); AST 28 U/L (14-35); Albumin/Globulin Ratio 1.25 Ratio (1.60-3.17); Alkaline Phosphatase 57 U/L (41-126); BUN/Creat Ratio 15.93 Ratio (12.00-20.00); Blood Urea Nitrogen 22.3 mg/dL (9.0-27.0); Calcium 9.4 mg/dL (8.7-10.3); Carbon Dioxide 26.9 mmol/L (21.6-31.8); Chloride 112 mmol/L (96-109); Globulin 2.4 g/dL (1.6-3.3); Glucose 84 mg/dL (70-110); Potassium 3.4 mmol/L (3.5-5.5); Sodium 149 mmol/L (135-145); Total Bilirubin 0.3 mg/dL (0.3-1.2); Total Protein 5.4 g/dL (6.2-8.2)
--- NOTE | 2023-07-26 14:10 | P.PN ---
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, patient was recently hospitalized at [facility] for what appears to be an infected wound due to his radiation therapy behind his ear, the culture at that time showed Staphylococcus aureus as well as Corynebacterium species he was started on cefepime 2 g IV piggyback every 8 hours as well as vancomycin with pharmacy to dose, he was seen in consultation by infectious disease, his CT scan of the brain at that time did not show any evidence of acute abnormalities, patient was transitioned into oral Augmentin 875 mg orally twice every day for 10 days, patient went tomorrow for physical therapy and rehabilitation while he was at moderate he developed to have a significant mental status changes he became quite unresponsive does not follow much commands, he was not eating or drinking much, these symptoms waxes and wane on and off, patient initially was sent back to the emergency department at [facility], he had a CT scan of the brain did not show evidence of acute abnormalities his laboratory evaluation were fine he did appear to have a bit of infiltrate of the right lower lobe, he was sent back home since his procalcitonin level was negative, his BNP was lower, white count were normal, patient went back tomorrow and he became more drowsy subtended does not follow any commands, the nursing staff has contacted me yesterday he was directed to go to the ER at [facility], he had a chest x-ray that showed possible right lower lobe pneumonia, CT scan of the brain did not show evidence of acute abnormalities, his troponin was slightly elevated suggestive of type II ME due to possible sepsis, he was seen in consultation by cardiology who recommended echocardiogram for evaluation of LV function, he was started back on his Augmentin I will discontinue that and start the patient on cefepime 2 g IV piggyback every 12 hours along with vancomycin pharmacy to dose will obtain infectious disease consultation, will obtain neurology consultation as well as for evaluation of his mental status changes will continue to follow-up with the patient 07/17: Patient is still confused better than yesterday, he is more awake today however he is not making sense, he denies any fever or chills, he continues to have pain in the left shoulder, he continues to have pain all over his body, tamela harrell was seen earlier by cardiology as well as by neurology, MRI could not be done because of the AICD, he continues to be on IV antibiotic in the form of cefepime and vancomycin, consulted radiation oncology Dr. Welsh for further recommendation, if the blood cultures are positive we will arrange for a transesophageal echocardiogram discussed with Dr. Yeboah from cardiology 07/18: Patient is lying down in bed in no apparent distress, yesterday afternoon he became quite unresponsive and he did not respond to any verbal stimuli, he was responding to painful stimuli, today in the morning he was more awake and more alert, he sitting up in bed he does not seem to see much, he continues to be on vancomycin as well as cefepime, he will be seen in consultation by radiation oncology to get their opinion about radiation related encephalopathy, blood cultures so far are negative, if the blood cultures are positive patient will need to go for a transesophageal echocardiogram for evaluation of endoc arditis, patient has been seen by multiple specialties including infectious disease, cardiology, along with neurology, patient did have his EEG today in the morning the results still pending at the time of dictation. 07/19: Patient is lying down in bed he continues to be quite confused he does not follow much commands, I will discontinue his Dilaudid, discontinue Xanax completely, continue IV antibiotic in the form of vancomycin and cefepime, has been followed by neurology, infectious disease, as well as cardiology, patient does not appear to have any positive blood cultures at this point in time. 07/20: Patient seems to be in more of a catatonic state. He is not consistently following commands. He will not verbalize any answers to questions. He has been continued on antibiotics per ID and also followed by neurology. Will add and as psychiatry consult today. This has been discussed with the patient's at the bedside. Vital signs been stable. Repeat blood work will be ordered for tomorrow. 07/21: Patient continues to have significant mental status changes, he opens his eyes not responding not following directions well. He has not been eating or drinking. He is on IV fluids of 0.9 will switch to D5W 0.45. We are waiting for psychiatric evaluation. Blood pressure 110/53, heart rate 72, pulse ox 93% on 3 L nasal cannula. Neurology has ordered CT of the brain. 07/22: Patient is more responsive today, able to drink Ensure but not eating his meals. He is not taking his medications. He was seen by psychiatry yesterday with no additional recommendations. Repeat CT of the brain revealed chronic changes with no acute intracranial process. Unchanged significant sinus disease. Left mastoid opacification. Blood pressure 162/87, heart rate in the 70s and 80s, pulse ox 98% on 3 L nasal cannula. Telemetry is sinus rhythm. EEG reveals borderline abnormal EEG due to minimal background slowing suggestive of mild encephalopathy. No focal lateralized or epileptiform activity. Neurology has started the patient on IV Keppra 500 mg twice daily. Urine culture is s howing only Megan. Patient has extra fluid today for which IV Lasix 1 dose will be given and IV fluids will be decreased to KVO. Patient started coughing with Ensure so speech therapy consult will be added as well as chest x-ray today. 07/23. Patient seen and examined. Patient is alert. Patient has poor appetite. Vital signs stable 07/24. Patient seen and examined. Currently sitting in the chair. According to nursing staff patient is much more alert and talkative compared to yesterday. States he has poor appetite but is drinking Ensure. 07/25. Patient seen and examined. Denies any acute events overnight. Blood work done this morning showed WBC 6.2, hemoglobin 9.6, platelet count 113, sodium 147, potassium 3.2, BUN 26, creatinine 1.36. Encourage oral hydration. Potassium placement ordered. 07/26. Patient examined. Patient lethargic, refusing medications this morning. REVIEW OF SYSTEMS: Review of system cannot be obtained as patient is very lethargic blood work done this morning showed WBC 6, hemoglobin 9, platelet count 105, sodium 149, potassium 3.4 BUN 22.3, creatinine 1.4 PHYSICAL EXAMINATION: GENERAL: The patient is alert and oriented x1, lethargic . Chronically ill looking HEENT: Pupils are round and equally reacting to light. EOMI. No scleral icterus. No conjunctival pallor. Normocephalic, atraumatic. No pharyngeal erythema. No thyromegaly. CARDIOVASCULAR: S1 and S2 present. No murmurs, rubs, or gallops. PULMONARY: Chest is clear to auscultation, no wheezing or crackles. ABDOMEN: Soft, nontender, nondistended, normoactive bowel sounds. No palpable organomegaly. MUSCULOSKELETAL: No joint swelling or deformity. EXTREMITIES: No cyanosis, clubbing, or pedal edema. NEUROLOGICAL: Gross neurological examination did not reveal any focal deficits. SKIN: No rashes. Assessment and plan Metabolic encephalopathy likely due to sepsis due to gram-negative right lower lobe pneumonia and possible infected wound behind his left ear. Monitor vital signs Monitor CBC Monitor CMP Continue cefepime ID following Hypernatremia; monitor electrolytes, start D5 half-normal saline at 75 mill per hour. Consult nephrology Hypokalemia; Monitor BMP Gram negative pneumonia . Continue patient on cefepime, nebulized treatment DuoNeb 3 mL nebulization 4 times every day. Acute urinary retention. 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 Echocardiogram ejection fraction of 45%, cardiology is following, continue patient on carvedilol 12.5 mg orally twice a , continue Lipitor 20 mg once every day, continue aspirin 81 mg once every day. History of coronary artery disease with three-vessel disease status post PCI under the care of cardiology Dr. Veras on a regular basis. Continue aspirin, carvedilol 12.5 mg orally twice a and Lipitor Hypertension and hypertensive cardiovascular disease. Continue patient on carvedilol 12.5 mg orally twice a day, continue hydralazine 50 mg orally 3 times every day, continue isosorbide mononitrate 60 mg orally twice every day. Hypothyroidism. Continue Synthroid 112 mcg orally once every day, Enlarged prostate with urinary retention. Continue patient on Flomax 0.4 mg once every day. Moderate COPD. Continue oxygen 2 L nasal cannula, continue DuoNeb 3 mL nebulization 4 times every day, continue Theodur 300 mg once at bedtime, Ventricular tachycardia status post ICD implantation continue amiodarone 100 mg orally once every day. Chronic kidney disease stage IIIb. Avoid nephrotoxins, monitor the patient's CMP Labs and medication were reviewed.. Continue same treatment. Continue with symptomatic treatment. Resume home medication. Monitor labs and vitals. DVT and GI prophylaxis. Further recommendations as per clinical course of the patient Dictation was produced using [employer] dictation software. please excuse any grammatical, word or spelling errors. Objective - Vital Signs Vital signs: Vital Signs Temp 98.1 F 07/26/23 07:23 Pulse 74 07/26/23 07:23 Resp 19 07/26/23 07:23 BP 144/70 07/26/23 07:23 Pulse Ox 95 07/26/23 08:52 FiO2 Intake & Output 07/25/23 07/26/23 07/26/23 18:59 06:59 18:59 Output Total 425 600 Balance -425 -600 Weight 83.915 kg Output: Urine 425 600 Other: Voiding Method Indwelling Catheter Indwelling Catheter Indwelling Catheter - Labs CBC & Chem 7: 07/26/23 05:50 07/26/23 05:50 Labs: Abnormal Lab Results - Last 24 Hours (Table) 07/26/23 07/26/23 Range/Units 05:50 05:50 RBC 2.77 L (4.30-5.90) m/uL Hgb 9.0 L (13.0-17.5) gm/dL Hct 28.0 L (39.0-53.0) % MCV 100.9 H (80.0-100.0) fL Plt Count 105 L (150-450) k/uL Lymphocytes # 0.5 L (1.0-4.8) k/uL Sodium 149 H (135-145) mmol/L Potassium 3.4 L (3.5-5.5) mmol/L Chloride 112 H (96-109) mmol/L Est GFR (CKD-EPI) 50 L (>=60) Total Protein 5.4 L (6.2-8.2) g/dL Albumin 3.0 L (3.8-4.9) g/dL Albumin/Globulin Ratio 1.25 L (1.60-3.17) Ratio
--- NOTE | 2023-07-26 15:38 | P.PN ---
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 Patient now presented to hospital with worsening of his respiratory status concerning for pneumonia possible gram-negative. On today's evaluation that is 07/26/2023,the patient remains to be afebrile, patient is on 2 L nasal cannula supplemental oxygen patient is sleepy but arousable however did not answer any question no vomiting or diarrhea reported by the nursing staff. The patient white count is 6.0, creatinine is 1.4 Objective - Vital Signs Vital signs: Vital Signs Temp 98.1 F 07/26/23 07:23 Pulse 74 07/26/23 07:23 Resp 19 07/26/23 07:23 BP 144/70 07/26/23 07:23 Pulse Ox 95 07/26/23 08:52 FiO2 Intake & Output 07/25/23 07/26/23 07/26/23 18:59 06:59 18:59 Output Total 425 600 Balance -425 -600 Weight 83.915 kg Output: Urine 425 600 Other: Voiding Method Indwelling Catheter Indwelling Catheter Indwelling Catheter - Exam GENERAL DESCRIPTION: An elderly male lying in bed in no distress RESPIRATORY SYSTEM: Unlabored breathing , decreased breath sounds at bases HEART: S1 S2 regular rate and rhythm , ABDOMEN: Soft , no tenderness EXTREMITIES: No edema feet - Labs CBC & Chem 7: 07/26/23 05:50 07/26/23 05:50 Labs: Abnormal Lab Results - Last 24 Hours (Table) 07/26/23 07/26/23 Range/Units 05:50 05:50 RBC 2.77 L (4.30-5.90) m/uL Hgb 9.0 L (13.0-17.5) gm/dL Hct 28.0 L (39.0-53.0) % MCV 100.9 H (80.0-100.0) fL Plt Count 105 L (150-450) k/uL Lymphocytes # 0.5 L (1.0-4.8) k/uL Sodium 149 H (135-145) mmol/L Potassium 3.4 L (3.5-5.5) mmol/L Chloride 112 H (96-109) mmol/L Est GFR (CKD-EPI) 50 L (>=60) Total Protein 5.4 L (6.2-8.2) g/dL Albumin 3.0 L (3.8-4.9) g/dL Albumin/Globulin Ratio 1.25 L (1.60-3.17) Ratio Assessment and Plan (1) Pneumonia Current Visit: Yes Status: Acute Code(s): J18.9 - PNEUMONIA, UNSPECIFIED ORGANISM SNOMED Code(s): 979392730 (2) Wound, open, head Current Visit: Yes Status: Acute Code(s): S01.90XA - UNSP OPEN WOUND OF UNSPECIFIED PART OF HEAD, INIT ENCNTR SNOMED Code(s): 51820807 Plan: 1patient presented to hospital with mental status changes weakness in this patient who did have a 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 and the patient noticed to have infiltrate on the chest x-ray concerning for pneumonia in this patient who has been out of the hospital we will need to cover for resistant gram-positive as well as gram-negative pathogen 2-patient did not have significant elevated CRP and a procalcitonin level of 0.08 3-patient is afebrile did have a normal white count, chest x-ray with bilateral lobe infiltrate and effusion, patient CT of the brain that shows evidence of significant sinusitis 4-patient remains to be afebrile, patient to continue with cefepime while inpatient and monitor clinical course closely Dictation was produced using [employer] software. please excuse any grammatical, word or spelling errors. Time with Patient: Less than 30
[2023-07-26] MEDS: ACETAMINOPHEN IV (For NPO) 1,000 MG in EMPTY BAG 1 BAG IVPB PRN (15:44)
[2023-07-26] MEDS: DEXTROSE 5% IN WATER 1,000 ML IV SCH (15:45)
--- NOTE | 2023-07-26 17:52 | P.PN ---
Subjective Progress Note Date: 07/26/23 I'll follow up with the patient and the patient's is at bedside and she stated that the patient has been having tremor in the last 1 year and it's resting. She did feel like doing this hospital stay the patient had some improvement but today she fells there is a decline. Per the nurse no seizure-like activity is noted after the stop of Keppra. Objective - Vital Signs Vital signs: Vital Signs Temp 98.1 F 07/26/23 15:01 Pulse 76 07/26/23 15:01 Resp 19 07/26/23 15:01 BP 154/63 07/26/23 15:01 Pulse Ox 94 L 07/26/23 15:01 FiO2 Intake & Output 07/25/23 07/26/23 07/26/23 18:59 06:59 18:59 Output Total 425 600 Balance -425 -600 Weight 83.915 kg Output: Urine 425 600 Other: Voiding Method Indwelling Catheter Indwelling Catheter Indwelling Catheter - Exam General patient is lying in bed and is not in acute distress Neuro-is limited but patient is awake but not verbally responding. No facial weakness. - Labs CBC & Chem 7: 07/26/23 05:50 07/26/23 05:50 Labs: Abnormal Lab Results - Last 24 Hours (Table) 07/26/23 07/26/23 Range/Units 05:50 05:50 RBC 2.77 L (4.30-5.90) m/uL Hgb 9.0 L (13.0-17.5) gm/dL Hct 28.0 L (39.0-53.0) % MCV 100.9 H (80.0-100.0) fL Plt Count 105 L (150-450) k/uL Lymphocytes # 0.5 L (1.0-4.8) k/uL Sodium 149 H (135-145) mmol/L Potassium 3.4 L (3.5-5.5) mmol/L Chloride 112 H (96-109) mmol/L Est GFR (CKD-EPI) 50 L (>=60) Total Protein 5.4 L (6.2-8.2) g/dL Albumin 3.0 L (3.8-4.9) g/dL Albumin/Globulin Ratio 1.25 L (1.60-3.17) Ratio Assessment and Plan Assessment: This is an 83-year-old gentleman who presents to the emergency department from his nursing facility because of decreased level of consciousness as well as decreased oral intake. It seems that the patient was at [facility] the prior to presented to our facility and was discharged back to his nursing facility. CT of the head is unremarkable for any acute processes. He has minimally elevated troponin and this chest x-ray is questionable for pneumonia Metabolic encephalopathy, likely due to probable pneumonia, and other medical co nditions mentioned below. 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 Pansinusitis Elevated troponin slight Akinetic basal inferior wall suggestive of prior [place] on echo Chronic kidney insufficiency History of AICD placement Hyperlipidemia Hypertension Anemia CAD Plan: Patient cannot have MRI of the brain because of presence of AICD. Repeat CT head performed revealed chronic changes with no acute intracranial process. Unchanged significant sinus disease and left mastoid opacification. I personally reviewed CT head agree with the findings. There is complete opacification of bilateral maxillary, sphenoid, ethmoid and frontal sinuses, consistent with pansinusitis. Also opacification of the left mastoid air cells. Patient currently on cefepime, which should cover sinusitis. However consider ENT consultation to see if it needs drainage per Dr. Lorenzo. Carotid Doppler not able to be checked because patient would not cooperate. It was canceled. 2D echo: Mild left ventricle systolic dysfunction. Akinetic basal inferior wall suggestive of prior myocardial infarction. Lipid panel with cholesterol 105, LDL 36, HDL 47, triglycerides 107 on 01/20/2023. No need to repeat. Continue Lipitor 20 mg daily. Routine EEG 07/18/2023 was borderline abnormal due to minimal background slowing, suggestive of mild encephalopathy. No focal, lateralized or epileptiform activity was seen. I started the patient on Keppra on 07-18, The nurse called me past midnight because of patient shaken was a concern for seizure. Dr. Lorenzo was not aware Y was the Keppra started and he wean the patient off of Keppra since there is no seizure-like activity clinically or on the EEG. I discontinued the medication from 500 mg daily yesterday and I stopped yesterday and per the nurse no further seizure-like activity. is at bedside and she stated the patient is having resting tremor for the last 1 year. I'm concerned there is a Parkinson's component, so I will a trial of Sinemet 25-100mg 1 tab tid and will assess if any improvement. On aspirin 325 mg and Lipitor 20 mg daily. DVT prophylaxis: Patient on Lovenox 30 mg subcu daily Cardiology is on board Vitamin B-12 1196, folate 28, TSH is normal at 0.608 ID team is on board. Patient on cefepime for possible pneumonia. We'll defer the rest of the medical management to primary team and other specialists On discharge recommend the patient to follow-up with a neurologist as an outpatient within 1-2 weeks. Plan is discussed with his and his nurse. Time with Patient: Less than 30
[2023-07-26] MEDS: CARBIDOPA-LEVODOPA 25-100 MG 1 EACH TAB PO SCH (18:24)
[2023-07-27 08:36] LABS: HCT 27.4 % (39.6-50.0); HGB 8.6 g/dL (13.0-17.0); MCH 31.3 pg (27.0-32.0); MCHC 31.4 g/dL (32.0-37.0); MCV 99.6 FL (80.0-97.0); Mean Platelet Volume 13.3 FL (9.5-12.2); NRBC Per 100 WBC 0 X 10*3/uL (0.00-0.01); Platelet Count 108 X 10*3/uL (140-440); RBC 2.75 X 10*6/uL (4.40-5.60); RDW 14.6 % (11.5-14.5); WBC 6.31 X 10*3/uL (4.50-10.00)
[2023-07-27 09:10] LABS: BUN/Creat Ratio 14.31 Ratio (12.00-20.00); Blood Urea Nitrogen 22.9 mg/dL (9.0-27.0); Carbon Dioxide 26.2 mmol/L (21.6-31.8); Chloride 108 mmol/L (96-109); Glucose 99 mg/dL (70-110); Potassium 3.1 mmol/L (3.5-5.5); Sodium 145 mmol/L (135-145)
[2023-07-27 09:11] LABS: ALT 7 U/L (10-49); AST 26 U/L (14-35); Albumin/Globulin Ratio 1.25 Ratio (1.60-3.17); Alkaline Phosphatase 55 U/L (41-126); Calcium 9.1 mg/dL (8.7-10.3); Globulin 2.4 g/dL (1.6-3.3); Total Bilirubin 0.3 mg/dL (0.3-1.2); Total Protein 5.4 g/dL (6.2-8.2)
--- NOTE | 2023-07-27 11:08 | P.NPCON ---
History of Present Illness - Reason for Consult acute renal failure, hypernatremia - History of Present Illness Reason for consultation: Chronic kidney disease and hypernatremia History of present illness: Patient is 83-year-old male seen in renal consultation for chronic kidney disease and hypernatremia. Patient has chronic kidney disease stage IIIa with baseline creatinine 1.3-1.5. Creatinine fairly stable this admission. Patient sodium level has been running high and was up to 149 yesterday. He was started on D5W and sodium today is 145. Potassium 3.1. Patient is a poor historian. Patient came to the hospital on July 15, 2023 due to altered mental status and decreased level of consciousness. He resides in extended-care facility. 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 He has history of systolic CHF with AICD implantation. No evidence of hypotension. He is on nasal cannula. He is on a thickened diet and oral intake is just fair. He is not drinking much fluids. Nonoliguric. Has a Soto catheter. I do not see any nonsteroidals on his home medication list. Vital signs are stable. General: No acute distress. HEENT: Head exam is unremarkable. On nasal cannula. LUNGS: Scattered rhonchi. HEART: Rate and Rhythm are regular. ABDOMEN: No distention. EXTREMITITES: No edema. Past Medical History Past Medical History: Coronary Artery Disease (CAD), Cancer, Chest Pain / Angina, Heart Failure, COPD, Myocardial Infarction (MS), Prostate Disorder, Thyroid Disorder Additional Past Medical History / Comment(s): HX HIATAL HERNIA. mac degeneration. PSORIASIS. GOUT Last Myocardial Infarction Date:: unk History of Any Multi-Drug Resistant Organisms: None Reported Past Surgical History: Heart Catheterization With Stent Additional Past Surgical History / Comment(s): COLONOSCOPY. AICD/PACEMAKER- [employer] GENERATOR CHANGE-09/23/2014. leg stents Date of Last Stent Placement:: unk Past Psychological History: No Psychological Hx Reported Smoking Status: Former smoker Past Alcohol Use History: None Reported Past Drug Use History: None Reported - Past Family History Mother History Unknown: Yes Medications and Allergies Home Medications Medication Instructions Recorded Confirmed Type Aspirin 325 mg PO DAILY@1700 09/20/14 07/15/23 History Atorvastatin [Lipitor] 20 mg PO HS@21309/20/14 07/15/23 History Isosorbide Mononitrate ER [Imdur] 60 mg PO BID@0800,1700 09/20/07/15/23 History ALPRAZolam [Xanax] 0.5 mg PO BID PRN 02/10/21 07/15/23 History Ergocalciferol [Vitamin D2 (1250 1,250 mcg PO TU@0800 02/10/21 07/15/23 History Mcg = [id number] Iu)] Nitroglycerin Sl Tabs [Nitrostat] 0.4 mg SL Q5M PRN 02/10/21 07/15/23 History Amiodarone [Cordarone] 100 mg PO HS@2130 09/07/21 07/15/23 History Levothyroxine Sodium [Levoxyl] 112 mcg PO DAILY@79909/07/21 07/15/23 History Sertraline [Zoloft] 50 mg PO DAILY@0800 09/07/21 07/15/23 History Amoxic-Pot Clav 875-125Mg 1 tab PO Q12HR@0800,2100 07/15/23 07/15/23 History [Augmentin 875-125] Ensure Enlive 237 ml PO TID@0800,1200,1700 07/15/23 07/15/23 History Ipratropium-Albuterol Nebulize 3 ml INHALATION RT-Q6H 07/15/23 07/15/23 History [Duoneb 0.5 mg-3 mg/3 ml Soln] Magnesium Hydroxide [Milk of 7,200 mg PO DAILY PRN 07/15/23 07/15/23 History Magnesia Concentrate] Na Phos,M-B/Na Phos,Di-Ba [Fleet 133 ml RECTAL DAILY PRN 07/15/23 07/15/23 History Adult] Pantoprazole [Protonix] 40 mg PO DAILY@0807/15/23 07/15/23 History Tamsulosin HCl [Flomax] 0.4 mg PO DAILY@79907/15/23 07/15/23 History Theophylline 24 Hour [Ashok-24] 300 mg PO DAILY@0800 07/15/23 07/15/23 History allopurinoL [Zyloprim] 200 mg PO DAILY@79907/15/23 07/15/23 History bisacodyL [Dulcolax] 10 mg RECTAL Q24H PRN 07/15/23 07/15/23 History carvediloL [Coreg] 12.5 mg PO BID@0800,1700 07/15/23 07/15/23 History hydrALAZINE HCL [Apresoline] 50 mg PO Q8HR@0600,1400,2200 07/15/23 07/15/23 History Allergies Allergy/AdvReac Type Severity Reaction Status Date / Time prednisone AdvReac Hallucinati Verified 07/15/23 18:38 ons Physical Exam Vitals: Vital Signs Temp Pulse Resp BP Pulse Ox 07/27/23 08:15 81 24 07/27/23 07:40 98.5 F 81 24 179/108 91 L 07/27/23 01:09 98.4 F 76 16 142/61 94 L 07/26/23 19:51 98.1 F 68 17 131/56 92 L 07/26/23 15:01 98.1 F 76 19 154/63 94 L Intake and Output 07/26/23 07/27/23 07/27/23 22:59 06:59 14:59 Intake Total 0 Output Total 450 400 Balance -450 -400 0 Intake: Oral 0 Output: Urine 450 400 Other: Voiding Method Indwelling Catheter Indwelling Catheter Results - Lab Results Most recent lab results Calcium 9.1 mg/dL (8.7-10.3) 07/27/23 05:28 Magnesium 2.2 mg/dL (1.6-2.3) 07/27/23 05:28 07/27/23 05:28 07/27/23 05:28 Assessment and Plan Plan: Assessment: 1. Chronic kidney disease stage IIIa with baseline creatinine 1.3-1.5. Suspect nephrosclerosis. 1+ proteinuria on UA done July 12, 2023 and 2+ July 15, 2023. This will be repeated again and worked up outpatient. 2. Hypernatremia from lack of oral water intake. 3. Hypokalemia from poor intake. Magnesium normal. 4. Chronic systolic CHF status post AICD placement. Ejection fraction 45% with mild pulmonary hypertension, mild mitral and tricuspid regurgitation. 5. 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 6. Hypertension with chronic kidney disease. 7. Acute kidney injury secondary to vasomotor nephropathy from hypovolemia. Plan: Maintain D5W for another day. Replace potassium. Encouraged oral intake. Check renal ultrasound. Avoid nephrotoxins. Stop Fleet enemas. Repeat labs in the morning. Thank you for the consultation. I will continue to follow the patient with you during his hospital stay.
[2023-07-27] MEDS: POTASSIUM CHLORIDE ER 20 MEQ TAB.ER PO STA (12:03)
--- NOTE | 2023-07-27 12:24 | P.PN ---
Subjective Progress Note Date: 07/27/23 Principal diagnosis: Reason for follow-up is pneumonia possible gram-negative and wound behind his left ear Patient is a 83-year-old male with a past medical history significant for GA/coronary artery disease ischemic cardiomyopathy with AICD placement hypertension hyperlipidemia 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 status post radiation therapy apparently patient was recently admitted at [facility] for infected wound due to his radiation therapy behind his ear and apparently culture that primary grew Staph aureus. Patient now presented to hospital with worsening of his respiratory status concerning for pneumonia possible gram-negative. On today's evaluation that is 07/27/2023, the patient continues to be afebrile, the patient is on 2 L nasal cannula oxygen and breathing comfortably, the Pt is awake but did not answer any question no vomiting diarrhea or any other changes reported by the nursing staff. Patient white count is 6.31 creatinine is 1.6 Objective - Vital Signs Vital signs: Vital Signs Temp 98.5 F 07/27/23 07:40 Pulse 81 07/27/23 08:15 Resp 24 07/27/23 08:15 BP 179/108 07/27/23 07:40 Pulse Ox 91 L 07/27/23 07:40 FiO2 Intake & Output 07/26/23 07/27/23 07/27/23 18:59 06:59 18:59 Intake Total 0 Output Total 450 400 Balance -450 -400 0 Intake: Oral 0 Output: Urine 450 400 Other: Voiding Method Indwelling Catheter Indwelling Catheter Indwelling Catheter - Exam GENERAL DESCRIPTION: An elderly male lying in bed in no distress RESPIRATORY SYSTEM: Unlabored breathing , decreased breath sounds at bases HEART: S1 S2 regular rate and rhythm , ABDOMEN: Soft , no tenderness EXTREMITIES: No edema feet - Labs CBC & Chem 7: 07/27/23 05:28 07/27/23 05:28 Labs: Abnormal Lab Results - Last 24 Hours (Table) 07/27/23 07/27/23 Range/Units 05:28 05:28 RBC 2.75 L (4.40-5.60) X 10*6/uL Hgb 8.6 L (13.0-17.0) g/dL Hct 27.4 L (39.6-50.0) % MCV 99.6 H (80.0-97.0) FL MCHC 31.4 L (32.0-37.0) g/dL RDW 14.6 H (11.5-14.5) % Plt Count 108 L (140-440) X 10*3/uL MPV 13.3 H (9.5-12.2) FL Potassium 3.1 L (3.5-5.5) mmol/L Creatinine 1.6 H (0.6-1.5) mg/dL Est GFR (CKD-EPI) 42 L (>=60) ALT 7 L (10-49) U/L Total Protein 5.4 L (6.2-8.2) g/dL Albumin 3.0 L (3.8-4.9) g/dL Albumin/Globulin Ratio 1.25 L (1.60-3.17) Ratio Assessment and Plan (1) Pneumonia Current Visit: Yes Status: Acute Code(s): J18.9 - PNEUMONIA, UNSPECIFIED ORGANISM SNOMED Code(s): 311781610 (2) Wound, open, head Current Visit: Yes Status: Acute Code(s): S01.90XA - UNSP OPEN WOUND OF UNSPECIFIED PART OF HEAD, INIT ENCNTR SNOMED Code(s): 46345248 Plan: 1patient presented to hospital with mental status changes weakness in this patient who did have a 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 and the patient noticed to have infiltrate on the chest x-ray concerning for pneumonia in this patient who has been out of the hospital we will need to cover for resistant gram-positive as well as gram-negative pathogen 2-patient did not have significant elevated CRP and a procalcitonin level of 0.08 3-patient is afebrile did have a normal white count, chest x-ray with bilateral lobe infiltrate and effusion, patient CT of the brain that shows evidence of significant sinusitis 4-patient remains to be afebrile, patient has received adequate antibiotic during this hospital stay and cefepime can be safely discontinued on discharge Dictation was produced using [employer] dictation software. please excuse any grammatical, word or spelling errors. Time with Patient: Less than 30
--- NOTE | 2023-07-27 13:03 | US ---
EXAMINATION TYPE: US kidneys/renal and bladder DATE OF EXAM: 07/27/2023 COMPARISON: NONE CLINICAL INDICATION: Male, 83 years old with history of fatmata; FATMATA EXAM MEASUREMENTS: Right Kidney: 10.6 x 5.7 x 4.9 cm Left Kidney: 8.6 x 4.5 x 3.8 cm Limited due to lack of patient mobility and patient unable to hold breath Right Kidney: No hydronephrosis or masses seen as best seen Left Kidney: There is a 1.5 x 1.5 x 1.9cm anechoic area seen lateral Bladder: unable to visualize due to catheter Bilateral Jets seen: No IMPRESSION: No evidence for obstructive uropathy. Cortical medullary differentiation is maintained.
--- NOTE | 2023-07-27 13:30 | P.PN ---
Subjective Progress Note Date: 07/27/23 83-year-old male with a previous medical history significant for coronary artery disease status post three-vessel coronary artery disease with ischemic cardiomyopathy status post AICD implantation, hypertension and hypertensive cardiovascular disease, hyperlipidemia, hypothyroidism, 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, patient was recently hospitalized at [facility] for what appears to be an infected wound due to his radiation therapy behind his ear, the culture at that time showed Staphylococcus aureus as well as Corynebacterium species he was started on cefepime 2 g IV piggyback every 8 hours as well as vancomycin with pharmacy to dose, he was seen in consultation by infectious disease, his CT scan of the brain at that time did not show any evidence of acute abnormalities, patient was transitioned into oral Augmentin 875 mg orally twice every day for 10 days, patient went tomorrow for physical therapy and rehabilitation while he was at moderate he developed to have a significant mental status changes he became quite unresponsive does not follow much commands, he was not eating or drinking much, these symptoms waxes and wane on and off, patient initially was sent back to the emergency department at [facility], he had a CT scan of the brain did not show evidence of acute abnormalities his laboratory evaluation were fine he did appear to have a bit of infiltrate of the right lower lobe, he was sent back home since his procalcitonin level was negative, his BNP was lower, white count were normal, patient went back tomorrow and he became more drowsy subtended does not follow any commands, the nursing staff has contacted me yesterday he was directed to go to the ER at [facility], he had a chest x-ray that showed possible right lower lobe pneumonia, CT scan of the brain did not show evidence of acute abnormalities, his troponin was slightly elevated suggestive of type II HI due to possible sepsis, he was seen in consultation by cardiology who recommended echocardiogram for evaluation of LV function, he was started back on his Augmentin I will discontinue that and start the patient on cefepime 2 g IV piggyback every 12 hours along with vancomycin pharmacy to dose will obtain infectious disease consultation, will obtain neurology consultation as well as for evaluation of his mental status changes will continue to follow-up with the patient 07/17: Patient is still confused better than yesterday, he is more awake today however he is not making sense, he denies any fever or chills, he continues to have pain in the left shoulder, he continues to have pain all over his body, patient was seen earlier by cardiology as well as by neurology, MRI could not be done because of the AICD, he continues to be on IV antibiotic in the form of cefepime and vancomycin, consulted radiation oncology Dr. Welsh for further recommendation, if the blood cultures are positive we will arrange for a transesophageal echocardiogram discussed with Dr. Yeboah from cardiology 07/18: Patient is lying down in bed in no apparent distress, yesterday afternoon he became quite unresponsive and he did not respond to any verbal stimuli, he was responding to painful stimuli, today in the morning he was more awake and more alert, he sitting up in bed he does not seem to see much, he continues to be on vancomycin as well as cefepime, he will be seen in consultation by radiation oncology to get their opinion about radiation related encephalopathy, blood cultures so far are negative, if the blood cultures are positive patient will need to go for a transesophageal echocardiogram for evaluation of en docarditis, patient has been seen by multiple specialties including infectious disease, cardiology, along with neurology, patient did have his EEG today in the morning the results still pending at the time of dictation. 07/19: Patient is lying down in bed he continues to be quite confused he does not follow much commands, I will discontinue his Dilaudid, discontinue Xanax completely, continue IV antibiotic in the form of vancomycin and cefepime, has been followed by neurology, infectious disease, as well as cardiology, patient does not appear to have any positive blood cultures at this point in time. 07/20: Patient seems to be in more of a catatonic state. He is not consistently following commands. He will not verbalize any answers to questions. He has been continued on antibiotics per ID and also followed by neurology. Will add and as psychiatry consult today. This has been discussed with the patient's at the bedside. Vital signs been stable. Repeat blood work will be orde red for tomorrow. 07/21: Patient continues to have significant mental status changes, he opens his eyes not responding not following directions well. He has not been eating or drinking. He is on IV fluids of 0.9 will switch to D5W 0.45. We are waiting for psychiatric evaluation. Blood pressure 110/53, heart rate 72, pulse ox 93% on 3 L nasal cannula. Neurology has ordered CT of the brain. 07/22: Patient is more responsive today, able to drink Ensure but not eating his meals. He is not taking his medications. He was seen by psychiatry yesterday with no additional recommendations. Repeat CT of the brain revealed chronic changes with no acute intracranial process. Unchanged significant sinus disease. Left mastoid opacification. Blood pressure 162/87, heart rate in the 70s and 80s, pulse ox 98% on 3 L nasal cannula. Telemetry is sinus rhythm. EEG reveals borderline abnormal EEG due to minimal background slowing suggestive of mild encephalopathy. No focal lateralized or epileptiform activity. Neurology has started the patient on IV Keppra 500 mg twice daily. Urine culture is showing only Megan. Patient has extra fluid today for which IV Lasix 1 dose will be given and IV fluids will be decreased to KVO. Patient started coughing with Ensure so speech therapy consult will be added as well as chest x-ray today. 07/23. Patient seen and examined. Patient is alert. Patient has poor appetite. Vital signs stable 07/24. Patient seen and examined. Currently sitting in the chair. According to nursing staff patient is much more alert and talkative compared to yesterday. States he has poor appetite but is drinking Ensure. 07/25. Patient seen and examined. Denies any acute events overnight. Blood work done this morning showed WBC 6.2, hemoglobin 9.6, platelet count 113, sodium 147, potassium 3.2, BUN 26, creatinine 1.36. Encourage oral hydration. Potassium placement ordered. 07/26. Patient examined. Patient lethargic, refusing medications this morning. 07/27/2023 Patient is seen in follow-up today with multiple medical consultations following including nephrology, infectious disease, and neurology. Patient is continued on cefepime and will continue until discharge. Patient will not require any further discharge antibiotics. Patient also continues with the wound behind the left ear being managed outpatient recommend to continue with local wound care. Sodium elevated although slightly improved and has transition to D5 and water and potassium was low and being replaced. Nephrology following underwent ultrasound of the kidneys showing no hydronephrosis and recommend follow-up labs in the a.m. Patient will be going to [facility] with case management following and has received insurance authorization. Will discuss with other consultations regarding discharge planning. Patient was started on Sinemet not showing any significant improvements and will need outpatient follow-up with neurology. Plan is for possible discharge in the next 24 hours to [facility] REVIEW OF SYSTEMS: Review of system cannot be obtained as patient is nonverbal PHYSICAL EXAMINATION: GENERAL: The patient is alert and oriented x1, awake, well-developed, elderly appearing. Chronically ill looking HEENT: Pupils are round and equally reacting to light. EOMI. No scleral icterus. No conjunctival pallor. Normocephalic, atraumatic. No pharyngeal erythema. No t hyromegaly. CARDIOVASCULAR: S1 and S2 muffled PULMONARY: Diminished breath sounds bilaterally otherwise chest is clear to auscultation, no wheezing or crackles. ABDOMEN: Soft, nontender, nondistended, normoactive bowel sounds. No palpable organomegaly. MUSCULOSKELETAL: No joint swelling or deformity. EXTREMITIES: No cyanosis, clubbing, or pedal edema. NEUROLOGICAL: Gross neurological examination did not reveal any focal deficits. Diffusely weak, tremors noted SKIN: No rashes. Assessment: Metabolic encephalopathy likely due to sepsis due to gram-negative right lower lobe pneumonia and possible infected wound behind his left ear. Hypernatremia secondary to poor solute intake and decreased appetite Hypokalemia, improving Gram-negative pneumonia, community-acquired Acute urinary retention requiring indwelling Soot catheter History of coronary artery disease with stenting Hypertension history History of hypothyroidism History of enlarged prostate with urinary retention History of COPD, mild exacerbation Moderate severe protein calorie malnutrition with a BMI of 26.5 History of ventricular tachycardia status post ICD implantation History of chronic kidney disease stage IIIb GI prophylaxis DVT prophylaxis Full code Plan: Patient is continued on gentle IV hydration with D5 and water and sodium slightly improved in follow-up on repeat labs Nephrology following underwent ultrasound of the kidneys showing no hydronephrosis Continue indwelling Soto catheter and Flomax Neurology has evaluated the patient as well and was started on Sinemet although showing no significant improvements and will likely discontinue this medication today or tomorrow Patient is continued on antibiotics in the form of cefepime with infectious disease following and will not require antibiotics on discharge as patient has received adequate dosing here Continue local wound care of the left behind the ear chronic wound Continue supplemental oxygen and wean FiO2 as tolerated Encouraged oral intake Case management following and has received insurance authorization with plans to go to [facility] Will follow-up on repeat labs to monitor kidney functions and electrolytes. Replace electrolytes per protocol Possible discharge planning in the next 24 to 48 hours The impression and plan of care has been dictated by Anuja Pugh, Nurse Practitioner as directed. Dr. Tirso MD I have performed a history and examination and MDM of this patient, discussed the same with the dictator, and agree with the dictator's assessment and plan as written ,documented as a scribe. Based on total visit time, I have performed more than 50% of the visit. Objective - Vital Signs Vital signs: Vital Signs Temp 98.5 F 07/27/23 07:40 Pulse 81 07/27/23 07:40 Resp 24 07/27/23 07:40 BP 179/108 07/27/23 07:40 Pulse Ox 91 L 07/27/23 07:40 FiO2 Intake & Output 07/26/23 07/27/23 07/27/23 18:59 06:59 18:59 Intake Total 0 Output Total 450 400 Balance -450 -400 0 Intake: Oral 0 Output: Urine 450 400 Other: Voiding Method Indwelling Catheter Indwelling Catheter - Labs CBC & Chem 7: 07/27/23 05:28 07/27/23 05:28 Labs: Abnormal Lab Results - Last 24 Hours (Table) 07/27/23 07/27/23 Range/Units 05:28 05:28 RBC 2.75 L (4.40-5.60) X 10*6/uL Hgb 8.6 L (13.0-17.0) g/dL Hct 27.4 L (39.6-50.0) % MCV 99.6 H (80.0-97.0) FL MCHC 31.4 L (32.0-37.0) g/dL RDW 14.6 H (11.5-14.5) % Plt Count 108 L (140-440) X 10*3/uL MPV 13.3 H (9.5-12.2) FL Potassium 3.1 L (3.5-5.5) mmol/L Creatinine 1.6 H (0.6-1.5) mg/dL Est GFR (CKD-EPI) 42 L (>=60) ALT 7 L (10-49) U/L Total Protein 5.4 L (6.2-8.2) g/dL Albumin 3.0 L (3.8-4.9) g/dL Albumin/Globulin Ratio 1.25 L (1.60-3.17) Ratio
--- NOTE | 2023-07-27 14:56 | P.PN ---
Subjective Progress Note Date: 07/27/23 I am following-up with patient and per nurse she had him for the first time and feels he has limited interaction and is oriented to self. Objective - Vital Signs Vital signs: Vital Signs Temp 98.2 F 07/27/23 13:28 Pulse 64 07/27/23 13:28 Resp 16 07/27/23 13:28 BP 188/82 07/27/23 13:28 Pulse Ox 98 07/27/23 13:28 FiO2 Intake & Output 07/26/23 07/27/23 07/27/23 18:59 06:59 18:59 Intake Total 0 Output Total 450 400 Balance -450 -400 0 Intake: Oral 0 Output: Urine 450 400 Other: Voiding Method Indwelling Catheter Indwelling Catheter Indwelling Catheter - Exam General patient is lying in bed and is not in acute distress Neuro-is limited but patient is awake. Oriented to self. He has very limited language. He is following simple commands (thumbs up, smiling). No facial weakness. No resting tremor. - Labs CBC & Chem 7: 07/27/23 05:28 07/27/23 05:28 Labs: Abnormal Lab Results - Last 24 Hours (Table) 07/27/23 07/27/23 Range/Units 05:28 05:28 RBC 2.75 L (4.40-5.60) X 10*6/uL Hgb 8.6 L (13.0-17.0) g/dL Hct 27.4 L (39.6-50.0) % MCV 99.6 H (80.0-97.0) FL MCHC 31.4 L (32.0-37.0) g/dL RDW 14.6 H (11.5-14.5) % Plt Count 108 L (140-440) X 10*3/uL MPV 13.3 H (9.5-12.2) FL Potassium 3.1 L (3.5-5.5) mmol/L Creatinine 1.6 H (0.6-1.5) mg/dL Est GFR (CKD-EPI) 42 L (>=60) ALT 7 L (10-49) U/L Total Protein 5.4 L (6.2-8.2) g/dL Albumin 3.0 L (3.8-4.9) g/dL Albumin/Globulin Ratio 1.25 L (1.60-3.17) Ratio Assessment and Plan Assessment: This is an 83-year-old gentleman who presents to the emergency department from his nursing facility because of decreased level of consciousness as well as decreased oral intake. It seems that the patient was at [facility] the prior to presented to our facility and was discharged back to his nursing facility. CT of the head is unremarkable for any acute processes. He has minimally elevated troponin and this chest x-ray is questionable for pneumonia Metabolic encephalopathy, likely due to probable pneumonia, and other medical conditions mentioned below. 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 Pansinusitis Elevated troponin slight Akinetic basal inferior wall suggestive of prior [place] on echo Chronic kidney insufficiency History of AICD placement Hyperlipidemia Hypertension Anemia CAD Plan: Patient cannot have MRI of the brain because of presence of AICD. Repeat CT head performed revealed chronic changes with no acute intracranial process. Unchanged significant sinus disease and left mastoid opacification. I personally reviewed CT head agree with the findings. There is complete opacification of bilateral maxillary, sphenoid, ethmoid and frontal sinuses, consistent with pansinusitis. Also opacification of the left mastoid air cells. Patient currently on cefepime, which should cover sinusitis. However consider ENT consultation to see if it needs drainage per Dr. Lorenzo. Carotid Doppler not able to be checked because patient would not cooperate. It was canceled. 2D echo: Mild left ventricle systolic dysfunction. Akinetic basal inferior wall suggestive of prior myocardial infarction. Lipid panel with cholesterol 105, LDL 36, HDL 47, triglycerides 107 on 01/20/2023. No need to repeat. Continue Lipitor 20 mg daily. Routine EEG 07/18/2023 was borderline abnormal due to minimal background slowing, suggestive of mild encephalopathy. No focal, lateralized or epileptiform activity was seen. I started the patient on Keppra on 07-18, The nurse called me past midnight because of patient shaken was a concern for seizure. Dr. Lorenzo was not aware Y was the Keppra started and he wean the patient off of Keppra since there is no seizure-like activity clinically or on the EEG. I discontinued the medication from 500 mg daily yesterday and I stopped yesterday and per the nurse no further seizure-like activity. is at bedside and she stated the patient is having resting tremor for the last 1 year. I'm concerned there is a Parkinson's component, so I started him on a trial of Sinemet 25-100mg 1 tab tid and no drastic improvement. If by still no drastic improvement then stop. The agree with the plan. On aspirin 325 mg and Lipitor 20 mg daily. DVT prophylaxis: Patient on Lovenox 30 mg subcu daily Cardiology is on board Vitamin B-12 1196, folate 28, TSH is normal at 0.608 ID team is on board. Patient on cefepime for possible pneumonia. We'll defer the rest of the medical management to primary team and other specialists On discharge recommend the patient to follow-up with a neurologist as an outpatient within 1-2 weeks. Plan is discussed with his nurse. Time with Patient: Less than 30
[2023-07-27] MEDS: hydrALAZINE HCL 20 MG/ML 1 ML VIAL IVP PRN (22:06)
[2023-07-28 08:43] LABS: BUN/Creat Ratio 14.93 Ratio (12.00-20.00); Blood Urea Nitrogen 20.9 mg/dL (9.0-27.0); Calcium 9.2 mg/dL (8.7-10.3); Carbon Dioxide 27.7 mmol/L (21.6-31.8); Chloride 107 mmol/L (96-109); Glucose 88 mg/dL (70-110); Magnesium 2.1 mg/dL (1.5-2.4); Potassium 3.2 mmol/L (3.5-5.5); Sodium 145 mmol/L (135-145)
[2023-07-28] MEDS ORDERED: Potassium Replacement Protocol 1 EACH MISC MISCELLANE PRN ×2 (09:14→11:42)
--- NOTE | 2023-07-28 11:00 | P.PN ---
Subjective Patient is seen in follow-up for hyponatremia and chronic kidney disease. Renal function better. Sodium level stable at 145. On D5W. Oral intake is fair. Blood pressure high this morning. Refused to take his meds this morning. Vital signs are stable. Blood pressure high. General: No acute distress. HEENT: Head exam is unremarkable. On nasal cannula. LUNGS: No audible rhonchi or wheezes. HEART: Rate and Rhythm are regular. ABDOMEN: Nontender. EXTREMITITES: No edema. Objective - Vital Signs Vital signs: Vital Signs Temp 97.4 F L 07/28/23 07:48 Pulse 79 07/28/23 07:48 Resp 18 07/28/23 07:48 BP 187/66 07/28/23 07:48 Pulse Ox 97 07/28/23 07:48 FiO2 Intake & Output 07/27/23 07/28/23 07/28/23 18:59 06:59 18:59 Intake Total 0 Output Total 330 300 Balance -330 -300 Intake: Oral 0 Output: Urine 330 300 Other: Voiding Method Indwelling Catheter Indwelling Catheter - Labs CBC & Chem 7: 07/27/23 05:28 07/28/23 04:57 Labs: Abnormal Lab Results - Last 24 Hours (Table) 07/28/23 Range/Units 04:57 Potassium 3.2 L (3.5-5.5) mmol/L Est GFR (CKD-EPI) 50 L (>=60) Assessment and Plan Plan: Assessment: 1. Chronic kidney disease stage IIIa with baseline creatinine 1.3-1.5. Suspect nephrosclerosis. 1+ proteinuria on UA done July 12, 2023 and 2+ July 15, 2023. This will be repeated again and worked up outpatient. 2. Hypernatremia from lack of oral water intake. Improved with D5W. 3. Hypokalemia from poor intake. Magnesium normal. 4. Chronic systolic CHF status post AICD placement. Ejection fraction 45% with mild pulmonary hypertension, mild mitral and tricuspid regurgitation. 5. 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 6. Hypertension with chronic kidney disease. 7. Acute kidney injury secondary to vasomotor nephropathy from hypovolemia. Creatinine peaked at 1.6 this admission and is 1.4 today. No hydronephrosis noted on kidney ultrasound. Left kidney atrophic. Plan: Maintain D5W for now. Replace potassium. Encouraged oral intake. Avoid nephrotoxins. Stopped Fleet enemas. Repeat labs in the morning. Trial of void today. Add scheduled IV hydralazine if continues to refuse oral meds. Discussed with nurse
[2023-07-28] MEDS: POTASSIUM CHLORIDE ER 20 MEQ TAB.ER PO SCH (12:20)
[2023-07-28] MEDS: ACETAMINOPHEN IV (For NPO) 1,000 MG in EMPTY BAG 1 BAG IVPB PRN (12:22)
--- NOTE | 2023-07-28 12:31 | P.PN ---
Subjective Progress Note Date: 07/28/23 I am following-up with patient and per nurse he is about the same and no improvement. Patient is holding his neck from his right hand and seems to be in pain. Objective - Vital Signs Vital signs: Vital Signs Temp 97.4 F L 07/28/23 07:48 Pulse 79 07/28/23 07:48 Resp 18 07/28/23 07:48 BP 187/66 07/28/23 07:48 Pulse Ox 97 07/28/23 07:48 FiO2 Intake & Output 07/27/23 07/28/23 07/28/23 18:59 06:59 18:59 Intake Total 0 Output Total 330 300 250 Balance -330 -300 -250 Intake: Oral 0 Output: Urine 330 300 250 Other: Voiding Method Indwelling Catheter Indwelling Catheter - Exam General patient is lying in bed and seems in mild acute distress. HENT: Hold his neck with his right hand and refusing to let it go. Neuro-is limited but patient is awake. Oriented to self. He has very limited language. He is following simple commands (thumbs up, smiling, opening and closing eye). No facial weakness. No resting tremor. - Labs CBC & Chem 7: 07/27/23 05:28 07/28/23 04:57 Labs: Abnormal Lab Results - Last 24 Hours (Table) 07/28/23 Range/Units 04:57 Potassium 3.2 L (3.5-5.5) mmol/L Est GFR (CKD-EPI) 50 L (>=60) Assessment and Plan Assessment: This is an 83-year-old gentleman who presents to the emergency department from his nursing facility because of decreased level of consciousness as well as decreased oral intake. It seems that the patient was at [facility] the prior to presented to our facility and was discharged back to his nursing facility. CT of the head is unremarkable for any acute processes. He has minimally elevated troponin and this chest x-ray is questionable for pneumonia Metabolic encephalopathy, likely due to probable pneumonia, and other medical conditions mentioned below. 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 Pansinusitis Elevated troponin slight Akinetic basal inferior wall suggestive of prior [place] on echo Chronic kidney insufficiency History of AICD placement Hyperlipidemia Hypertension Anemia CAD Plan: Patient cannot have MRI of the brain because of presence of AICD. Repeat CT head performed revealed chronic changes with no acute intracranial process. Unchanged significant sinus disease and left mastoid opacification. I personally reviewed CT head agree with the findings. There is complete opacification of bilateral maxillary, sphenoid, ethmoid and frontal sinuses, consistent with pansinusitis. Also opacification of the left mastoid air cells. Patient currently on cefepime, which should cover sinusitis. However consider ENT consultation to see if it needs drainage per Dr. Lorenzo. Carotid Doppler not able to be checked because patient would not cooperate. It was canceled. 2D echo: Mild left ventricle systolic dysfunction. Akinetic basal inferior wall suggestive of prior myocardial infarction. Lipid panel with cholesterol 105, LDL 36, HDL 47, triglycerides 107 on 01/20/2023. No need to repeat. Continue Lipitor 20 mg daily. Routine EEG 07/18/2023 was borderline abnormal due to minimal background slowing, suggestive of mild encephalopathy. No focal, lateralized or epileptiform activity was seen. I started the patient on Keppra on 07-18, The nurse called me past midnight because of patient shaken was a concern for seizure. Dr. Lorenzo was not aware Y was the Keppra started and he wean the patient off of Keppra since there is no seizure-like activity clinically or on the EEG. I discontinued the medication from 500 mg daily yesterday and I stopped yesterday and per the nurse no further seizure-like activity. I started the patient on Sinemet because of concern of Parkinson's because of his resting tremor for past one year but no improvement with Sinemet and I stop ped. The is agreement with plan. I ordered CT cervical spine for his neck pain and CSF study since he continues to be confused to rule out meningoencephalitis. Consulted pain specialist for LP. Also ordered repeat EEG. On aspirin 325 mg and Lipitor 20 mg daily. Cardiology is on board Vitamin B-12 1196, folate 28, TSH is normal at 0.608 ID team is on board. Patient on cefepime for possible pneumonia. We'll defer the rest of the medical management to primary team and other specialists On discharge recommend the patient to follow-up with a neurologist as an outp atient within 1-2 weeks. Plan is discussed with his primary team N.P and his nurse. Time with Patient: Less than 30
--- NOTE | 2023-07-28 12:50 | P.PN ---
Subjective Progress Note Date: 07/28/23 Principal diagnosis: Reason for follow-up is pneumonia possible gram-negative and wound behind his left ear Patient is a 83-year-old male with a past medical history significant for [place]/coronary artery disease ischemic cardiomyopathy with AICD placement hypertension hyperlipidemia 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 status post radiation therapy apparently patient was recently admitted at [facility] for infected wound due to his radiation therapy behind his ear and apparently culture that primary grew Staph aureus. Patient now presented to hospital with worsening of his respiratory status concerning for pneumonia possible gram-negative. On today's evaluation that is 07/28/2023, Patient is afebrile patient is currently on 2 L nasal cannula oxygen and seems to be breathing comfortably, the patient is awake and mention doing okay but did not answer further question no vomiting diarrhea or any other changes reported. Patient did have a creatinine 1.4 Objective - Vital Signs Vital signs: Vital Signs Temp 97.4 F L 07/28/23 07:48 Pulse 80 07/28/23 12:26 Resp 16 07/28/23 12:26 BP 187/66 07/28/23 07:48 Pulse Ox 97 07/28/23 07:48 FiO2 Intake & Output 07/27/23 07/28/23 07/28/23 18:59 06:59 18:59 Intake Total 0 Output Total 330 300 250 Balance -330 -300 -250 Weight 83.915 kg Intake: Oral 0 Output: Urine 330 300 250 Other: Voiding Method Indwelling Catheter Indwelling Catheter - Exam GENERAL DESCRIPTION: An elderly male lying in bed in no distress RESPIRATORY SYSTEM: Unlabored breathing , decreased breath sounds at bases HEART: S1 S2 regular rate and rhythm , ABDOMEN: Soft , no tenderness EXTREMITIES: No edema feet - Labs CBC & Chem 7: 07/27/23 05:28 07/28/23 04:57 Labs: Abnormal Lab Results - Last 24 Hours (Table) 07/28/23 Range/Units 04:57 Potassium 3.2 L (3.5-5.5) mmol/L Est GFR (CKD-EPI) 50 L (>=60) Assessment and Plan (1) Pneumonia Current Visit: Yes Status: Acute Code(s): J18.9 - PNEUMONIA, UNSPECIFIED ORGANISM SNOMED Code(s): 672053267 (2) Wound, open, head Current Visit: Yes Status: Acute Code(s): S01.90XA - UNSP OPEN WOUND OF UNSPECIFIED PART OF HEAD, INIT ENCNTR SNOMED Code(s): 58466117 Plan: 1patient presented to hospital with mental status changes weakness in this patient who did have a 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 and the patient noticed to have infiltrate on the chest x-ray concerning for pneumonia in this patient who has been out of the hospital we will need to cover for resistant gram-positive as well as gram-negative pathogen 2-patient did not have significant elevated CRP and a procalcitonin level of 0.08 3-patient is afebrile did have a normal white count, chest x-ray with bilateral lobe infiltrate and effusion, patient CT of the brain that shows evidence of significant sinusitis 4-patient remains to be afebrile, patient to continue with cefepime however can be safely discontinued on discharge Dictation was produced using [employer] dictation software. please excuse any grammatical, word or spelling errors. Time with Patient: Less than 30
[2023-07-28] MEDS: cloNIDine 0.1 MG/24HR PATCH TRANSDERM SCH (12:55)
[2023-07-28] MEDS: POTASSIUM CHLORIDE 10 MEQ in WATER FOR INJECTION 1 100ML.BAG IVPB SCH (13:33)
[2023-07-28 13:47] LABS: Partial Thromboplastin Time 26.7 sec (22.0-30.0); Prothrombin Time 11.3 sec (10.0-12.5)
--- NOTE | 2023-07-28 13:53 | P.PN ---
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, patient was recently hospitalized at [facility] for what appears to be an infected wound due to his radiation therapy behind his ear, the culture at that time showed Staphylococcus aureus as well as Corynebacterium species he was started on cefepime 2 g IV piggyback every 8 hours as well as vancomycin with pharmacy to dose, he was seen in consultation by infectious disease, his CT scan of the brain at that time did not show any evidence of acute abnormalities, patient was transitioned into oral Augmentin 875 mg orally twice every day for 10 days, patient went tomorrow for physical therapy and rehabilitation while he was at moderate he developed to have a significant mental status changes he became quite unresponsive does not follow much commands, he was not eating or drinking much, these symptoms waxes and wane on and off, patient initially was sent back to the emergency department at [facility], he had a CT scan of the brain did not show evidence of acute abnormalities his laboratory evaluation were fine he did appear to have a bit of infiltrate of the right lower lobe, he was sent back home since his procalcitonin level was negative, his BNP was lower, white count were normal, patient went back tomorrow and he became more drowsy subtended does not follow any commands, the nursing staff has contacted me yesterday he was directed to go to the ER at [facility], he had a chest x-ray that showed possible right lower lobe pneumonia, CT scan of the brain did not show evidence of acute abnormalities, his troponin was slightly elevated suggestive of type II IA due to possible sepsis, he was seen in consultation by cardiology who recommended echocardiogram for evaluation of LV function, he was started back on his Augmentin I will discontinue that and start the patient on cefepime 2 g IV piggyback every 12 hours along with vancomycin pharmacy to dose will obtain infectious disease consultation, will obtain neurology consultation as well as for evaluation of his mental status changes will continue to follow-up with the patient 07/17: Patient is still confused better than yesterday, he is more awake today however he is not making sense, he denies any fever or chills, he continues to have pain in the left shoulder, he continues to have pain all over his body, patient was seen earlier by cardiology as well as by neurology, MRI could not be done because of the AICD, he continues to be on IV antibiotic in the form of cefepime and vancomycin, consulted radiation oncology Dr. Welsh for further recommendation, if the blood cultures are positive we will arrange for a transesophageal echocardiogram discussed with Dr. Yeboah from cardiology 07/18: Patient is lying down in bed in no apparent distress, yesterday afternoon he became quite unresponsive and he did not respond to any verbal stimuli, he was responding to painful stimuli, today in the morning he was more awake and more alert, he sitting up in bed he does not seem to see much, he continues to be on vancomycin as well as cefepime, he will be seen in consultation by radiation oncology to get their opinion about radiation related encephalopathy, blood cultures so far are negative, if the blood cultures are positive patient will need to go for a transesophageal echocardiogram for evaluation of en docarditis, patient has been seen by multiple specialties including infectious disease, cardiology, along with neurology, patient did have his EEG today in the morning the results still pending at the time of dictation. 07/19: Patient is lying down in bed he continues to be quite confused he does not follow much commands, I will discontinue his Dilaudid, discontinue Xanax completely, continue IV antibiotic in the form of vancomycin and cefepime, has been followed by neurology, infectious disease, as well as cardiology, patient does not appear to have any positive blood cultures at this point in time. 07/20: Patient seems to be in more of a catatonic state. He is not consistently following commands. He will not verbalize any answers to questions. He has been continued on antibiotics per ID and also followed by neurology. Will add and as psychiatry consult today. This has been discussed with the patient's at the bedside. Vital signs been stable. Repeat blood work will be orde red for tomorrow. 07/21: Patient continues to have significant mental status changes, he opens his eyes not responding not following directions well. He has not been eating or drinking. He is on IV fluids of 0.9 will switch to D5W 0.45. We are waiting for psychiatric evaluation. Blood pressure 110/53, heart rate 72, pulse ox 93% on 3 L nasal cannula. Neurology has ordered CT of the brain. 07/22: Patient is more responsive today, able to drink Ensure but not eating his meals. He is not taking his medications. He was seen by psychiatry yesterday with no additional recommendations. Repeat CT of the brain revealed chronic changes with no acute intracranial process. Unchanged significant sinus disease. Left mastoid opacification. Blood pressure 162/87, heart rate in the 70s and 80s, pulse ox 98% on 3 L nasal cannula. Telemetry is sinus rhythm. EEG reveals borderline abnormal EEG due to minimal background slowing suggestive of mild encephalopathy. No focal lateralized or epileptiform activity. Neurology has started the patient on IV Keppra 500 mg twice daily. Urine culture is showing only Megan. Patient has extra fluid today for which IV Lasix 1 dose will be given and IV fluids will be decreased to KVO. Patient started coughing with Ensure so speech therapy consult will be added as well as chest x-ray today. 07/23. Patient seen and examined. Patient is alert. Patient has poor appetite. Vital signs stable 07/24. Patient seen and examined. Currently sitting in the chair. According to nursing staff patient is much more alert and talkative compared to yesterday. States he has poor appetite but is drinking Ensure. 07/25. Patient seen and examined. Denies any acute events overnight. Blood work done this morning showed WBC 6.2, hemoglobin 9.6, platelet count 113, sodium 147, potassium 3.2, BUN 26, creatinine 1.36. Encourage oral hydration. Potassium placement ordered. 07/26. Patient examined. Patient lethargic, refusing medications this morning. 07/27/2023 Patient is seen in follow-up today with multiple medical consultations following including nephrology, infectious disease, and neurology. Patient is continued on cefepime and will continue until discharge. Patient will not require any further discharge antibiotics. Patient also continues with the wound behind the left ear being managed outpatient recommend to continue with local wound care. Sodium elevated although slightly improved and has transition to D5 and water and potassium was low and being replaced. Nephrology following underwent ultrasound of the kidneys showing no hydronephrosis and recommend follow-up labs in the a.m. Patient will be going to [facility] with case management following and has received insurance authorization. Will discuss with other consultations regarding discharge planning. Patient was started on Sinemet not showing any significant improvements and will need outpatient follow-up with neurology. Plan is for possible discharge in the next 24 hours to [facility] 07/28/2023 Patient is seen and evaluated in follow-up being followed by nephrology along with infectious disease and neurology. Patient continues to have confusion with concerns of some underlying process going on. Patient unable to get MRI as patient has pacemaker and neurology recommending LP and pain management was consulted and pending. Patient is maintained on D5 and water and will continue as sodium remains mildly elevated at 145. Potassium is low and will replace per protocol. Patient per nursing staff is refusing oral medications. Consider speech therapy consultation as patient is nonverbal and unable to communicate although is moaning at times appearing like he has pain. Cervical CT was also ordered and pending. Plan is for patient to go to [facility] once stabilized and discharged REVIEW OF SYSTEMS: Review of system cannot be obtained as patient is nonverbal PHYSICAL EXAMINATION: GENERAL: The patient is alert and oriented x1, awake, well-developed, elderly appearing. Chronically ill looking HEENT: Pupils are round and equally reacting to light. EOMI. No scleral icterus. No conjunctival pallor. Normocephalic, atraumatic. No pharyngeal erythema. No thyromegaly. CARDIOVASCULAR: S1 and S2 muffled PULMONARY: Diminished breath sounds bilaterally otherwise chest is clear to auscultation, no wheezing or crackles. ABDOMEN: Soft, nontender, nondistended, normoactive bowel sounds. No palpable organomegaly. MUSCULOSKELETAL: No joint swelling or deformity. EXTREMITIES: No cyanosis, clubbing, or pedal edema. NEUROLOGICAL: Gross neurological examination did not reveal any focal deficits. Diffusely weak, tremors noted SKIN: No rashes. Assessment: Metabolic encephalopathy likely due to sepsis due to gram-negative right lower lobe pneumonia and possible infected wound behind his left ear. Hypernatremia secondary to poor solute intake and decreased appetite Hypokalemia, being replaced Gram-negative pneumonia, likely community-acquired Acute urinary retention requiring indwelling Soto catheter History of coronary artery disease with stenting Hypertension history History of hypothyroidism History of enlarged prostate with urinary retention History of COPD, mild exacerbation Moderate severe protein calorie malnutrition with a BMI of 26.5 History of ventricular tachycardia status post ICD implantation History of chronic kidney disease stage IIIb GI prophylaxis DVT prophylaxis Full code Plan: Patient is continued on gentle IV hydration with D5 and water and sodium remains 145, continue current regimen and. Replace potassium via IV as patient is refusing oral medications today. Follow-up on repeat labs Nephrology following underwent ultrasound of the kidneys showing no hydronephrosis Continue indwelling Soto catheter and Flomax. Considering trial voiding Neurology has evaluated the patient as well and following and was started on Sinemet although showing no significant improvements and will likely discontinue this medication. Patient continues to be confused and pain management was consulted for possible LP Patient is continued on antibiotics in the form of cefepime with infectious disease following and will not require antibiotics on discharge as patient has received adequate dosing here Continue local wound care of the left behind the ear chronic wound Continue supplemental oxygen and wean FiO2 as tolerated Encouraged oral intake. Patient per nursing staff is refusing oral medications will consult speech for evaluation Case management following and has received insurance authorization with plans to go to [facility] Will follow-up on repeat labs to monitor kidney functions and electrolytes. Replace electrolytes per protocol Possible discharge planning in the next 24 to 48 hours The impression and plan of care has been dictated by Anuja Pugh, Nurse Practitioner as directed. Dr. Tirso MD I have performed a history and examination and MDM of this patient, discussed the same with the dictator, and agree with the dictator's assessment and plan as written ,documented as a scribe. Based on total visit time, I have performed more than 50% of the visit. Objective - Vital Signs Vital signs: Vital Signs Temp 97.4 F L 07/28/23 07:48 Pulse 79 07/28/23 07:48 Resp 18 07/28/23 07:48 BP 187/66 07/28/23 07:48 Pulse Ox 97 07/28/23 07:48 FiO2 Intake & Output 07/27/23 07/28/23 07/28/23 18:59 06:59 18:59 Intake Total 0 Output Total 330 300 Balance -330 -300 Intake: Oral 0 Output: Urine 330 300 Other: Voiding Method Indwelling Catheter Indwelling Catheter - Labs CBC & Chem 7: 07/27/23 05:28 07/28/23 04:57 Labs: Abnormal Lab Results - Last 24 Hours (Table) 07/28/23 Range/Units 04:57 Potassium 3.2 L (3.5-5.5) mmol/L Est GFR (CKD-EPI) 50 L (>=60)
[2023-07-28] MEDS ORDERED: ZINC OXIDE PASTE (Z-GUARD) 1 APPLIC TOPICAL PRN (14:42)
--- NOTE | 2023-07-28 15:14 | CT ---
EXAMINATION TYPE: CT cervical spine wo/w con DATE OF EXAM: 07/28/2023 COMPARISON: None HISTORY: neck pain CT DLP: 877.7 mGycm CONTRAST: Performed without and with IV Contrast, patient injected with 80cc mL of Isovue 300. CT of the cervical spine is performed in the axial plane at 2 mm thick sections. Reconstructed image s in the coronal, and sagittal plane are reviewed on the computer. No acute fractures are evident. Following contrast no suspicious enhancement. Vertebral body alignment is normal. Degenerative disc changes are present at C3-4 C4-5 C5-6. Posterior endplate spurring is noted through these levels. Mild anterior spinal canal compression is present. No stenosis is present. Vertebral body heights are preserved. No spinal canal stenosis is evident Vertebral joint hypertrophy present at C5-6 is bilateral foraminal stenosis. Mild right foraminal aby rowing is present at C3-4. IMPRESSION: 1. No acute osseous abnormality cervical spine. 2. Degenerative disc changes in the upper cervical spine. 3. Foraminal narrowing present at C5-6 bilaterally and right C3-4
[2023-07-28 21:24] LABS: Partial Thromboplastin Time 27.9 sec (22.0-30.0)
[2023-07-29] MEDS: IV FLUID CONTINUATION 1,000 ML IV ONE (08:37)
[2023-07-29 08:50] LABS: INR 1.1 (<1.2); Prothrombin Time 11.7 sec (10.0-12.5)
--- NOTE | 2023-07-29 09:03 | P.PCN ---
Date of Procedure: 07/29/23 Description of Procedure: Procedure=1-lumbar puncture . Preoperative diagnoses= mental status changes Postoperative diagnosis= same as above Anesthesia= local lidocaine infiltration 1% 2 mL for skin and subcu infiltration. Condition= stable. Complications=none. Indication for the procedure: The patient was referred to us by her neurologist for diagnostic lumbar puncture . procedure risk and benefits and alternatives discussed with the patient's and she was agreeable to proceeding with it. Description of the procedure=the patient was brought into the procedure room and placed in the left lateral decubitus position , monitors applied, the back prepped with chlorhexidine , skin was localized with 1% lidocaine, then 22-gauge quinckie Needle advanced slowly at L4 -5 interlaminar space to get access to the intrathecal space. The needle bevel turned 180 before entering the thecal sac to decrease the risk of postdural puncture headache. Cerebrospinal fluid was clear with no heme. Only one attempt was needed. Opening pressure 15 cm of water. No paresthesia was encountered during this procedure .A total of 6 mL of clear cerebrospinal fluid were collected in 4 different tubes, the needle removed, Band-Aid applied , patient tolerated the procedure well without any complications. Further management as per her neurologist.
[2023-07-29 10:41] LABS: Glucose,CSF 63 mg/dL (40-70); Total Protein,CSF 77 mg/dL (12-60)
--- NOTE | 2023-07-29 10:45 | P.PN ---
Subjective Patient is seen in follow-up for hyponatremia and chronic kidney disease. Renal function better. Sodium level stable at 145 as of yesterday. On D5W. Oral intake is poor. Refusing to take meds. Underwent LP this morning. Vital signs are stable. General: No acute distress. HEENT: Head exam is unremarkable. On nasal cannula. LUNGS: No audible rhonchi or wheezes. HEART: Rate and Rhythm are regular. ABDOMEN: Nontender. EXTREMITITES: No edema. Objective - Vital Signs Vital signs: Vital Signs Temp 98 F 07/29/23 08:40 Pulse 87 07/29/23 08:40 Resp 16 07/29/23 08:40 BP 157/69 07/29/23 08:40 Pulse Ox 99 07/29/23 08:40 FiO2 Intake & Output 07/28/23 07/29/23 07/29/23 18:59 06:59 18:59 Intake Total 0 Output Total 1150 Balance -1150 0 Weight 83.915 kg Intake: IV 0 Output: Urine 1150 Other: Voiding Method Diaper # Voids 3 - Labs CBC & Chem 7: 07/27/23 05:28 07/28/23 04:57 Labs: Abnormal Lab Results - Last 24 Hours (Table) 07/29/23 Range/Units 08:58 CSF Total Protein 77 H (12-60) mg/dL Assessment and Plan Plan: Assessment: 1. Chronic kidney disease stage IIIa with baseline creatinine 1.3-1.5. Suspect nephrosclerosis. 1+ proteinuria on UA done July 12, 2023 and 2+ July 15, 2023. This will be repeated again and worked up outpatient. 2. Hypernatremia from lack of oral water intake. Improved with D5W. 3. Hypokalemia from poor intake. Replaced. Magnesium normal. 4. Chronic systolic CHF status post AICD placement. Ejection fraction 45% with mild pulmonary hypertension, mild mitral and tricuspid regurgitation. 5. 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 6. Hypertension with chronic kidney disease. 7. Acute kidney injury secondary to vasomotor nephropathy from hypovolemia. Creatinine peaked at 1.6 this admission and is 1.4 yesterday. No hydronephrosis noted on kidney ultrasound. Left kidney atrophic. 8. Urinary retention. Failed trial of void. Soto catheter reinserted. On Flomax. 9. Altered mental status. Concern for infection. Underwent LP this morning. Infectious disease following. On IV antibiotics. Plan: Maintain D5W for now. Encouraged oral intake - refusing to eat. Avoid nephrotoxins. Stopped Fleet enemas. Repeat labs in the morning. Maintain IV hydralazine if refusing oral meds.
[2023-07-29 10:46] LABS: CSF Tube Number 4
[2023-07-29 10:47] LABS: Appearance,CSF Clear; Nucleated Cells, CSF 0 u/L (0-5); Red Blood Cell,CSF 1 u/L (0-10)
[2023-07-29 11:53] LABS: Calcium 8.9 mg/dL (8.7-10.3); Carbon Dioxide 25.1 mmol/L (21.6-31.8); Chloride 103 mmol/L (96-109); Glucose 106 mg/dL (70-110); Potassium 3.3 mmol/L (3.5-5.5); Sodium 138 mmol/L (135-145)
--- NOTE | 2023-07-29 12:57 | CT ---
EXAMINATION TYPE: CT brain wo con DATE OF EXAM: 07/29/2023 COMPARISON: 07/21/2023 HISTORY: 83-year-old male confusion, altered mental status, rule out stroke TECHNIQUE: Examination was done in axial plane without intravenous contrast. Coronal and sagittal r econstructions performed. CT DLP: 1116 mGycm Automated exposure control for dose reduction was used. FINDINGS: There is no evidence of acute intracranial hemorrhage, acute ischemic changes, mass, mass-effect, or extra-axial fluid collection. There is no effacement of cerebral sulci or basal subarachnoid cister ns. There is no hydrocephalus. There is no midline shift. Littlejohn-white matter distinction is preserv ed. There is moderate confluent white matter hypodensities throughout the cerebral hemispheres. Arthrosco pic calcifications in the carotid siphons. Rightward nasal septal deviation. Ongoing severe opacification throughout the paranasal sinuses with reactive new osteogenesis. Ongoing opacification of the left mastoid air cells and middle ear cavity. Globes and orbits are intact. IMPRESSION: 1. No acute intracranial abnormality seen. Moderate confluent burden of chronic small vessel ischemic disease. 2. 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 Recommend outpatient ENT re ferral. 3. Ongoing opacification left mastoid process and middle ear cavity. Correlate for left-sided otomast oiditis.
[2023-07-29] MEDS: POTASSIUM CHLORIDE ER 10 MEQ TAB.ER.PRT PO SCH (14:24)
[2023-07-29] MEDS: POTASSIUM CHLORIDE 10 MEQ in WATER FOR INJECTION 1 100ML.BAG IVPB SCH (14:33)
--- NOTE | 2023-07-29 15:38 | P.PN ---
Subjective Progress Note Date: 07/29/23 I am following-up with patient and per nurse, he is showing no improvement. He had CSF study today and was negative. He had CT cervical and was negative for any myelopathic changes. Objective - Vital Signs Vital signs: Vital Signs Temp 98 F 07/29/23 08:40 Pulse 87 07/29/23 08:40 Resp 16 07/29/23 08:40 BP 157/69 07/29/23 08:40 Pulse Ox 99 07/29/23 08:40 FiO2 Intake & Output 07/28/23 07/29/23 07/29/23 18:59 06:59 18:59 Intake Total 0 Output Total 1150 Balance -1150 0 Weight 83.915 kg Intake: IV 0 Output: Urine 1150 Other: Voiding Method Diaper Indwelling Catheter # Voids 3 - Exam General patient is lying in bed and does not appear in acute distress. HENT: Not holding his neck in pain. Neuro-is limited but patient is awake. No verbally responsive. Not following commands. Just staring and looking around. No facial weakness. No resting tremor. - Labs CBC & Chem 7: 07/27/23 05:28 07/29/23 06:40 Labs: Abnormal Lab Results - Last 24 Hours (Table) 07/29/23 07/29/23 Range/Units 06:40 08:58 Potassium 3.3 L (3.5-5.5) mmol/L Est GFR (CKD-EPI) 46 L (>=60) CSF Total Protein 77 H (12-60) mg/dL Assessment and Plan Assessment: This is an 83-year-old gentleman who presents to the emergency department from his nursing facility because of decreased level of consciousness as well as decreased oral intake. It seems that the patient was at [facility] the prior to presented to our facility and was discharged back to his nursing facility. CT of the head is unremarkable for any acute processes. He has minimally elevated troponin and this chest x-ray is questionable for pneumonia Altered mental status: Unknown exact etiology. Initially felt Metabolic ence phalopathy, likely due to probable pneumonia but has not made drastic improvement. CSF study is negative for any infection Possible pneumonia on the right side Resting tremor for past one year and I started him on Sinement for concern of Parkinson's and no improvement Squamous 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, ID on board. Pansinusitis Elevated troponin slight Akinetic basal inferior wall suggestive of prior ND on echo Chronic kidney insufficiency History of AICD placement Hyperlipidemia Hypertension Anemia CAD Plan: Patient cannot have MRI of the brain because of presence of AICD. Repeat CT head performed revealed chronic changes with no acute intracranial process. Unchanged significant sinus disease and left mastoid opacification. I personally reviewed CT head agree with the findings. There is complete opacification of bilateral maxillary, sphenoid, ethmoid and frontal sinuses, consistent with pansinusitis. Also opacification of the left mastoid air cells. Patient currently on cefepime, which should cover sinusitis. However consider ENT consultation to see if it needs drainage per Dr. Lorenzo and I agree with that. Carotid Doppler not able to be checked because patient would not cooperate. It was canceled. 2D echo: Mild left ventricle systolic dysfunction. Akinetic basal inferior wall suggestive of prior myocardial infarction. Lipid panel with cholesterol 105, LDL 36, HDL 47, triglycerides 107 on 01/20/2023. No need to repeat. Continue Lipitor 20 mg daily. Routine EEG 07/18/2023 was borderline abnormal due to minimal background slowing, suggestive of mild encephalopathy. No focal, lateralized or epileptiform activity was seen. I started the patient on Keppra on 07-18, The nurse called me past midnight because of patient shaken was a concern for seizure. Dr. Lorenzo was not aware why was the Keppra started and he wean the patient off of Keppra since there is no seizure-like activity clinically or on the EEG. I discontinued the medication from 500 mg daily yesterday and I stopped yesterday and per the nurse no further seizure-like activity. I started the patient on Sinemet because of concern of Parkinson's because of his resting tremor for past one year but no improvement with Sinemet and I stopped. The is agreement with plan. CT cervical spine: Reported as no acute osseous abnormality and cervical spine. Degenerative disks changes in the upper cervical spine. Foraminal narrowing present at C5-C6 bilaterally and the right C3-C4. CSF study: Clear, colorless, red blood cell is 1, total nuclear cells 0, glucose is 63, total protein is 77 (normal is 12-60). Mild elevated protein I feel is nonspecifica and can be due to multiple things (such as infection). I ordered repeat CT brain and will attempt to obtain repeat EEG. On aspirin 325 mg and Lipitor 20 mg daily. Cardiology is on board Vitamin B-12 1196, folate 28, TSH is normal at 0.608 ID team is on board. We'll defer the rest of the medical management to primary team and other specialists On discharge recommend the patient to follow-up with a neurologist as an outpatient within 1-2 weeks. I do not feel stable of being discharged since the patient is severely confused and he is not back to baseline. The primary team wanted that to discharge him to the nursing facility but I notified him likely if once she is discharged to the nursing facility he'll be brought back immediately because of his overall condition. Plan is discussed with his primary team N.P and his nurse multiple times. Time with Patient: Less than 30
--- NOTE | 2023-07-29 15:59 | P.PN ---
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 for infected wound due to his radiation therapy behind his ear and apparently culture that primary grew Staph aureus. Patient now presented to hospital with worsening of his respiratory status concerning for pneumonia possible gram-negative. On today's evaluation that is 07/29/2023,the patient denies any fever or any chills, patient is breathing comfortably on 2 L nasal cannula oxygen the patient denies chest pain shortness of breath and no significant cough, patient denies abdominal pain seem to be more awake and alert today. Patient did have a creatinine 1.5 patient also have LP glucose 63 protein 77 white count 0 Objective - Vital Signs Vital signs: Vital Signs Temp 98 F 07/29/23 08:40 Pulse 87 07/29/23 08:40 Resp 16 07/29/23 08:40 BP 157/69 07/29/23 08:40 Pulse Ox 99 07/29/23 08:40 FiO2 Intake & Output 07/28/23 07/29/23 07/29/23 18:59 06:59 18:59 Intake Total 0 Output Total 1150 Balance -1150 0 Weight 83.915 kg Intake: IV 0 Output: Urine 1150 Other: Voiding Method Diaper Indwelling Catheter # Voids 3 - Exam GENERAL DESCRIPTION: An elderly male lying in bed in no distress RESPIRATORY SYSTEM: Unlabored breathing , decreased breath sounds at bases HEART: S1 S2 regular rate and rhythm , ABDOMEN: Soft , no tenderness EXTREMITIES: No edema feet - Labs CBC & Chem 7: 07/27/23 05:28 07/29/23 06:40 Labs: Abnormal Lab Results - Last 24 Hours (Table) 07/29/23 07/29/23 Range/Units 06:40 08:58 Potassium 3.3 L (3.5-5.5) mmol/L Est GFR (CKD-EPI) 46 L (>=60) CSF Total Protein 77 H (12-60) mg/dL Assessment and Plan (1) Pneumonia Current Visit: Yes Status: Acute Code(s): J18.9 - PNEUMONIA, UNSPECIFIED ORGANISM SNOMED Code(s): 194393750 (2) Wound, open, head Current Visit: Yes Status: Acute Code(s): S01.90XA - UNSP OPEN WOUND OF UNSPECIFIED PART OF HEAD, INIT ENCNTR SNOMED Code(s): 13834829 Plan: 1patient presented to hospital with mental status changes weakness in this patient who did have a 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 and the patient noticed to have infiltrate on the chest x-ray concerning for pneumonia in this patient who has been out of the hospital we will need to cover for resistant gram-positive as well as gram-negative pathogen 2-patient did not have significant elevated CRP and a procalcitonin level of 0.08 3-patient is afebrile did have a normal white count, chest x-ray with bilateral lobe infiltrate and effusion, patient CT of the brain that shows evidence of significant sinusitis 4-patient remains to be afebrile, patient has received adequate antibiotic for underlying pneumonia and cefepime will be discontinued 5patient did have LP which was normal clinically not behaving as meningitis or encephalitis Dictation was produced using [employer] dictation software. please excuse any grammatical, word or spelling errors. Time with Patient: Less than 30
[2023-07-29] MEDS: ACETAMINOPHEN IV (For NPO) 1,000 MG in EMPTY BAG 1 BAG IVPB PRN (17:40)
--- NOTE | 2023-07-30 02:52 | EEG ---
ELECTROENCEPHALOGRAM REPORT CLINICAL HISTORY: This is an 83-year-old gentleman with altered mental status. Video EEG is obtained to evaluate for seizure epileptiform activity. The patient is not on any antiepileptic drugs. EEG TYPE: A routine 21-channel EEG with video using the 10/20 electrode placement system. DESCRIPTION: The wakefulness is obtained. The background consists of [id number] voltage of 5 to 6 hertz activity at times intermixed with delta activity. There is no physiological stage 2 sleep architecture. There is no focal slowing. Interictal and ictal is none. ACTIVATION PROCEDURE: Photic stimulation, hyperventilation are not performed. CLINICAL INTERPRETATION: This is an abnormal routine EEG. The background slowing is suggestive of moderate to severe encephalopathy. Otherwise, there is no focal slowing, epileptiform discharge, or seizure on the EEG. Clinical correlation is recommended. MARGARET / CHANEL: [id number] / MTDD
[2023-07-30 05:54] LABS: Glucose,Whole Blood 83 mg/dL (70-110)
--- NOTE | 2023-07-30 08:49 | P.PN ---
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, patient was recently hospitalized at [facility] for what appears to be an infected wound due to his radiation therapy behind his ear, the culture at that time showed Staphylococcus aureus as well as Corynebacterium species he was started on cefepime 2 g IV piggyback every 8 hours as well as vancomycin with pharmacy to dose, he was seen in consultation by infectious disease, his CT scan of the brain at that time did not show any evidence of acute abnormalities, patient was transitioned into oral Augmentin 875 mg orally twice every day for 10 days, patient went tomorrow for physical therapy and rehabilitation while he was at moderate he developed to have a significant mental status changes he became quite unresponsive does not follow much commands, he was not eating or drinking much, these symptoms waxes and wane on and off, patient initially was sent back to the emergency department at [facility], he had a CT scan of the brain did not show evidence of acute abnormalities his laboratory evaluation were fine he did appear to have a bit of infiltrate of the right lower lobe, he was sent back home since his procalcitonin level was negative, his BNP was lower, white count were normal, patient went back tomorrow and he became more drowsy subtended does not follow any commands, the nursing staff has contacted me yesterday he was directed to go to the ER at [facility], he had a chest x-ray that showed possible right lower lobe pneumonia, CT scan of the brain did not show evidence of acute abnormalities, his troponin was slightly elevated suggestive of type II MD due to possible sepsis, he was seen in consultation by cardiology who recommended echocardiogram for evaluation of LV function, he was started back on his Augmentin I will discontinue that and start the patient on cefepime 2 g IV piggyback every 12 hours along with vancomycin pharmacy to dose will obtain infectious disease consultation, will obtain neurology consultation as well as for evaluation of his mental status changes will continue to follow-up with the patient 07/17: Patient is still confused better than yesterday, he is more awake today however he is not making sense, he denies any fever or chills, he continues to have pain in the left shoulder, he continues to have pain all over his body, patient was seen earlier by cardiology as well as by neurology, MRI could not be done because of the AICD, he continues to be on IV antibiotic in the form of cefepime and vancomycin, consulted radiation oncology Dr. Welsh for further recommendation, if the blood cultures are positive we will arrange for a transesophageal echocardiogram discussed with Dr. Yeboah from cardiology 07/18: Patient is lying down in bed in no apparent distress, yesterday afternoon he became quite unresponsive and he did not respond to any verbal stimuli, he was responding to painful stimuli, today in the morning he was more awake and more alert, he sitting up in bed he does not seem to see much, he continues to be on vancomycin as well as cefepime, he will be seen in consultation by radiation oncology to get their opinion about radiation related encephalopathy, blood cultures so far are negative, if the blood cultures are positive patient will need to go for a transesophageal echocardiogram for evaluation of en docarditis, patient has been seen by multiple specialties including infectious disease, cardiology, along with neurology, patient did have his EEG today in the morning the results still pending at the time of dictation. 07/19: Patient is lying down in bed he continues to be quite confused he does not follow much commands, I will discontinue his Dilaudid, discontinue Xanax completely, continue IV antibiotic in the form of vancomycin and cefepime, has been followed by neurology, infectious disease, as well as cardiology, patient does not appear to have any positive blood cultures at this point in time. 07/20: Patient seems to be in more of a catatonic state. He is not consistently following commands. He will not verbalize any answers to questions. He has been continued on antibiotics per ID and also followed by neurology. Will add and as psychiatry consult today. This has been discussed with the patient's at the bedside. Vital signs been stable. Repeat blood work will be orde red for tomorrow. 07/21: Patient continues to have significant mental status changes, he opens his eyes not responding not following directions well. He has not been eating or drinking. He is on IV fluids of 0.9 will switch to D5W 0.45. We are waiting for psychiatric evaluation. Blood pressure 110/53, heart rate 72, pulse ox 93% on 3 L nasal cannula. Neurology has ordered CT of the brain. 07/22: Patient is more responsive today, able to drink Ensure but not eating his meals. He is not taking his medications. He was seen by psychiatry yesterday with no additional recommendations. Repeat CT of the brain revealed chronic changes with no acute intracranial process. Unchanged significant sinus disease. Left mastoid opacification. Blood pressure 162/87, heart rate in the 70s and 80s, pulse ox 98% on 3 L nasal cannula. Telemetry is sinus rhythm. EEG reveals borderline abnormal EEG due to minimal background slowing suggestive of mild encephalopathy. No focal lateralized or epileptiform activity. Neurology has started the patient on IV Keppra 500 mg twice daily. Urine culture is showing only Megan. Patient has extra fluid today for which IV Lasix 1 dose will be given and IV fluids will be decreased to KVO. Patient started coughing with Ensure so speech therapy consult will be added as well as chest x-ray today. 07/23. Patient seen and examined. Patient is alert. Patient has poor appetite. Vital signs stable 07/24. Patient seen and examined. Currently sitting in the chair. According to nursing staff patient is much more alert and talkative compared to yesterday. States he has poor appetite but is drinking Ensure. 07/25. Patient seen and examined. Denies any acute events overnight. Blood work done this morning showed WBC 6.2, hemoglobin 9.6, platelet count 113, sodium 147, potassium 3.2, BUN 26, creatinine 1.36. Encourage oral hydration. Potassium placement ordered. 07/26. Patient examined. Patient lethargic, refusing medications this morning. 07/27/2023 Patient is seen in follow-up today with multiple medical consultations following including nephrology, infectious disease, and neurology. Patient is continued on cefepime and will continue until discharge. Patient will not require any further discharge antibiotics. Patient also continues with the wound behind the left ear being managed outpatient recommend to continue with local wound care. Sodium elevated although slightly improved and has transition to D5 and water and potassium was low and being replaced. Nephrology following underwent ultrasound of the kidneys showing no hydronephrosis and recommend follow-up labs in the a.m. Patient will be going to [facility] with case management following and has received insurance authorization. Will discuss with other consultations regarding discharge planning. Patient was started on Sinemet not showing any significant improvements and will need outpatient follow-up with neurology. Plan is for possible discharge in the next 24 hours to [facility] 07/28/2023 Patient is seen and evaluated in follow-up being followed by nephrology along with infectious disease and neurology. Patient continues to have confusion with concerns of some underlying process going on. Patient unable to get MRI as patient has pacemaker and neurology recommending LP and pain management was consulted and pending. Patient is maintained on D5 and water and will continue as sodium remains mildly elevated at 145. Potassium is low and will replace per protocol. Patient per nursing staff is refusing oral medications. Consider speech therapy consultation as patient is nonverbal and unable to communicate although is moaning at times appearing like he has pain. Cervical CT was also ordered and pending. Plan is for patient to go to [facility] once stabilized and discharged 07/29/2023 Patient is seen in follow-up today with multiple medical consultations following. Patient maintained off antibiotics. Neurology following recommend LP and repeat EEG although patient initially refused. Patient continues to be confused and not at baseline and has been refusing medications, has been nonverbal, and also not eating very much. Will reconsult speech as well for further evaluation. Patient is afebrile there is no reported chest pain or shortness of breath. Patient is moaning and grumbling when he appears to be in slight distress. Recommend repeat CT brain, patient is unable to have MRI of the brain REVIEW OF SYSTEMS: Review of system cannot be obtained as patient is nonverbal PHYSICAL EXAMINATION: GENERAL: The patient is alert and oriented x1, awake, well-developed, elderly appearing. Chronically ill looking HEENT: Pupils are round and equally reacting to light. EOMI. No scleral icterus. No conjunctival pallor. Normocephalic, atraumatic. No pharyngeal erythema. No thyromegaly. CARDIOVASCULAR: S1 and S2 muffled PULMONARY: Diminished breath sounds bilaterally otherwise chest is clear to auscultation, no wheezing or crackles. ABDOMEN: Soft, nontender, nondistended, normoactive bowel sounds. No palpable organomegaly. MUSCULOSKELETAL: No joint swelling or deformity. EXTREMITIES: No cyanosis, clubbing, or pedal edema. NEUROLOGICAL: Gross neurological examination did not reveal any focal deficits. Diffusely weak, tremors noted SKIN: No rashes. Assessment: Metabolic encephalopathy likely due to sepsis due to gram-negative right lower lobe pneumonia and possible infected wound behind his left ear. Hypernatremia secondary to poor solute intake and decreased appetite Hypokalemia, being replaced Gram-negative pneumonia, likely community-acquired, has received adequate antibiotics and currently being monitored off antibiotic therapy Acute urinary retention requiring indwelling Soto catheter History of coronary artery disease with stenting Hypertension history History of hypothyroidism History of enlarged prostate with urinary retention History of COPD, mild exacerbation Moderate severe protein calorie malnutrition with a BMI of 26.5 History of ventricular tachycardia status post ICD implantation History of chronic kidney disease stage IIIb GI prophylaxis DVT prophylaxis Full code Plan: Patient is continued on gentle IV hydration with D5 and water and neurology following. Potassium remains slightly low and will replace per protocol. Patient has been refusing all oral medications will add IV Continue Tylenol IV for pain as patient is refusing all oral medications. Nephrology following underwent ultrasound of the kidneys showing no hydronephrosis Continue indwelling Soto catheter and Flomax. Attempted trial of voiding although patient continued to retain requiring replacement of indwelling Soto catheter. Neurology has evaluated the patient as well and following and was started on Sinemet although showing no significant improvements and will likely discontinue this medication. Patient continues to be confused and underwent LP which was negative other than mildly elevated protein and repeat CT brain ordered and pending Patient continued on antibiotics in the form of cefepime with infectious disease following and cefepime has been discontinued being monitored closely off antibiotic therapy Continue local wound care of the left behind the ear chronic wound Continue supplemental oxygen and wean FiO2 as tolerated Encouraged oral intake. Patient per nursing staff is refusing oral medications will consult speech for evaluation Case management following and has received insurance authorization with plans to go to [facility] Will follow-up on repeat labs to monitor kidney functions and electrolytes. Replace electrolytes per protocol Due to multiple complex medical issues, prognosis is guarded The impression and plan of care has been dictated by Anuja Pugh, Nurse Practitioner as directed. Dr. Tirso MD I have performed a history and examination and MDM of this patient, discussed the same with the dictator, and agree with the dictator's assessment and plan as written ,documented as a scribe. Based on total visit time, I have performed more than 50% of the visit. Objective - Vital Signs Vital signs: Vital Signs Temp 96.9 F L 07/30/23 02:00 Pulse 69 07/30/23 02:00 Resp 17 07/30/23 02:00 BP 184/74 07/30/23 02:00 Pulse Ox 98 07/30/23 02:00 FiO2 Intake & Output 07/29/23 07/30/23 07/30/23 18:59 06:59 18:59 Intake Total 0 Output Total 950 450 Balance -950 -450 Intake: IV 0 Output: Urine 950 450 Other: Voiding Method Indwelling Catheter Indwelling Catheter - Labs CBC & Chem 7: 07/27/23 05:28 07/29/23 06:40 Labs: Abnormal Lab Results - Last 24 Hours (Table) 07/29/23 07/29/23 Range/Units 06:40 08:58 Potassium 3.3 L (3.5-5.5) mmol/L Est GFR (CKD-EPI) 46 L (>=60) CSF Total Protein 77 H (12-60) mg/dL Microbiology - Last 24 Hours (Table) 07/29/23 08:58 CSF Gram Stain - Preliminary Cerebral Spinal Fluid
[2023-07-30] MEDS: ENOXAPARIN 30 MG/0.3 ML SYRINGE SQ SCH (09:03)
[2023-07-30 09:59] LABS: BUN/Creat Ratio 13.47 Ratio (12.00-20.00); Blood Urea Nitrogen 20.2 mg/dL (9.0-27.0); Calcium 8.8 mg/dL (8.7-10.3); Carbon Dioxide 24.9 mmol/L (21.6-31.8); Chloride 106 mmol/L (96-109); Glucose 77 mg/dL (70-110); Potassium 4.1 mmol/L (3.5-5.5); Sodium 139 mmol/L (135-145)
--- NOTE | 2023-07-30 11:49 | P.PN ---
Subjective Patient is seen for follow-up for hypernatremia and chronic kidney disease. Status post D5W Sodium is 139 today. Creatinine at 1.5 mg/dL. No significant complaints today. Objective - Vital Signs Vital signs: Vital Signs Temp 96.9 F L 07/30/23 02:00 Pulse 69 07/30/23 02:00 Resp 17 07/30/23 02:00 BP 184/74 07/30/23 02:00 Pulse Ox 98 07/30/23 02:00 FiO2 Intake & Output 07/29/23 07/30/23 07/30/23 18:59 06:59 18:59 Intake Total 0 Output Total 950 450 Balance -950 -450 Intake: IV 0 Output: Urine 950 450 Other: Voiding Method Indwelling Catheter Indwelling Catheter Indwelling Catheter - Exam Patient is awake, comfortable, no acute distress Examination of the heart S1 and S2 Examination of the lungs bilateral breath sounds are heard Abdomen is soft nontender Examination of lower extremities shows no significant edema - Labs CBC & Chem 7: 07/27/23 05:28 07/30/23 06:00 Labs: Abnormal Lab Results - Last 24 Hours (Table) 07/29/23 07/29/23 07/30/23 Range/Units 06:40 08:58 06:00 Potassium 3.3 L (3.5-5.5) mmol/L Est GFR (CKD-EPI) 46 L 46 L (>=60) CSF Total Protein 77 H (12-60) mg/dL Microbiology - Last 24 Hours (Table) 07/29/23 08:58 CSF Gram Stain - Preliminary Cerebral Spinal Fluid Assessment and Plan Assessment: 1. Chronic kidney disease stage IIIa with baseline creatinine 1.3-1.5. Suspect nephrosclerosis. 1+ proteinuria on UA done July 12, 2023 and 2+ July 15, 2023. This will be repeated again and worked up outpatient. 2. Hypernatremia from lack of oral water intake. Improved with D5W. 3. Hypokalemia from poor intake. Replaced. Magnesium normal. 4. Chronic systolic CHF status post AICD placement. Ejection fraction 45% with mild pulmonary hypertension, mild mitral and tricuspid regurgitation. 5. 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 6. Hypertension with chronic kidney disease. 7. Acute kidney injury secondary to vasomotor nephropathy from hypovolemia. Creatinine peaked at 1.6 this admission and is 1.4 yesterday. No hydronephrosis noted on kidney ultrasound. Left kidney atrophic. 8. Urinary retention. Failed trial of void. Soto catheter reinserted. On Flomax. 9. Altered mental status. Concern for infection. Underwent LP this morning. Infectious disease following. On IV antibiotics. Plan: Repeat labs in a.m. Encourage increase free water intake.
[2023-07-30] MEDS: ACETAMINOPHEN IV (For NPO) 1,000 MG in EMPTY BAG 1 BAG IVPB SCH (13:27)
--- NOTE | 2023-07-30 13:44 | P.PN ---
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 for infected wound due to his radiation therapy behind his ear and apparently culture that primary grew Staph aureus. Patient now presented to hospital with worsening of his respiratory status concerning for pneumonia possible gram-negative. On today's evaluation that is 07/30/2023,the patient remains to be afebrile, patient is on 3 L of cannula oxygen patient be complaining of pain/hurting her but unable to pinpoint to where he is hurting no vomiting diarrhea has been reported unable to provide reliable history. Patient did have a creatinine 1.5 CSF culture negative Objective - Vital Signs Vital signs: Vital Signs Temp 98.3 F 07/30/23 07:50 Pulse 78 07/30/23 11:59 Resp 19 07/30/23 07:50 BP 132/74 07/30/23 07:50 Pulse Ox 95 07/30/23 07:50 FiO2 Intake & Output 07/29/23 07/30/23 07/30/23 18:59 06:59 18:59 Intake Total 0 Output Total 950 450 Balance -950 -450 Intake: IV 0 Output: Urine 950 450 Other: Voiding Method Indwelling Catheter Indwelling Catheter Indwelling Catheter - Exam GENERAL DESCRIPTION: An elderly male lying in bed in no distress RESPIRATORY SYSTEM: Unlabored breathing , decreased breath sounds at bases HEART: S1 S2 regular rate and rhythm , ABDOMEN: Soft , no tenderness EXTREMITIES: No edema feet - Labs CBC & Chem 7: 07/27/23 05:28 07/30/23 06:00 Labs: Abnormal Lab Results - Last 24 Hours (Table) 07/29/23 07/30/23 Range/Units 08:58 06:00 Est GFR (CKD-EPI) 46 L (>=60) CSF Total Protein 77 H (12-60) mg/dL Microbiology - Last 24 Hours (Table) 07/29/23 08:58 CSF Gram Stain - Preliminary Cerebral Spinal Fluid Assessment and Plan (1) Pneumonia Current Visit: Yes Status: Acute Code(s): J18.9 - PNEUMONIA, UNSPECIFIED ORGANISM SNOMED Code(s): 437449891 (2) Wound, open, head Current Visit: Yes Status: Acute Code(s): S01.90XA - UNSP OPEN WOUND OF UNSPECIFIED PART OF HEAD, INIT ENCNTR SNOMED Code(s): 00603378 Plan: 1patient presented to hospital with mental status changes weakness in this patient who did have a 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 please excuse any grammatical, word or spelling errors. Time with Patient: Less than 30
--- NOTE | 2023-07-31 11:42 | P.PN ---
Subjective Progress Note Date: 07/31/23 I am following-up with patient, and per nurse he is about the same. No improvement in his condition. Objective - Vital Signs Vital signs: Vital Signs Temp 98.4 F 07/31/23 06:49 Pulse 78 07/31/23 09:39 Resp 18 07/31/23 06:49 BP 124/57 07/31/23 06:49 Pulse Ox 96 07/31/23 09:32 FiO2 Intake & Output 07/30/23 07/31/23 07/31/23 18:59 06:59 18:59 Intake Total 650 Output Total 650 Balance -650 650 Intake: Oral 650 Output: Urine 650 Other: Voiding Method Indwelling Catheter Indwelling Catheter # Voids 3 # Bowel Movements 1 - Exam General patient is lying in bed and does not appear in acute distress. HENT: Not holding his neck in pain. Neuro-is limited. He is sleeping. No facial weakness. No resting tremor. - Labs CBC & Chem 7: 07/27/23 05:28 07/30/23 06:00 Labs: Microbiology - Last 24 Hours (Table) 07/29/23 08:58 CSF Gram Stain - Preliminary Cerebral Spinal Fluid CSF Culture - Preliminary Assessment and Plan Assessment: This is an 83-year-old gentleman who presents to the emergency department from his nursing facility because of decreased level of consciousness as well as dec reased oral intake. It seems that the patient was at [facility] the prior to presented to our facility and was discharged back to his nursing facility. CT of the head is unremarkable for any acute processes. He has minimally elevated troponin and this chest x-ray is questionable for pneumonia Altered mental status: Unknown exact etiology. Initially felt Metabolic encephalopathy, likely due to probable pneumonia but has not made drastic improvement. CSF study is negative for any infection . Had two eeg and multiple CT head and are negative for acute process. I feel his confusion could be due to otomastoiditis. 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 Pansinusitis Elevated troponin slight Akinetic basal inferior wall suggestive of prior AR on echo Chronic kidney insufficiency History of AICD placement Hyperlipidemia Hypertension Anemia CAD Plan: Patient cannot have MRI of the brain because of presence of AICD. Repeat CT head performed revealed chronic changes with no acute intracranial process. Unchanged significant sinus disease and left mastoid opacification. I personally reviewed CT head agree with the findings. There is complete opacification of bilateral maxillary, sphenoid, ethmoid and frontal sinuses, consistent with pansinusitis. Also opacification of the left mastoid air cells. Patient currently on cefepime, which should cover sinusitis. However consider ENT consultation to see if it needs drainage per Dr. Lorenzo and I agree with that. Carotid Doppler not able to be checked because patient would not cooperate. It was canceled. 2D echo: Mild left ventricle systolic dysfunction. Akinetic basal inferior wall suggestive of prior myocardial infarction. Lipid panel with cholesterol 105, LDL 36, HDL 47, triglycerides 107 on 01/20/2023. No need to repeat. Continue Lipitor 20 mg daily. Routine EEG 07/18/2023 was borderline abnormal due to minimal background slowing, suggestive of mild encephalopathy. No focal, lateralized or epileptiform activity was seen. I started the patient on Keppra on 07-18, The nurse called me past midnight because of patient shaken was a concern for seizure. Dr. Lorenzo was not aware why was the Keppra started and he wean the patient off of Keppra since there is no seizure-like activity clinically or on the EEG. I discontinued the medication from 500 mg daily yesterday and I stopped yesterday and per the nurse no further seizure-like activity. I started the patient on Sinemet because of concern of Parkinson's because of his resting tremor for past one year but no improvement with Sinemet and I stopped. The is agreement with plan. CT cervical spine: Reported as no acute osseous abnormality and cervical spine. Degenerative disks changes in the upper cervical spine. Foraminal narrowing present at C5-C6 bilaterally and the right C3-C4. CSF study: Clear, colorless, red blood cell is 1, total nuclear cells 0, glucose is 63, total protein is 77 (normal is 12-60). Mild elevated protein I feel is nonspecifica and can be due to multiple things (such as infection). Repeat CT brain on 07/29/23: It is reported as no acute intracranial abnormality seen. Moderate confluent burden of chronic small vessel ischemic disease. 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 Recommend outpatient ENT referral. Ongoing pacification of the left mastoid process and middle ear cavity. Correlate for left-sided jose carlos-mastoiditis. I asked the nurse to attempt to consult ENT. Repeat EEG: Is abnormal. The background slowing suggestive of moderate to severe encephalopathy. Otherwise there is no focal slowing, epileptiform discharges or seizure on the EEG. On aspirin 325 mg and Lipitor 20 mg daily. Cardiology is on board Vitamin B-12 1196, folate 28, TSH is normal at 0.608 ID team is on board. We'll defer the rest of the medical management to primary team and other specialists On discharge recommend the patient to follow-up with a neurologist as an outpatient within 1-2 weeks. I do not feel stable of being discharged since the patient is severely confused and he is not back to baseline. The primary team wanted that to discharge him to the nursing facility but I notified him likely if once she is discharged to the nursing facility he'll be brought back immediately because of his overall condition. Plan is discussed with his nurse multiple times. Dr. Lorenzo will resume neurology service tomorrow A.M. Time with Patient: Less than 30
--- NOTE | 2023-07-31 12:04 | P.PN ---
Subjective Progress Note Date: 07/31/23 Principal diagnosis: Reason for follow-up is pneumonia possible gram-negative and wound behind his left ear Patient is a 83-year-old male with a past medical history significant for [place]/coronary artery disease ischemic cardiomyopathy with AICD placement hypertension hyperlipidemia 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 status post radiation therapy apparently patient was recently admitted at [facility] for infected wound due to his radiation therapy behind his ear and apparently culture that primary grew Staph aureus. Patient now presented to hospital with worsening of his respiratory status concerning for pneumonia possible gram-negative. On today's evaluation that is 07/31/2023, the patient continues to be afebrile, the patient is on 3 L nasal cannula oxygen and breathing comfortably, the Pt remains to be lethargic and did not answer any question no vomiting or diarrhea reported by the nursing staff. No new labs has been obtained today Objective - Vital Signs Vital signs: Vital Signs Temp 98.4 F 07/31/23 06:49 Pulse 78 07/31/23 09:39 Resp 18 07/31/23 06:49 BP 124/57 07/31/23 06:49 Pulse Ox 96 07/31/23 09:32 FiO2 Intake & Output 07/30/23 07/31/23 07/31/23 18:59 06:59 18:59 Intake Total 650 Output Total 650 Balance -650 650 Intake: Oral 650 Output: Urine 650 Other: Voiding Method Indwelling Catheter Indwelling Catheter # Voids 3 # Bowel Movements 1 - Exam GENERAL DESCRIPTION: An elderly male lying in bed in no distress RESPIRATORY SYSTEM: Unlabored breathing , decreased breath sounds at bases HEART: S1 S2 regular rate and rhythm , ABDOMEN: Soft , no tenderness EXTREMITIES: No edema feet - Labs CBC & Chem 7: 07/27/23 05:28 07/30/23 06:00 Labs: Microbiology - Last 24 Hours (Table) 07/29/23 08:58 CSF Gram Stain - Preliminary Cerebral Spinal Fluid CSF Culture - Preliminary Assessment and Plan (1) Pneumonia Current Visit: Yes Status: Acute Code(s): J18.9 - PNEUMONIA, UNSPECIFIED ORGANISM SNOMED Code(s): 143985600 (2) Wound, open, head Current Visit: Yes Status: Acute Code(s): S01.90XA - UNSP OPEN WOUND OF UNS PECIFIED PART OF HEAD, INIT ENCNTR SNOMED Code(s): 65629767 Plan: 1patient presented to hospital with mental status changes weakness in this patient who did have a 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 please excuse any grammatical, word or spelling errors. Time with Patient: Less than 30
--- NOTE | 2023-07-31 14:55 | P.PN ---
Subjective Patient is seen for follow-up for hypernatremia and chronic kidney disease. Status post D5W Sodium is 139 on 07/30/2023. Creatinine at 1.5 mg/dL. No significant complaints today. Patient has been refusing meds and has poor oral intake. Objective - Vital Signs Vital signs: Vital Signs Temp 98.4 F 07/31/23 06:49 Pulse 68 07/31/23 12:13 Resp 16 07/31/23 12:13 BP 124/57 07/31/23 06:49 Pulse Ox 96 07/31/23 09:32 FiO2 Intake & Output 07/30/23 07/31/23 07/31/23 18:59 06:59 18:59 Intake Total 650 Output Total 650 Balance -650 650 Intake: Oral 650 Output: Urine 650 Other: Voiding Method Indwelling Catheter Indwelling Catheter Indwelling Catheter # Voids 3 # Bowel Movements 1 - Exam Patient is awake, comfortable, no acute distress Does not communicate much Examination of the heart S1 and S2 Examination of the lungs bilateral breath sounds are heard Abdomen is soft nontender Examination of lower extremities shows no significant edema - Labs CBC & Chem 7: 07/27/23 05:28 07/30/23 06:00 Labs: Microbiology - Last 24 Hours (Table) 07/29/23 08:58 CSF Gram Stain - Preliminary Cerebral Spinal Fluid CSF Culture - Preliminary Assessment and Plan Assessment: 1. Chronic kidney disease stage IIIa with baseline creatinine 1.3-1.5. Suspect nephrosclerosis. 1+ proteinuria on UA done July 12, 2023 and 2+ July 15, 2023. This will be repeated again and worked up outpatient. 2. Hypernatremia from lack of oral water intake. Improved with D5W. 3. Hypokalemia from poor intake. Replaced. Magnesium normal. 4. Chronic systolic CHF status post AICD placement. Ejection fraction 45% with mild pulmonary hypertension, mild mitral and tricuspid regurgitation. 5. 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 6. Hypertension with chronic kidney disease. 7. Acute kidney injury secondary to vasomotor nephropathy from hypovolemia. Creatinine peaked at 1.6 this admission and is 1.5 yesterday. No hydronephrosis noted on kidney ultrasound. Left kidney atrophic. 8. Urinary retention. Failed trial of void. Soto catheter reinserted. On Flomax. 9. Altered mental status. Concern for infection. Underwent LP this morning. Infectious disease following. On IV antibiotics. Plan: Repeat labs in a.m. Encourage increase free water intake.
[2023-07-31] MEDS: ACETAMINOPHEN IV (For NPO) 1,000 MG in EMPTY BAG 1 BAG IVPB SCH (16:28)
[2023-07-31] MEDS ORDERED: ACETAMINOPHEN IV (For NPO) 1,000 MG in EMPTY BAG 1 BAG IVPB SCH (18:00)
--- NOTE | 2023-08-01 01:59 | P.PN ---
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, patient was recently hospitalized at [facility] for what appears to be an infected wound due to his radiation therapy behind his ear, the culture at that time showed Staphylococcus aureus as well as Corynebacterium species he was started on cefepime 2 g IV piggyback every 8 hours as well as vancomycin with pharmacy to dose, he was seen in consultation by infectious disease, his CT scan of the brain at that time did not show any evidence of acute abnormalities, patient was transitioned into oral Augmentin 875 mg orally twice every day for 10 days, patient went tomorrow for physical therapy and rehabilitation while he was at moderate he developed to have a significant mental status changes he became quite unresponsive does not follow much commands, he was not eating or drinking much, these symptoms waxes and wane on and off, patient initially was sent back to the emergency department at [facility], he had a CT scan of the brain did not show evidence of acute abnormalities his laboratory evaluation were fine he did appear to have a bit of infiltrate of the right lower lobe, he was sent back home since his procalcitonin level was negative, his BNP was lower, white count were normal, patient went back tomorrow and he became more drowsy subtended does not follow any commands, the nursing staff has contacted me yesterday he was directed to go to the ER at [facility], he had a chest x-ray that showed possible right lower lobe pneumonia, CT scan of the brain did not show evidence of acute abnormalities, his troponin was slightly elevated suggestive of type II OR due to possible sepsis, he was seen in consultation by cardiology who recommended echocardiogram for evaluation of LV function, he was started back on his Augmentin I will discontinue that and start the patient on cefepime 2 g IV piggyback every 12 hours along with vancomycin pharmacy to dose will obtain infectious disease consultation, will obtain neurology consultation as well as for evaluation of his mental status changes will continue to follow-up with the patient 07/17: Patient is still confused better than yesterday, he is more awake today however he is not making sense, he denies any fever or chills, he continues to have pain in the left shoulder, he continues to have pain all over his body, tariq manjeet was seen earlier by cardiology as well as by neurology, MRI could not be done because of the AICD, he continues to be on IV antibiotic in the form of cefepime and vancomycin, consulted radiation oncology Dr. Welsh for further recommendation, if the blood cultures are positive we will arrange for a transesophageal echocardiogram discussed with Dr. Yeboah from cardiology 07/18: Patient is lying down in bed in no apparent distress, yesterday afternoon he became quite unresponsive and he did not respond to any verbal stimuli, he was responding to painful stimuli, today in the morning he was more awake and more alert, he sitting up in bed he does not seem to see much, he continues to be on vancomycin as well as cefepime, he will be seen in consultation by radiation oncology to get their opinion about radiation related encephalopathy, blood cultures so far are negative, if the blood cultures are positive patient will need to go for a transesophageal echocardiogram for evaluation of endo carditis, patient has been seen by multiple specialties including infectious disease, cardiology, along with neurology, patient did have his EEG today in the morning the results still pending at the time of dictation. 07/19: Patient is lying down in bed he continues to be quite confused he does not follow much commands, I will discontinue his Dilaudid, discontinue Xanax completely, continue IV antibiotic in the form of vancomycin and cefepime, has been followed by neurology, infectious disease, as well as cardiology, patient does not appear to have any positive blood cultures at this point in time. 07/20: Patient seems to be in more of a catatonic state. He is not consistently following commands. He will not verbalize any answers to questions. He has been continued on antibiotics per ID and also followed by neurology. Will add and as psychiatry consult today. This has been discussed with the patient's at the bedside. Vital signs been stable. Repeat blood work will be ordere d for tomorrow. 07/21: Patient continues to have significant mental status changes, he opens his eyes not responding not following directions well. He has not been eating or drinking. He is on IV fluids of 0.9 will switch to D5W 0.45. We are waiting for psychiatric evaluation. Blood pressure 110/53, heart rate 72, pulse ox 93% on 3 L nasal cannula. Neurology has ordered CT of the brain. 07/22: Patient is more responsive today, able to drink Ensure but not eating his meals. He is not taking his medications. He was seen by psychiatry yesterday with no additional recommendations. Repeat CT of the brain revealed chronic changes with no acute intracranial process. Unchanged significant sinus disease. Left mastoid opacification. Blood pressure 162/87, heart rate in the 70s and 80s, pulse ox 98% on 3 L nasal cannula. Telemetry is sinus rhythm. EEG reveals borderline abnormal EEG due to minimal background slowing suggestive of mild encephalopathy. No focal lateralized or epileptiform activity. Neurology has started the patient on IV Keppra 500 mg twice daily. Urine culture is showing only Megan. Patient has extra fluid today for which IV Lasix 1 dose will be given and IV fluids will be decreased to KVO. Patient started coughing with Ensure so speech therapy consult will be added as well as chest x-ray today. 07/23. Patient seen and examined. Patient is alert. Patient has poor appetite. Vital signs stable 07/24. Patient seen and examined. Currently sitting in the chair. According to nursing staff patient is much more alert and talkative compared to yesterday. States he has poor appetite but is drinking Ensure. 07/25. Patient seen and examined. Denies any acute events overnight. Blood work done this morning showed WBC 6.2, hemoglobin 9.6, platelet count 113, sodium 147, potassium 3.2, BUN 26, creatinine 1.36. Encourage oral hydration. Potassium placement ordered. 07/26. Patient examined. Patient lethargic, refusing medications this morning. 07/27/2023 Patient is seen in follow-up today with multiple medical consultations following including nephrology, infectious disease, and neurology. Patient is continued on cefepime and will continue until discharge. Patient will not require any further discharge antibiotics. Patient also continues with the wound behind the left ear being managed outpatient recommend to continue with local wound care. Sodium elevated although slightly improved and has transition to D5 and water and potassium was low and being replaced. Nephrology following underwent ultrasound of the kidneys showing no hydronephrosis and recommend follow-up labs in the a.m. Patient will be going to [facility] with case management following and has received insurance authorization. Will discuss with other consultations regarding discharge planning. Patient was started on Sinemet not showing any significant improvements and will need outpatient follow-up with neurology. Plan is for possible discharge in the next 24 hours to [facility] 07/28/2023 Patient is seen and evaluated in follow-up being followed by nephrology along with infectious disease and neurology. Patient continues to have confusion with concerns of some underlying process going on. Patient unable to get MRI as patient has pacemaker and neurology recommending LP and pain management was consulted and pending. Patient is maintained on D5 and water and will continue as sodium remains mildly elevated at 145. Potassium is low and will replace per protocol. Patient per nursing staff is refusing oral medications. Consider speech therapy consultation as patient is nonverbal and unable to communicate although is moaning at times appearing like he has pain. Cervical CT was also ordered and pending. Plan is for patient to go to [facility] once stabilized and discharged 07/29/2023 Patient is seen in follow-up today with multiple medical consultations following. Patient maintained off antibiotics. Neurology following recommend LP and repeat EEG although patient initially refused. Patient continues to be confused and not at baseline and has been refusing medications, has been nonverbal, and also not eating very much. Will reconsult speech as well for further evaluation. Patient is afebrile there is no reported chest pain or shortness of breath. Patient is moaning and grumbling when he appears to be in slight distress. Recommend repeat CT brain, patient is unable to have MRI of the brain 07/30/2023 Patient is lying in bed. Awake alert but not oriented. Requiring 3 L oxygen via nasal cannula. No diarrhea. No vomiting. Patient otherwise could not provide much history. Laboratory pressure sodium 139 potassium 4.1 chloride 106 bicarb is 24.9 BUN 20.1 creatinine 1.5 and magnesium 2.0 CSF total protein 77. Cultures negative so far. ID and neurology is on board. REVIEW OF SYSTEMS: Review of system cannot be obtained as patient is nonverbal PHYSICAL EXAMINATION: GENERAL: The patient is alert and oriented x1, awake, well-developed, elderly appearing. Chronically ill looking HEENT: Pupils are round and equally reacting to light. EOMI. No scleral icterus. No conjunctival pallor. Normocephalic, atraumatic. No pharyngeal erythema. No thyromegaly. CARDIOVASCULAR: S1 and S2 muffled PULMONARY: Diminished breath sounds bilaterally otherwise chest is clear to auscultation, no wheezing or crackles. ABDOMEN: Soft, nontender, nondistended, normoactive bowel sounds. No palpable organomegaly. MUSCULOSKELETAL: No joint swelling or deformity. EXTREMITIES: No cyanosis, clubbing, or pedal edema. NEUROLOGICAL: Gross neurological examination did not reveal any focal deficits. Diffusely weak, tremors noted SKIN: No rashes. Assessment: Metabolic encephalopathy likely due to sepsis due to gram-negative right lower l obe pneumonia and possible infected wound behind his left ear. Hypernatremia secondary to poor solute intake and decreased appetite Hypokalemia, being replaced Gram-negative pneumonia, likely community-acquired, has received adequate antibiotics and currently being monitored off antibiotic therapy Acute urinary retention requiring indwelling Soto catheter History of coronary artery disease with stenting Hypertension history History of hypothyroidism History of enlarged prostate with urinary retention History of COPD, mild exacerbation Moderate severe protein calorie malnutrition with a BMI of 26.5 History of ventricular tachycardia status post ICD implantation History of chronic kidney disease stage IIIb GI prophylaxis DVT prophylaxis Lovenox subcu Full code Plan: Patient is on dysphagia level 2 diet. Potassium remains slightly low and will replace per protocol. Patient has been refusing all oral medications will add IV Continue Tylenol IV for pain as patient is refusing all oral medications. Nephrology following underwent ultrasound of the kidneys showing no hydronephrosis Continue indwelling Soto catheter and Flomax. Attempted trial of voiding although patient continued to retain requiring replacement of indwelling Soto catheter. Neurology has evaluated the patient as well and following and was started on Sinemet although showing no significant improvements and will likely discontinue this medication. Patient continues to be confused and underwent LP which was negative other than mildly elevated protein and repeat CT brain ordered. Patient continued on antibiotics in the form of cefepime with infectious disease following and cefepime has been discontinued being monitored closely off antibiotic therapy Continue local wound care of the left behind the ear chronic wound Continue supplemental oxygen and wean FiO2 as tolerated Encouraged oral intake. Patient per nursing staff is refusing oral medications will consult speech for evaluation Case management following and has received insurance authorization with plans to go to [facility] Will follow-up on repeat labs to monitor kidney functions and electrolytes. Replace electrolytes per protocol Due to multiple complex medical issues, prognosis is guarded Objective - Vital Signs Vital signs: Vital Signs Temp 98.3 F 07/30/23 07:50 Pulse 78 07/30/23 11:59 Resp 19 07/30/23 07:50 BP 132/74 07/30/23 07:50 Pulse Ox 95 07/30/23 07:50 FiO2 Intake & Output 07/29/23 07/30/23 07/30/23 18:59 06:59 18:59 Intake Total 0 Output Total 950 450 Balance -950 -450 Intake: IV 0 Output: Urine 950 450 Other: Voiding Method Indwelling Catheter Indwelling Catheter Indwelling Catheter - Labs CBC & Chem 7: 07/27/23 05:28 07/30/23 06:00 Labs: Abnormal Lab Results - Last 24 Hours (Table) 07/29/23 07/30/23 Range/Units 08:58 06:00 Est GFR (CKD-EPI) 46 L (>=60) CSF Total Protein 77 H (12-60) mg/dL Microbiology - Last 24 Hours (Table) 07/29/23 08:58 CSF Gram Stain - Preliminary Cerebral Spinal Fluid
--- NOTE | 2023-08-01 02:02 | P.PN ---
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, patient was recently hospitalized at [facility] for what appears to be an infected wound due to his radiation therapy behind his ear, the culture at that time showed Staphylococcus aureus as well as Corynebacterium species he was started on cefepime 2 g IV piggyback every 8 hours as well as vancomycin with pharmacy to dose, he was seen in consultation by infectious disease, his CT scan of the brain at that time did not show any evidence of acute abnormalities, patient was transitioned into oral Augmentin 875 mg orally twice every day for 10 days, patient went tomorrow for physical therapy and rehabilitation while he was at moderate he developed to have a significant mental status changes he became quite unresponsive does not follow much commands, he was not eating or drinking much, these symptoms waxes and wane on and off, patient initially was sent back to the emergency department at [facility], he had a CT scan of the brain did not show evidence of acute abnormalities his laboratory evaluation were fine he did appear to have a bit of infiltrate of the right lower lobe, he was sent back home since his procalcitonin level was negative, his BNP was lower, white count were normal, patient went back tomorrow and he became more drowsy subtended does not follow any commands, the nursing staff has contacted me yesterday he was directed to go to the ER at [facility], he had a chest x-ray that showed possible right lower lobe pneumonia, CT scan of the brain did not show evidence of acute abnormalities, his troponin was slightly elevated suggestive of type II RI due to possible sepsis, he was seen in consultation by cardiology who recommended echocardiogram for evaluation of LV function, he was started back on his Augmentin I will discontinue that and start the patient on cefepime 2 g IV piggyback every 12 hours along with vancomycin pharmacy to dose will obtain infectious disease consultation, will obtain neurology consultation as well as for evaluation of his mental status changes will continue to follow-up with the patient 07/17: Patient is still confused better than yesterday, he is more awake today however he is not making sense, he denies any fever or chills, he continues to have pain in the left shoulder, he continues to have pain all over his body, tariq manjeet was seen earlier by cardiology as well as by neurology, MRI could not be done because of the AICD, he continues to be on IV antibiotic in the form of cefepime and vancomycin, consulted radiation oncology Dr. Welsh for further recommendation, if the blood cultures are positive we will arrange for a transesophageal echocardiogram discussed with Dr. Yeboah from cardiology 07/18: Patient is lying down in bed in no apparent distress, yesterday afternoon he became quite unresponsive and he did not respond to any verbal stimuli, he was responding to painful stimuli, today in the morning he was more awake and more alert, he sitting up in bed he does not seem to see much, he continues to be on vancomycin as well as cefepime, he will be seen in consultation by radiation oncology to get their opinion about radiation related encephalopathy, blood cultures so far are negative, if the blood cultures are positive patient will need to go for a transesophageal echocardiogram for evaluation of endo carditis, patient has been seen by multiple specialties including infectious disease, cardiology, along with neurology, patient did have his EEG today in the morning the results still pending at the time of dictation. 07/19: Patient is lying down in bed he continues to be quite confused he does not follow much commands, I will discontinue his Dilaudid, discontinue Xanax completely, continue IV antibiotic in the form of vancomycin and cefepime, has been followed by neurology, infectious disease, as well as cardiology, patient does not appear to have any positive blood cultures at this point in time. 07/20: Patient seems to be in more of a catatonic state. He is not consistently following commands. He will not verbalize any answers to questions. He has been continued on antibiotics per ID and also followed by neurology. Will add and as psychiatry consult today. This has been discussed with the patient's at the bedside. Vital signs been stable. Repeat blood work will be ordere d for tomorrow. 07/21: Patient continues to have significant mental status changes, he opens his eyes not responding not following directions well. He has not been eating or drinking. He is on IV fluids of 0.9 will switch to D5W 0.45. We are waiting for psychiatric evaluation. Blood pressure 110/53, heart rate 72, pulse ox 93% on 3 L nasal cannula. Neurology has ordered CT of the brain. 07/22: Patient is more responsive today, able to drink Ensure but not eating his meals. He is not taking his medications. He was seen by psychiatry yesterday with no additional recommendations. Repeat CT of the brain revealed chronic changes with no acute intracranial process. Unchanged significant sinus disease. Left mastoid opacification. Blood pressure 162/87, heart rate in the 70s and 80s, pulse ox 98% on 3 L nasal cannula. Telemetry is sinus rhythm. EEG reveals borderline abnormal EEG due to minimal background slowing suggestive of mild encephalopathy. No focal lateralized or epileptiform activity. Neurology has started the patient on IV Keppra 500 mg twice daily. Urine culture is showing only Megan. Patient has extra fluid today for which IV Lasix 1 dose will be given and IV fluids will be decreased to KVO. Patient started coughing with Ensure so speech therapy consult will be added as well as chest x-ray today. 07/23. Patient seen and examined. Patient is alert. Patient has poor appetite. Vital signs stable 07/24. Patient seen and examined. Currently sitting in the chair. According to nursing staff patient is much more alert and talkative compared to yesterday. States he has poor appetite but is drinking Ensure. 07/25. Patient seen and examined. Denies any acute events overnight. Blood work done this morning showed WBC 6.2, hemoglobin 9.6, platelet count 113, sodium 147, potassium 3.2, BUN 26, creatinine 1.36. Encourage oral hydration. Potassium placement ordered. 07/26. Patient examined. Patient lethargic, refusing medications this morning. 07/27/2023 Patient is seen in follow-up today with multiple medical consultations following including nephrology, infectious disease, and neurology. Patient is continued on cefepime and will continue until discharge. Patient will not require any further discharge antibiotics. Patient also continues with the wound behind the left ear being managed outpatient recommend to continue with local wound care. Sodium elevated although slightly improved and has transition to D5 and water and potassium was low and being replaced. Nephrology following underwent ultrasound of the kidneys showing no hydronephrosis and recommend follow-up labs in the a.m. Patient will be going to [facility] with case management following and has received insurance authorization. Will discuss with other consultations regarding discharge planning. Patient was started on Sinemet not showing any significant improvements and will need outpatient follow-up with neurology. Plan is for possible discharge in the next 24 hours to [facility] 07/28/2023 Patient is seen and evaluated in follow-up being followed by nephrology along with infectious disease and neurology. Patient continues to have confusion with concerns of some underlying process going on. Patient unable to get MRI as patient has pacemaker and neurology recommending LP and pain management was consulted and pending. Patient is maintained on D5 and water and will continue as sodium remains mildly elevated at 145. Potassium is low and will replace per protocol. Patient per nursing staff is refusing oral medications. Consider speech therapy consultation as patient is nonverbal and unable to communicate although is moaning at times appearing like he has pain. Cervical CT was also ordered and pending. Plan is for patient to go to [facility] once stabilized and discharged 07/29/2023 Patient is seen in follow-up today with multiple medical consultations following. Patient maintained off antibiotics. Neurology following recommend LP and repeat EEG although patient initially refused. Patient continues to be confused and not at baseline and has been refusing medications, has been nonverbal, and also not eating very much. Will reconsult speech as well for further evaluation. Patient is afebrile there is no reported chest pain or shortness of breath. Patient is moaning and grumbling when he appears to be in slight distress. Recommend repeat CT brain, patient is unable to have MRI of the brain 07/30/2023 Patient is lying in bed. Awake alert but not oriented. Requiring 3 L oxygen via nasal cannula. No diarrhea. No vomiting. Patient otherwise could not provide much history. Laboratory pressure sodium 139 potassium 4.1 chloride 106 bicarb is 24.9 BUN 20.1 creatinine 1.5 and magnesium 2.0 CSF total protein 77. Cultures negative so far. ID and neurology is on board. 07/31/2023 Patient's mentation remains the same. Patient has been afebrile. Able to tolerate oral diet slowly. CT head showed no acute intracranial abnormality. Moderate confluent burden of chronic small ischemic disease. 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 Recommend ENT referral. Ongoing opacification left mastoid process and middle ear cavity. Correlate for left-sided otomastoiditis. Patient is being monitored off antibiotics currently. REVIEW OF SYSTEMS: Review of system cannot be obtained as patient is nonverbal PHYSICAL EXAMINATION: GENERAL: The patient is alert and oriented x1, awake, well-developed, elderly appearing. Chronically ill looking HEENT: Pupils are round and equally reacting to light. EOMI. No scleral icterus. No conjunctival pallor. Normocephalic, atraumatic. No pharyngeal erythema. No thyromegaly. CARDIOVASCULAR: S1 and S2 muffled PULMONARY: Diminished breath sounds bilaterally otherwise chest is clear to auscultation, no wheezing or crackles. ABDOMEN: Soft, nontender, nondistended, normoactive bowel sounds. No palpable organomegaly. MUSCULOSKELETAL: No joint swelling or deformity. EXTREMITIES: No cyanosis, clubbing, or pedal edema. NEUROLOGICAL: Gross neurological examination did not reveal any focal deficits. Diffusely weak, tremors noted SKIN: No rashes. Assessment: Metabolic encephalopathy likely due to sepsis due to gram-negative right lower lobe pneumonia and possible infected wound behind his left ear. And also left- sided otomastoiditis Hypernatremia secondary to poor solute intake and decreased appetite Hypokalemia, being replaced Gram-negative pneumonia, likely community-acquired, has received adequate antibiotics and currently being monitored off antibiotic therapy Acute urinary retention requiring indwelling Soto catheter History of coronary artery disease with stenting Hypertension history History of hypothyroidism History of enlarged prostate with urinary retention History of COPD, mild exacerbation Moderate severe protein calorie malnutrition with a BMI of 26.5 History of ventricular tachycardia status post ICD implantation History of chronic kidney disease stage IIIb GI prophylaxis DVT prophylaxis Lovenox subcu Full code Plan: Patient is on dysphagia level 2 diet. Potassium remains slightly low and will replace per protocol. Patient has been refusing all oral medications will add IV Continue Tylenol IV for pain as patient is refusing all oral medications. Nephrology following underwent ultrasound of the kidneys showing no hydronephrosis Continue indwelling Soto catheter and Flomax. Attempted trial of voiding although patient continued to retain requiring replacement of indwelling Soto catheter. Neurology has evaluated the patient as well and following and was started on Sinemet although showing no significant improvements and will likely discontinue this medication. Patient continues to be confused and underwent LP which was negative other than mildly elevated protein and repeat CT brain ordered. Patient continued on antibiotics in the form of cefepime with infectious disease following and cefepime has been discontinued being monitored closely off antibiotic therapy Continue local wound care of the left behind the ear chronic wound Continue supplemental oxygen and wean FiO2 as tolerated Encouraged oral intake. Patient per nursing staff is refusing oral medications will consult speech for evaluation Case management following and has received insurance authorization with plans to go to [facility] Will follow-up on repeat labs to monitor kidney functions and electrolytes. Replace electrolytes per protocol Due to multiple complex medical issues, prognosis is guarded Objective - Vital Signs Vital signs: Vital Signs Temp 98.4 F 07/31/23 06:49 Pulse 68 07/31/23 12:13 Resp 16 07/31/23 12:13 BP 124/57 07/31/23 06:49 Pulse Ox 96 07/31/23 09:32 FiO2 Intake & Output 07/30/23 07/31/23 07/31/23 18:59 06:59 18:59 Intake Total 650 Output Total 650 Balance -650 650 Intake: Oral 650 Output: Urine 650 Other: Voiding Method Indwelling Catheter Indwelling Catheter Indwelling Catheter # Voids 3 # Bowel Movements 1 - Labs CBC & Chem 7: 07/27/23 05:28 07/30/23 06:00 Labs: Microbiology - Last 24 Hours (Table) 07/29/23 08:58 CSF Gram Stain - Preliminary Cerebral Spinal Fluid CSF Culture - Preliminary
[2023-08-01] MEDS: IPRATROPIUM-ALBUTEROL 3 ML NEB INHALATION PRN (05:25)
--- NOTE | 2023-08-01 12:10 | P.PN ---
Subjective Patient is seen for follow-up for hypernatremia and chronic kidney disease. Status post D5W Sodium is 139 on 07/30/2023. Creatinine at 1.5 mg/dL. No significant complaints today. Patient has been refusing meds and has poor oral intake. Objective - Vital Signs Vital signs: Vital Signs Temp 99.0 F 08/01/23 07:37 Pulse 83 08/01/23 09:45 Resp 19 08/01/23 09:45 BP 151/69 08/01/23 07:37 Pulse Ox 98 08/01/23 09:21 FiO2 Intake & Output 07/31/23 08/01/23 08/01/23 18:59 06:59 18:59 Intake Total 220 Output Total 990 200 Balance -990 20 Intake: Oral 220 Output: Urine 990 200 Other: Voiding Method Indwelling Catheter Indwelling Catheter Indwelling Catheter # Bowel Movements 2 - Exam Patient is awake, comfortable, no acute distress Does not communicate much Examination of the heart S1 and S2 Examination of the lungs bilateral breath sounds are heard Abdomen is soft nontender Examination of lower extremities shows no significant edema - Labs CBC & Chem 7: 07/27/23 05:28 07/30/23 06:00 Labs: Microbiology - Last 24 Hours (Table) 07/29/23 08:58 CSF Gram Stain - Preliminary Cerebral Spinal Fluid CSF Culture - Preliminary Assessment and Plan Assessment: 1. Chronic kidney disease stage IIIa with baseline creatinine 1.3-1.5. Suspect nephrosclerosis. 1+ proteinuria on UA done July 12, 2023 and 2+ July 15, 2023. This will be repeated again and worked up outpatient. 2. Hypernatremia from lack of oral water intake. Improved with D5W. 3. Hypokalemia from poor intake. Replaced. Magnesium normal. 4. Chronic systolic CHF status post AICD placement. Ejection fraction 45% with mild pulmonary hypertension, mild mitral and tricuspid regurgitation. 5. Squamous cell carcinoma behind the left ear status post radiation with s ubsequent wound/infection. 6. Hypertension with chronic kidney disease. 7. Acute kidney injury secondary to vasomotor nephropathy from hypovolemia. Creatinine peaked at 1.6 this admission and is 1.5 yesterday. No hydronephrosis noted on kidney ultrasound. Left kidney atrophic. 8. Urinary retention. Failed trial of void. Soto catheter reinserted. On Flomax. 9. Altered mental status. Concern for infection. Underwent LP this morning. Infectious disease following. On IV antibiotics. Plan: Check labs today
[2023-08-01 13:23] LABS: African American GFR (CKD) 43 (>60 ml/min/1.73 sqM); Anion Gap 11 mmol/L; Blood Urea Nitrogen 27 mg/dL (9-20); Calcium 8.8 mg/dL (8.4-10.2); Carbon Dioxide 18 mmol/L (22-30); Chloride 108 mmol/L (98-107); Non-African American GFR(CKD) 37 (>60 ml/min/1.73 sqM); Potassium 4.2 mmol/L (3.5-5.1); Sodium 137 mmol/L (137-145)
[2023-08-01 14:04] LABS: Glucose 49 mg/dL (74-99)
[2023-08-01 14:19] LABS: Glucose,Whole Blood 56 mg/dL (70-110)
[2023-08-01] MEDS: DEXTROSE 5%-0.9% NACL 1,000 ML IV SCH (14:54)
[2023-08-01 15:29] LABS: Glucose,Whole Blood 71 mg/dL (70-110)
[2023-08-02 02:08] LABS: Glucose,Whole Blood 100 mg/dL (70-110)
[2023-08-02 11:57] LABS: VDRL, Qualitative CSF Nonreactive (Nonreactive)
--- NOTE | 2023-08-02 13:22 | P.PN ---
Subjective Patient is seen for follow-up for hypernatremia and chronic kidney disease. Status post D5W Sodium 137 today. Serum creatinine slightly higher at 1.6. No significant complaints today. Patient has an indwelling Soto catheter with 24 hour urine output documented at 1190 mL Patient has been refusing meds and has poor oral intake. Objective - Vital Signs Vital signs: Vital Signs Temp 97.8 F 08/02/23 07:20 Pulse 84 08/02/23 13:03 Resp 18 08/02/23 07:20 BP 189/76 08/02/23 07:20 Pulse Ox 97 08/02/23 07:20 FiO2 Intake & Output 08/01/23 08/02/23 08/02/23 18:59 06:59 18:59 Output Total 575 400 Balance -575 -400 Output: Urine 575 400 Other: Voiding Method Indwelling Catheter Indwelling Catheter Indwelling Catheter - Exam Patient is awake, comfortable, no acute distress Does not communicate much Examination of the heart S1 and S2 Examination of the lungs bilateral breath sounds are heard Abdomen is soft nontender Examination of lower extremities shows trace edema - Labs CBC & Chem 7: 07/27/23 05:28 08/01/23 12:50 Labs: Abnormal Lab Results - Last 24 Hours (Table) 08/01/23 08/01/23 Range/Units 12:50 14:18 Chloride 108 H (98-107) mmol/L Carbon Dioxide 18 L (22-30) mmol/L BUN 27 H (9-20) mg/dL Creatinine 1.69 H (0.66-1.25) mg/dL Glucose 49 L* (74-99) mg/dL POC Glucose (mg/dL) 56 L (70-110) mg/dL Microbiology - Last 24 Hours (Table) 07/29/23 08:58 CSF Gram Stain - Preliminary Cerebral Spinal Fluid CSF Culture - Preliminary Assessment and Plan Assessment: 1. Chronic kidney disease stage IIIa with baseline creatinine 1.3-1.5. Suspect nephrosclerosis. 1+ proteinuria on UA done July 12, 2023 and 2+ July 15, 2023. This will be repeated again and worked up outpatient. 2. Hypernatremia from lack of oral water intake. Improved with D5W. 3. Hypokalemia from poor intake. Replaced. Magnesium normal. 4. Chronic systolic CHF status post AICD placement. Ejection fraction 45% with mild pulmonary hypertension, mild mitral and tricuspid regurgitation. 5. 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 6. Hypertension with chronic kidney disease. 7. Acute kidney injury secondary to vasomotor nephropathy from hypovolemia. Creatinine peaked at 1.6 this admission and is 1.5 yesterday. No hydronephrosis noted on kidney ultrasound. Left kidney atrophic. 8. Urinary retention. Failed trial of void. Soto catheter reinserted. On Flomax. 9. Altered mental status. Concern for infection. Underwent LP this morning. Infectious disease following. On IV antibiotics. Plan: Repeat labs in a.m. Dear to encourage increased oral intake. May need to restart IV fluids based on labs in a.m.
--- NOTE | 2023-08-03 13:37 | P.PN ---
Subjective Patient is seen for follow-up for hypernatremia and chronic kidney disease. Status post D5W Sodium 137 on 08/01/2023. Serum creatinine slightly higher at 1.6. No significant complaints today. Patient has an indwelling Soto catheter with 24 hour urine output documented at 1400 mL Patient has been refusing meds and has poor oral intake. Objective - Vital Signs Vital signs: Vital Signs Temp 98.0 F 08/03/23 07:45 Pulse 72 08/03/23 11:54 Resp 18 08/03/23 07:45 BP 143/62 08/03/23 07:45 Pulse Ox 99 08/03/23 07:45 FiO2 Intake & Output 08/02/23 08/03/23 08/03/23 18:59 06:59 18:59 Output Total 1000 400 Balance -1000 -400 Weight 83.915 kg Output: Urine 1000 400 Other: Voiding Method Indwelling Catheter Indwelling Catheter Indwelling Catheter - Exam Patient is awake, comfortable, no acute distress Does not communicate much Examination of the heart S1 and S2 Examination of the lungs bilateral breath sounds are heard Abdomen is soft nontender Examination of lower extremities shows trace edema - Labs CBC & Chem 7: 07/27/23 05:28 08/01/23 12:50 Labs: Microbiology - Last 24 Hours (Table) 07/29/23 08:58 CSF Gram Stain - Final Cerebral Spinal Fluid CSF Culture - Final Assessment and Plan Assessment: 1. Chronic kidney disease stage IIIa with baseline creatinine 1.3-1.5. Suspect nephrosclerosis. 1+ proteinuria on UA done July 12, 2023 and 2+ July 15, 2023. This will be repeated again and worked up outpatient. 2. Hypernatremia from lack of oral water intake. Improved with D5W. 3. Hypokalemia from poor intake. Replaced. Magnesium normal. 4. Chronic systolic CHF status post AICD placement. Ejection fraction 45% with mild pulmonary hypertension, mild mitral and tricuspid regurgitation. 5. 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 6. Hypertension with chronic kidney disease. 7. Acute kidney injury secondary to vasomotor nephropathy from hypovolemia. Creatinine peaked at 1.6 this admission and is 1.5 yesterday. No hydronephrosis noted on kidney ultrasound. Left kidney atrophic. 8. Urinary retention. Failed trial of void. Soto catheter reinserted. On Flomax. 9. Altered mental status. Concern for infection. Underwent LP this morning. Infectious disease following. On IV antibiotics. Plan: Repeat labs Continue to encourage increased oral intake.
[2023-08-03 15:48] LABS: African American GFR (CKD) 52 (>60 ml/min/1.73 sqM); Anion Gap 2 mmol/L; Blood Urea Nitrogen 18 mg/dL (9-20); Calcium 8.8 mg/dL (8.4-10.2); Carbon Dioxide 28 mmol/L (22-30); Chloride 112 mmol/L (98-107); Glucose 106 mg/dL (74-99); Non-African American GFR(CKD) 45 (>60 ml/min/1.73 sqM); Potassium 3.5 mmol/L (3.5-5.1); Sodium 142 mmol/L (137-145)
--- NOTE | 2023-08-03 18:40 | P.PN ---
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, patient was recently hospitalized at [facility] for what appears to be an infected wound due to his radiation therapy behind his ear, the culture at that time showed Staphylococcus aureus as well as Corynebacterium species he was started on cefepime 2 g IV piggyback every 8 hours as well as vancomycin with pharmacy to dose, he was seen in consultation by infectious disease, his CT scan of the brain at that time did not show any evidence of acute abnormalities, patient was transitioned into oral Augmentin 875 mg orally twice every day for 10 days, patient went tomorrow for physical therapy and rehabilitation while he was at moderate he developed to have a significant mental status changes he became quite unresponsive does not follow much commands, he was not eating or drinking much, these symptoms waxes and wane on and off, patient initially was sent back to the emergency department at [facility], he had a CT scan of the brain did not show evidence of acute abnormalities his laboratory evaluation were fine he did appear to have a bit of infiltrate of the right lower lobe, he was sent back home since his procalcitonin level was negative, his BNP was lower, white count were normal, patient went back tomorrow and he became more drowsy subtended does not follow any commands, the nursing staff has contacted me yesterday he was directed to go to the ER at [facility], he had a chest x-ray that showed possible right lower lobe pneumonia, CT scan of the brain did not show evidence of acute abnormalities, his troponin was slightly elevated suggestive of type II TN due to possible sepsis, he was seen in consultation by cardiology who recommended echocardiogram for evaluation of LV function, he was started back on his Augmentin I will discontinue that and start the patient on cefepime 2 g IV piggyback every 12 hours along with vanc omycin pharmacy to dose will obtain infectious disease consultation, will obtain neurology consultation as well as for evaluation of his mental status changes will continue to follow-up with the patient 07/17: Patient is still confused better than yesterday, he is more awake today however he is not making sense, he denies any fever or chills, he continues to have pain in the left shoulder, he continues to have pain all over his body, patient was seen earlier by cardiology as well as by neurology, MRI could not be done because of the AICD, he continues to be on IV antibiotic in the form of cefepime and vancomycin, consulted radiation oncology Dr. Welsh for further recommendation, if the blood cultures are positive we will arrange for a transesophageal echocardiogram discussed with Dr. Yeboah from cardiology 07/18: Patient is lying down in bed in no apparent distress, yesterday afternoon he became quite unresponsive and he did not respond to any verbal stimuli, he was responding to painful stimuli, today in the morning he was more awake and more alert, he sitting up in bed he does not seem to see much, he continues to be on vancomycin as well as cefepime, he will be seen in consultation by radiation oncology to get their opinion about radiation related encephalopathy, blood cultures so far are negative, if the blood cultures are positive patient will need to go for a transesophageal echocardiogram for evaluation of endocarditis, patient has been seen by multiple specialties including infectious disease, cardiology, along with neurology, patient did have his EEG today in the morning the results still pending at the time of dictation. 07/19: Patient is lying down in bed he continues to be quite confused he does not follow much commands, I will discontinue his Dilaudid, discontinue Xanax completely, continue IV antibiotic in the form of vancomycin and cefepime, has been followed by neurology, infectious disease, as well as cardiology, patient does not appear to have any positive blood cultures at this point in time. 07/31: Patient is lying down in bed appears a bit better since the last time he was seen by myself, he continues to have significant metabolic encephalopathy, however he is more verbal than he was before I saw him about a week ago, he recognizes me, he is eating better than he was before, he continues to be on dysphagia diet, he continues to have issues with urinary retention, his Soto catheter is back in, he has been started on tamsulosin 0.4 mg orally once every day due to enlarged prostate, we will monitor the patient very closely, patient had a multiple CT scan of the brain that showed evidence of chronic small vessel disease, with significant pansinusitis as well as opacification of the left mastoid suggestive of mastoiditis, but the patient did receive prolonged IV antibiotic therapy in the form of cefepime per ID recommendations, patient is currently off antibiotic at this time, his wound behind his ear appears to be a lot better continues to be somewhat tender, this is residual from his prior squamous cell cancer behind the ear postradiation therapy, I believe the patient is improving finally and he reached the turning point, hopefully he will be able to get back into subacute rehabilitation so he can get back on his feet again, he has been in the hospital for quite some time, and he is getting significant myopathy in both lower extremities. REVIEW OF SYSTEMS: Constitutional: low grade fever, no chills, no night sweats. No weight change. positive for weakness,positive for fatigue and lethargy. positive for daytime sleepiness. EENT: No headache. No blurred vision or double vision, no loss of vision. No loss of Hearing, no ringing in the ears, no dizziness. No nasal drainage or congestion. No epistaxis. No sore throat. Lungs: No shortness of breath, no cough, no sputum production. No wheezing. Reports dyspnea with activity. Cardiovascular: No chest pain, no lower extremity edema. No palpitations. No paroxysmal nocturnal dyspnea. No orthopnea. No lightheadedness or dizziness. No syncopal episodes. Abdominal: Reports abdominal pain. No nausea, vomiting. No diarrhea. No constipation. No bloody or tarry stools reports loss of appetite. Genitourinary: No dysuria, increased frequency, urgency. No urinary retention. Musculoskeletal: No myalgias. positive for muscle weakness, no gait dysfunction, positive for frequent falls. No back pain. No neck pain. Integumentary: wound behind left ear post radiation for SCC, no lesions. No rash or pruritus. No unusual bruising. No change in hair or nails. Neurologic: No aphasia. No facial droop. positive for change in mentation. No head injury. No headache. No paralysis. No paresthesia. Psychiatric: positive for depression. positive for anxiety. No mood swings.positive for paranoia Endocrine: No abnormal blood sugars. No weight change. PHYSICAL EXAMINATION: General: 83-year-old male laying down in bed appears to be quite confused nonverbal. HEENT: Head is atraumatic, normocephalic, pupils were equal round reactive to light and recommendation, extraocular muscle movement were intact, sclera nonicteric, conjunctivae were pale, mucous membranes of the mouth are somewhat dry, the large wound behind the left ear with a clean base minimal drainage Neck: Supple, no JVP, normal carotid upstroke bilaterally, no lymphadenopathy. Chest: Decreased breath sounds at the bases, few rhonchi, no expiratory wheezes, no chest wall tenderness, no intercostal retractions. Heart: First heart sound is normal, second heart sound is normal there is systolic ejection murmur 2/6 located in the left sternal border, there is AICD in the left upper precordium slightly tender to touch Abdomen: Soft, nontender, nondistended, positive bowel sounds. Extremities: There is +1 edema no calf tenderness DP +2 bilaterally. Neurologic examination: Patient is confused opens his eyes in response to verbal stimuli, nonverbal, follows some commands not all the commands, moves all his extremities respond to the questions very well. ASSESSMENT AND PLAN: 1. Metabolic encephalopathy likely due to sepsis due to gram-negative right lower lobe pneumonia and possible infected wound behind his left ear as well as left mastoiditis. Patient did receive prolonged course of IV antibiotic in the form of cefepime currently is off of it. Has been seen in consultation by infectious disease who recommended to discontinue IV antibiotic at this time. 2. Possible gram-negative pneumonia. Patient did receive 2 weeks with IV antibiotic the form of cefepime. 3. Acute urinary retention. Status post Soto catheterization continue Flomax 0.4 mg once every day, keep Soto catheter in for now, urine does not appear to be infected. 4. Type II TN likely related to sepsis. Echocardiogram ejection fraction of 45%, cardiology is following, continue patient on carvedilol 12.5 mg orally twice a , continue Lipitor 20 mg once every day, continue aspirin 81 mg once every day. 5. History of coronary artery disease with three-vessel disease status post PCI under the care of cardiology Dr. Veras on a regular basis. Continue aspirin, carvedilol 12.5 mg orally twice a and Lipitor consult cardiology. 6. Hypertension and hypertensive cardiovascular disease. Continue patient on carvedilol 12.5 mg orally twice a day, continue hydralazine 50 mg orally 3 times every day, continue isosorbide mononitrate 60 mg orally twice every day. 7. Hypothyroidism. Continue Synthroid 112 mcg orally once every day, 8. Enlarged prostate with urinary retention. Continue patient on Flomax 0.4 mg once every day. 9. Moderate COPD. Continue oxygen 2 L nasal cannula, continue DuoNeb 3 mL nebulization 4 times every day, continue Theodur 300 mg once at bedtime, 10.Ventricular tachycardia status post ICD implantation continue amiodarone 100 mg orally once every day. 11. Chronic kidney disease stage IIIb. Avoid nephrotoxins, monitor the patient 's CMP 12. DVT prophylaxis. Continue patient on Lovenox 30 mg subcutaneously every 24 hours. 13. GI prophylaxis. Protonix 40 mg once every day. 14. PT OT evaluation. 15. warp worker consultation. 16. Guarded prognosis 17. Likely will be back tomorrow within the next few days for physical therapy and rehabilitation. Objective - Vital Signs Vital signs: Vital Signs Temp 99.0 F 08/01/23 07:37 Pulse 82 08/01/23 09:32 Resp 19 08/01/23 07:37 BP 151/69 08/01/23 07:37 Pulse Ox 98 08/01/23 09:21 FiO2 Intake & Output 07/31/23 08/01/23 08/01/23 18:59 06:59 18:59 Intake Total 220 Output Total 990 200 Balance -990 20 Intake: Oral 220 Output: Urine 990 200 Other: Voiding Method Indwelling Catheter Indwelling Catheter # Bowel Movements 2 - Labs CBC & Chem 7: 07/27/23 05:28 08/03/23 14:43 Labs: Microbiology - Last 24 Hours (Table) 07/29/23 08:58 CSF Gram Stain - Preliminary Cerebral Spinal Fluid CSF Culture - Preliminary
--- NOTE | 2023-08-03 18:44 | P.PN ---
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, patient was recently hospitalized at [facility] for what appears to be an infected wound due to his radiation therapy behind his ear, the culture at that time showed Staphylococcus aureus as well as Corynebacterium species he was started on cefepime 2 g IV piggyback every 8 hours as well as vancomycin with pharmacy to dose, he was seen in consultation by infectious disease, his CT scan of the brain at that time did not show any evidence of acute abnormalities, patient was transitioned into oral Augmentin 875 mg orally twice every day for 10 days, patient went tomorrow for physical therapy and rehabilitation while he was at moderate he developed to have a significant mental status changes he became quite unresponsive does not follow much commands, he was not eating or drinking much, these symptoms waxes and wane on and off, patient initially was sent back to the emergency department at [facility], he had a CT scan of the brain did not show evidence of acute abnormalities his laboratory evaluation were fine he did appear to have a bit of infiltrate of the right lower lobe, he was sent back home since his procalcitonin level was negative, his BNP was lower, white count were normal, patient went back tomorrow and he became more drowsy subtended does not follow any commands, the nursing staff has contacted me yesterday he was directed to go to the ER at [facility], he had a chest x-ray that showed possible right lower lobe pneumonia, CT scan of the brain did not show evidence of acute abnormalities, his troponin was slightly elevated suggestive of type II CA due to possible sepsis, he was seen in consultation by cardiology who recommended echocardiogram for evaluation of LV function, he was started back on his Augmentin I will discontinue that and start the patient on cefepime 2 g IV piggyback every 12 hours along with vanc omycin pharmacy to dose will obtain infectious disease consultation, will obtain neurology consultation as well as for evaluation of his mental status changes will continue to follow-up with the patient 07/17: Patient is still confused better than yesterday, he is more awake today however he is not making sense, he denies any fever or chills, he continues to have pain in the left shoulder, he continues to have pain all over his body, patient was seen earlier by cardiology as well as by neurology, MRI could not be done because of the AICD, he continues to be on IV antibiotic in the form of cefepime and vancomycin, consulted radiation oncology Dr. Welsh for further recommendation, if the blood cultures are positive we will arrange for a transesophageal echocardiogram discussed with Dr. Yeboah from cardiology 07/18: Patient is lying down in bed in no apparent distress, yesterday afternoon he became quite unresponsive and he did not respond to any verbal stimuli, he was responding to painful stimuli, today in the morning he was more awake and more alert, he sitting up in bed he does not seem to see much, he continues to be on vancomycin as well as cefepime, he will be seen in consultation by radiation oncology to get their opinion about radiation related encephalopathy, blood cultures so far are negative, if the blood cultures are positive patient will need to go for a transesophageal echocardiogram for evaluation of endocarditis, patient has been seen by multiple specialties including infectious disease, cardiology, along with neurology, patient did have his EEG today in the morning the results still pending at the time of dictation. 07/19: Patient is lying down in bed he continues to be quite confused he does not follow much commands, I will discontinue his Dilaudid, discontinue Xanax completely, continue IV antibiotic in the form of vancomycin and cefepime, has been followed by neurology, infectious disease, as well as cardiology, patient does not appear to have any positive blood cultures at this point in time. 07/31: Patient is lying down in bed appears a bit better since the last time he was seen by myself, he continues to have significant metabolic encephalopathy, however he is more verbal than he was before I saw him about a week ago, he recognizes me, he is eating better than he was before, he continues to be on dysphagia diet, he continues to have issues with urinary retention, his Soto catheter is back in, he has been started on tamsulosin 0.4 mg orally once every day due to enlarged prostate, we will monitor the patient very closely, patient had a multiple CT scan of the brain that showed evidence of chronic small vessel disease, with significant pansinusitis as well as opacification of the left mastoid suggestive of mastoiditis, but the patient did receive prolonged IV antibiotic therapy in the form of cefepime per ID recommendations, patient is currently off antibiotic at this time, his wound behind his ear appears to be a lot better continues to be somewhat tender, this is residual from his prior squamous cell cancer behind the ear postradiation therapy, I believe the patient is improving finally and he reached the turning point, hopefully he will be able to get back into subacute rehabilitation so he can get back on his feet again, he has been in the hospital for quite some time, and he is getting significant myopathy in both lower extremities. 08/01: Patient is more awake today and more alert, he recognizes me very well today, he was eating with the help of the 8, he denies any chest pain at this time, he continues to have some tenderness behind his left ear, he denies any headache at this time he has no fever or chills at this point he has no abdominal pain, he has bowel movement, he has no diarrhea he has no hematoche hermilo, he does have a Soto catheter in place due to urinary retention, he has been maintained on Flomax, he has been taking his medication again, he has been eating more than he was yesterday, physical therapy continues to work with the patient, social media intern is on the case, patient will likely need to be transferred back to subacute rehabilitation due to significant myopathy in both lower extremities due to the fact that he has been bedridden for quite some time. 08/02: Patient is more talkative today, his is at the bedside, he has recalled every body including his his cat's family he has episodes of confusion not as bad as it was yesterday, he is eating his food, he is drinking the protein drink, he has no chest pain, he denies any fever he denies any chills he denies any headache he has no abdominal pain, he does appear to be generally weak, he wanted to get out of the hospital, he continues to have the Soto catheter in place, we will try a voiding trial again tomorrow morning, we will try to replace the catheter if the postvoid is greater than 300 mL, I will follow-up with the patient very closely, we will send for prior authorization for the patient to go to subacute rehabilitation as the patient has suffered from significant myopathy due to prolonged hospital stay. REVIEW OF SYSTEMS: Constitutional: low grade fever, no chills, no night sweats. Positive for fred ght change. positive for weakness,positive for fatigue and lethargy. positive for daytime sleepiness. EENT: No headache. No blurred vision or double vision, no loss of vision. No loss of Hearing, no ringing in the ears, no dizziness. No nasal drainage or congestion. No epistaxis. No sore throat. Lungs: No shortness of breath, occasional cough, no sputum production. No wheezing. Reports dyspnea with activity. Cardiovascular: No chest pain, no lower extremity edema. No palpitations. No paroxysmal nocturnal dyspnea. No orthopnea. No lightheadedness or dizziness. No syncopal episodes. Abdominal: Reports abdominal pain. No nausea, vomiting. No diarrhea. No constipation. No bloody or tarry stools reports loss of appetite. Genitourinary: No dysuria, increased frequency, urgency. Positive for urinary retention. Musculoskeletal: No myalgias. positive for muscle weakness, positive for gait dysfunction, positive for frequent falls. No back pain. No neck pain. Integumentary: wound behind left ear post radiation for SCC, no lesions. No rash or pruritus. No unusual bruising. No change in hair or nails. Neurologic: No aphasia. No facial droop. positive for change in mentation improving. No head injury. No headache. No paralysis. No paresthesia. Psychiatric: positive for depression. positive for anxiety. No mood swings.positive for paranoia Endocrine: No abnormal blood sugars. No weight change. PHYSICAL EXAMINATION: General: 83-year-old male laying down in bed appears to back to his baseline. HEENT: Head is atraumatic, normocephalic, pupils were equal round reactive to light and recommendation, extraocular muscle movement were intact, sclera no nicteric, conjunctivae were pale, mucous membranes of the mouth are somewhat dry, the large wound behind the left ear with a clean base minimal drainage Neck: Supple, no JVP, normal carotid upstroke bilaterally, no lymphadenopathy. Chest: Decreased breath sounds at the bases, few rhonchi, no expiratory wheezes, no chest wall tenderness, no intercostal retractions. Heart: First heart sound is normal, second heart sound is normal there is systolic ejection murmur 2/6 located in the left sternal border, there is AICD in the left upper precordium slightly tender to touch Abdomen: Soft, nontender, nondistended, positive bowel sounds. Extremities: There is +1 edema no calf tenderness DP +2 bilaterally. Neurologic examination: Patient is awake alert and oriented x 3, cranial nerves III to XII appear grossly intact, muscle power 3 out of 5 in upper extremities and 2 out of 5 in bilateral lower extremities. ASSESSMENT AND PLAN: 1. Metabolic encephalopathy likely due to sepsis due to gram-negative right lower lobe pneumonia and possible infected wound behind his left ear as well as left mastoiditis. Patient did receive prolonged course of IV antibiotic in the form of cefepime currently is off of it. Has been seen in consultation by infectious disease who recommended to discontinue IV antibiotic at this time. 2. Possible gram-negative pneumonia. Patient did receive 2 weeks with IV antibiotic the form of cefepime. 3. Acute urinary retention. Status post Soto catheterization continue Flomax 0.4 mg once every day, keep Soto catheter in for now, urine does not appear to be infected. 4. 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 Echocardiogram ejection fraction of 45%, cardiology is following, continue patient on carvedilol 12.5 mg orally twice a , continue Lipitor 20 mg once every day, continue aspirin 81 mg once every day. 5. History of coronary artery disease with three-vessel disease status post PCI under the care of cardiology Dr. Veras on a regular basis. Continue aspirin, carvedilol 12.5 mg orally twice a and Lipitor consult cardiology. 6. Hypertension and hypertensive cardiovascular disease. Continue patient on carvedilol 12.5 mg orally twice a day, continue hydralazine 50 mg orally 3 times every day, continue isosorbide mononitrate 60 mg orally twice every day. 7. Hypothyroidism. Continue Synthroid 112 mcg orally once every day, 8. Enlarged prostate with urinary retention. Continue patient on Flomax 0.4 mg once every day. 9. Moderate COPD. Continue oxygen 2 L nasal cannula, continue DuoNeb 3 mL nebulization 4 times every day, continue Theodur 300 mg once at bedtime, 10.Ventricular tachycardia status post ICD implantation continue amiodarone 100 mg orally once every day. 11. Chronic kidney disease stage IIIb. Avoid nephrotoxins, monitor the patient's CMP 12. DVT prophylaxis. Continue patient on Lovenox 30 mg subcutaneously every 24 hours. 13. GI prophylaxis. Protonix 40 mg once every day. 14. PT OT evaluation. 15. binding bench worker consultation. 16. Guarded prognosis 17. patient will likely require to go to subacute rehabilitation because of significant myopathy in both lower extremities. Objective - Vital Signs Vital signs: Vital Signs Temp 98.0 F 08/03/23 13:36 Pulse 68 08/03/23 13:36 Resp 19 08/03/23 13:36 BP 168/65 08/03/23 13:36 Pulse Ox 98 08/03/23 13:36 FiO2 Intake & Output 08/02/23 08/03/23 08/03/23 18:59 06:59 18:59 Output Total 1000 400 Balance -1000 -400 Weight 83.915 kg Output: Urine 1000 400 Other: Voiding Method Indwelling Catheter Indwelling Catheter Indwelling Catheter - Labs CBC & Chem 7: 07/27/23 05:28 08/03/23 14:43 Labs: Abnormal Lab Results - Last 24 Hours (Table) 08/03/23 Range/Units 14:43 Chloride 112 H (98-107) mmol/L Creatinine 1.44 H (0.66-1.25) mg/dL Glucose 106 H (74-99) mg/dL Microbiology - Last 24 Hours (Table) 07/29/23 08:58 CSF Gram Stain - Final Cerebral Spinal Fluid CSF Culture - Final
--- NOTE | 2023-08-03 19:27 | XR ---
EXAMINATION TYPE: XR chest 1V DATE OF EXAM: 08/03/2023 7:03 PM CLINICAL INDICATION:Male, 83 years old with history of cough; [facility] COMPARISON: 07/22/2023 TECHNIQUE: XR chest 1V Portable AP radiograph of the chest.. FINDINGS: Lines/Tubes/Devices: EKG leads overlie the chest. No indwelling lines are seen. Two lead cardiac conduction device overlyi ng the left hemithorax with lead tips projecting over the right ventricle and right atrium. Heart/mediastinum: Heart appears mildly enlarged. Mediastinum appears stable. Atherosclerotic calci fication of the aorta. Pulmonary vascularity: Not increased, Lungs/Pleura: Hyperinflation with flattening of the diaphragm and mild interstitial changes suggestin g COPD. No pneumothorax. Stable mild right basilar pleural/parenchymal opacity. Slightly improved lef t basilar pleural/parenchymal opacity with better visualization of the left costophrenic angle. Musculoskeletal: Osseous structures are grossly unchanged. No acute osseous abnormality demonstrated in the limits of the exam. Other findings: None. IMPRESSION: 1. Cardiomegaly with stable left chest cardiac conduction device. 2. Slightly improved aeration of the lungs. Decreased left basilar opacity, likely small pleural eff usion with adjacent infiltrate or atelectasis. Similar mild right basilar opacity compared to prior.
--- NOTE | 2023-08-03 19:47 | P.PN ---
Subjective Progress Note Date: 08/03/23 08/03/2023: Patient was seen for a follow-up. Patient seen by Dr. Reji Valdes last week. Please refer to his notes for details. Patient is laying in the bed, upset about the nurse having pulled Soto's catheter. I spoke to the nurse, she said that patient needed Soto's catheter out so can be evaluated for voided urine. Patient offers no other complaints. 07/22/2023: Patient was seen for a follow-up. Patient is laying in the bed. Patient appears to be using accessory muscles of respiration, appears somewhat tachypneic. He admits to having headache. He appears short of breath. 07/21/2023: Patient was seen for a follow-up. Patient is laying in the bed, somnolent. He does wake up to calling his name, but is very groggy. 07/19/2023: Patient was seen for a follow-up. Patient is sleeping. Did not wake him up. 07/18/2023: Patient was initially seen by Dr. Reji Valdes. Please refer to his no te for details. Patient is a 83-year-old male with altered mental status, possible pneumonia. Patient is laying comfortably in the bed. Offers no complaints. Some other workup during his hospital visit consisted of: Presented with temperature of 91 Fahrenheit on presentation that was only one time otherwise has been normal. White blood cell is 7.7 thousand. Sodium is 140, plasma lactic acid venous 0.7, serum glucose is 107, creatinine is 1.38 and the BX 26, AST is 35 ALT 26, ammonia is less than 9, troponin is 0.06 as high as a 0.071. UDS is not detected Ammonia is less than 9 TSH is 0.608 Influenza A/B, RSV and SARS-CoV-[address] PCR are not detected. CT of the head is reported as no acute intracranial process. Nonspecific white matter changes, likely secondary due to chronic small vessel ischemic disease. Severe paranasal sinus disease with left mastoid air cell effusion. I personally reviewed the CT of the head and I reviewed the report. Chest x-ray is reported as airspace opacities project over the right lung base correlate for pneumonia. 2D echo: Mild left ventricle systolic dysfunction. Akinetic basal inferior wall suggestive of prior myocardial infarction. Objective - Vital Signs Vital signs: Vital Signs Temp 98.0 F 08/03/23 13:36 Pulse 68 08/03/23 13:36 Resp 19 08/03/23 13:36 BP 168/65 08/03/23 13:36 Pulse Ox 98 08/03/23 13:36 FiO2 Intake & Output 08/03/23 08/03/23 08/04/23 06:59 18:59 06:59 Output Total 400 Balance -400 Output: Urine 400 Other: Voiding Method Indwelling Catheter Indwelling Catheter - Exam Patient is alert and awake, laying comfortably in the bed. Patient is slightly irritable at times because of the catheter pulled out. He states is the month of August and year is 2023. He states his 's birthday is in [birth year]. He knows he is in hospital in [facility]. Patient able to name objects like glasses, ears. Patient has remarkably improved. Speech is clear. On cranial examination pupils are equal, round and reacting. Visual singh could not be tested as he would not cooperate. He would just look at you. Face is symmetric, tongue protrudes midline. On muscle strength testing there is no pronator drift. The foam gun operator are 5, biceps 5, triceps 5, deltoids 5 on the right, 4+5-on the left related to previous shoulder injury long time ago. In the lower limbs the hip flexion is 4- bilaterally, ankle dorsiflexion 3+4- on the right, 5 left. Patient has a murmur, with extension to the neck. - Labs CBC & Chem 7: 07/27/23 05:28 08/03/23 14:43 Labs: Abnormal Lab Results - Last 24 Hours (Table) 08/03/23 Range/Units 14:43 Chloride 112 H (98-107) mmol/L Creatinine 1.44 H (0.66-1.25) mg/dL Glucose 106 H (74-99) mg/dL Microbiology - Last 24 Hours (Table) 07/29/23 08:58 CSF Gram Stain - Final Cerebral Spinal Fluid CSF Culture - Final Assessment and Plan Assessment: Metabolic encephalopathy, likely due to probable pneumonia, and other medical conditions mentioned below. Remarkably improved. Possible pneumonia on the right side Squamous 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, ID on board. Pansinusitis Elevated troponin slight Akinetic basal inferior wall suggestive of prior MD on echo Chronic kidney insufficiency History of AICD placement Hyperlipidemia Hypertension Anemia CAD Plan: Patient cannot have MRI of the brain because of presence of AICD. Repeat CT head performed today revealed chronic changes with no acute intracranial process. Unchanged significant sinus disease and left mastoid opacification. I personally reviewed CT head agree with the findings. There is complete opacification of bilateral maxillary, sphenoid, ethmoid and frontal sinuses, consistent with pansinusitis. Also opacification of the left mastoid air cells. Patient currently on cefepime, which should cover sinusitis. However consider ENT consultation to see if it needs drainage. Carotid Doppler not able to be checked because patient would not cooperate. It was canceled. 2D echo: Mild left ventricle systolic dysfunction. Akinetic basal inferior wall suggestive of prior myocardial infarction. Lipid panel with cholesterol 105, LDL 36, HDL 47, triglycerides 107 on 01/20/2023. No need to repeat. Continue Lipitor 20 mg daily. Routine EEG 07/18/2023 was borderline abnormal due to minimal background slowing, suggestive of mild encephalopathy. No focal, lateralized or epileptiform activity was seen. I am not sure as to the cause of starting Keppra by Dr. Valdes. EEG did not reveal any epileptiform activity. Keppra now has been discontinued. Continue aspirin 325 mg and Lipitor 20 mg daily. DVT prophylaxis: Patient on Lovenox 30 mg subcu daily Cardiology is on board Vitamin B-12 1196, folate 28, TSH is normal at 0.608 ID team is on board. Patient on cefepime for possible pneumonia. We'll defer the rest of the medical management to primary team and other specialists Neurologically, no other workup needed. Neurology will sign off. Please reconsult if any concerns.
[2023-08-04 10:54] LABS: Basophils # (A) 0.02 X 10*3/uL (0.00-0.10); Basophils % (A) 0.4 %; Eosinophils # (A) 0.13 X 10*3/uL (0.04-0.35); Eosinophils % (A) 2.7 %; HCT 25.7 % (39.6-50.0); HGB 8.2 g/dL (13.0-17.0); Lymphocytes # (A) 0.51 X 10*3/uL (0.90-5.00); Lymphocytes % (A) 10.6 %; MCH 31.3 pg (27.0-32.0); MCHC 31.9 g/dL (32.0-37.0); MCV 98.1 FL (80.0-97.0); Mean Platelet Volume 12.4 FL (9.5-12.2); Monocytes # (A) 0.54 X 10*3/uL (0.20-1.00); Monocytes % (A) 11.3 %; NRBC Per 100 WBC 0 X 10*3/uL (0.00-0.01); Neutrophils # (A) 3.59 X 10*3/uL (1.80-7.70); Neutrophils % (A) 74.8 %; Platelet Count 139 X 10*3/uL (140-440); RBC 2.62 X 10*6/uL (4.40-5.60); RDW 14.6 % (11.5-14.5)
[2023-08-04 11:11] LABS: ALT 23 U/L (10-49); AST 33 U/L (14-35); Albumin 2.9 g/dL (3.8-4.9); Albumin/Globulin Ratio 1.26 Ratio (1.60-3.17); Alkaline Phosphatase 62 U/L (41-126); BUN/Creat Ratio 10.92 Ratio (12.00-20.00); Blood Urea Nitrogen 14.2 mg/dL (9.0-27.0); Calcium 8.9 mg/dL (8.7-10.3); Carbon Dioxide 25.2 mmol/L (21.6-31.8); Chloride 111 mmol/L (96-109); Globulin 2.3 g/dL (1.6-3.3); Glucose 98 mg/dL (70-110); Potassium 3.3 mmol/L (3.5-5.5); Sodium 145 mmol/L (135-145); Total Bilirubin 0.3 mg/dL (0.3-1.2); Total Protein 5.2 g/dL (6.2-8.2)
--- NOTE | 2023-08-04 13:18 | P.PN ---
Subjective Patient is seen for follow-up for hypernatremia and chronic kidney disease. Status post D5W Sodium at 145 today Potassium 3.3 Serum creatinine decreased to 1.3 No significant complaints today. Patient has an indwelling Soto catheter with 24 hour urine output documented at 1400 mL Objective - Vital Signs Vital signs: Vital Signs Temp 98.1 F 08/04/23 07:03 Pulse 68 08/04/23 12:51 Resp 18 08/04/23 07:03 BP 109/65 08/04/23 07:03 Pulse Ox 96 08/04/23 08:37 FiO2 Intake & Output 08/03/23 08/04/23 08/04/23 18:59 06:59 18:59 Output Total 375 Balance -375 Output: Urine 375 Uretheral (Soto) 375 Other: Voiding Method Indwelling Catheter - Exam Patient is awake, comfortable, no acute distress Does not communicate much Examination of the heart S1 and S2 Examination of the lungs bilateral breath sounds are heard Abdomen is soft nontender Examination of lower extremities shows trace edema - Labs CBC & Chem 7: 08/04/23 06:21 08/04/23 06:21 Labs: Abnormal Lab Results - Last 24 Hours (Table) 08/03/23 08/04/23 08/04/23 Range/Units 14:43 06:21 06:21 RBC 2.62 L (4.40-5.60) X 10*6/uL Hgb 8.2 L (13.0-17.0) g/dL Hct 25.7 L (39.6-50.0) % MCV 98.1 H (80.0-97.0) FL MCHC 31.9 L (32.0-37.0) g/dL RDW 14.6 H (11.5-14.5) % Plt Count 139 L (140-440) X 10*3/uL MPV 12.4 H (9.5-12.2) FL Lymphocytes # 0.51 L (0.90-5.00) X 10*3/uL Potassium 3.3 L (3.5-5.5) mmol/L Chloride 112 H 111 H (98-107) mmol/L Creatinine 1.44 H (0.66-1.25) mg/dL Est GFR (CKD-EPI) 55 L (>=60) BUN/Creatinine Ratio 10.92 L (12.00-20.00) Ratio Glucose 106 H (74-99) mg/dL Total Protein 5.2 L (6.2-8.2) g/dL Albumin 2.9 L (3.8-4.9) g/dL Albumin/Globulin Ratio 1.26 L (1.60-3.17) Ratio Assessment and Plan Assessment: 1. Chronic kidney disease stage IIIa with baseline creatinine 1.3-1.5. Suspect nephrosclerosis. 1+ proteinuria on UA done July 12, 2023 and 2+ July 15, 2023. This will be repeated again and worked up outpatient. 2. Hypernatremia from lack of oral water intake. Improved with D5W. 3. Hypokalemia from poor intake. Replaced. Magnesium normal. 4. Chronic systolic CHF status post AICD placement. Ejection fraction 45% with mild pulmonary hypertension, mild mitral and tricuspid regurgitation. 5. 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 6. Hypertension with chronic kidney disease. 7. Acute kidney injury secondary to vasomotor nephropathy from hypovolemia. Creatinine peaked at 1.6 this admission and is 1.5 yesterday. No hydronephrosis noted on kidney ultrasound. Left kidney atrophic. 8. Urinary retention. Failed trial of void. Soto catheter reinserted. On Flomax. 9. Altered mental status. Concern for infection. Underwent LP this morning. Infectious disease following. On IV antibiotics. Plan: DCD 5.9 and switched to D5W as sodium has increased to 145. Continue to encourage increased oral intake.
--- NOTE | 2023-08-04 15:11 | P.DS ---
Providers Date of admission: 07/15/23 21:26 Expected date of discharge: 08/04/23 Attending physician: Joanie Awad Consults: 07/15/23 21:26 Consult Physician Routine Consulting Provider: Reji Valdes Consult Reason/Comments: Altered mental status Do you want consulting provider notified?: Yes, Notify in am 07/16/23 11:37 Consult Physician Routine Consulting Provider: Evgeny Kurtz Consult Reason/Comments: Gram negative pneumonia Do you want consulting provider notified?: Yes 07/16/23 13:31 Consult Physician Routine Consulting Provider: Papito Camacho Consult Reason/Comments: SCC post Radiation/Encephalopathy Do you want consulting provider notified?: Yes 07/20/23 09:43 Consult Physician Routine Consulting Provider: Rayray Estrada Consult Reason/Comments: mental status changes depression, catatonic Do you want consulting provider notified?: Yes 07/26/23 14:07 Consult Physician Routine Consulting Provider: John Martinez Consult Reason/Comments: Hypernatremia Do you want consulting provider notified?: Yes 07/31/23 11:45 Consult Physician Routine Consulting Provider: Dimitry Tam Consult Reason/Comments: otomastoiditis Do you want consulting provider notified?: Yes Primary care physician: Joanie Awad Hospital Course: HISTORY OF PRESENT ILLNESS: This is an 83-year-old male with a previous medical history significant for coronary artery disease status post three-vessel coronary artery disease with ischemic cardiomyopathy status post AICD implantation, hypertension and hypertensive cardiovascular disease, hyperlipidemia, hypothyroidism, 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, patient was recently hospitalized at [facility] for what appears to be an infected wound due to his radiation therapy behind his ear, the culture at that time showed Staphylococcus aureus as well as Corynebacterium species he was started on cefepime 2 g IV piggyback every 8 hours as well as vancomycin with pharmacy to dose, he was seen in consultation by infectious disease, his CT scan of the brain at that time did not show any evidence of acute abnormalities, patient was transitioned into oral Augmentin 875 mg orally twice every day for 10 days, patient went tomorrow for physical therapy and rehabilitation while he was at moderate he developed to have a significant mental status changes he became quite unresponsive does not follow much commands, he was not eating or drinking much, these symptoms waxes and wane on and off, patient initially was sent back to the emergency department at [facility], he had a CT scan of the brain did not show evidence of acute abnormalities his laboratory evaluation were fine he did appear to have a bit of infiltrate of the right lower lobe, he was sent back home since his procalcitonin level was negative, his BNP was lower, white count were normal, patient went back tomorrow and he became more drowsy subtended does not follow any commands, the nursing staff has contacted me yesterday he was directed to go to the ER at [facility], he had a chest x-ray that showed possible right lower lobe pneumonia, CT scan of the brain did not show evidence of acute abnormalities, his troponin was slightly elevated suggestive of type II NE due to possible sepsis, he was seen in consultation by cardiology who recommended echocardiogram for evaluation of LV function, he was started back on his Augmentin I will discontinue that and start the patient on cefepime 2 g IV piggyback every 12 hours along with vancomycin pharmacy to dose will obtain infectious disease consultation, will obtain neurology consultation as well as for evaluation of his mental status changes will continue to follow-up with the patient 07/17: Patient is still confused better than yesterday, he is more awake today however he is not making sense, he denies any fever or chills, he continues to have pain in the left shoulder, he continues to have pain all over his body, patient was seen earlier by cardiology as well as by neurology, MRI could not be done because of the AICD, he continues to be on IV antibiotic in the form of cefepime and vancomycin, consulted radiation oncology Dr. Welsh for further recommendation, if the blood cultures are positive we will arrange for a transesophageal echocardiogram discussed with Dr. Yeboah from cardiology 07/18: Patient is lying down in bed in no apparent distress, yesterday afternoon he became quite unresponsive and he did not respond to any verbal stimuli, he was responding to painful stimuli, today in the morning he was more awake and more alert, he sitting up in bed he does not seem to see much, he continues to be on vancomycin as well as cefepime, he will be seen in consultation by radiation oncology to get their opinion about radiation related encephalopathy, blood cultures so far are negative, if the blood cultures are positive patient will need to go for a transesophageal echocardiogram for evaluation of endocarditis, patient has been seen by multiple specialties including infectious disease, cardiology, along with neurology, patient did have his EEG today in the morning the results still pending at the time of dictation. 07/19: Patient is lying down in bed he continues to be quite confused he does not follow much commands, I will discontinue his Dilaudid, discontinue Xanax compl etely, continue IV antibiotic in the form of vancomycin and cefepime, has been followed by neurology, infectious disease, as well as cardiology, patient does not appear to have any positive blood cultures at this point in time. 07/31: Patient is lying down in bed appears a bit better since the last time he was seen by myself, he continues to have significant metabolic encephalopathy, however he is more verbal than he was before I saw him about a week ago, he recognizes me, he is eating better than he was before, he continues to be on dysphagia diet, he continues to have issues with urinary retention, his Soto catheter is back in, he has been started on tamsulosin 0.4 mg orally once every day due to enlarged prostate, we will monitor the patient very closely, patient had a multiple CT scan of the brain that showed evidence of chronic small vessel disease, with significant pansinusitis as well as opacification of the left mastoid suggestive of mastoiditis, but the patient did receive prolonged IV antibiotic therapy in the form of cefepime per ID recommendations, patient is currently off antibiotic at this time, his wound behind his ear appears to be a lot better continues to be somewhat tender, this is residual from his prior squamous cell cancer behind the ear postradiation therapy, I believe the patient is improving finally and he reached the turning point, hopefully he will be able to get back into subacute rehabilitation so he can get back on his feet again, he has been in the hospital for quite some time, and he is getting significant myopathy in both lower extremities. 08/01: Patient is more awake today and more alert, he recognizes me very well today, he was eating with the help of the 8, he denies any chest pain at this time, he continues to have some tenderness behind his left ear, he denies any headache at this time he has no fever or chills at this point he has no abdominal pain, he has bowel movement, he has no diarrhea he has no hematochezia, he does have a Soto catheter in place due to urinary retention, he has been maintained on Flomax, he has been taking his medication again, he has been eating more than he was yesterday, physical therapy continues to work with the patient, [employer] school social worker is on the case, patient will likely need to be transferred back to subacute rehabilitation due to significant myopathy in both lower extremities due to the fact that he has been bedridden for quite some time. 08/02: Patient is more talkative today, his is at the bedside, he has recalled every body including his his cat's family he has episodes of c onfusion not as bad as it was yesterday, he is eating his food, he is drinking the protein drink, he has no chest pain, he denies any fever he denies any chills he denies any headache he has no abdominal pain, he does appear to be generally weak, he wanted to get out of the hospital, he continues to have the Soto catheter in place, we will try a voiding trial again tomorrow morning, we will try to replace the catheter if the postvoid is greater than 300 mL, I will follow-up with the patient very closely, we will send for prior authorization for the patient to go to subacute rehabilitation as the patient has suffered from significant myopathy due to prolonged hospital stay. 08/03 Patient continues to show improvement of his mental status. Blood pressure 108/64, heart rate is in the 60s, pulse ox 93% on room air. Repeat blood work reveals WBC 4.8, hemoglobin 8.2, platelet count 139. Sodium 145, potassium 3.3, chloride 111, CO2 25, BUN 14 creatinine 1.3. No new concerns overnight. Patient will be discharged to [facility] in stable condition. DISCHARGE DIAGNOSES: 1. Metabolic encephalopathy likely due to sepsis due to gram-negative right lower lobe pneumonia and possible infected wound behind his left ear as well as left mastoiditis. 2. Possible gram-negative pneumonia. 3. Acute urinary retention. Status post Soto catheterization 4. 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 Echocardiogram ejection fraction of 45% 5. History of coronary artery disease with three-vessel disease status post PCI 6. Hypertension and hypertensive cardiovascular disease. 7. Hypothyroidism. 8. Enlarged prostate with urinary retention. 9. Moderate COPD. 10. Ventricular tachycardia status post ICD implantation 11. Chronic kidney disease stage IIIb. DISCHARGE PLAN: SUBACUTE REHAB AT [facility] Greater than 35 minutes was utilized and coordinating patient's discharge. Impression and plan of care have been directed as dictated by the signing physician. Debra Li nurse practitioner acting as scribe for signing physician. Patient Condition at Discharge: Stable Plan - Discharge Summary Discharge Rx Participant: No New Discharge Prescriptions: New cloNIDine 0.1 MG/24HR PATCH [Catapres-TTS] 1 patch TRANSDERM Q7D patch Continue Aspirin 325 mg PO DAILY@1700 Isosorbide Mononitrate ER [Imdur] 60 mg PO BID@0800,1700 Atorvastatin [Lipitor] 20 mg PO HS@2130 Nitroglycerin Sl Tabs [Nitrostat] 0.4 mg SL Q5M PRN PRN Reason: Chest Pain Ergocalciferol [Vitamin D2 (1250 Mcg = 53828 Iu)] 1,250 mcg PO TU@0800 Levothyroxine Sodium [Levoxyl] 112 mcg PO DAILY@0800 Amiodarone [Cordarone] 100 mg PO HS@2130 bisacodyL [Dulcolax] 10 mg RECTAL Q24H PRN PRN Reason: Constipation hydrALAZINE HCL [Apresoline] 50 mg PO Q8HR@0600,1400,2200 Tamsulosin HCl [Flomax] 0.4 mg PO DAILY@0800 Theophylline 24 Hour [Ashok-24] 300 mg PO DAILY@0800 Sertraline [Zoloft] 50 mg PO DAILY@0800 Ensure Enlive 237 ml PO TID@0800,1200,1700 allopurinoL [Zyloprim] 200 mg PO DAILY@0800 carvediloL [Coreg] 12.5 mg PO BID@0800,1700 Ipratropium-Albuterol Nebulize [Duoneb 0.5 mg-3 mg/3 ml Soln] 3 ml INHALATION RT-Q6H Magnesium Hydroxide [Milk of Magnesia Concentrate] 7,200 mg PO DAILY PRN PRN Reason: Constipation Na Phos,M-B/Na Phos,Di-Ba [Fleet Adult] 133 ml RECTAL DAILY PRN PRN Reason: Constipation Pantoprazole [Protonix] 40 mg PO DAILY@0800 Discontinued ALPRAZolam [Xanax] 0.5 mg PO BID PRN PRN Reason: Anxiety Amoxic-Pot Clav 875-125Mg [Augmentin 875-125] 1 tab PO Q12HR@0800,2100 Discharge Medication List Aspirin 325 mg PO DAILY@169909/20/14 [History] Atorvastatin [Lipitor] 20 mg PO HS@212909/20/14 [History] Isosorbide Mononitrate ER [Imdur] 60 mg PO BID@0800,169909/20/14 [History] Ergocalciferol [Vitamin D2 (1250 Mcg = 30406 Iu)] 1,250 mcg PO TU@79902/10/21 [History] Nitroglycerin Sl Tabs [Nitrostat] 0.4 mg SL Q5M PRN 02/10/21 [History] Amiodarone [Cordarone] 100 mg PO HS@212909/07/21 [History] Levothyroxine Sodium [Levoxyl] 112 mcg PO DAILY@79909/07/21 [History] Sertraline [Zoloft] 50 mg PO DAILY@79909/07/21 [History] Ensure Enlive 237 ml PO TID@0800,1200,169907/15/23 [History] Ipratropium-Albuterol Nebulize [Duoneb 0.5 mg-3 mg/3 ml Soln] 3 ml INHALATION RT-Q6H 07/15/23 [History] Magnesium Hydroxide [Milk of Magnesia Concentrate] 7,200 mg PO DAILY PRN 07/15/23 [History] Na Phos,M-B/Na Phos,Di-Ba [Fleet Adult] 133 ml RECTAL DAILY PRN 07/15/23 [History] Pantoprazole [Protonix] 40 mg PO DAILY@0807/15/23 [History] Tamsulosin HCl [Flomax] 0.4 mg PO DAILY@79907/15/23 [History] Theophylline 24 Hour [Ashok-24] 300 mg PO DAILY@79907/15/23 [History] allopurinoL [Zyloprim] 200 mg PO DAILY@79907/15/23 [History] bisacodyL [Dulcolax] 10 mg RECTAL Q24H PRN 07/15/23 [History] carvediloL [Coreg] 12.5 mg PO BID@0800,169907/15/23 [History] hydrALAZINE HCL [Apresoline] 50 mg PO Q8HR@0600,1400,2200 07/15/23 [History] cloNIDine 0.1 MG/24HR PATCH [Catapres-TTS] 1 patch TRANSDERM Q7D patch 08/04/23 [Rx] Follow up Appointment(s)/Referral(s): Sergei Braga, [NON-STAFF] - As Needed Joanie Awad MD [Primary Care Provider] - 1 Week (at [facility]) Discharge/Stand Alone Forms: Anes Pain/Wismer Instructions Discharge Disposition: TRANSFER TO SNF/ECF
[2023-08-04 15:13] VITALS: BP 108/64; PULSE 66; RESP 17; TEMP 98.2
[2023-08-04] MEDS: POTASSIUM CHLORIDE ER 20 MEQ TAB.ER PO STA (15:44)
[2023-08-04] MEDS: bisacodyL 10 MG SUPP RECTAL PRN (16:59)
== END 2023-08-04 19:58 | DRG 871 ==
LOC: EC 15:48 → 3SCARD 21:26 → 4SSUR 07-22 18:47
PROVIDERS: ADMIT Internal Medicine; ATTEND Internal Medicine
PROC: 4A10X4Z Monitoring of Central Nervous Electrical Activity, External Approach (ICD-10-PCS; 2023-07-18)
PROC: 05HF33Z Insertion of Infusion Device into Left Cephalic Vein, Percutaneous Approach (ICD-10-PCS; 2023-07-26)
PROC: 4A10X4Z Monitoring of Central Nervous Electrical Activity, External Approach (ICD-10-PCS; 2023-07-29)
PROC: 009U3ZX Drainage of Spinal Canal, Percutaneous Approach, Diagnostic (ICD-10-PCS; principal; 2023-07-29 15:00)
DX: A41.50 Gram-negative sepsis, unspecified (principal); E43 Unspecified severe protein-calorie malnutrition; G93.41 Metabolic encephalopathy; I21.A1 Myocardial infarction type 2; J15.69 Pneumonia due to other Gram-negative bacteria; N17.0 Acute kidney failure with tubular necrosis; C79.89 Secondary malignant neoplasm of other specified sites; I13.0 Hypertensive heart and chronic kidney disease with heart failure and stage 1 through stage 4 chronic kidney disease, or unspecified chronic kidney disease; N17.9 Acute kidney failure, unspecified; E44.0 Moderate protein-calorie malnutrition; E87.1 Hypo-osmolality and hyponatremia; E87.0 Hyperosmolality and hypernatremia; I50.22 Chronic systolic (congestive) heart failure; D64.9 Anemia, unspecified; Z68.26 Body mass index [BMI] 26.0-26.9, adult; E86.0 Dehydration; E86.1 Hypovolemia; E11.21 Type 2 diabetes mellitus with diabetic nephropathy; N18.32 Chronic kidney disease, stage 3b; R62.7 Adult failure to thrive; E03.9 Hypothyroidism, unspecified; E11.22 Type 2 diabetes mellitus with diabetic chronic kidney disease; E78.2 Mixed hyperlipidemia; I25.10 Atherosclerotic heart disease of native coronary artery without angina pectoris; I25.2 Old myocardial infarction; I25.5 Ischemic cardiomyopathy; M1A.9XX0 Chronic gout, unspecified, without tophus (tophi); Z95.810 Presence of automatic (implantable) cardiac defibrillator; Z95.5 Presence of coronary angioplasty implant and graft; Z92.3 Personal history of irradiation; Z87.11 Personal history of peptic ulcer disease; Z86.79 Personal history of other diseases of the circulatory system; Z82.49 Family history of ischemic heart disease and other diseases of the circulatory system; Z79.899 Other long term (current) drug therapy; R33.8 Other retention of urine; N40.1 Benign prostatic hyperplasia with lower urinary tract symptoms; I08.1 Rheumatic disorders of both mitral and tricuspid valves; E87.6 Hypokalemia; F32.A Depression, unspecified; H70.92 Unspecified mastoiditis, left ear; I27.20 Pulmonary hypertension, unspecified; I49.3 Ventricular premature depolarization; J32.4 Chronic pansinusitis; L59.8 Other specified disorders of the skin and subcutaneous tissue related to radiation; L89.312 Pressure ulcer of right buttock, stage 2; L89.322 Pressure ulcer of left buttock, stage 2; L98.492 Non-pressure chronic ulcer of skin of other sites with fat layer exposed; R65.20 Severe sepsis without septic shock; Y84.2 Radiological procedure and radiotherapy as the cause of abnormal reaction of the patient, or of later complication, without mention of misadventure at the time of the procedure; Z79.82 Long term (current) use of aspirin; Z79.890 Hormone replacement therapy; G72.9 Myopathy, unspecified; L40.9 Psoriasis, unspecified
CPT/HCPCS: 36410; 36415; 51702; 51798; 62270; 70450; 71045; 71046; 72127; 76770; 76937; 80048; 80053; 80198; 80306; 81001; 82140; 82306; 82607; 82746; 82945; 83605; 83735; 83873; 84145; 84157; 84443; 84484; 85025; 85027; 85610; 85730; 86140; 86592; 87040; 87070; 87205; 87636; 88108; 89050; 93005; 93306; 94640; 94760; 95816; 96361; 96365; 96368; 99285

== ENCOUNTER → 2023-11-28 | Outpatient (CLI) | payer MEDICARE, OTHER ==
--- NOTE | 2023-11-28 22:14 | CT ---
EXAMINATION TYPE: CT mastoid wo con DATE OF EXAM: 11/28/2023 COMPARISON: Prior CT brain July 29, 2023. Prior CT mastoids July 30, 2022 HISTORY: left sided mastoiditis CT DLP: 455.1 mGycm. Automated Exposure Control for Dose Reduction was Utilized. TECHNIQUE: CT scan of internal auditory canal is performed without contrast, thin cut axial images ar e obtained, coronal reformatted images are also reviewed. FINDINGS: Left-sided extraocular canal now is completely occluded by soft tissue density more promine nt from prior studies. Near complete opacification of left mastoid air cells is redemonstrated simila r to prior studies. The middle ear ossicles are completely also surrounded by abnormal soft tissue o n current study more prominent versus most recent prior CT. Right-sided findings within normal limits . No suspicious bony destruction. The cochlea and the semicircular canals are symmetric and unremarka ble. Moderate to severe calcified plaque in the distal internal carotid arteries bilaterally is redem onstrated. Temporomandibular joints are maintained bilaterally. Moderate mucosal thickening in the bilateral max illary sinuses. Moderate mucosal thickening and patchy opacification of the ethmoid sinuses bilateral ly. Moderate to severe opacification of the left sphenoid sinus with sclerotic wall thickening. Opaci fication of the inferior bilateral frontal sinuses. Paranasal sinus disease is actually slightly impr gabriel from July 29, 2023 study. Visualized brain parenchyma shows some chronic small vessel ischemic change. Bilateral aphakia is red emonstrated. 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 Abnormal soft tissue now completely fills left external auditory canal. No bony dest ruction to suggest neoplasm. Consider cerumen versus more likely infection spread. Advise ENT referra mikayla
== END | disposition home or self-care (01) ==
LOC: RADCTMAIN 15:58
PROVIDERS: ATTEND Internal Medicine
DX: H70.12 Chronic mastoiditis, left ear (principal); H66.92 Otitis media, unspecified, left ear
CPT/HCPCS: 70486

== ENCOUNTER 2024-03-09 05:42 | Inpatient (IN) | payer MEDICARE, OTHER ==
[2024-03-09] MEDS: ACETAMINOPHEN TAB 500 MG TAB PO STA (06:27)
[2024-03-09 06:30] LABS: Basophils % (A) 0 %; Eosinophils # (A) 0.2 k/uL (0-0.7); Eosinophils % (A) 2 %; HCT 30.9 % (39.0-53.0); HGB 9.7 gm/dL (13.0-17.5); Hypochromasia Moderate; Lymphocytes # (A) 0.4 k/uL (1.0-4.8); Lymphocytes % (A) 5 %; MCH 31.5 pg (25.0-35.0); MCHC 31.2 g/dL (31.0-37.0); MCV 101.1 fL (80.0-100.0); Macrocytosis Slight; Mean Platelet Volume 9.6; Monocytes # (A) 0.3 k/uL (0-1.0); Monocytes % (A) 4 %; Neutrophils # (A) 7.6 k/uL (1.3-7.7); Neutrophils % (A) 89 %; Platelet Count 132 k/uL (150-450); RBC 3.06 m/uL (4.30-5.90); RDW 14.1 % (11.5-15.5); WBC 8.6 k/uL (3.8-10.6)
[2024-03-09] MEDS: IPRATROPIUM-ALBUTEROL 3 ML NEB INHALATION STA (06:32)
[2024-03-09 06:39] LABS: ALT 21 U/L (4-49); AST 27 U/L (17-59); African American GFR (CKD) 29 (>60 ml/min/1.73 sqM); Albumin 3.8 g/dL (3.5-5.0); Alkaline Phosphatase 81 U/L (38-126); Anion Gap 6 mmol/L; Blood Urea Nitrogen 34 mg/dL (9-20); Calcium 9.3 mg/dL (8.4-10.2); Carbon Dioxide 26 mmol/L (22-30); Chloride 107 mmol/L (98-107); Glucose 161 mg/dL (74-99); Magnesium 1.9 mg/dL (1.6-2.3); Non-African American GFR(CKD) 25 (>60 ml/min/1.73 sqM); Potassium 4.2 mmol/L (3.5-5.1); Sodium 139 mmol/L (137-145); Total Bilirubin 0.5 mg/dL (0.2-1.3); Total Protein 6.6 g/dL (6.3-8.2)
--- NOTE | 2024-03-09 06:47 | ED ---
Altered Mental Status HPI - General Chief Complaint: Altered Mental Status Stated Complaint: AMS, fall Time Seen by Provider: 03/09/24 06:16 Source: patient, EMS, RN notes reviewed, old records reviewed Mode of arrival: ambulatory Limitations: no limitations - History of Present Illness Initial Comments: 84 year old male presents to ED via EMS with chief complaint of altered mental status and fall. This morning, his found him on the ground in the bathroom. He is being treated for UTI with unknown antibiotic, and his states that he is non compliant with his medications. She is unaware of any fevers, shortness of breath, or chest pain and states that he is taking blood thinners but does not know what kind or when his last dose was. Patient denies any significant head injury. 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 Patient denies being short of breath but was noted to have hypoxia. Patient denies any GI symptoms. - Related Data Home Medications Medication Instructions Recorded Confirmed Aspirin 325 mg PO DAILY@17009/20/07/15/23 Atorvastatin [Lipitor] 20 mg PO HS@212909/20/14 07/15/23 Isosorbide Mononitrate ER [Imdur] 60 mg PO BID@0800,17009/20/14 07/15/23 Ergocalciferol [Vitamin D2 (1250 1,250 mcg PO TU@0800 02/10/21 07/15/23 Mcg = 80140 Iu)] Nitroglycerin Sl Tabs [Nitrostat] 0.4 mg SL Q5M PRN 02/10/21 07/15/23 Amiodarone [Cordarone] 100 mg PO HS@212909/07/21 07/15/23 Levothyroxine Sodium [Levoxyl] 112 mcg PO DAILY@79909/07/21 07/15/23 Sertraline [Zoloft] 50 mg PO DAILY@79909/07/21 07/15/23 Ensure Enlive 237 ml PO TID@0800,1200,1700 07/15/23 07/15/23 Ipratropium-Albuterol Nebulize 3 ml INHALATION RT-Q6H 07/15/23 07/15/23 [Duoneb 0.5 mg-3 mg/3 ml Soln] Magnesium Hydroxide [Milk of 7,200 mg PO DAILY PRN 07/15/23 07/15/23 Magnesia Concentrate] Na Phos,M-B/Na Phos,Di-Ba [Fleet 133 ml RECTAL DAILY PRN 07/15/23 07/15/23 Adult] Pantoprazole [Protonix] 40 mg PO DAILY@0800 07/15/23 07/15/23 Tamsulosin HCl [Flomax] 0.4 mg PO DAILY@0800 07/15/23 07/15/23 Theophylline 24 Hour [Ashok-24] 300 mg PO DAILY@0800 07/15/23 07/15/23 allopurinoL [Zyloprim] 200 mg PO DAILY@0800 07/15/23 07/15/23 bisacodyL [Dulcolax] 10 mg RECTAL Q24H PRN 07/15/23 07/15/23 carvediloL [Coreg] 12.5 mg PO BID@0800,1700 07/15/23 07/15/23 hydrALAZINE HCL [Apresoline] 50 mg PO Q8HR@0600,1400,2200 07/15/23 07/15/23 Previous Rx's Medication Instructions Recorded cloNIDine 0.1 MG/24HR PATCH 1 patch TRANSDERM Q7D patch 08/04/23 [Catapres-TTS] Allergies Allergy/AdvReac Type Severity Reaction Status Date / Time prednisone AdvReac Hallucinati Verified 07/15/23 18:38 ons Review of Systems ROS Statement: Those systems with pertinent positive or pertinent negative responses have been documented in the HPI. ROS Other: All systems not noted in ROS Statement are negative. Past Medical History Past Medical History: Coronary Artery Disease (CAD), Cancer, Chest Pain / Angina, Heart Failure, COPD, Myocardial Infarction (VT), Prostate Disorder, Thyroid Disorder Additional Past Medical History / Comment(s): HX HIATAL HERNIA. mac degeneration. PSORIASIS. GOUT Last Myocardial Infarction Date:: unk History of Any Multi-Drug Resistant Organisms: None Reported Past Surgical History: Heart Catheterization With Stent Additional Past Surgical History / Comment(s): COLONOSCOPY. AICD/PACEMAKER- [employer]. GENERATOR CHANGE-09/23/2014. leg stents Date of Last Stent Placement:: unk Past Psychological History: No Psychological Hx Reported Smoking Status: Former smoker Past Alcohol Use History: None Reported Past Drug Use History: None Reported - Past Family History Mother History Unknown: Yes General Exam Limitations: no limitations General appearance: alert, in no apparent distress Head exam: Present: atraumatic, normocephalic, normal inspection Eye exam: Present: normal appearance, PERRL, EOMI. Absent: scleral icterus, conjunctival injection, periorbital swelling ENT exam: Present: normal exam, mucous membranes moist Neck exam: Present: normal inspection. Absent: tenderness, meningismus, lymphadenopathy Respiratory exam: Present: wheezes, accessory muscle use, decreased breath sounds (LLL, RLL anterior/posterior). Absent: respiratory distress, rales, rhonchi, stridor Cardiovascular Exam: Present: normal rhythm, tachycardia, normal heart sounds. Absent: systolic murmur, diastolic murmur, rubs, gallop, clicks GI/Abdominal exam: Present: soft, normal bowel sounds. Absent: distended, tenderness, guarding, rebound, rigid Extremities exam: Present: normal inspection, full ROM, normal capillary refill. Absent: tenderness, pedal edema, joint swelling, calf tenderness Back exam: Present: normal inspection Neurological exam: Present: alert, oriented X3, CN II-XII intact Psychiatric exam: Present: normal affect, normal mood Skin exam: Present: dry, intact, normal color. Absent: rash Course Vital Signs 03/09/24 03/09/24 03/09/24 05:43 06:30 06:35 Temperature 102.1 F H Pulse Rate 125 H 118 H Respiratory 22 22 Rate Blood Pressure 158/84 O2 Sat by Pulse 85 L Oximetry 03/09/24 03/09/24 03/09/24 06:43 06:46 07:28 Temperature Pulse Rate 124 H 117 H 103 H Respiratory 20 18 Rate Blood Pressure 160/74 136/65 O2 Sat by Pulse 96 93 L Oximetry Medical Decision Making - Medical Decision Making Was pt. sent in by a medical professional or institution (, PA, INSURANCE CLAIM REPRESENTATIVE, urgent care, hospital, or longterm...) When possible be specific @ -No Did you speak to anyone other than the patient for history (EMS, parent, family, police, friend...)? What history was obtained from this source @ - providing past medical history and current complaint Did you review nursing and triage notes (agree or disagree)? Why? @ -I reviewed and agree with nursing and triage notes Were old charts reviewed (outside hosp., previous admission, EMS record, old EKG, old radiological studies, urgent care reports/EKG's, longterm records)? Report findings @ -Reviewed prior urine culture from 1 week ago Differential Diagnosis (chest pain, altered mental status, abdominal pain women, abdominal pain men, vaginal bleeding, weakness, fever, dyspnea, syncope, headache, dizziness, GI bleed, back pain, seizure, CVA, palpatations, mental health, musculoskeletal)? @ -Differential Weakness: Hypoglycemia, shock, sepsis, hyponatremia, anemia, infection, VT, ETOH, adverse medicine reaction, overdose, stroke, this is not meant to be an all-inclusive list. EKG interpreted by me (3pts min.). @ -As above X-rays interpreted by me (1pt min.). @ -Chest x-ray shows moderate pulmonary edema, small pleural effusion CT interpreted by me (1pt min.). @ -None done U/S interpreted by me (1pt. min.). @ -None done What testing was considered but not performed or refused? (CT, X-rays, U/S, labs)? Why? @ -None What meds were considered but not given or refused? Why? @ -None Did you discuss the management of the patient with other professionals (professionals i.e. , PA, INSURANCE CLAIM REPRESENTATIVE, lab, RT, psych nurse, social services designee, design quality engineer, teacher, uniform patrol police officer, shoe caser)? Give summary @ -Dr. Awad for admission Was smoking cessation discussed for >3mins.? @ -No Was critical care preformed (if so, how long)? @ -No Were there social determinants of health that impacted care today? How? (Homelessness, low income, unemployed, alcoholism, drug addiction, transportation, low edu. Level, literacy, decrease access to med. care, long term, rehab)? @ -No Was there de-escalation of care discussed even if they declined (Discuss DNR or withdrawal of care, Hospice)? DNR status @ -No What co-morbidities impacted this encounter? (DM, HTN, Smoking, COPD, CAD, Cancer, CVA, ARF, Chemo, Hep., AIDS, mental health diagnosis, sleep apnea, morbid obesity)? @ -CHF, renal disease Was patient admitted / discharged? Hospital course, mention meds given and route, prescriptions, significant lab abnormalities, going to OR and other pertinent info. @ -Admitted patient presented for increasing weakness., Fall patient had no injuries from a fall self x-ray shows pulm edema,'s acute CHF exacerbation patient noted to be febrile from UTI with resistant organism. Patient was started on Fortaz 1 g every 8 for cardiology consult and infectious disease consult Undiagnosed new problem with uncertain prognosis? @ -No Drug Therapy requiring intensive monitoring for toxicity (Heparin, Nitro, Insulin, Cardizem)? @ -No Were any procedures done? @ -No Diagnosis/symptom? @ -CHF exacerbation, UTI, weakness Acute, or Chronic, or Acute on Chronic? @ -[Acute Uncomplicated (without systemic symptoms) or Complicated (systemic symptoms)? @ -Complicated Side effects of treatment? @ -No Exacerbation, Progression, or Severe Exacerbation? @ -Exacerbation Poses a threat to life or bodily function? How? (Chest pain, USA, VT, pneumonia, PE, COPD, DKA, ARF, appy, cholecystitis, CVA, Diverticulitis, Homicidal, Suicidal, threat to staff... and all critical care pts) @ -Yes urosepsis causing endorgan failure - Lab Data Result diagrams: 03/09/24 06:12 03/09/24 06:12 Lab Results 03/09/24 03/09/24 03/09/24 Range/Units 06:12 06:12 06:12 WBC 8.6 (3.8-10.6) k/uL RBC 3.06 L (4.30-5.90) m/uL Hgb 9.7 L (13.0-17.5) gm/dL Hct 30.9 L (39.0-53.0) % MCV 101.1 H (80.0-100.0) fL MCH 31.5 (25.0-35.0) pg MCHC 31.2 (31.0-37.0) g/dL RDW 14.1 (11.5-15.5) % Plt Count 132 L (150-450) k/uL MPV 9.6 Neutrophils % 89 % Lymphocytes % 5 % Monocytes % 4 % Eosinophils % 2 % Basophils % 0 % Neutrophils # 7.6 (1.3-7.7) k/uL Lymphocytes # 0.4 L (1.0-4.8) k/uL Monocytes # 0.3 (0-1.0) k/uL Eosinophils # 0.2 (0-0.7) k/uL Basophils # 0.0 (0-0.2) k/uL Hypochromasia Moderate Macrocytosis Slight PT 11.5 (10.0-12.5) sec INR 1.1 (<1.2) APTT 22.2 (22.0-30.0) sec Sodium 139 (137-145) mmol/L Potassium 4.2 (3.5-5.1) mmol/L Chloride 107 (98-107) mmol/L Carbon Dioxide 26 (22-30) mmol/L Anion Gap 6 mmol/L BUN 34 H (9-20) mg/dL Creatinine 2.31 H (0.66-1.25) mg/dL Est GFR (CKD-EPI)AfAm 29 (>60 ml/min/1.73 sqM) Est GFR (CKD-EPI)NonAf 25 (>60 ml/min/1.73 sqM) Glucose 161 H (74-99) mg/dL POC Glucose (mg/dL) (70-110) mg/dL POC Glu Travel Pta ID Calcium 9.3 (8.4-10.2) mg/dL Magnesium 1.9 (1.6-2.3) mg/dL Total Bilirubin 0.5 (0.2-1.3) mg/dL AST 27 (17-59) U/L ALT 21 (4-49) U/L Alkaline Phosphatase 81 (38-126) U/L Troponin I (0.000-0.034) ng/mL NT-Pro-B Natriuret Pep 4790 pg/mL Total Protein 6.6 (6.3-8.2) g/dL Albumin 3.8 (3.5-5.0) g/dL Urine Color Urine Appearance (Clear) Urine pH (5.0-8.0) Ur Specific Buchanan (1.001-1.035) Urine Protein (Negative) Urine Glucose (UA) (Negative) Urine Ketones (Negative) Urine Blood (Negative) Urine Nitrite (Negative) Urine Bilirubin (Negative) Urine Urobilinogen (<2.0) mg/dL Ur Leukocyte Esterase (Negative) Urine RBC (0-5) /hpf Urine WBC (0-5) /hpf Ur Squamous Epith Cells (0-4) /hpf Influenza Type A (PCR) (Not Detectd) Influenza Type B (PCR) (Not Detectd) RSV (PCR) (Not Detectd) SARS-CoV-2 (PCR) (Not Detectd) 03/09/24 03/09/24 03/09/24 Range/Units 06:12 06:51 07:28 WBC (3.8-10.6) k/uL RBC (4.30-5.90) m/uL Hgb (13.0-17.5) gm/dL Hct (39.0-53.0) % MCV (80.0-100.0) fL MCH (25.0-35.0) pg MCHC (31.0-37.0) g/dL RDW (11.5-15.5) % Plt Count (150-450) k/uL MPV Neutrophils % % Lymphocytes % % Monocytes % % Eosinophils % % Basophils % % Neutrophils # (1.3-7.7) k/uL Lymphocytes # (1.0-4.8) k/uL Monocytes # (0-1.0) k/uL Eosinophils # (0-0.7) k/uL Basophils # (0-0.2) k/uL Hypochromasia Macrocytosis PT (10.0-12.5) sec INR (<1.2) APTT (22.0-30.0) sec Sodium (137-145) mmol/L Potassium (3.5-5.1) mmol/L Chloride (98-107) mmol/L Carbon Dioxide (22-30) mmol/L Anion Gap mmol/L BUN (9-20) mg/dL Creatinine (0.66-1.25) mg/dL Est GFR (CKD-EPI)AfAm (>60 ml/min/1.73 sqM) Est GFR (CKD-EPI)NonAf (>60 ml/min/1.73 sqM) Glucose (74-99) mg/dL POC Glucose (mg/dL) (70-110) mg/dL POC Glu Travel Pta ID Calcium (8.4-10.2) mg/dL Magnesium (1.6-2.3) mg/dL Total Bilirubin (0.2-1.3) mg/dL AST (17-59) U/L ALT (4-49) U/L Alkaline Phosphatase (38-126) U/L Troponin I 0.022 (0.000-0.034) ng/mL NT-Pro-B Natriuret Pep pg/mL Total Protein (6.3-8.2) g/dL Albumin (3.5-5.0) g/dL Urine Color Light Yellow Urine Appearance Clear (Clear) Urine pH 6.0 (5.0-8.0) Ur Specific Buchanan 1.013 (1.001-1.035) Urine Protein Trace H (Negative) Urine Glucose (UA) Negative (Negative) Urine Ketones Negative (Negative) Urine Blood Negative (Negative) Urine Nitrite Negative (Negative) Urine Bilirubin Negative (Negative) Urine Urobilinogen <2.0 (<2.0) mg/dL Ur Leukocyte Esterase Large H (Negative) Urine RBC 3 (0-5) /hpf Urine WBC 120 H (0-5) /hpf Ur Squamous Epith Cells <1 (0-4) /hpf Influenza Type A (PCR) Not Detected (Not Detectd) Influenza Type B (PCR) Not Detected (Not Detectd) RSV (PCR) Not Detected (Not Detectd) SARS-CoV-2 (PCR) Not Detected (Not Detectd) 03/09/24 Range/Units 07:48 WBC (3.8-10.6) k/uL RBC (4.30-5.90) m/uL Hgb (13.0-17.5) gm/dL Hct (39.0-53.0) % MCV (80.0-100.0) fL MCH (25.0-35.0) pg MCHC (31.0-37.0) g/dL RDW (11.5-15.5) % Plt Count (150-450) k/uL MPV Neutrophils % % Lymphocytes % % Monocytes % % Eosinophils % % Basophils % % Neutrophils # (1.3-7.7) k/uL Lymphocytes # (1.0-4.8) k/uL Monocytes # (0-1.0) k/uL Eosinophils # (0-0.7) k/uL Basophils # (0-0.2) k/uL Hypochromasia Macrocytosis PT (10.0-12.5) sec INR (<1.2) APTT (22.0-30.0) sec Sodium (137-145) mmol/L Potassium (3.5-5.1) mmol/L Chloride (98-107) mmol/L Carbon Dioxide (22-30) mmol/L Anion Gap mmol/L BUN (9-20) mg/dL Creatinine (0.66-1.25) mg/dL Est GFR (CKD-EPI)AfAm (>60 ml/min/1.73 sqM) Est GFR (CKD-EPI)NonAf (>60 ml/min/1.73 sqM) Glucose (74-99) mg/dL POC Glucose (mg/dL) 147 H (70-110) mg/dL POC Glu Travel Pta ID Anton Nevarez Calcium (8.4-10.2) mg/dL Magnesium (1.6-2.3) mg/dL Total Bilirubin (0.2-1.3) mg/dL AST (17-59) U/L ALT (4-49) U/L Alkaline Phosphatase (38-126) U/L Troponin I (0.000-0.034) ng/mL NT-Pro-B Natriuret Pep pg/mL Total Protein (6.3-8.2) g/dL Albumin (3.5-5.0) g/dL Urine Color Urine Appearance (Clear) Urine pH (5.0-8.0) Ur Specific Buchanan (1.001-1.035) Urine Protein (Negative) Urine Glucose (UA) (Negative) Urine Ketones (Negative) Urine Blood (Negative) Urine Nitrite (Negative) Urine Bilirubin (Negative) Urine Urobilinogen (<2.0) mg/dL Ur Leukocyte Esterase (Negative) Urine RBC (0-5) /hpf Urine WBC (0-5) /hpf Ur Squamous Epith Cells (0-4) /hpf Influenza Type A (PCR) (Not Detectd) Influenza Type B (PCR) (Not Detectd) RSV (PCR) (Not Detectd) SARS-CoV-2 (PCR) (Not Detectd) - EKG Data -: EKG Interpreted by Me EKG Comments: EKG performed at 6: 05 sinus tachycardia with a rate of 123 MS 176 QRS 122 QT/QTc 333/406 Disposition Clinical Impression: CHF exacerbation, UTI (urinary tract infection), Weakness Disposition: ADMITTED IP TO THIS HOSP Condition: Poor Referrals: Joanie Awad MD [Primary Care Provider] - 1-2 days Time of Disposition: 08:24
[2024-03-09 06:48] LABS: NT-Pro-B-Type Natriuretic Pept 4790 pg/mL
[2024-03-09] MEDS: FUROSEMIDE 10 MG/ML 4 ML VIAL IV STA ×2 (06:58→11:36)
[2024-03-09 07:09] LABS: INR 1.1 (<1.2); Partial Thromboplastin Time 22.2 sec (22.0-30.0); Prothrombin Time 11.5 sec (10.0-12.5)
--- NOTE | 2024-03-09 07:14 | XR ---
EXAMINATION TYPE: XR chest 2V DATE OF EXAM: 03/09/2024 COMPARISON: Chest x-ray August 03, 2023 HISTORY: Altered mental status TECHNIQUE: Frontal and lateral views of the chest are obtained. FINDINGS: Persistent cardiomegaly with dual lead pacemaker. More prominent bibasilar opacities and m ild central vascular congestion with small bilateral pleural effusions. Osseous structures are intact . IMPRESSION: Findings suggest CHF exacerbation/fluid overload state. Correlate clinically. [facility], Workstation: [facility], 03/09/2024 7:11 AM
[2024-03-09 07:49] LABS: Appearance,Urine Clear (Clear); Bilirubin,Urine Negative (Negative); Blood,Urine Negative (Negative); Color,Urine Light Yellow; Glucose,Urine (UA) Negative (Negative); Ketones,Urine Negative (Negative); Leukocyte Esterase,Urine Large (Negative); Nitrite,Urine Negative (Negative); Protein,Urine Trace (Negative); RBC,Urine 3 /hpf (0-5); Specific Gravity,Urine 1.013 (1.001-1.035); Squamous Epithelial Cell,Urine <1 /hpf (0-4); Urobilinogen,Urine <2.0 mg/dL (<2.0); WBC,Urine 120 /hpf (0-5)
[2024-03-09 07:50] LABS: Glucose,Whole Blood 147 mg/dL (70-110)
--- NOTE | 2024-03-09 12:14 | P.CRDCN ---
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 He said while he was in the bathroom he slipped and fell on his bottom. He did not hit his head. Did not lose consciousness, pass out or felt lightheaded. His found him on the bathroom floor this morning and called EMS to bring him in to the ED. He is currently being treated for UTI with unknown antibiotics. He does take blood thinners at home. Patient was assessed this morning in the ED. He reported feeling well. Denied fever, chills, nausea, vomiting, chest pain, shortness of breath, belly pain, diarrhea. In the ED, EKG showed sinus tachycardia with rate of 123. Chest X ray suggested CHF exacerbation/fluid overload state. CBC showed WBC of 8.6, hemoglobin of 9.7, hematocrit 30.9, platelet 132, BMP showed sodium 139, potassium 4.2, BUN 34, creatinine 2.31. Urinalysis showed positive suni kocyte esterase negative for nitrites. Troponin 0.022, BNP 4790. She is saturating at 95% on nasal cannula at 4L/min. ROS: 14 point ros negative except those mentioned in the HPI. PMH: Ischemic cardiomyopathy, chronic systolic heart failure, ventricular tachycardia s/p AICD PSH: Heart catheterization with stents Social history: Former smoker, no alcohol or drug use. Family history: unknown Physical exam: General: Alert and oriented, not in acute distress Cardiovascular: Regular heart rate, no diastolic/systolic murmurs, JVD +1 cm Respiratory: CTAB, no crackles/wheezing/rhonchi/stridor Abdominal: Soft, nontender to palpation, nondistended Extremity: Trace edema LE bilaterally Past Cardiac workup: Echocardiogram in June 2023 showed ejection fraction of 45% Impression: 1) Acute exacerbation of Systolic Congestive Heart Failure 2) Ventricular tachycardia 3) s/p AICD 4) Hypertension Plan: one time 40 mg lasix IV push and resume lasix 40 mg bid po. Past Medical History Past Medical History: Coronary Artery Disease (CAD), Cancer, Chest Pain / Angina, Heart Failure, COPD, Myocardial Infarction ([place]), Prostate Disorder, Thyroid Disorder Additional Past Medical History / Comment(s): HX HIATAL HERNIA. mac degen eration. PSORIASIS. GOUT Last Myocardial Infarction Date:: unk History of Any Multi-Drug Resistant Organisms: None Reported Past Surgical History: Heart Catheterization With Stent Additional Past Surgical History / Comment(s): COLONOSCOPY. AICD/PACEMAKER- [employer]. GENERATOR CHANGE-09/23/2014. leg stents Date of Last Stent Placement:: unk Past Psychological History: No Psychological Hx Reported Smoking Status: Former smoker Past Alcohol Use History: None Reported Past Drug Use History: None Reported - Past Family History Mother History Unknown: Yes Medications and Allergies Home Medications Medication Instructions Recorded Confirmed Type Aspirin 325 mg PO DAILY 09/20/14 03/09/24 History Isosorbide Mononitrate ER [Imdur] 60 mg PO BID 09/20/14 03/09/24 History Nitroglycerin Sl Tabs [Nitrostat] 0.4 mg SL Q5M PRN 02/10/21 03/09/24 History Amiodarone [Cordarone] 100 mg PO DAILY 09/07/21 03/09/24 History Levothyroxine Sodium [Levoxyl] 112 mcg PO DAILY 09/07/21 03/09/24 History Sertraline [Zoloft] 50 mg PO DAILY 09/07/21 03/09/24 History Pantoprazole [Protonix] 40 mg PO DAILY 07/15/23 03/09/24 History Tamsulosin HCl [Flomax] 0.4 mg PO DAILY 07/15/23 03/09/24 History allopurinoL [Zyloprim] 100 mg PO BID 07/15/23 03/09/24 History ALPRAZolam [Xanax] 0.25 mg PO BID PRN 03/09/24 03/09/24 History Atorvastatin Calcium [Lipitor] 40 mg PO HS 03/09/24 03/09/24 History Folic Acid 1 mg PO DAILY 03/09/24 03/09/24 History Potassium Chloride [Klor-Con M20] 20 meq PO BID 03/09/24 03/09/24 History Sulfamethoxazole/Trimethoprim 1 tab PO BID 03/09/24 03/09/24 History [Bactrim DS 800-160 mg] Theophylline 12 Hour [Ashok-Dur] 300 mg PO Q12H 03/09/24 03/09/24 History carvediloL [Coreg] 25 mg PO BID 03/09/24 03/09/24 History hydrALAZINE HCL [Apresoline] 25 mg PO BID 03/09/24 03/09/24 History traZODone HCL [Desyrel] 50 mg PO HS 03/09/24 03/09/24 History Allergies Allergy/AdvReac Type Severity Reaction Status Date / Time prednisone AdvReac Hallucinati Verified 03/09/24 09:15 ons Physical Exam Vitals: Vital Signs Temp Pulse Resp BP Pulse Ox 03/09/24 10:13 81 18 136/61 96 03/09/24 09:42 99.1 F 80 18 108/62 97 03/09/24 07:28 103 H 18 136/65 93 L 03/09/24 06:46 117 H 20 160/74 96 03/09/24 06:43 124 H 03/09/24 06:35 118 H 03/09/24 06:30 22 03/09/24 05:43 102.1 F H 125 H 22 158/84 85 L Intake and Output 03/08/24 03/09/24 03/09/24 22:59 06:59 14:59 Other: Weight 69.853 kg Results 03/09/24 06:12 03/09/24 06:12 Cardiac Enzymes 03/09/24 03/09/24 Range/Units 06:12 06:12 AST 27 (17-59) U/L Troponin I 0.022 (0.000-0.034) ng/mL Coagulation 03/09/24 Range/Units 06:12 PT 11.5 (10.0-12.5) sec APTT 22.2 (22.0-30.0) sec CBC 03/09/24 Range/Units 06:12 WBC 8.6 (3.8-10.6) k/uL RBC 3.06 L (4.30-5.90) m/uL Hgb 9.7 L (13.0-17.5) gm/dL Hct 30.9 L (39.0-53.0) % Plt Count 132 L (150-450) k/uL Comprehensive Metabolic Panel 03/09/24 Range/Units 06:12 Sodium 139 (137-145) mmol/L Potassium 4.2 (3.5-5.1) mmol/L Chloride 107 (98-107) mmol/L Carbon Dioxide 26 (22-30) mmol/L BUN 34 H (9-20) mg/dL Creatinine 2.31 H (0.66-1.25) mg/dL Glucose 161 H (74-99) mg/dL Calcium 9.3 (8.4-10.2) mg/dL AST 27 (17-59) U/L ALT 21 (4-49) U/L Alkaline Phosphatase 81 (38-126) U/L Total Protein 6.6 (6.3-8.2) g/dL Albumin 3.8 (3.5-5.0) g/dL Current Medications Generic Name Dose Route Start Last Admin Trade Name Freq PRN Reason Stop Dose Admin Acetaminophen 650 mg 03/09/24 08:16 Acetaminophen Tab 325 Mg Tab PO Q4HR PRN Fever and/ or Pain Furosemide 40 mg 03/09/24 19:00 Furosemide 10 Mg/Ml 4 Ml Vial IV Q12H ADDIE Ceftazidime 2 gm/ Sodium 100 mls @ 25 mls/hr 03/09/24 21:00 Chloride IVPB Q24H ADDIE Intake and Output 03/08/24 03/09/24 03/09/24 22:59 06:59 14:59 Other: Weight 69.853 kg 03/09/24 06:12 03/09/24 06:12
[2024-03-09] MEDS ORDERED: NITROGLYCERIN SL TABS 0.4 MG TAB SUBLINGUAL PRN (15:40)
--- NOTE | 2024-03-09 18:31 | P.HPIM ---
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, that left him with a big nonhealing wound behind the left ear for which she was hospitalized initially at [facility] back in June 2023 then he was hospitalized at [facility] from July 16 till August 04, 2023 when he was discharged after he was admitted for significant acute toxic metabolic encephalopathy due to significant sepsis and he developed to have a significant medical debility that required subacute rehabilitation at [facility] patient has recovered very well from that, he was recently diagnosed of having urinary tract infection with Stonotrophomonas Multophilia that is only sensitive to ceftazidime as well as Bactrim he was started on Bactrim as an outpatient, p makient has been getting progressively weaker and weaker with increased shortness of breath, and he stated that the medication was making him sick, so he was not taking it appropriately, apparently the patient went to the bathroom and he was sitting on the toilet and slipped out of the toilet and his called EMS he presented to the emergency department [facility] today, he was found to have a reduced GFR because of possible use of Bactrim and poor oral intake of fluid, at the same time he was found to have an acute systolic heart failure and a chest x-ray, and his oxygen saturation was around 85% on room air, therefore the patient was admitted to hospital for evaluation by cardiology as well as infectious disease, blood cultures were obtained, we will monitor the patient very closely. REVIEW OF SYSTEMS: Constitutional: low grade fever, no chills, no night sweats. No weight change. positive for weakness,positive for fatigue and lethargy. positive for daytime sleepiness. EENT: No headache. No blurred vision or double vision, no loss of vision. No loss of Hearing, no ringing in the ears, no dizziness. No nasal drainage or congestion. No epistaxis. No sore throat. Lungs: No shortness of breath, no cough, no sputum production. No wheezing. Reports dyspnea with activity. Cardiovascular: No chest pain, no lower extremity edema. No palpitations. No paroxysmal nocturnal dyspnea. No orthopnea. No lightheadedness or dizziness. No syncopal episodes. Abdominal: Reports abdominal pain. No nausea, vomiting. No diarrhea. No constipation. No bloody or tarry stools reports loss of appetite. Genitourinary: No dysuria, increased frequency, urgency. No urinary retention. Musculoskeletal: No myalgias. positive for muscle weakness, no gait dysfunction, no frequent falls. No back pain. No neck pain. Integumentary: wound behind left ear post radiation for SCC, no lesions. No rash or pruritus. No unusual bruising. No change in hair or nails. Neurologic: No aphasia. No facial droop. positive for change in mentation. No head injury. No headache. No paralysis. No paresthesia. Psychiatric: positive for depression. positive for anxiety. No mood swing s.positive for paranoia Endocrine: No abnormal blood sugars. No weight change. PAST MEDICAL HISTORY: Coronary artery disease status post PCI Ischemic cardiomyopathy status post AICD. Hypertension and hypertensive cardiovascular disease Mixed hyperlipidemia COPD Major depressive disorder. Peptic ulcer disease. Gout chronic Chronic kidney disease stage IIIb. Squamous cell carcinoma behind the left ear status post radiation therapy Enlarged prostate. Osteoarthritis Dry eye syndrome. PAST SURGICAL HISTORY: Heart catheterization with PCI. Left carpal tunnel release. Bilateral cataract surgery Colonoscopy 2016 CAD post PTCA with a stent placement in both legs. 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 postradiation therapy ICD implantation. With generator exchange 2014 SOCIAL HISTORY: Patient used to smoke 3 pack every day since the age of 12 and he quit in 1998, he drinks socially, he denies any drug use or abuse, he lives with his FAMILY HISTORY: Patient is adopted he does not know his parent, patient has a brother with hypertension, and patient has 2 sons alive and well and 3 daughters alive and well PHYSICAL EXAMINATION: General: 84-year-old male laying down in bed appears to be quite confused nonverbal. HEENT: Head is atraumatic, normocephalic, pupils were equal round reactive to light and recommendation, extraocular muscle movement were intact, sclera nonicteric, conjunctivae were pale, mucous membranes of the mouth are somewhat dry, the large wound behind the left ear with a clean base minimal drainage Neck: Supple, no JVP, normal carotid upstroke bilaterally, no lymphadenopathy. Chest: Decreased breath sounds at the bases, few rhonchi, no expiratory wheezes, no chest wall tenderness, no intercostal retractions. Heart: First heart sound is normal, second heart sound is normal there is systolic ejection murmur 2/6 located in the left sternal border, there is AICD in the left upper precordium Abdomen: Soft, nontender, nondistended, positive bowel sounds. Extremities: There is +1 edema no calf tenderness DP +2 bilaterally. Neurologic examination: Patient is confused opens his eyes in response to verbal stimuli, nonverbal, follows some commands not all the commands, moves all his extremities respond to the questions very well. ASSESSMENT AND PLAN: 1. Urinary tract infection with Stonotrophomonas maltophilia. Discontinue B actrim start the patient on Fortaz 1 g piggyback every 8 hours, blood cultures will be obtained, infectious is consultation from Dr. Kurtz 2. Acute systolic heart failure. Restart the patient back on carvedilol 25 mg orally twice every day, hydralazine 25 mg orally twice every day, Lasix 40 mg IV push every 12 hours, cardiology consultation appreciated, patient did have an echocardiogram in June 2023 that showed mild LV dysfunction with ejection fraction of 45%, mild mitral regurgitation and tricuspid regurgitation. 3. Acute kidney injury on chronic kidney disease stage IIIb . There may be a false elevation of the creatinine due to the use of Bactrim and hypersecretion of the creatinine and the renal tubules, will repeat CMP again in the next 24 hours, discontinue Bactrim, avoid nephrotoxins, monitor the patient very closely. 4. History of coronary artery disease with three-vessel disease status post PCI under the care of cardiology Dr. Veras on a regular basis. Continue patient on carvedilol 25 mg orally twice every day, continue patient on hydralazine 25 mg orally twice every day, continue atorvastatin 40 mg once every day, continue isosorbide mononitrate 60 mg orally twice every day cardiology consultation. 5. Hypertension and hypertensive cardiovascular disease. Continue patient on carvedilol 25 mg orally twice a day, continue hydralazine 25 mg orally 2 times every day, continue isosorbide mononitrate 60 mg orally twice every day. 6. Hypothyroidism. Continue Synthroid 112 mcg orally once every day, 7. Enlarged prostate with urinary retention. Continue patient on Flomax 0.4 mg once every day. 8. Moderate COPD. Continue oxygen 2 L nasal cannula, continue DuoNeb 3 mL nebulization 4 times every day, continue Theodur 300 mg once at bedtime, 9. History of Ventricular tachycardia status post ICD implantation continue amiodarone 100 mg orally once every day. 10. Anxiety disorder. Continue patient on sertraline 50 mg once every day, as well as Xanax as needed. 11. DVT prophylaxis. Continue patient on Lovenox 30 mg subcutaneously every 24 hours. 12. GI prophylaxis. Protonix 40 mg once every day. 13. Admit to inpatient. Estimated length of stay 2 midnights. 14. Full Code. Past Medical History Past Medical History: Coronary Artery Disease (CAD), Cancer, Chest Pain / Angina, Heart Failure, COPD, Myocardial Infarction (AR), Prostate Disorder, Thyroid Disorder Additional Past Medical History / Comment(s): HX HIATAL HERNIA. mac degeneration. PSORIASIS. GOUT Last Myocardial Infarction Date:: unk History of Any Multi-Drug Resistant Organisms: None Reported Past Surgical History: Heart Catheterization With Stent Additional Past Surgical History / Comment(s): COLONOSCOPY. AICD/PACEMAKER- S[employer]gle. GENERATOR CHANGE-09/23/2014. leg stents Date of Last Stent Placement:: unk Past Psychological History: No Psychological Hx Reported Smoking Status: Former smoker Past Alcohol Use History: None Reported Past Drug Use History: None Reported - Past Family History Mother History Unknown: Yes Medications and Allergies Home Medications Medication Instructions Recorded Confirmed Type Aspirin 325 mg PO DAILY 09/20/14 03/09/24 History Isosorbide Mononitrate ER [Imdur] 60 mg PO BID 09/20/14 03/09/24 History Nitroglycerin Sl Tabs [Nitrostat] 0.4 mg SL Q5M PRN 02/10/21 03/09/24 History Amiodarone [Cordarone] 100 mg PO DAILY 09/07/21 03/09/24 History Levothyroxine Sodium [Levoxyl] 112 mcg PO DAILY 09/07/21 03/09/24 History Sertraline [Zoloft] 50 mg PO DAILY 09/07/21 03/09/24 History Pantoprazole [Protonix] 40 mg PO DAILY 07/15/23 03/09/24 History Tamsulosin HCl [Flomax] 0.4 mg PO DAILY 07/15/23 03/09/24 History allopurinoL [Zyloprim] 100 mg PO BID 07/15/23 03/09/24 History ALPRAZolam [Xanax] 0.25 mg PO BID PRN 03/09/24 03/09/24 History Atorvastatin Calcium [Lipitor] 40 mg PO HS 03/09/24 03/09/24 History Folic Acid 1 mg PO DAILY 03/09/24 03/09/24 History Potassium Chloride [Klor-Con M20] 20 meq PO BID 03/09/24 03/09/24 History Sulfamethoxazole/Trimethoprim 1 tab PO BID 03/09/24 03/09/24 History [Bactrim DS 800-160 mg] Theophylline 12 Hour [Ashok-Dur] 300 mg PO Q12H 03/09/24 03/09/24 History carvediloL [Coreg] 25 mg PO BID 03/09/24 03/09/24 History hydrALAZINE HCL [Apresoline] 25 mg PO BID 03/09/24 03/09/24 History traZODone HCL [Desyrel] 50 mg PO HS 03/09/24 03/09/24 History Allergies Allergy/AdvReac Type Severity Reaction Status Date / Time prednisone AdvReac Hallucinati Verified 03/09/24 09:15 ons Physical Exam Vitals: Vital Signs Temp Pulse Resp BP Pulse Ox 03/09/24 14:33 98.9 F 80 18 152/66 97 03/09/24 13:00 70 18 155/66 97 03/09/24 12:16 79 18 149/60 95 03/09/24 11:38 76 18 141/61 95 03/09/24 10:13 81 18 136/61 96 03/09/24 09:42 99.1 F 80 18 108/62 97 03/09/24 07:28 103 H 18 136/65 93 L 03/09/24 06:46 117 H 20 160/74 96 03/09/24 06:43 124 H 03/09/24 06:35 118 H 03/09/24 06:30 22 03/09/24 05:43 102.1 F H 125 H 22 158/84 85 L Intake and Output 03/09/24 03/09/24 03/09/24 06:59 14:59 22:59 Other: Weight 69.853 kg Results CBC & Chem 7: 03/09/24 06:12 03/09/24 06:12 Labs: Abnormal Lab Results - Last 24 Hours (Table) 03/09/24 03/09/24 03/09/24 Range/Units 06:12 06:12 07:28 RBC 3.06 L (4.30-5.90) m/uL Hgb 9.7 L (13.0-17.5) gm/dL Hct 30.9 L (39.0-53.0) % MCV 101.1 H (80.0-100.0) fL Plt Count 132 L (150-450) k/uL Lymphocytes # 0.4 L (1.0-4.8) k/uL BUN 34 H (9-20) mg/dL Creatinine 2.31 H (0.66-1.25) mg/dL Glucose 161 H (74-99) mg/dL POC Glucose (mg/dL) (70-110) mg/dL Urine Protein Trace H (Negative) Ur Leukocyte Esterase Large H (Negative) Urine WBC 120 H (0-5) /hpf 03/09/24 Range/Units 07:48 RBC (4.30-5.90) m/uL Hgb (13.0-17.5) gm/dL Hct (39.0-53.0) % MCV (80.0-100.0) fL Plt Count (150-450) k/uL Lymphocytes # (1.0-4.8) k/uL BUN (9-20) mg/dL Creatinine (0.66-1.25) mg/dL Glucose (74-99) mg/dL POC Glucose (mg/dL) 147 H (70-110) mg/dL Urine Protein (Negative) Ur Leukocyte Esterase (Negative) Urine WBC (0-5) /hpf
[2024-03-09] MEDS: carvediloL 12.5 MG TAB PO SCH (20:45)
[2024-03-09] MEDS: hydrALAZINE HCL 25 MG TAB PO SCH (20:49)
[2024-03-09] MEDS: ATORVASTATIN 40 MG TAB PO SCH (20:49)
[2024-03-09] MEDS: traZODone HCL 50 MG TAB PO SCH (20:50)
[2024-03-09] MEDS: ISOSORBIDE MONONITRATE ER 60 MG TAB.ER.24H PO SCH (20:50)
[2024-03-09] MEDS: allopurinoL 100 MG TAB PO SCH (20:50)
[2024-03-09] MEDS: POTASSIUM CHLORIDE ER 20 MEQ TAB.ER PO SCH (20:50)
[2024-03-09] MEDS: FUROSEMIDE 10 MG/ML 4 ML VIAL IV SCH (21:41)
[2024-03-09] MEDS: ACETAMINOPHEN TAB 325 MG TAB PO PRN (23:41)
[2024-03-09] MEDS: THEOPHYLLINE 24 HOUR 300 MG CAP.ER.24H PO SCH (23:41)
[2024-03-10] MEDS: LEVOTHYROXINE 112 MCG TAB PO SCH (06:33)
[2024-03-10 06:55] LABS: Basophils % (A) 0 %; Eosinophils % (A) 0 %; HCT 26.2 % (39.0-53.0); HGB 8.3 gm/dL (13.0-17.5); Hypochromasia Slight; Lymphocytes # (A) 0.3 k/uL (1.0-4.8); Lymphocytes % (A) 5 %; MCH 31.7 pg (25.0-35.0); MCHC 31.7 g/dL (31.0-37.0); MCV 99.7 fL (80.0-100.0); Mean Platelet Volume 9.6; Monocytes # (A) 0.3 k/uL (0-1.0); Monocytes % (A) 5 %; Neutrophils # (A) 4.6 k/uL (1.3-7.7); Neutrophils % (A) 87 %; Platelet Count 116 k/uL (150-450); RBC 2.63 m/uL (4.30-5.90); WBC 5.3 k/uL (3.8-10.6)
[2024-03-10 07:43] LABS: ALT 29 U/L (4-49); AST 38 U/L (17-59); African American GFR (CKD) 28 (>60 ml/min/1.73 sqM); Albumin 2.9 g/dL (3.5-5.0); Alkaline Phosphatase 58 U/L (38-126); Anion Gap 5 mmol/L; Blood Urea Nitrogen 41 mg/dL (9-20); Calcium 8.8 mg/dL (8.4-10.2); Carbon Dioxide 33 mmol/L (22-30); Chloride 102 mmol/L (98-107); Glucose 93 mg/dL (74-99); Non-African American GFR(CKD) 24 (>60 ml/min/1.73 sqM); Potassium 3.6 mmol/L (3.5-5.1); Sodium 140 mmol/L (137-145); Total Bilirubin 0.5 mg/dL (0.2-1.3); Total Protein 5.5 g/dL (6.3-8.2)
[2024-03-10 08:35] LABS: NT-Pro-B-Type Natriuretic Pept 33900 pg/mL
--- NOTE | 2024-03-10 09:03 | P.CONS ---
History of Present Illness - Reason for Consult Consult date: 03/09/24 Urinary tract infection Requesting physician: Larry Avila - Chief Complaint Weakness and fall x days - History of Present Illness Patient is a 84-year-old male with a past medical history significant for COPD coronary artery disease heart failure prostate disorder 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 s/p radiation, UTI and recently diagnosed in the outpatient setting with Stenotrophomonas maltophilia that was sensitive to Bactrim and Fortaz apparently the patient has been treated with the Bactrim in the outpatient setting however the patient was previously getting weaker and complaining of medication make him sick apparently the patient went to the bathroom and was sitting on the toilet and slipped out of the toilet and his called EMS to have brought the patient to the hospital patient did have a temperature of 102.1 F he was tachycardic but not hypotensive mildly hypoxic currently on 4 L nasal cannula oxygen patient did have a white count of 8.6 BUN/creatinine has been elevated liver enzymes are normal urine has been positive with large ascites trace 120 WBC influenza RSV COVID testing has been negative patient did have a chest x-ray finding suggestive of CHF exacerbation fluid overload correlate clinically patient was started on Fortaz infectious disease was consulted for further management, patient were not a bit good hist orian he did have a Soto catheter that apparently was changed when he came to the hospital has been complaining of some lower abdominal discomfort nausea but no vomiting (did have some diarrhea as well at home but is not very clear about the frequency or any blood or mucus in the stool Review of Systems Positive point and negatives has been mentioned in the HPI, complete review of systems was performed and all other systems are negative Past Medical History Past Medical History: Coronary Artery Disease (CAD), Cancer, Chest Pain / Angina, Heart Failure, COPD, Myocardial Infarction (MD), Prostate Disorder, Thyroid Disorder Additional Past Medical History / Comment(s): HX HIATAL HERNIA. mac degener ation. PSORIASIS. GOUT Last Myocardial Infarction Date:: unk History of Any Multi-Drug Resistant Organisms: None Reported Past Surgical History: Heart Catheterization With Stent Additional Past Surgical History / Comment(s): COLONOSCOPY. AICD/PACEMAKER- [employer]. GENERATOR CHANGE-09/23/2014. leg stents Date of Last Stent Placement:: unk Past Psychological History: No Psychological Hx Reported Smoking Status: Former smoker Past Alcohol Use History: None Reported Past Drug Use History: None Reported - Past Family History Mother History Unknown: Yes Medications and Allergies Home Medications Medication Instructions Recorded Confirmed Type Aspirin 325 mg PO DAILY 09/20/14 03/09/24 History Isosorbide Mononitrate ER [Imdur] 60 mg PO BID 09/20/14 03/09/24 History Nitroglycerin Sl Tabs [Nitrostat] 0.4 mg SL Q5M PRN 02/10/21 03/09/24 History Amiodarone [Cordarone] 100 mg PO DAILY 09/07/21 03/09/24 History Levothyroxine Sodium [Levoxyl] 112 mcg PO DAILY 09/07/21 03/09/24 History Sertraline [Zoloft] 50 mg PO DAILY 09/07/21 03/09/24 History Pantoprazole [Protonix] 40 mg PO DAILY 07/15/23 03/09/24 History Tamsulosin HCl [Flomax] 0.4 mg PO DAILY 07/15/23 03/09/24 History allopurinoL [Zyloprim] 100 mg PO BID 07/15/23 03/09/24 History ALPRAZolam [Xanax] 0.25 mg PO BID PRN 03/09/24 03/09/24 History Atorvastatin Calcium [Lipitor] 40 mg PO HS 03/09/24 03/09/24 History Folic Acid 1 mg PO DAILY 03/09/24 03/09/24 History Potassium Chloride [Klor-Con M20] 20 meq PO BID 03/09/24 03/09/24 History Sulfamethoxazole/Trimethoprim 1 tab PO BID 03/09/24 03/09/24 History [Bactrim DS 800-160 mg] Theophylline 12 Hour [Ashok-Dur] 300 mg PO Q12H 03/09/24 03/09/24 History carvediloL [Coreg] 25 mg PO BID 03/09/24 03/09/24 History hydrALAZINE HCL [Apresoline] 25 mg PO BID 03/09/24 03/09/24 History traZODone HCL [Desyrel] 50 mg PO HS 03/09/24 03/09/24 History Allergies Allergy/AdvReac Type Severity Reaction Status Date / Time prednisone AdvReac Hallucinati Verified 03/09/24 09:15 ons Physical Exam Vitals: Vital Signs Temp Pulse Resp BP Pulse Ox 03/09/24 11:38 76 18 141/61 95 03/09/24 10:13 81 18 136/61 96 03/09/24 09:42 99.1 F 80 18 108/62 97 03/09/24 07:28 103 H 18 136/65 93 L 03/09/24 06:46 117 H 20 160/74 96 03/09/24 06:43 124 H 03/09/24 06:35 118 H 03/09/24 06:30 22 03/09/24 05:43 102.1 F H 125 H 22 158/84 85 L Intake and Output 03/08/24 03/09/24 03/09/24 22:59 06:59 14:59 Other: Weight 69.853 kg GENERAL DESCRIPTION: Elderly male lying in bed, no distress. No tachypnea or accessory muscle of respiration use. HEENT: Shows Pallor , no scleral icterus. Oral mucous membrane is dry. No pharyngeal erythema or thrush NECK: Trachea central, no thyromegaly. LUNGS: Unlabored breathing. Clear to auscultation anteriorly. No wheeze or crackle. HEART: S1, S2, regular rate and rhythm. No loud murmur ABDOMEN: Soft, no tenderness , guarding or rigidity, no organomegaly EXTREMITIES: No edema of feet. SKIN: No rash, no masses palpable. NEUROLOGICAL: The patient is awake, alert, oriented x3, mood and affect normal. Results CBC & Chem 7: 03/10/24 06:20 03/10/24 06:20 Labs: Abnormal Lab Results - Last 24 Hours (Table) 03/09/24 03/09/24 03/09/24 Range/Units 06:12 06:12 07:28 RBC 3.06 L (4.30-5.90) m/uL Hgb 9.7 L (13.0-17.5) gm/dL Hct 30.9 L (39.0-53.0) % MCV 101.1 H (80.0-100.0) fL Plt Count 132 L (150-450) k/uL Lymphocytes # 0.4 L (1.0-4.8) k/uL BUN 34 H (9-20) mg/dL Creatinine 2.31 H (0.66-1.25) mg/dL Glucose 161 H (74-99) mg/dL POC Glucose (mg/dL) (70-110) mg/dL Urine Protein Trace H (Negative) Ur Leukocyte Esterase Large H (Negative) Urine WBC 120 H (0-5) /hpf 03/09/24 Range/Units 07:48 RBC (4.30-5.90) m/uL Hgb (13.0-17.5) gm/dL Hct (39.0-53.0) % MCV (80.0-100.0) fL Plt Count (150-450) k/uL Lymphocytes # (1.0-4.8) k/uL BUN (9-20) mg/dL Creatinine (0.66-1.25) mg/dL Glucose (74-99) mg/dL POC Glucose (mg/dL) 147 H (70-110) mg/dL Urine Protein (Negative) Ur Leukocyte Esterase (Negative) Urine WBC (0-5) /hpf Assessment and Plan (1) Sepsis Current Visit: Yes Status: Acute Code(s): A41.9 - SEPSIS, UNSPECIFIED ORGANISM SNOMED Code(s): 71778352 (2) UTI (urinary tract infection) Current Visit: Yes Status: Acute Code(s): N39.0 - URINARY TRACT INFECTION, SITE NOT SPECIFIED SNOMED Code(s): 68426748 Plan: 1patient presented to hospital with sepsis in this patient who did have a fever tachycardia source is likely urinary in this patient who do have a lower abdominal discomfort and a chronic indwelling Soto catheter likely component of catheter assisted UTI chest x-ray was suggestive mostly of CHF influenza RSV COVID testing negative no evidence of any cellulitis or joint swelling failing outpatient oral Bactrim DS therapy 2-patient to continue with the Fortaz while waiting for the repeat urine culture to be finalized We will follow on clinical condition and cultures to further adjust medication if needed Thank you for this consultation we will follow the patient along with you Dictation was produced using [employer] dictation software. please excuse any grammatical, word or spelling errors. Time with Patient: Greater than 30
[2024-03-10] MEDS: TAMSULOSIN 0.4 MG CAP.ER.24H PO SCH (09:08)
[2024-03-10] MEDS: SERTRALINE 50 MG TAB PO SCH (09:08)
[2024-03-10] MEDS: ASPIRIN 325 MG TAB PO SCH (09:08)
[2024-03-10] MEDS: PANTOPRAZOLE 40 MG TABLET PO SCH (09:08)
[2024-03-10] MEDS: ENOXAPARIN 30 MG/0.3 ML SYRINGE SQ SCH (09:08)
[2024-03-10] MEDS: AMIODARONE 100 MG TAB PO SCH (09:09)
[2024-03-10] MEDS: FOLIC ACID 1 MG TAB PO SCH (09:11)
--- NOTE | 2024-03-10 09:56 | P.PN ---
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, that left him with a big nonhealing wound behind the left ear for which she was hospitalized initially at [facility] back in June 2023 then he was hospitalized at [facility] from July 16 till August 04, 2023 when he was discharged after he was admitted for significant acute toxic metabolic encephalopathy due to significant sepsis and he developed to have a significant medical debility that required subacute rehabilitation at [facility] patient has recovered very well from that, he was recently diagnosed of having urinary tract infection with Stonotrophomonas Multophilia that is only sensitive to ceftazidime as well as Bactrim he was started on Bactrim as an outpatient, patient has been getting progressively weaker and weaker with increased shortness of breath, and he stated that the medication was making him sick, so he was not taking it appropriately, apparently the patient went to the bathroom and he was sitting on the toilet and slipped out of the toilet and his called EMS he presented to the emergency department [facility] today, he was found to have a reduced GFR because of possible use of Bactrim and poor oral intake of fluid, at the same time he was found to have an acute systolic heart failure and a chest x-ray, and his oxygen saturation was around 85% on room air, therefore the patient was admitted to hospital for evaluation by cardiology as well as infectious disease, blood cultures were obtained, we will monitor the patient very closely. 03/10: Patient is laying down in bed in no apparent distress, he is feeling better today, he denies any fever or chills at this time, he denies any chest pain, shortness of breath, he has been getting Lasix 40 mg IV push every 12 hours, is diuresing very well, he was started on Fortaz 2 g IV piggyback every 24 hours, monitor the patient kidney function test, infectious ease consultation appreciated, cardiology consultation appreciated, I will continue to follow-up with the patient very closely, physical therapy to evaluate the patient, patient currently has a Soto catheter in place. REVIEW OF SYSTEMS: Constitutional: low grade fever, no chills, no night sweats. No weight change. positive for weakness,positive for fatigue and lethargy. positive for daytime sleepiness. EENT: No headache. No blurred vision or double vision, no loss of vision. No loss of Hearing, no ringing in the ears, no dizziness. No nasal drainage or congestion. No epistaxis. No sore throat. Lungs: No shortness of breath, no cough, no sputum production. No wheezing. Reports dyspnea with activity. Cardiovascular: No chest pain, no lower extremity edema. No palpitations. No paroxysmal nocturnal dyspnea. No orthopnea. No lightheadedness or dizziness. No syncopal episodes. Abdominal: Reports abdominal pain. No nausea, vomiting. No diarrhea. No constipation. No bloody or tarry stools reports loss of appetite. Genitourinary: No dysuria, increased frequency, urgency. No urinary retention. Musculoskeletal: No myalgias. positive for muscle weakness, no gait dysfunction, no frequent falls. No back pain. No neck pain. Integumentary: wound behind left ear post radiation for SCC, no lesions. No rash or pruritus. No unusual bruising. No change in hair or nails. Neurologic: No aphasia. No facial droop. positive for change in mentation. No head injury. No headache. No paralysis. No paresthesia. Psychiatric: positive for depression. positive for anxiety. No mood swings.positive for paranoia Endocrine: No abnormal blood sugars. No weight change. PHYSICAL EXAMINATION: General: 84-year-old male laying down in bed appears to be quite confused nonverbal. HEENT: Head is atraumatic, normocephalic, pupils were equal round reactive to light and recommendation, extraocular muscle movement were intact, sclera nonicteric, conjunctivae were pale, mucous membranes of the mouth are somewhat dry, the large wound behind the left ear with a clean base minimal drainage Neck: Supple, no JVP, normal carotid upstroke bilaterally, no lymphadenopathy. Chest: Decreased breath sounds at the bases, few rhonchi, no expiratory wheezes, no chest wall tenderness, no intercostal retractions. Heart: First heart sound is normal, second heart sound is normal there is systolic ejection murmur 2/6 located in the left sternal border, there is AICD in the left upper precordium Abdomen: Soft, nontender, nondistended, positive bowel sounds. Extremities: There is +1 edema no calf tenderness DP +2 bilaterally. Neurologic examination: Patient is confused opens his eyes in response to verbal stimuli, nonverbal, follows some commands not all the commands, moves all his extremities respond to the questions very well. ASSESSMENT AND PLAN: 1. Urinary tract infection with sepsis due to Stonotrophomonas maltophilia. Continue Fortaz 2 g IV piggyback every 24 hours,, blood cultures will be obtained, infectious is consultation from Dr. Kurtz patient did not receive any IV fluid due to the acute systolic heart failure. 2. Acute systolic heart failure. Restart the patient back on carvedilol 25 mg orally twice every day, hydralazine 25 mg orally twice every day, Lasix 40 mg IV push every 12 hours, cardiology consultation appreciated, patient did have an echocardiogram in June 2023 that showed mild LV dysfunction with ejection fraction of 45%, mild mitral regurgitation and tricuspid regurgitation. 3. Acute kidney injury on chronic kidney disease stage IIIb . There may be a false elevation of the creatinine due to the use of Bactrim and hypersecretion of the creatinine and the renal tubules, will repeat CMP again in the next 24 hours, discontinue Bactrim, avoid nephrotoxins, monitor the patient very closely. 4. History of coronary artery disease with three-vessel disease status post PCI under the care of cardiology Dr. Veras on a regular basis. Continue patient on carvedilol 25 mg orally twice every day, continue patient on hydralazine 25 mg orally twice every day, continue atorvastatin 40 mg once every day, continue isosorbide mononitrate 60 mg orally twice every day cardiology consultation. 5. Hypertension and hypertensive cardiovascular disease. Continue patient on carvedilol 25 mg orally twice a day, continue hydralazine 25 mg orally 2 times every day, continue isosorbide mononitrate 60 mg orally twice every day. 6. Hypothyroidism. Continue Synthroid 112 mcg orally once every day, 7. Enlarged prostate with urinary retention. Continue patient on Flomax 0.4 mg once every day. 8. Moderate COPD. Continue oxygen 2 L nasal cannula, continue DuoNeb 3 mL nebulization 4 times every day, continue Theodur 300 mg once at bedtime, 9. History of Ventricular tachycardia status post ICD implantation continue amio darone 100 mg orally once every day. 10. Anxiety disorder. Continue patient on sertraline 50 mg once every day, as well as Xanax as needed. 11. DVT prophylaxis. Continue patient on Lovenox 30 mg subcutaneously every 24 hours. 12. GI prophylaxis. Protonix 40 mg once every day. 13. Physical therapy evaluation. 14. open hearth worker consultation for discharge planning. Objective - Vital Signs Vital signs: Vital Signs Temp 97.8 F 03/10/24 04:00 Pulse 74 03/10/24 04:00 Resp 16 03/10/24 04:00 BP 123/54 03/10/24 04:00 Pulse Ox 96 03/10/24 08:15 FiO2 Intake & Output 03/09/24 03/10/24 03/10/24 18:59 06:59 18:59 Intake Total 1080 118 Output Total 1400 1550 Balance -1400 -470 118 Weight 69.853 kg 46.5 kg Intake: Oral 1080 118 Output: Urine 1400 1550 Uretheral (Soto) 600 Other: Voiding Method Indwelling Catheter - Labs CBC & Chem 7: 03/10/24 06:20 03/10/24 06:20 Labs: Abnormal Lab Results - Last 24 Hours (Table) 03/10/24 03/10/24 Range/Units 06:20 06:20 RBC 2.63 L (4.30-5.90) m/uL Hgb 8.3 L (13.0-17.5) gm/dL Hct 26.2 L (39.0-53.0) % Plt Count 116 L (150-450) k/uL Lymphocytes # 0.3 L (1.0-4.8) k/uL Carbon Dioxide 33 H (22-30) mmol/L BUN 41 H (9-20) mg/dL Creatinine 2.41 H (0.66-1.25) mg/dL Total Protein 5.5 L (6.3-8.2) g/dL Albumin 2.9 L (3.5-5.0) g/dL
[2024-03-10 11:43] VITALS: BMI 16.0
--- NOTE | 2024-03-10 13:53 | P.PN ---
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 On today's evaluation that is 03/10/2024,the patient did have improvement in his fever pattern afebrile this morning and denies any fever or any chills, patient is breathing comfortably on 4 L nasal cannula oxygen, the patient denies chest pain shortness of breath and no significant cough, patient denies abdominal pain, no nausea vomiting or diarrhea. Patient white count is 5.3, creatinine 2.41 Objective - Vital Signs Vital signs: Vital Signs Temp 98.6 F 03/10/24 08:00 Pulse 65 03/10/24 12:00 Resp 16 03/10/24 08:00 BP 111/51 03/10/24 12:00 Pulse Ox 95 03/10/24 12:00 FiO2 Intake & Output 03/09/24 03/10/24 03/10/24 18:59 06:59 18:59 Intake Total 1080 468 Output Total 1400 1550 Balance -1400 -470 468 Weight 69.853 kg 46.5 kg 46.5 kg Intake: Oral 1080 468 Output: Urine 1400 1550 Uretheral (Soto) 600 Other: Voiding Method Indwelling Catheter Indwelling Catheter - Exam GENERAL DESCRIPTION: An elderly male lying in bed in no distress RESPIRATORY SYSTEM: Unlabored breathing , decreased breath sounds at bases HEART: S1 S2 regular rate and rhythm , ABDOMEN: Soft , no tenderness EXTREMITIES: No edema feet - Labs CBC & Chem 7: 03/10/24 06:20 03/10/24 06:20 Labs: Abnormal Lab Results - Last 24 Hours (Table) 03/10/24 03/10/24 Range/Units 06:20 06:20 RBC 2.63 L (4.30-5.90) m/uL Hgb 8.3 L (13.0-17.5) gm/dL Hct 26.2 L (39.0-53.0) % Plt Count 116 L (150-450) k/uL Lymphocytes # 0.3 L (1.0-4.8) k/uL Carbon Dioxide 33 H (22-30) mmol/L BUN 41 H (9-20) mg/dL Creatinine 2.41 H (0.66-1.25) mg/dL Total Protein 5.5 L (6.3-8.2) g/dL Albumin 2.9 L (3.5-5.0) g/dL Microbiology - Last 24 Hours (Table) 03/09/24 07:28 Urine Culture - Final Urine,Voided Assessment and Plan (1) Sepsis Current Visit: Yes Status: Acute Code(s): A41.9 - SEPSIS, UNSPECIFIED ORGANISM SNOMED Code(s): 00141427 (2) UTI (urinary tract infection) Current Visit: Yes Status: Acute Code(s): N39.0 - URINARY TRACT INFECTION, SITE NOT SPECIFIED SNOMED Code(s): 97207626 Plan: 1patient presented to hospital with sepsis in this patient who did have a fever tachycardia source is likely urinary in this patient who do have a lower abdomin al discomfort and a chronic indwelling Soto catheter likely component of catheter assisted UTI chest x-ray was suggestive mostly of CHF influenza RSV COVID testing negative no evidence of any cellulitis or joint swelling, failing outpatient oral Bactrim DS therapy 2-patient did have resolution of his fever we will continue patient on Fortaz while waiting for repeat culture to finalize Dictation was produced using [employer] dictation software. please excuse any grammatical, word or spelling errors. Time with Patient: Less than 30
[2024-03-10] MEDS: DAPAGLIFLOZIN PROPANEDIOL 10 MG TABLET PO SCH (17:57)
[2024-03-10] MEDS: ALPRAZolam 0.25 MG TAB PO PRN (17:57)
[2024-03-10] MEDS: hydrALAZINE HCL 25 MG TAB PO SCH (17:58)
--- NOTE | 2024-03-10 18:07 | P.PN ---
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 He said while he was in the bathroom he slipped and fell on his bottom. He did not hit his head. Did not lose consciousness, pass out or felt lightheaded. His found him on the bathroom floor this morning and called EMS to bring him in to the ED. He is currently being treated for UTI with unknown antibiotics. He does take blood thinners at home. Patient was assessed this morning in the ED. He reported feeling well. Denied fever, chills, nausea, vomiting, chest pain, shortness of breath, belly pain, diarrhea. In the ED, EKG showed sinus tachycardia with rate of 123. Chest X ray suggested CHF exacerbation/fluid overload state. CBC showed WBC of 8.6, hemoglobin of 9.7, hematocrit 30.9, platelet 132, BMP showed sodium 139, potassium 4.2, BUN 34, creatinine 2.31. Urinalysis showed positive leukocyte esterase negative for nitrites. Troponin 0.022, BNP 4790. She is saturating at 95% on nasal cannula at 4L/min. ROS: 14 point ros negative except those mentioned in the HPI. PMH: Ischemic cardiomyopathy, chronic systolic heart failure, ventricular tachycardia s/p AICD PSH: Heart catheterization with stents Social history: Former smoker, no alcohol or drug use. Family history: unknown Progress note March 10, 2024 Patient is doing well from cardiovascular standpoint. 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 diuretics tomorrow a.m. Would recommend Bumex 1 mg p.o. daily Objective - Vital Signs Vital signs: Vital Signs Temp 98.6 F 03/10/24 08:00 Pulse 77 03/10/24 16:00 Resp 16 03/10/24 14:00 BP 116/68 03/10/24 16:00 Pulse Ox 95 03/10/24 16:00 FiO2 Intake & Output 03/09/24 03/10/24 03/10/24 18:59 06:59 18:59 Intake Total 1080 568 Output Total 1400 1550 Balance -1400 -470 568 Weight 69.853 kg 46.5 kg 46.5 kg Intake: Oral 1080 568 Output: Urine 1400 1550 Uretheral (Soto) 600 Other: Voiding Method Indwelling Catheter Indwelling Catheter - Labs CBC & Chem 7: 03/10/24 06:20 03/10/24 06:20 Labs: Abnormal Lab Results - Last 24 Hours (Table) 03/10/24 03/10/24 Range/Units 06:20 06:20 RBC 2.63 L (4.30-5.90) m/uL Hgb 8.3 L (13.0-17.5) gm/dL Hct 26.2 L (39.0-53.0) % Plt Count 116 L (150-450) k/uL Lymphocytes # 0.3 L (1.0-4.8) k/uL Carbon Dioxide 33 H (22-30) mmol/L BUN 41 H (9-20) mg/dL Creatinine 2.41 H (0.66-1.25) mg/dL Total Protein 5.5 L (6.3-8.2) g/dL Albumin 2.9 L (3.5-5.0) g/dL Microbiology - Last 24 Hours (Table) 03/09/24 07:28 Urine Culture - Final Urine,Voided
[2024-03-10 23:32] LABS: % Iron Saturation 6.88 (15.00-50.00)
[2024-03-11 06:49] LABS: ALT 31 U/L (4-49); AST 41 U/L (17-59); African American GFR (CKD) 24 (>60 ml/min/1.73 sqM); Albumin 3.1 g/dL (3.5-5.0); Alkaline Phosphatase 63 U/L (38-126); Anion Gap 5 mmol/L; Blood Urea Nitrogen 46 mg/dL (9-20); Calcium 8.7 mg/dL (8.4-10.2); Carbon Dioxide 32 mmol/L (22-30); Chloride 102 mmol/L (98-107); Glucose 96 mg/dL (74-99); Non-African American GFR(CKD) 21 (>60 ml/min/1.73 sqM); Potassium 3.3 mmol/L (3.5-5.1); Sodium 139 mmol/L (137-145); Total Bilirubin 0.4 mg/dL (0.2-1.3); Total Protein 5.8 g/dL (6.3-8.2)
[2024-03-11 08:01] LABS: Basophils % (A) 0 %; Eosinophils # (A) 0.1 k/uL (0-0.7); Eosinophils % (A) 1 %; HCT 28.9 % (39.0-53.0); HGB 9.3 gm/dL (13.0-17.5); Lymphocytes # (A) 0.2 k/uL (1.0-4.8); Lymphocytes % (A) 3 %; MCH 31.5 pg (25.0-35.0); MCHC 32.3 g/dL (31.0-37.0); MCV 97.5 fL (80.0-100.0); Mean Platelet Volume 11.4; Monocytes # (A) 0.4 k/uL (0-1.0); Monocytes % (A) 5 %; Neutrophils # (A) 6.5 k/uL (1.3-7.7); Neutrophils % (A) 88 %; RBC 2.97 m/uL (4.30-5.90); RDW 14.1 % (11.5-15.5); WBC 7.4 k/uL (3.8-10.6)
[2024-03-11 09:18] LABS: Platelet Count 99 k/uL (150-450); RBC Morphology Normal
[2024-03-11] MEDS: ASPIRIN 81 MG PO SCH (09:48)
--- NOTE | 2024-03-11 11:12 | P.PN ---
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, that left him with a big nonhealing wound behind the left ear for which she was hospitalized initially at [facility] back in June 2023 then he was hospitalized at [facility] from July 16 till August 04, 2023 when he was discharged after he was admitted for significant acute toxic metabolic encephalopathy due to significant sepsis and he developed to have a significant medical debility that required subacute rehabilitation at [facility] patient has recovered very well from that, he was recently diagnosed of having urinary tract infection with Stonotrophomonas Multophilia that is only sensitive to ceftazidime as well as Bactrim he was started on Bactrim as an outpatient, patient has been getting progressively weaker and weaker with increased shortness of breath, and he stated that the medication was making him sick, so he was not taking it appropriately, apparently the patient went to the bathroom and he was sitting on the toilet and slipped out of the toilet and his called EMS he presented to the emergency department [facility] today, he was found to have a reduced GFR because of possible use of Bactrim and poor oral intake of fluid, at the same time he was found to have an acute systolic heart failure and a chest x-ray, and his oxygen saturation was around 85% on room air, therefore the patient was admitted to hospital for evaluation by cardiology as well as infectious disease, blood cultures were obtained, we will monitor the patient very closely. 03/10: Patient is laying down in bed in no apparent distress, he is feeling better today, he denies any fever or chills at this time, he denies any chest pain, shortness of breath, he has been getting Lasix 40 mg IV push every 12 hours, is diuresing very well, he was started on Fortaz 2 g IV piggyback every 24 hours, monitor the patient kidney function test, infectious ease consultation appreciated, cardiology consultation appreciated, I will continue to follow-up with the patient very closely, physical therapy to evaluate the patient, patient currently has a Soto catheter in place. 03/11: Patient is laying down in bed in no apparent distress, he appears to be q uite dry today, he denies any chest pain, shortness of breath, he has no abdominal pain, he is constipated, he has no other issues, his urine culture showed skin and genital awilda, we will maintain the patient on Fortaz 2 g of piggyback every 24 hours for the next 24 hours and then we will discuss with ID the need for antibiotic as an outpatient hopefully will be able to be discharged home tomorrow morning. REVIEW OF SYSTEMS: Constitutional: low grade fever, no chills, no night sweats. No weight change. positive for weakness,positive for fatigue and lethargy. positive for daytime sleepiness. EENT: No headache. No blurred vision or double vision, no loss of vision. No loss of Hearing, no ringing in the ears, no dizziness. No nasal drainage or congestion. No epistaxis. No sore throat. Lungs: No shortness of breath, no cough, no sputum production. No wheezing. Reports dyspnea with activity. Cardiovascular: No chest pain, no lower extremity edema. No palpitations. No paroxysmal nocturnal dyspnea. No orthopnea. No lightheadedness or dizziness. No syncopal episodes. Abdominal: Reports abdominal pain. No nausea, vomiting. No diarrhea. No constipation. No bloody or tarry stools reports loss of appetite. Genitourinary: No dysuria, increased frequency, urgency. No urinary retention. Musculoskeletal: No myalgias. positive for muscle weakness, no gait dysfunction, no frequent falls. No back pain. No neck pain. Integumentary: wound behind left ear post radiation for SCC, no lesions. No rash or pruritus. No unusual bruising. No change in hair or nails. Neurologic: No aphasia. No facial droop. positive for change in mentation. No head injury. No headache. No paralysis. No paresthesia. Psychiatric: positive for depression. positive for anxiety. No mood sw ings.positive for paranoia Endocrine: No abnormal blood sugars. No weight change. PHYSICAL EXAMINATION: General: 84-year-old male laying down in bed appears to be quite confused nonverbal. HEENT: Head is atraumatic, normocephalic, pupils were equal round reactive to light and recommendation, extraocular muscle movement were intact, sclera nonicteric, conjunctivae were pale, mucous membranes of the mouth are somewhat dry, the large wound behind the left ear with a clean base minimal drainage Neck: Supple, no JVP, normal carotid upstroke bilaterally, no lymphadenopathy. Chest: Decreased breath sounds at the bases, few rhonchi, no expiratory wheezes, no chest wall tenderness, no intercostal retractions. Heart: First heart sound is normal, second heart sound is normal there is systolic ejection murmur 2/6 located in the left sternal border, there is AICD in the left upper precordium Abdomen: Soft, nontender, nondistended, positive bowel sounds. Extremities: There is +1 edema no calf tenderness DP +2 bilaterally. Neurologic examination: Patient is confused opens his eyes in response to verbal stimuli, nonverbal, follows some commands not all the commands, moves all his extremities respond to the questions very well. ASSESSMENT AND PLAN: 1. Urinary tract infection with sepsis due to Stonotrophomonas maltophilia. Continue Fortaz 2 g IV piggyback every 24 hours,urine culture did not show evidence of any acute infection at this time, I did show skin and genital awilda, continue with Fortaz 2 g piggyback every 24 hours for another 24 hours, then will switch and transition to oral antibiotic to finish 3 more days. 2. Acute on chronic systolic heart failure. Restart the patient back on carvedilol 25 mg orally twice every day, hydralazine 25 mg orally twice every day, started the patient on Bumex 1 mg orally once every day cardiology consultation appreciated, patient did have an echocardiogram in June 2023 that showed mild LV dysfunction with ejection fraction of 45%, mild mitral regurgitation and tricuspid regurgitation. 3. Acute kidney injury on chronic kidney disease stage IIIb . Appears at baseline. 4. History of coronary artery disease with three-vessel disease status post PCI under the care of cardiology Dr. Veras on a regular basis. Continue patient on carvedilol 25 mg orally twice every day, continue patient on hydralazine 25 mg orally twice every day, continue atorvastatin 40 mg once every day, continue isosorbide mononitrate 60 mg orally twice every day cardiology consultation. 5. Hypertension and hypertensive cardiovascular disease. Continue patient on carvedilol 25 mg orally twice a day, continue hydralazine 25 mg orally 2 times every day, continue isosorbide mononitrate 60 mg orally twice every day. 6. Hypothyroidism. Continue Synthroid 112 mcg orally once every day, 7. Enlarged prostate with urinary retention. Continue patient on Flomax 0.4 mg once every day. Discontinue Soto catheter. 8. Moderate COPD. Continue oxygen 2 L nasal cannula, continue DuoNeb 3 mL nebulization 4 times every day, continue Theodur 300 mg once at bedtime, 9. History of Ventricular tachycardia status post ICD implantation continue amiodarone 100 mg orally once every day. 10. Anxiety disorder. Continue patient on sertraline 50 mg once every day, as well as Xanax as needed. 11. DVT prophylaxis. Continue patient on Lovenox 30 mg subcutaneously every 24 hours. 12. GI prophylaxis. Protonix 40 mg once every day. 13. Constipation. Start the patient on Colace 100 mg orally twice every day, MiraLAX 17 g in 8 ounce of water once every day. 14. Anemia of chronic kidney disease. Check the patient iron level TIBC, ferritin level, B12 folic acid level Reticulocyte count, he may be candidate for EPO injection. 15. Discontinue Soto catheter. 16. Home tomorrow morning. Objective - Vital Signs Vital signs: Vital Signs Temp 98.6 F 03/11/24 09:53 Pulse 66 03/11/24 09:53 Resp 16 03/11/24 09:53 BP 108/53 03/11/24 09:53 Pulse Ox 95 03/11/24 09:53 FiO2 Intake & Output 03/10/24 03/11/24 03/11/24 18:59 06:59 18:59 Intake Total 568 580 Output Total 850 Balance 568 -270 Weight 46.5 kg 47 kg Intake: Intake, IV Titration 100 Amount cefTAZidime 2 gm In 100 Sodium Chloride 0.9% 100 ml @ 25 mls/hr IVPB Q24H [facility] Rx#:[id number] Oral 568 480 Output: Urine 850 Other: Voiding Method Indwelling Catheter Indwelling Catheter Indwelling Catheter - Labs CBC & Chem 7: 03/11/24 06:02 03/11/24 06:02 Labs: Abnormal Lab Results - Last 24 Hours (Table) 03/10/24 03/11/24 03/11/24 Range/Units 06:20 06:02 06:02 RBC 2.97 L (4.30-5.90) m/uL Hgb 9.3 L (13.0-17.5) gm/dL Hct 28.9 L (39.0-53.0) % Plt Count 99 L (150-450) k/uL Lymphocytes # 0.2 L (1.0-4.8) k/uL Potassium 3.3 L (3.5-5.1) mmol/L Carbon Dioxide 32 H (22-30) mmol/L BUN 46 H (9-20) mg/dL Creatinine 2.69 H (0.66-1.25) mg/dL Iron 13 L (65-175) UG/DL TIBC 189 L (228-460) UG/DL % Saturation 6.88 L (15.00-50.00) Transferrin 135.0 L (204.0-354.0) mg/dL Ferritin 356.0 H (22.0-322.0) ng/mL Total Protein 5.8 L (6.3-8.2) g/dL Albumin 3.1 L (3.5-5.0) g/dL Microbiology - Last 24 Hours (Table) 03/09/24 07:28 Urine Culture - Final Urine,Voided
--- NOTE | 2024-03-11 11:30 | P.PN ---
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 He said while he was in the bathroom he slipped and fell on his bottom. He did not hit his head. Did not lose consciousness, pass out or felt lightheaded. His found him on the bathroom floor this morning and called EMS to bring him in to the ED. He is currently being treated for UTI with unknown antibiotics. He does take blood thinners at home. Patient was assessed this morning in the ED. He reported feeling well. Denied fever, chills, nausea, vomiting, chest pain, shortness of breath, belly pain, diarrhea. In the ED, EKG showed sinus tachycardia with rate of 123. Chest X ray suggested CHF exacerbation/fluid overload state. CBC showed WBC of 8.6, hemoglobin of 9.7, hematocrit 30.9, platelet 132, BMP showed sodium 139, potassium 4.2, BUN 34, creatinine 2.31. Urinalysis showed positive leukocyte esterase negative for nitrites. Troponin 0.022, BNP 4790. She is saturating at 95% on nasal cannula at 4L/min. ROS: 14 point ros negative except those mentioned in the HPI. PMH: Ischemic cardiomyopathy, chronic systolic heart failure, ventricular tachycardia s/p AICD PSH: Heart catheterization with stents Social history: Former smoker, no alcohol or drug use. Family history: unknown Progress note March 10, 2024 Patient is doing well from cardiovascular standpoint. BP under 116/68, heart rate 78 bpm Hemoglobin 8.3, BUN 41, creatinine 2.41 NT proBNP 33,000 03/11/2024 Patient is seen and examined at bedside this a.m. He is hemodynamically stable. Hemoglobin is around 9. Creatinine is stable. Denies any chest pain chest pressure. Reports being feeling constipated. Physical exam: General: Alert and oriented, not in acute distress Cardiovascular: Regular heart rate, no diastolic/systolic murmurs, JVD +1 cm Respiratory: Mild crackles audible in bilateral lung singh Abdominal: Soft, nontender to palpation, nondistended Extremity: 1-2+ pitting edema bilateral lower extremity Past Cardiac workup: Echocardiogram in June 2023 showed ejection fraction of 45% Impression: Acute exacerbation on chronic HFmrEF History of atrial tachycardia status post AICD Iron deficiency anemia. Low iron, transferrin saturation and ferritin is less than 300. CKD Essential hypertension Anemia COPD Sepsis and UTI Plan Continue aspirin 81, atorvastatin 40, Coreg 25 mg twice daily, Farxiga 10 mg daily, hydralazine 25 g 3 times daily, Lasix 40 mg twice daily, Imdur 60 mg twice daily, Give IV Ferrlecit 1 dose. Start p.o. iron from tomorrow a.m. On amiodarone 100 mg daily for VT Continue Bumex milligrams p.o. daily. He is volume optimized at this time At this time cardiology team will sign off. Please reconsult us in case of any question Objective - Vital Signs Vital signs: Vital Signs Temp 98.6 F 03/11/24 09:53 Pulse 66 03/11/24 09:53 Resp 16 03/11/24 09:53 BP 108/53 03/11/24 09:53 Pulse Ox 95 03/11/24 09:53 FiO2 Intake & Output 03/10/24 03/11/24 03/11/24 18:59 06:59 18:59 Intake Total 568 580 Output Total 850 Balance 568 -270 Weight 46.5 kg 47 kg Intake: Intake, IV Titration 100 Amount cefTAZidime 2 gm In 100 Sodium Chloride 0.9% 100 ml @ 25 mls/hr IVPB Q24H [facility] Rx#:[id number] Oral 568 480 Output: Urine 850 Other: Voiding Method Indwelling Catheter Indwelling Catheter Indwelling Catheter - Labs CBC & Chem 7: 03/11/24 06:02 03/11/24 06:02 Labs: Abnormal Lab Results - Last 24 Hours (Table) 03/10/24 03/11/24 03/11/24 Range/Units 06:20 06:02 06:02 RBC 2.97 L (4.30-5.90) m/uL Hgb 9.3 L (13.0-17.5) gm/dL Hct 28.9 L (39.0-53.0) % Plt Count 99 L (150-450) k/uL Lymphocytes # 0.2 L (1.0-4.8) k/uL Potassium 3.3 L (3.5-5.1) mmol/L Carbon Dioxide 32 H (22-30) mmol/L BUN 46 H (9-20) mg/dL Creatinine 2.69 H (0.66-1.25) mg/dL Iron 13 L (65-175) UG/DL TIBC 189 L (228-460) UG/DL % Saturation 6.88 L (15.00-50.00) Transferrin 135.0 L (204.0-354.0) mg/dL Ferritin 356.0 H (22.0-322.0) ng/mL Total Protein 5.8 L (6.3-8.2) g/dL Albumin 3.1 L (3.5-5.0) g/dL Microbiology - Last 24 Hours (Table) 03/09/24 07:28 Urine Culture - Final Urine,Voided
[2024-03-11] MEDS: SODIUM FERRIC GLUCONAT-SUCROSE 125 MG in SODIUM CHLORIDE 0.9% 100 ML IVPB ONE (12:22)
[2024-03-11] MEDS: polyethylene glycoL 3350 17 GM POWD.PACK PO SCH (12:25)
[2024-03-11] MEDS: FERROUS SULFATE 325 MG TAB PO SCH (12:25)
[2024-03-11 12:30] LABS: Reticulocyte % 1.5 % (0.5-2.0)
--- NOTE | 2024-03-11 16:50 | P.PN ---
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 On today's evaluation that is 03/11/2024,the patient remains to be afebrile, patient is on 2 L nasal cannula supplemental oxygen and denies any shortness of breath no chest pain or cough.Patient denies having any nausea or vomiting, no abdominal pain and no diarrhea has been reported. The patient white count 7.4 creatinine is 2.6 9 repeat urine so far negative Objective - Vital Signs Vital signs: Vital Signs Temp 99.2 F 03/11/24 12:00 Pulse 67 03/11/24 14:00 Resp 16 03/11/24 14:00 BP 101/53 03/11/24 12:00 Pulse Ox 93 L 03/11/24 12:00 FiO2 Intake & Output 03/10/24 03/11/24 03/11/24 18:59 06:59 18:59 Intake Total 568 580 150 Output Total 850 Balance 568 -270 150 Weight 46.5 kg 47 kg Intake: Intake, IV Titration 100 Amount cefTAZidime 2 gm In 100 Sodium Chloride 0.9% 100 ml @ 25 mls/hr IVPB Q24H [facility] Rx#:[id number] Oral 568 480 150 Output: Urine 850 Other: Voiding Method Indwelling Catheter Indwelling Catheter Indwelling Catheter # Bowel Movements 1 - Exam GENERAL DESCRIPTION: An elderly male lying in bed in no distress RESPIRATORY SYSTEM: Unlabored breathing , decreased breath sounds at bases HEART: S1 S2 regular rate and rhythm , ABDOMEN: Soft , no tenderness EXTREMITIES: No edema feet - Labs CBC & Chem 7: 03/11/24 06:02 03/11/24 06:02 Labs: Abnormal Lab Results - Last 24 Hours (Table) 03/10/24 03/11/24 03/11/24 Range/Units 06:20 06:02 06:02 RBC 2.97 L (4.30-5.90) m/uL Hgb 9.3 L (13.0-17.5) gm/dL Hct 28.9 L (39.0-53.0) % Plt Count 99 L (150-450) k/uL Lymphocytes # 0.2 L (1.0-4.8) k/uL Potassium 3.3 L (3.5-5.1) mmol/L Carbon Dioxide 32 H (22-30) mmol/L BUN 46 H (9-20) mg/dL Creatinine 2.69 H (0.66-1.25) mg/dL Iron 13 L (65-175) UG/DL TIBC 189 L (228-460) UG/DL % Saturation 6.88 L (15.00-50.00) Transferrin 135.0 L (204.0-354.0) mg/dL Ferritin 356.0 H (22.0-322.0) ng/mL Total Protein 5.8 L (6.3-8.2) g/dL Albumin 3.1 L (3.5-5.0) g/dL Assessment and Plan (1) Sepsis Current Visit: Yes Status: Acute Code(s): A41.9 - SEPSIS, UNSPECIFIED ORGANISM SNOMED Code(s): 68447771 (2) UTI (urinary tract infection) Current Visit: Yes Status: Acute Code(s): N39.0 - URINARY TRACT INFECTION, SITE NOT SPECIFIED SNOMED Code(s): 18905680 Plan: 1patient presented to hospital with sepsis in this patient who did have a fever tachycardia source is likely urinary in this patient who do have a lower abdominal discomfort and a chronic indwelling Soto catheter likely component of catheter assisted UTI chest x-ray was suggestive mostly of CHF influenza RSV COVID testing negative no evidence of any cellulitis or joint swelling, failing outpatient oral Bactrim DS therapy 2-patient did have resolution of his fever, white count has been normal patient to continue with the Fortaz while inpatient however he with repeat urine culture remains to be negative we will hold on any IV antibiotic on discharge Dictation was produced using [employer] dictation software. please excuse any grammatical, word or spelling errors. Time with Patient: Less than 30
[2024-03-11] MEDS: DOCUSATE 100 MG CAP PO SCH (20:39)
[2024-03-11 22:42] LABS: Protein, Total 5.5 g/dL (6.2-8.2)
[2024-03-11 22:54] LABS: % Iron Saturation 6.29 (15.00-50.00)
[2024-03-12 05:58] LABS: Glucose,Whole Blood 94 mg/dL (70-110)
[2024-03-12 06:37] LABS: Basophils % (A) 1 %; Eosinophils # (A) 0.2 k/uL (0-0.7); Eosinophils % (A) 4 %; HCT 25.9 % (39.0-53.0); HGB 8.6 gm/dL (13.0-17.5); Lymphocytes # (A) 0.4 k/uL (1.0-4.8); Lymphocytes % (A) 8 %; MCH 32.4 pg (25.0-35.0); MCHC 33.3 g/dL (31.0-37.0); MCV 97.2 fL (80.0-100.0); Mean Platelet Volume 10.1; Monocytes # (A) 0.4 k/uL (0-1.0); Monocytes % (A) 7 %; Neutrophils # (A) 3.8 k/uL (1.3-7.7); Neutrophils % (A) 77 %; Platelet Count 99 k/uL (150-450); RBC 2.67 m/uL (4.30-5.90); RDW 14.6 % (11.5-15.5)
[2024-03-12 06:39] LABS: ALT 29 U/L (4-49); AST 37 U/L (17-59); African American GFR (CKD) 25 (>60 ml/min/1.73 sqM); Albumin 2.9 g/dL (3.5-5.0); Alkaline Phosphatase 58 U/L (38-126); Anion Gap 3 mmol/L; Blood Urea Nitrogen 44 mg/dL (9-20); Calcium 8.7 mg/dL (8.4-10.2); Carbon Dioxide 31 mmol/L (22-30); Chloride 102 mmol/L (98-107); Glucose 86 mg/dL (74-99); Non-African American GFR(CKD) 22 (>60 ml/min/1.73 sqM); Potassium 3.2 mmol/L (3.5-5.1); Sodium 136 mmol/L (137-145); Total Bilirubin 0.6 mg/dL (0.2-1.3); Total Protein 5.4 g/dL (6.3-8.2)
[2024-03-12] MEDS: POTASSIUM CHLORIDE ER 20 MEQ TAB.ER PO STA (08:31)
[2024-03-12] MEDS: BUMETANIDE 1 MG TAB PO SCH (08:31)
--- NOTE | 2024-03-12 09:59 | XR ---
EXAMINATION TYPE: XR chest 2V DATE OF EXAM: 03/12/2024 COMPARISON: 03/09/2024 TECHNIQUE: PA and lateral views submitted. HISTORY: Redness of breath FINDINGS: Small bilateral pleural effusions with coarsened interstitium. Emphysematous changes seen with a coarsened interstitium. Vague nodularity in the left upper lobe. Ca rdiac device noted. Osteopenia and degenerative change of the spine. Arthropathy of the shoulders. IMPRESSION: 1. COPD with stable small bilateral pleural effusion. Mild venous congestion or interstitial pneumoni tis in the differential diagnosis. Findings unchanged. 2. There is a vague 1 cm nodule left upper lobe. Recommend short term follow-up CT of the chest.. [facility], , 03/12/2024 9:57 AM
[2024-03-12 12:07] VITALS: RESP 16
[2024-03-12] MEDS: IPRATROPIUM-ALBUTEROL 3 ML NEB INHALATION SCH (12:16)
[2024-03-12 15:42] LABS: Free Kappa Lt Chain Qnt, Serum 8.97 mg/dL (0.33-1.94); Free Lambda Lt Chain Qnt, Seru 6.72 mg/dL (0.57-2.63)
[2024-03-12 15:43] LABS: Free Kappa Lt Chain Qnt, Urine 22.97 mg/dL (0.00-3.29); Free Lambda Lt Chain Qt, Urine 3.83 mg/dL (0.00-0.38)
--- NOTE | 2024-03-12 18:14 | P.PN ---
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 patient has recovered very well from that, he was recently diagnosed of having urinary tract infection with Stonotrophomonas Multophilia that is only sensitive to ceftazidime as well as Bactrim he was started on Bactrim as an outpatient, patient has been getting progressively weaker and weaker with increased shortness of breath, and he stated that the medication was making him sick, so he was not taking it appropriately, apparently the patient went to the bathroom and he was sitting on the toilet and slipped out of the toilet and his called EMS he presented to the emergency department [facility] today, he was found to have a reduced GFR because of possible use of Bactrim and poor oral intake of fluid, at the same time he was found to have an acute systolic heart failure and a chest x-ray, and his oxygen saturation was around 85% on room air, therefore the patient was admitted to hospital for evaluation by cardiology as well as infectious disease, blood cultures were obtained, we will monitor the patient very closely. 03/10: Patient is laying down in bed in no apparent distress, he is feeling better today, he denies any fever or chills at this time, he denies any chest pain, shortness of breath, he has been getting Lasix 40 mg IV push every 12 hours, is diuresing very well, he was started on Fortaz 2 g IV piggyback every 24 hours, monitor the patient kidney function test, infectious ease consultation appreciated, cardiology consultation appreciated, I will continue to follow-up with the patient very closely, physical therapy to evaluate the patient, patient currently has a Soto catheter in place. 03/11: Patient is laying down in bed in no apparent distress, he appears to be q uite dry today, he denies any chest pain, shortness of breath, he has no abdominal pain, he is constipated, he has no other issues, his urine culture showed skin and genital awilda, we will maintain the patient on Fortaz 2 g of piggyback every 24 hours for the next 24 hours and then we will discuss with ID the need for antibiotic as an outpatient hopefully will be able to be discharged home tomorrow morning. 03/12: Patient is sitting up in bed he appears to be a bit more short of breath today, he was started on oxygen 3 L nasal cannula, his oxygen saturation was about 83% on room air, on 3 L is up to 9495%, chest x-ray was done showed evidence of bilateral small pleural effusion, with left upper lobe pulmonary nodule that need to have a CT scan as an outpatient, patient also was seen by ca rdiology as well as by infectious disease he was recommended to continue with IV antibiotic for now, continue diuretics, keep the patient in the hospital for another 24 hours, will make arrangement for the patient to have home oxygen tomorrow, hopefully he will be discharged home tomorrow morning. REVIEW OF SYSTEMS: Constitutional: low grade fever, no chills, no night sweats. No weight change. positive for weakness,positive for fatigue and lethargy. positive for daytime sleepiness. EENT: No headache. No blurred vision or double vision, no loss of vision. No loss of Hearing, no ringing in the ears, no dizziness. No nasal drainage or congestion. No epistaxis. No sore throat. Lungs: No shortness of breath, no cough, no sputum production. No wheezing. Reports dyspnea with activity. Cardiovascular: No chest pain, no lower extremity edema. No palpitations. No paroxysmal nocturnal dyspnea. No orthopnea. No lightheadedness or dizziness. No syncopal episodes. Abdominal: Reports abdominal pain. No nausea, vomiting. No diarrhea. No constipation. No bloody or tarry stools reports loss of appetite. Genitourinary: No dysuria, increased frequency, urgency. No urinary retention. Musculoskeletal: No myalgias. positive for muscle weakness, no gait dysfunction, no frequent falls. No back pain. No neck pain. Integumentary: wound behind left ear post radiation for SCC, no lesions. No rash or pruritus. No unusual bruising. No change in hair or nails. Neurologic: No aphasia. No facial droop. positive for change in mentation. No head injury. No headache. No paralysis. No paresthesia. Psychiatric: positive for depression. positive for anxiety. No mood swings.positive for paranoia Endocrine: No abnormal blood sugars. No weight change. PHYSICAL EXAMINATION: General: 84-year-old male laying down in bed appears to be quite confused nonverbal. HEENT: Head is atraumatic, normocephalic, pupils were equal round reactive to light and recommendation, extraocular muscle movement were intact, sclera nonicteric, conjunctivae were pale, mucous membranes of the mouth are somewhat dry, the large wound behind the left ear with a clean base minimal drainage Neck: Supple, no JVP, normal carotid upstroke bilaterally, no lymphadenopathy. Chest: Decreased breath sounds at the bases, few rhonchi, no expiratory wheezes, no chest wall tenderness, no intercostal retractions. Heart: First heart sound is normal, second heart sound is normal there is systolic ejection murmur 2/6 located in the left sternal border, there is AICD in the left upper precordium Abdomen: Soft, nontender, nondistended, positive bowel sounds. Extremities: There is +1 edema no calf tenderness DP +2 bilaterally. Neurologic examination: Patient is confused opens his eyes in response to verbal stimuli, nonverbal, follows some commands not all the commands, moves all his extremities respond to the questions very well. ASSESSMENT AND PLAN: 1. Urinary tract infection with sepsis due to Stonotrophomonas maltophilia. Continue Fortaz 2 g IV piggyback every 24 hours,urine culture did not show evidence of any acute infection at this time, I did show skin and genital awilda, continue with Fortaz 2 g piggyback every 24 hours for another 24 hours, then will switch and transition to oral antibiotic to finish 3 more days. 2. Acute on chronic systolic heart failure. Restart the patient back on carvedilol 25 mg orally twice every day, hydralazine 25 mg orally twice every day, started the patient on Bumex 1 mg orally once every day cardiology consultation appreciated, patient did have an echocardiogram in June 2023 that showed mild LV dysfunction with ejection fraction of 45%, mild mitral regurgitation and tricuspid regurgitation. 3. Acute kidney injury on chronic kidney disease stage IIIb . Appears at baseline. 4. Acute hypoxemic respiratory failure due to acute diastolic heart failure/COPD with bilateral small pleural effusion continue Bumex 1 mg orally once every day, continue the patient on DuoNeb 3 mL nebulization 4 times every day, continue oxygen at 3 L nasal cannula, please make arrangement for the patient to have home O2 at 3 L nasal cannula 24-hour a day 7 days a week. 5. History of coronary artery disease with three-vessel disease status post PCI under the care of cardiology Dr. Veras on a regular basis. Continue patient on carvedilol 25 mg orally twice every day, continue patient on hydralazine 25 mg orally twice every day, continue atorvastatin 40 mg once every day, continue isosorbide mononitrate 60 mg orally twice every day cardiology consultation. 6. Hypertension and hypertensive cardiovascular disease. Continue patient on carvedilol 25 mg orally twice a day, continue hydralazine 25 mg orally 2 times every day, continue isosorbide mononitrate 60 mg orally twice every day. 7. Hypothyroidism. Continue Synthroid 112 mcg orally once every day, 8. Enlarged prostate with urinary retention. Continue patient on Flomax 0.4 mg once every day. Discontinue Soto catheter. 9. Moderate COPD. Continue oxygen 2 L nasal cannula, continue DuoNeb 3 mL nebulization 4 times every day, continue Theodur 300 mg once at bedtime, 10. History of Ventricular tachycardia status post ICD implantation continue amiodarone 100 mg orally once every day. 11. Anxiety disorder. Continue patient on sertraline 50 mg once every day, as well as Xanax as needed. 12. DVT prophylaxis. Continue patient on Lovenox 30 mg subcutaneously every 24 hours. 13. GI prophylaxis. Protonix 40 mg once every day. 14. Constipation. Start the patient on Colace 100 mg orally twice every day, MiraLAX 17 g in 8 ounce of water once every day. 15. Anemia of chronic kidney disease. Check the patient iron level TIBC, ferritin level, B12 folic acid level Reticulocyte count, he may be candidate for EPO injection. 16. Discontinue Soto catheter. 17. Home tomorrow morning. Objective - Vital Signs Vital signs: Vital Signs Temp 98.5 F 03/12/24 15:28 Pulse 93 03/12/24 16:37 Resp 16 03/12/24 15:28 BP 144/62 03/12/24 15:28 Pulse Ox 92 L 03/12/24 15:28 FiO2 Intake & Output 03/11/24 03/12/24 03/12/24 18:59 06:59 18:59 Intake Total 250 118 Output Total 1200 400 125 Balance -950 -400 -7 Weight 68.3 kg Intake: Oral 250 118 Output: Urine 1200 400 125 Other: Voiding Method Indwelling Catheter Indwelling Catheter Urinal # Bowel Movements 1 1 - Labs CBC & Chem 7: 03/12/24 05:55 03/12/24 05:55 Labs: Abnormal Lab Results - Last 24 Hours (Table) 03/11/24 03/11/24 03/11/24 Range/Units 12:03 12:03 12:03 RBC (4.30-5.90) m/uL Hgb (13.0-17.5) gm/dL Hct (39.0-53.0) % Plt Count (150-450) k/uL Lymphocytes # (1.0-4.8) k/uL Haptoglobin 336.0 H (31.2-198.0) mg/dL Sodium (137-145) mmol/L Potassium (3.5-5.1) mmol/L Carbon Dioxide (22-30) mmol/L BUN (9-20) mg/dL Creatinine (0.66-1.25) mg/dL Iron 11 L (65-175) UG/DL TIBC 175 L (228-460) UG/DL % Saturation 6.29 L (15.00-50.00) Transferrin 125.0 L (204.0-354.0) mg/dL Ferritin 667.0 H (22.0-322.0) ng/mL Total Protein (6.3-8.2) g/dL Total Protein (PEP) (6.2-8.2) g/dL Albumin (3.5-5.0) g/dL Vitamin B12 964.0 H (200.0-944.0) pg/mL Folate 40.00 H (4.40-31.00) ng/mL U Free [place] Light Ch (0.00-3.29) mg/dL U Free Lambda Light Ch (0.00-0.38) mg/dL Free [place] LC, Quant (0.33-1.94) mg/dL Free Lambda LC, Quant (0.57-2.63) mg/dL 03/11/24 03/11/24 03/12/24 Range/Units 12:03 20:30 05:55 RBC 2.67 L (4.30-5.90) m/uL Hgb 8.6 L (13.0-17.5) gm/dL Hct 25.9 L (39.0-53.0) % Plt Count 99 L (150-450) k/uL Lymphocytes # 0.4 L (1.0-4.8) k/uL Haptoglobin (31.2-198.0) mg/dL Sodium (137-145) mmol/L Potassium (3.5-5.1) mmol/L Carbon Dioxide (22-30) mmol/L BUN (9-20) mg/dL Creatinine (0.66-1.25) mg/dL Iron (65-175) UG/DL TIBC (228-460) UG/DL % Saturation (15.00-50.00) Transferrin (204.0-354.0) mg/dL Ferritin (22.0-322.0) ng/mL Total Protein (6.3-8.2) g/dL Total Protein (PEP) 5.5 L (6.2-8.2) g/dL Albumin (3.5-5.0) g/dL Vitamin B12 (200.0-944.0) pg/mL Folate (4.40-31.00) ng/mL U Free [place] Ch 22.97 H (0.00-3.29) mg/dL U Free Lambda Light Ch 3.83 H (0.00-0.38) mg/dL Free [place] LC, Quant 8.97 H (0.33-1.94) mg/dL Free Lambda LC, Quant 6.72 H (0.57-2.63) mg/dL 03/12/24 Range/Units 05:55 RBC (4.30-5.90) m/uL Hgb (13.0-17.5) gm/dL Hct (39.0-53.0) % Plt Count (150-450) k/uL Lymphocytes # (1.0-4.8) k/uL Haptoglobin (31.2-198.0) mg/dL Sodium 136 L (137-145) mmol/L Potassium 3.2 L (3.5-5.1) mmol/L Carbon Dioxide 31 H (22-30) mmol/L BUN 44 H (9-20) mg/dL Creatinine 2.59 H (0.66-1.25) mg/dL Iron (65-175) UG/DL TIBC (228-460) UG/DL % Saturation (15.00-50.00) Transferrin (204.0-354.0) mg/dL Ferritin (22.0-322.0) ng/mL Total Protein 5.4 L (6.3-8.2) g/dL Total Protein (PEP) (6.2-8.2) g/dL Albumin 2.9 L (3.5-5.0) g/dL Vitamin B12 (200.0-944.0) pg/mL Folate (4.40-31.00) ng/mL U Free [place] Light Ch (0.00-3.29) mg/dL U Free Lambda Light Ch (0.00-0.38) mg/dL Free [place] LC, Quant (0.33-1.94) mg/dL Free Lambda LC, Quant (0.57-2.63) mg/dL
[2024-03-13 07:52] LABS: ALT 37 U/L (4-49); AST 46 U/L (17-59); African American GFR (CKD) 27 (>60 ml/min/1.73 sqM); Alkaline Phosphatase 59 U/L (38-126); Anion Gap 4 mmol/L; Blood Urea Nitrogen 36 mg/dL (9-20); Calcium 9.1 mg/dL (8.4-10.2); Carbon Dioxide 33 mmol/L (22-30); Chloride 104 mmol/L (98-107); Glucose 91 mg/dL (74-99); Non-African American GFR(CKD) 23 (>60 ml/min/1.73 sqM); Potassium 3.8 mmol/L (3.5-5.1); Sodium 141 mmol/L (137-145); Total Bilirubin 0.4 mg/dL (0.2-1.3); Total Protein 5.6 g/dL (6.3-8.2)
[2024-03-13 08:01] LABS: HCT 27.7 % (39.0-53.0); MCH 31.6 pg (25.0-35.0); MCHC 32.6 g/dL (31.0-37.0); MCV 97.1 fL (80.0-100.0); Mean Platelet Volume 11.7; RBC 2.85 m/uL (4.30-5.90); RDW 14.4 % (11.5-15.5); WBC 4.6 k/uL (3.8-10.6)
[2024-03-13 08:02] LABS: Platelet Count 99 k/uL (150-450)
[2024-03-13 08:37] LABS: Basophils # (M) 0.05 k/uL (0-0.2); Eosinophils # (M) 0.05 k/uL (0-0.7); Lymphocytes # (M) 0.28 k/uL (1.0-4.8); Monocytes # (M) 0.41 k/uL (0-1.0); Neutrophils # (M) 3.82 k/uL (1.3-7.7); Neutrophils % (M) 83 %; Nucleated Red Blood Cells 0 /100 WBC (0-0); Total Cells Counted 100
[2024-03-13 08:39] LABS: RBC Morphology Normal
[2024-03-13 08:41] VITALS: TEMP 98.4
[2024-03-13 12:55] VITALS: BP 129/60; PULSE 69
--- NOTE | 2024-03-13 14:48 | P.PN ---
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 On today's evaluation that is 03/12/2024, the patient did have resolution of his fever and is afebrile today, the patient is on 3 L current oxygen and breathing comfortably, the Pt denies having any chest pain or cough, the patient denies having any abdominal pain no vomiting or any diarrhea has been reported by the nursing staff. Patient did have a white count of 5.0, creatinine is 2.5 9 repeat urine has been negative Objective - Vital Signs Vital signs: Vital Signs Temp 98.6 F 03/12/24 11:27 Pulse 72 03/12/24 12:24 Resp 16 03/12/24 11:27 BP 131/72 03/12/24 11:27 Pulse Ox 97 03/12/24 12:25 FiO2 Intake & Output 03/11/24 03/12/24 03/12/24 18:59 06:59 18:59 Intake Total 250 118 Output Total 1200 400 Balance -950 -400 118 Weight 68.3 kg Intake: Oral 250 118 Output: Urine 1200 400 Other: Voiding Method Indwelling Catheter Indwelling Catheter Urinal # Bowel Movements 1 1 - Exam GENERAL DESCRIPTION: An elderly male lying in bed in no distress RESPIRATORY SYSTEM: Unlabored breathing , decreased breath sounds at bases HEART: S1 S2 regular rate and rhythm , ABDOMEN: Soft , no tenderness EXTREMITIES: No edema feet - Labs CBC & Chem 7: 03/13/24 07:06 03/13/24 07:06 Labs: Abnormal Lab Results - Last 24 Hours (Table) 03/11/24 03/11/24 03/11/24 Range/Units 12:03 12:03 12:03 RBC (4.30-5.90) m/uL Hgb (13.0-17.5) gm/dL Hct (39.0-53.0) % Plt Count (150-450) k/uL Lymphocytes # (1.0-4.8) k/uL Haptoglobin 336.0 H (31.2-198.0) mg/dL Sodium (137-145) mmol/L Potassium (3.5-5.1) mmol/L Carbon Dioxide (22-30) mmol/L BUN (9-20) mg/dL Creatinine (0.66-1.25) mg/dL Iron 11 L (65-175) UG/DL TIBC 175 L (228-460) UG/DL % Saturation 6.29 L (15.00-50.00) Transferrin 125.0 L (204.0-354.0) mg/dL Ferritin 667.0 H (22.0-322.0) ng/mL Total Protein (6.3-8.2) g/dL Total Protein (PEP) (6.2-8.2) g/dL Albumin (3.5-5.0) g/dL Vitamin B12 964.0 H (200.0-944.0) pg/mL Folate 40.00 H (4.40-31.00) ng/mL 03/11/24 03/12/24 03/12/24 Range/Units 12:03 05:55 05:55 RBC 2.67 L (4.30-5.90) m/uL Hgb 8.6 L (13.0-17.5) gm/dL Hct 25.9 L (39.0-53.0) % Plt Count 99 L (150-450) k/uL Lymphocytes # 0.4 L (1.0-4.8) k/uL Haptoglobin (31.2-198.0) mg/dL Sodium 136 L (137-145) mmol/L Potassium 3.2 L (3.5-5.1) mmol/L Carbon Dioxide 31 H (22-30) mmol/L BUN 44 H (9-20) mg/dL Creatinine 2.59 H (0.66-1.25) mg/dL Iron (65-175) UG/DL TIBC (228-460) UG/DL % Saturation (15.00-50.00) Transferrin (204.0-354.0) mg/dL Ferritin (22.0-322.0) ng/mL Total Protein 5.4 L (6.3-8.2) g/dL Total Protein (PEP) 5.5 L (6.2-8.2) g/dL Albumin 2.9 L (3.5-5.0) g/dL Vitamin B12 (200.0-944.0) pg/mL Folate (4.40-31.00) ng/mL Assessment and Plan (1) Sepsis Current Visit: Yes Status: Acute Code(s): A41.9 - SEPSIS, UNSPECIFIED ORGANISM SNOMED Code(s): 55033913 (2) UTI (urinary tract infection) Current Visit: Yes Status: Acute Code(s): N39.0 - URINARY TRACT INFECTION, SITE NOT SPECIFIED SNOMED Code(s): 00982404 Plan: 1patient presented to hospital with sepsis in this patient who did have a fever tachycardia source is likely urinary in this patient who do have a lower abdominal discomfort and a chronic indwelling Soto catheter likely component of catheter assisted UTI chest x-ray was suggestive mostly of CHF influenza RSV COVID testing negative no evidence of any cellulitis or joint swelling, failing outpatient oral Bactrim DS therapy 2-patient did have resolution of his fever, white count has been normal and urine culture has been negative 3patient to continue with the Fortaz while inpatient however if the repeat urine culture remains to be negative may not need IV antibiotics on discharge Dictation was produced using [employer] dictation software. please excuse any grammatical, word or spelling errors. Time with Patient: Less than 30
--- NOTE | 2024-03-13 14:49 | P.PN ---
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 On today's evaluation that is 03/13/2024, Patient is afebrile patient is currently on 3 L current oxygen and denies having any shortness of breath, the patient denies any chest pain or cough, the patient denies any nausea vomiting did not have any abdominal pain and no diarrhea, patient mention feeling better. The patient white count is 4.6 creatinine is 2.47, urine culture remains to be negative no blood culture was done this admission Objective - Vital Signs Vital signs: Vital Signs Temp 98.4 F 03/13/24 08:27 Pulse 69 03/13/24 13:01 Resp 16 03/13/24 11:42 BP 129/60 03/13/24 11:42 Pulse Ox 94 L 03/13/24 11:42 FiO2 Intake & Output 03/12/24 03/13/24 03/13/24 18:59 06:59 18:59 Intake Total 118 Output Total 275 250 300 Balance -157 -250 -300 Weight 69.2 kg Intake: Oral 118 Output: Urine 275 250 300 Other: Voiding Method Urinal Urinal Urinal # Bowel Movements 1 - Exam GENERAL DESCRIPTION: An elderly male lying in bed in no distress RESPIRATORY SYSTEM: Unlabored breathing , decreased breath sounds at bases HEART: S1 S2 regular rate and rhythm , ABDOMEN: Soft , no tenderness EXTREMITIES: No edema feet - Labs CBC & Chem 7: 03/13/24 07:06 03/13/24 07:06 Labs: Abnormal Lab Results - Last 24 Hours (Table) 03/11/24 03/11/24 03/13/24 Range/Units 12:03 20:30 07:06 RBC 2.85 L (4.30-5.90) m/uL Hgb 9.0 L (13.0-17.5) gm/dL Hct 27.7 L (39.0-53.0) % Plt Count 99 L (150-450) k/uL Lymphocytes # (Manual) 0.28 L (1.0-4.8) k/uL Carbon Dioxide (22-30) mmol/L BUN (9-20) mg/dL Creatinine (0.66-1.25) mg/dL Total Protein (6.3-8.2) g/dL Albumin (3.5-5.0) g/dL U Free [place] Light Ch 22.97 H (0.00-3.29) mg/dL U Free Lambda Light Ch 3.83 H (0.00-0.38) mg/dL Free [place] LC, Quant 8.97 H (0.33-1.94) mg/dL Free Lambda LC, Quant 6.72 H (0.57-2.63) mg/dL 03/13/24 Range/Units 07:06 RBC (4.30-5.90) m/uL Hgb (13.0-17.5) gm/dL Hct (39.0-53.0) % Plt Count (150-450) k/uL Lymphocytes # (Manual) (1.0-4.8) k/uL Carbon Dioxide 33 H (22-30) mmol/L BUN 36 H (9-20) mg/dL Creatinine 2.47 H (0.66-1.25) mg/dL Total Protein 5.6 L (6.3-8.2) g/dL Albumin 3.0 L (3.5-5.0) g/dL U Free [place] Light Ch (0.00-3.29) mg/dL U Free Lambda Light Ch (0.00-0.38) mg/dL Free [place] LC, Quant (0.33-1.94) mg/dL Free Lambda LC, Quant (0.57-2.63) mg/dL Assessment and Plan (1) Sepsis Current Visit: Yes Status: Acute Code(s): A41.9 - SEPSIS, UNSPECIFIED ORGANISM SNOMED Code(s): 59365268 (2) UTI (urinary tract infection) Current Visit: Yes Status: Acute Code(s): N39.0 - URINARY TRACT INFECTION, SITE NOT SPECIFIED SNOMED Code(s): 23866296 Plan: 1patient presented to hospital with sepsis in this patient who did have a fever tachycardia source is likely urinary in this patient who do have a lower abdominal discomfort and a chronic indwelling Soto catheter likely component of catheter assisted UTI chest x-ray was suggestive mostly of CHF influenza RSV COVID testing negative no evidence of any cellulitis or joint swelling, failing outpatient oral Bactrim DS therapy 2-patient did have resolution of his fever, white count has been normal and urine culture has been negative 3patient has received adequate IV biotic during this admission with a culture n egative recommend no IV antibiotics on discharge Dictation was produced using [employer] dictation software. please excuse any grammatical, word or spelling errors. Time with Patient: Less than 30
--- NOTE | 2024-03-13 18:43 | P.DS ---
Providers Date of admission: 03/09/24 08:01 Expected date of discharge: 03/13/24 Attending physician: Joanie Awad Consults: 03/09/24 08:14 Consult Physician Routine Consulting Provider: Evgeny Kurtz Consult Reason/Comments: UTI Do you want consulting provider notified?: Yes Primary care physician: Joanie Awad Hospital Course: HISTORY OF PRESENT ILLNESS: This is an 84-year-old male with a previous medical history significant for coronary artery disease status post three-vessel coronary artery disease with ischemic cardiomyopathy status post AICD implantation, hypertension and hypertensive cardiovascular disease, hyperlipidemia, hypothyroidism, 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, that left him with a big nonhealing wound behind the left ear for which she was hospitalized initially at [facility] back in June 2023 then he was hospitalized at [facility] from July 16 till August 04, 2023 when he was discharged after he was admitted for significant acute toxic metabolic encephalopathy due to significant sepsis and he developed to have a significant medical debility that required subacute rehabilitation at [facility] patient has recovered very well from that, he was recently diagnosed of having urinary tract infection with Stonotrophomonas Multophilia that is only sensitive to ceftazidime as well as Bactrim he was started on Bactrim as an outpatient, patient has been getting progressively weaker and weaker with increased shortness of breath, and he stated that the medication was making him sick, so he was not taking it appropriately, apparently the patient went to the bathroom and he was sitting on the toilet and slipped out of the toilet and his called EMS he presented to the emergency department [facility] today, he was found to have a reduced GFR because of possible use of Bactrim and poor oral intake of fluid, at the same time he was found to have an acute systolic heart failure and a chest x-ray, and his oxygen saturation was around 85% on room air, therefore the patient was admitted to hospital for evaluation by cardiology as well as infectious disease, blood cultures were obtained, we will monitor the patient very closely. 03/10: Patient is laying down in bed in no apparent distress, he is feeling better today, he denies any fever or chills at this time, he denies any chest pain, shortness of breath, he has been getting Lasix 40 mg IV push every 12 hours, is diuresing very well, he was started on Fortaz 2 g IV piggyback every 24 hours, monitor the patient kidney function test, infectious ease consultation appreciated, cardiology consultation appreciated, I will continue to follow-up with the patient very closely, physical therapy to evaluate the patient, patient currently has a Soto catheter in place. 03/11: Patient is laying down in bed in no apparent distress, he appears to be quite dry today, he denies any chest pain, shortness of breath, he has no abdominal pain, he is constipated, he has no other issues, his urine culture showed skin and genital awilda, we will maintain the patient on Fortaz 2 g of piggyback every 24 hours for the next 24 hours and then we will discuss with ID the need for antibiotic as an outpatient hopefully will be able to be discharged home tomorrow morning. 03/12: Patient is sitting up in bed he appears to be a bit more short of breath today, he was started on oxygen 3 L nasal cannula, his oxygen saturation was about 83% on room air, on 3 L is up to 9495%, chest x-ray was done showed ev idence of bilateral small pleural effusion, with left upper lobe pulmonary nodule that need to have a CT scan as an outpatient, patient also was seen by cardiology as well as by infectious disease he was recommended to continue with IV antibiotic for now, continue diuretics, keep the patient in the hospital for another 24 hours, will make arrangement for the patient to have home oxygen tomorrow, hopefully he will be discharged home tomorrow morning. 03/13: Patient is laying down in bed in no apparent distress, he is currently on 3 L nasal cannula, his oxygen saturation is 95%, patient is scheduled to go home later on today, he is feeling a lot better today he has no chest pain or shortness of breath, he has no abdominal pain, as recommended by infectious disease no need for IV antibiotic or oral antibiotic as an outpatient, patient will be discharged home later on today and follow-up with me as an outpatient next week. Discharge diagnoses: 1. Urinary tract infection with sepsis due to Stonotrophomonas maltophilia. Patient was treated with Fortaz 2 g IV piggyback daily during his hospital stay. 2. Acute on chronic systolic heart failure. 3. Acute kidney injury on chronic kidney disease stage IIIb . 4. Acute hypoxemic respiratory failure due to acute diastolic heart failure/COPD with bilateral small pleural effusion 5. History of coronary artery disease with three-vessel disease status post PCI under the care of cardiology Dr. Veras on a regular basis. 6. Hypertension and hypertensive cardiovascular disease. 7. Hypothyroidism. 8. Enlarged prostate with urinary retention. 9. Moderate COPD. 10. History of Ventricular tachycardia status post ICD implantation 11. Anxiety disorder. 15. Anemia of chronic kidney disease. Patient Condition at Discharge: Stable Plan - Discharge Summary Discharge Rx Participant: No New Discharge Prescriptions: New hydrALAZINE HCL [Apresoline] 25 mg PO TID #90 tab Ferrous Sulfate [Iron (65 MG Elemental)] 325 mg PO W/LUNCH tab Aspirin 81 mg PO DAILY tab Dapagliflozin Propanediol [Farxiga] 10 mg PO DAILY #30 tab polyethylene glycoL 3350 [Miralax] 17 gm PO DAILY #30 packet Ferrous Sulfate [Iron (65 MG Elemental)] 325 mg PO W/LUNCH #30 tab Continue Isosorbide Mononitrate ER [Imdur] 60 mg PO BID Nitroglycerin Sl Tabs [Nitrostat] 0.4 mg SL Q5M PRN PRN Reason: Chest Pain Levothyroxine Sodium [Levoxyl] 112 mcg PO DAILY Amiodarone [Cordarone] 100 mg PO DAILY Tamsulosin HCl [Flomax] 0.4 mg PO DAILY Atorvastatin Calcium [Lipitor] 40 mg PO HS carvediloL [Coreg] 25 mg PO BID Potassium Chloride [Klor-Con M20] 20 meq PO BID Folic Acid 1 mg PO DAILY Sertraline [Zoloft] 50 mg PO DAILY allopurinoL [Zyloprim] 100 mg PO BID Pantoprazole [Protonix] 40 mg PO DAILY ALPRAZolam [Xanax] 0.25 mg PO BID PRN PRN Reason: Anxiety Theophylline 12 Hour [Ashok-Dur] 300 mg PO Q12H traZODone HCL [Desyrel] 50 mg PO HS Discontinued Aspirin 325 mg PO DAILY Sulfamethoxazole/Trimethoprim [Bactrim DS 800-160 mg] 1 tab PO BID hydrALAZINE HCL [Apresoline] 25 mg PO BID Discharge Medication List Isosorbide Mononitrate ER [Imdur] 60 mg PO BID 09/20/14 [History] Nitroglycerin Sl Tabs [Nitrostat] 0.4 mg SL Q5M PRN 09/14/21 [History] Amiodarone [Cordarone] 100 mg PO DAILY 09/07/21 [History] Levothyroxine Sodium [Levoxyl] 112 mcg PO DAILY 09/07/21 [History] Sertraline [Zoloft] 50 mg PO DAILY 09/07/21 [History] Pantoprazole [Protonix] 40 mg PO DAILY 07/15/23 [History] Tamsulosin HCl [Flomax] 0.4 mg PO DAILY 07/15/23 [History] allopurinoL [Zyloprim] 100 mg PO BID 07/15/23 [History] ALPRAZolam [Xanax] 0.25 mg PO BID PRN 03/09/24 [History] Atorvastatin Calcium [Lipitor] 40 mg PO HS 03/09/24 [History] Folic Acid 1 mg PO DAILY 03/09/24 [History] Potassium Chloride [Klor-Con M20] 20 meq PO BID 03/09/24 [History] Theophylline 12 Hour [Ashok-Dur] 300 mg PO Q12H 03/09/24 [History] carvediloL [Coreg] 25 mg PO BID 03/09/24 [History] traZODone HCL [Desyrel] 50 mg PO HS 03/09/24 [History] Aspirin 81 mg PO DAILY tab 03/13/24 [Rx] Dapagliflozin Propanediol [Farxiga] 10 mg PO DAILY #30 tab 03/13/24 [Rx] Ferrous Sulfate [Iron (65 MG Elemental)] 325 mg PO W/LUNCH tab 03/13/24 [Rx] Ferrous Sulfate [Iron (65 MG Elemental)] 325 mg PO W/LUNCH #30 tab 03/13/24 [Rx] hydrALAZINE HCL [Apresoline] 25 mg PO TID #90 tab 03/13/24 [Rx] polyethylene glycoL 3350 [Miralax] 17 gm PO DAILY #30 packet 03/13/24 [Rx] Follow up Appointment(s)/Referral(s): Joanie Awad MD [Primary Care Provider] - 03/20/24 11:00 am () Patient Instructions/Handouts: Heart Failure (DC), Urinary Tract Infection in Men (DC), Using Oxygen at Home (DC) Activity/Diet/Wound Care/Special Instructions: Home O2 at 3L n/c Discharge Disposition: HOME SELF-CARE
[2024-03-21 13:07] LABS: Albumin 2.7 g/dL (3.80-4.90); Gamma Globulin 0.84 g/dL (0.70-1.50)
== END 2024-03-13 15:25 | disposition home or self-care (01) | DRG 698 ==
LOC: EC 05:42 → 3SCARD 08:01
PROVIDERS: ADMIT Internal Medicine; ATTEND Internal Medicine
DX: T83.511A Infection and inflammatory reaction due to indwelling urethral catheter, initial encounter (principal); A41.59 Other Gram-negative sepsis; I50.23 Acute on chronic systolic (congestive) heart failure; J96.01 Acute respiratory failure with hypoxia; I13.0 Hypertensive heart and chronic kidney disease with heart failure and stage 1 through stage 4 chronic kidney disease, or unspecified chronic kidney disease; I47.20 Ventricular tachycardia, unspecified; N17.9 Acute kidney failure, unspecified; N39.0 Urinary tract infection, site not specified; D63.1 Anemia in chronic kidney disease; F32.9 Major depressive disorder, single episode, unspecified; I25.5 Ischemic cardiomyopathy; J44.9 Chronic obstructive pulmonary disease, unspecified; K59.00 Constipation, unspecified; N18.32 Chronic kidney disease, stage 3b; R33.8 Other retention of urine; E03.9 Hypothyroidism, unspecified; E78.2 Mixed hyperlipidemia; F41.9 Anxiety disorder, unspecified; I08.1 Rheumatic disorders of both mitral and tricuspid valves; I25.10 Atherosclerotic heart disease of native coronary artery without angina pectoris; M1A.9XX0 Chronic gout, unspecified, without tophus (tophi); N40.1 Benign prostatic hyperplasia with lower urinary tract symptoms; I25.2 Old myocardial infarction; W18.11XA Fall from or off toilet without subsequent striking against object, initial encounter; Y92.002 Bathroom of unspecified non-institutional (private) residence as the place of occurrence of the external cause; Y99.8 Other external cause status; Z95.5 Presence of coronary angioplasty implant and graft; Z79.82 Long term (current) use of aspirin; Z79.890 Hormone replacement therapy; Z79.899 Other long term (current) drug therapy; Z87.11 Personal history of peptic ulcer disease; Z87.891 Personal history of nicotine dependence; Z92.3 Personal history of irradiation; Z95.810 Presence of automatic (implantable) cardiac defibrillator; Z82.49 Family history of ischemic heart disease and other diseases of the circulatory system
CPT/HCPCS: 36415; 71046; 80053; 81001; 82525; 82607; 82728; 82746; 83010; 83540; 83550; 83605; 83615; 83735; 83880; 83883; 84165; 84166; 84484; 85025; 85045; 85610; 85730; 87086; 87636; 93005; 94640; 94760; 96365; 96375; 99285

== ENCOUNTER → 2024-05-15 | Outpatient (CLI) | payer MEDICARE, OTHER ==
[2024-05-15 16:26] LABS: HCT 25.8 % (39.6-50.0); MCH 31.9 pg (27.0-32.0); MCV 102.8 FL (80.0-97.0); Mean Platelet Volume 12.5 FL (9.5-12.2); NRBC Per 100 WBC 0 X 10*3/uL (0.00-0.01); Platelet Count 148 X 10*3/uL (140-440); RBC 2.51 X 10*6/uL (4.40-5.60); RDW 15.1 % (11.5-14.5); WBC 7.34 X 10*3/uL (4.50-10.00)
[2024-05-15 16:54] LABS: Blood Urea Nitrogen 27.3 mg/dL (9.0-27.0); Carbon Dioxide 26.6 mmol/L (21.6-31.8); Chloride 106 mmol/L (96-109); Potassium 4.5 mmol/L (3.5-5.5); Sodium 143 mmol/L (135-145)
== END | disposition home or self-care (01) ==
LOC: LABPAT 10:58
PROVIDERS: ATTEND Internal Medicine Clinical Cardiac Electrophysiology
DX: Z01.812 Encounter for preprocedural laboratory examination (principal); I25.5 Ischemic cardiomyopathy
CPT/HCPCS: 80051; 82565; 84520; 85027

== ENCOUNTER 2024-06-26 15:36 | Day surgery (SDC) | payer MEDICARE, OTHER ==
[2024-05-18 13:21] VITALS: BMI 22.4
[~2024-06-26 15:36] MED LIST: ceFAZolin 1 GM in SODIUM CHLORIDE 0.9% IRRIG BTL 250 ML IRRIGATION PRN
[2024-06-26] MEDS: SODIUM CHLORIDE 0.9% 1,000 ML IV ONE (16:27)
[2024-06-26 16:29] LABS: African American GFR (CKD) 31 (>60 ml/min/1.73 sqM); Anion Gap 8 mmol/L; Blood Urea Nitrogen 29 mg/dL (9-20); Calcium 9.5 mg/dL (8.4-10.2); Carbon Dioxide 28 mmol/L (22-30); Chloride 103 mmol/L (98-107); Glucose 100 mg/dL (74-99); Non-African American GFR(CKD) 27 (>60 ml/min/1.73 sqM); Potassium 4.4 mmol/L (3.5-5.1); Sodium 139 mmol/L (137-145)
[2024-06-26 16:37] LABS: Basophils % (A) 0 %; Eosinophils # (A) 0.3 k/uL (0-0.7); Eosinophils % (A) 5 %; HGB 9.1 gm/dL (13.0-17.5); Hypochromasia Slight; Lymphocytes # (A) 1.1 k/uL (1.0-4.8); Lymphocytes % (A) 18 %; MCH 32.7 pg (25.0-35.0); MCHC 32.3 g/dL (31.0-37.0); MCV 101.2 fL (80.0-100.0); Macrocytosis Slight; Mean Platelet Volume 9.5; Monocytes # (A) 0.4 k/uL (0-1.0); Monocytes % (A) 6 %; Neutrophils # (A) 4.1 k/uL (1.3-7.7); Neutrophils % (A) 68 %; Platelet Count 156 k/uL (150-450); RBC 2.77 m/uL (4.30-5.90); RDW 15.9 % (11.5-15.5)
[2024-06-26] MEDS ORDERED: MIDAZOLAM 2 MG/2 ML VIAL ONE (18:52)
[2024-06-26] MEDS ORDERED: KETAMINE HCL IN 0.9 % NACL 50 MG/5 ML SYRINGE ONE (18:52)
[2024-06-26] MEDS ORDERED: diphenhydrAMINE 50 MG/ML 1 ML VIAL ONE (18:52)
[2024-06-26] MEDS: ROPIVACAINE 5 MG/ML 30 ML VIAL MISCELLANE ONE (19:37)
[2024-06-26] MEDS: LIDOCAINE 1% INJ 10MG/ML (20 ML MDV) SQ ONE (19:37)
[2024-06-26] MEDS: MIDAZOLAM 2 MG/2 ML VIAL IVP ONE (19:47)
[2024-06-26] MEDS: fentaNYL (PF) 50 MCG/ML 2 ML AMP IVP ONE (19:48)
[2024-06-26] MEDS: VANCOMYCIN 1,250 MG in SODIUM CHLORIDE 0.9% 250 ML IVPB STA (19:49)
[2024-06-26] MEDS: ceFAZolin 1,000 MG in SODIUM CHLORIDE 0.9% IRRIG BTL 250 ML IRRIGATION ONE (19:52)
[2024-06-26] MEDS: ceFAZolin 1,000 MG in SODIUM CHLORIDE 0.9% IRRIGATIO 1,000 ML IRRIGATION ONE (20:46)
--- NOTE | 2024-06-26 20:46 | P.EPPROC ---
- EP Procedure Note Electrophysiology Procedure Note: Diagnosis Cardiomyopathy, chronic, ischemic History of sustained VT in 2019 Dual-chamber ICD at [facility], planned dual-chamber ICD generator change for secondary prevention of VT On guideline directed medical treatment Procedure: Dual-chamber ICD implantation for management of risk of sudden ca rdiac /bradycardia Result: Dual chamber ICD generator change, new Medtronic dual-chamber ICD, cobalt XT DR MRI DF 1 implanted. Old dual-chamber ICD generator explanted Atrial lead: On fluoroscopy atrial lead chronically dislodged. P waves 0.6 mV, pacing impedance 304 ohms and pacing threshold 1.75 V at 0.4 ms RV ICD lead: On fluoroscopy lead in stable position in the RV apex. R waves 15 mV pacing impedance 285 ohms high-voltage impedance 44 ohms and pacing threshold 1.25 V at 0.4 ms Procedure details: Patient was brought to the EP lab in a fasting state. Written informed consent was obtained prior to the procedure. Options, pros and cons, benefits and risks and complications discussed with patient in detail prior to the procedure (shared decision making). Importance of continuing medical treatment emphasized. Alternatives discussed. Patient would like to proceed with dual-chamber ICD implant. The left pectoral area was prepped and draped as a protocol. IV antibiotics administered 1% lidocaine was used for local anesthesia. A 4 cm incision was made parallel to the deltopectoral groove, about 1.5 cm medial to it. The incision was carried down to the level of the pectoralis muscle and the subfascial pocket was accessed. Hemostasis was assured. Pressure capsulectomy performed. Hemostasis assured Old Medtronic generator explanted. New dual-chamber ICD generator cobalt implanted. Antibiotic pouch implanted after pocket irrigated with antibiotic solution Leads connected to the dual-chamber ICD generator. Wound closed in 3 layers and dressed per protocol Dual ICD interrogated and programmed. Appropriate pacing parameters, antitachycardia therapies with antitachycardia pacing cardioversion defibrillations programmed. Patient tolerated the procedure well without any acute complications. See scanned device report in EMR for lead details
--- NOTE | 2024-06-26 20:50 | P.PN ---
Progress Note - Text Patient has chronic kidney disease stage IV. Not on asymmetries or angiotensin receptor blockers He is on hydralazine and isosorbide instead for heart failure management Also on carvedilol and Farxiga Pravastatin added He has had sustained VT in 2020
[2024-06-26] MEDS: ISOSORBIDE MONONITRATE ER 60 MG TAB.ER.24H PO SCH (21:14)
[2024-06-26] MEDS: hydrALAZINE HCL 25 MG TAB PO SCH (21:14)
[2024-06-26] MEDS: carvediloL 12.5 MG TAB PO SCH (21:14)
[2024-06-26] MEDS: ALPRAZolam 0.5 MG TAB PO PRN (21:14)
[2024-06-26] MEDS: POTASSIUM CHLORIDE ER 20 MEQ TAB.ER PO SCH (21:15)
[2024-06-26] MEDS: traZODone HCL 50 MG TAB PO SCH (21:15)
[2024-06-26] MEDS: allopurinoL 300 MG TAB PO SCH (21:15)
[2024-06-27] MEDS: LACTATED RINGERS 1,000 ML IV SCH (00:02)
[2024-06-27] MEDS: SODIUM CHLORIDE 0.9% 1,000 ML IV SCH ×2 (00:02)
[2024-06-27] MEDS: ACETAMINOPHEN TAB 325 MG TAB PO PRN (01:34)
[2024-06-27] MEDS: ACETAMINOPHEN IV (For NPO) 1,000 MG in EMPTY BAG 1 BAG IVPB ONE (04:20)
[2024-06-27] MEDS: LEVOTHYROXINE 112 MCG TAB PO SCH (06:02)
[2024-06-27 07:42] VITALS: BP 121/70; PULSE 62; RESP 15; TEMP 98.2
[2024-06-27] MEDS: THEOPHYLLINE 24 HOUR 300 MG CAP.ER.24H PO SCH (08:01)
[2024-06-27] MEDS: SERTRALINE 50 MG TAB PO SCH (08:02)
[2024-06-27] MEDS: AMIODARONE 100 MG TAB PO SCH (08:02)
[2024-06-27] MEDS: FOLIC ACID 1 MG TAB PO SCH (08:02)
[2024-06-27] MEDS: TAMSULOSIN 0.4 MG CAP.ER.24H PO SCH (08:02)
[2024-06-27] MEDS: DAPAGLIFLOZIN PROPANEDIOL 10 MG TABLET PO SCH (08:02)
[2024-06-27] MEDS: ASPIRIN 81 MG PO SCH (08:02)
[2024-06-27] MEDS: PANTOPRAZOLE 40 MG TABLET PO SCH (08:02)
--- NOTE | 2024-06-27 09:16 | P.DS ---
Providers Attending physician: Jorge Guillermo [facility] Course: The patient is an 84-year-old male who follows in the office with Dr. Galo. He has a history of ischemic cardiomyopathy with prior ICD placement. Patient underwent generator change yesterday with Dr. Guillermo. No complications. Patient interviewed and examined resting comfortably in bed. No discomfort at his device site. No difficulty breathing overnight. GENERAL: Well-appearing, well-nourished and in no acute distress. NECK: Supple without JVD or thyromegaly. LUNGS: Breath sounds clear to auscultation bilaterally. Respiration equal and unlabored. No wheezes, rales or rhonchi. HEART: Regular rate and rhythm without murmurs, rubs or gallops. S1 and S2 heard. Dressing is clean dry and intact EXTREMITIES: Normal range of motion, no edema. No clubbing or cyanosis. Peripheral pulses intact and strong. IMPRESSION: Ischemic cardiomyopathy History of sustained ventricular tachycardia History of dual-chamber ICD Status post generator change PLAN: Chest x-ray reviewed, leads visualized May be discharged after device interrogation Follow-up with device clinic and primary [employer]worker helper [employer] Dr. Veras in 1 week I am dictating on behalf of Dr Jorge Guillermo's history/physical and assessm ent/plan. Plan - Discharge Summary Discharge Rx Participant: No New Discharge Prescriptions: New Pravastatin Sodium [Pravachol] 20 mg PO DAILY #90 tab Continue Isosorbide Mononitrate ER [Imdur] 60 mg PO BID Nitroglycerin Sl Tabs [Nitrostat] 0.4 mg SL Q5M PRN PRN Reason: Chest Pain Levothyroxine Sodium [Levoxyl] 112 mcg PO QAM Amiodarone [Cordarone] 100 mg PO QAM Tamsulosin HCl [Flomax] 0.4 mg PO QAM carvediloL [Coreg] 25 mg PO BID Potassium Chloride [Klor-Con M20] 20 meq PO BID Folic Acid 1 mg PO QAM hydrALAZINE HCL [Apresoline] 25 mg PO BID allopurinoL 300 mg PO BID Dapagliflozin Propanediol [Farxiga] 10 mg PO QAM Sertraline [Zoloft] 50 mg PO QAM Pantoprazole [Protonix] 40 mg PO QAM ALPRAZolam [Xanax] 0.5 mg PO BID PRN PRN Reason: Anxiety Theophylline 12 Hour [Ashok-Dur] 300 mg PO BID traZODone HCL [Desyrel] 50 mg PO HS Aspirin 81 mg PO DAILY tab Discharge Medication List Isosorbide Mononitrate ER [Imdur] 60 mg PO BID 09/20/14 [History] Nitroglycerin Sl Tabs [Nitrostat] 0.4 mg SL Q5M PRN 02/10/21 [History] Amiodarone [Cordarone] 100 mg PO QAM 09/07/21 [History] Levothyroxine Sodium [Levoxyl] 112 mcg PO QAM 09/07/21 [History] Sertraline [Zoloft] 50 mg PO QAM 09/07/21 [History] Pantoprazole [Protonix] 40 mg PO QAM 07/15/23 [History] Tamsulosin HCl [Flomax] 0.4 mg PO QAM 07/15/23 [History] ALPRAZolam [Xanax] 0.5 mg PO BID PRN 03/09/24 [History] Folic Acid 1 mg PO QAM 03/09/24 [History] Potassium Chloride [Klor-Con M20] 20 meq PO BID 03/09/24 [History] Theophylline 12 Hour [Ashok-Dur] 300 mg PO BID 03/09/24 [History] carvediloL [Coreg] 25 mg PO BID 03/09/24 [History] traZODone HCL [Desyrel] 50 mg PO HS 03/09/24 [History] Aspirin 81 mg PO DAILY tab 03/13/24 [Rx] Dapagliflozin Propanediol [Farxiga] 10 mg PO QAM 05/18/24 [History] allopurinoL 300 mg PO BID 05/18/24 [History] hydrALAZINE HCL [Apresoline] 25 mg PO BID 05/18/24 [History] Pravastatin Sodium [Pravachol] 20 mg PO DAILY #90 tab 06/26/24 [Rx] Follow up Appointment(s)/Referral(s): Jorge Guillermo MD [STAFF PHYSICIAN] - 07/05/24 3:30 pm (FOLLOW UP APPOINTMENT MADE AT THE DEVICE CLINIC. ) Patient Instructions/Handouts: Moderate Sedation (DC), Fall Prevention (DC), Pacemaker Generator Change (DC) Discharge Disposition: HOME SELF-CARE
== END 2024-06-27 13:30 | disposition home or self-care (01) ==
LOC: CATHEP 15:36 → 6NMEDSUR 20:14 → CATHEP 06-27 13:30
PROVIDERS: ATTEND Internal Medicine Clinical Cardiac Electrophysiology
DX: I25.10 Atherosclerotic heart disease of native coronary artery without angina pectoris (principal); I25.5 Ischemic cardiomyopathy; I50.22 Chronic systolic (congestive) heart failure; I11.0 Hypertensive heart disease with heart failure; E07.9 Disorder of thyroid, unspecified; E78.5 Hyperlipidemia, unspecified; F17.210 Nicotine dependence, cigarettes, uncomplicated; I73.9 Peripheral vascular disease, unspecified; Z45.02 Encounter for adjustment and management of automatic implantable cardiac defibrillator; Z88.8 Allergy status to other drugs, medicaments and biological substances; Z79.82 Long term (current) use of aspirin; Z79.02 Long term (current) use of antithrombotics/antiplatelets; Z79.899 Other long term (current) drug therapy
CPT/HCPCS: 33263; 80048; 85025; C1721; J2250; J3370; J1200; J0690 ×3; J2003; J3010; J2795

== ENCOUNTER → 2024-08-06 | Outpatient (CLI) | payer MEDICARE, OTHER ==
[2024-08-06 16:18] LABS: HGB 9.6 gm/dL (13.0-17.5); Hypochromasia Slight; MCH 32.1 pg (25.0-35.0); MCHC 30.9 g/dL (31.0-37.0); Macrocytosis Slight; Platelet Count 162 k/uL (150-450); RBC 2.98 m/uL (4.30-5.90); RDW 14.7 % (11.5-15.5); Reticulocyte % 1.8 % (0.5-2.0); WBC 6.1 k/uL (3.8-10.6)
[2024-08-06 16:38] LABS: Creatinine,Urine Random 48.6 mg/dL; Protein/Creatinine Ratio,Urine 2.757
[2024-08-06 18:42] LABS: RBC Morphology Normal
[2024-08-06 21:39] LABS: % Iron Saturation 9.79 (15.00-50.00); Blood Urea Nitrogen 33.8 mg/dL (9.0-27.0); Chol/HDL Ratio 2.08 Ratio; Creatine Kinase 52 U/L (35-257); Glucose 116 mg/dL (70-110); Iron 23 UG/DL (65-175); LDH 199 U/L (120-246); LDL Cholesterol,Calculated 43.2 mg/dL (0.0-131.0); Magnesium 2.2 mg/dL (1.5-2.4); Total Iron Binding Capacity 235 UG/DL (228-460); Uric Acid 4.7 mg/dL (3.7-8.7); VLDL Calculation 10.34 mg/dL (5.00-40.00)
[2024-08-06 21:40] LABS: ALT 40 U/L (10-49); AST 31 U/L (14-35); Albumin 3.6 g/dL (3.8-4.9); Albumin/Globulin Ratio 1.09 Ratio (1.60-3.17); Alkaline Phosphatase 87 U/L (41-126); Calcium 9.4 mg/dL (8.7-10.3); Carbon Dioxide 25.3 mmol/L (21.6-31.8); Chloride 105 mmol/L (96-109); Globulin 3.3 g/dL (1.6-3.3); Potassium 4.9 mmol/L (3.5-5.5); Prostate Specific Antigen 1.75 ng/mL (0.000-6.500); Sodium 141 mmol/L (135-145); Total Bilirubin 0.3 mg/dL (0.3-1.2); Total Protein 6.9 g/dL (6.2-8.2)
[2024-08-07 11:57] LABS: Protein, Total 6.8 g/dL (6.2-8.2)
[2024-08-07 15:11] LABS: Free Kappa Lt Chain Qnt, Serum 11.72 mg/dL (0.33-1.94); Free Lambda Lt Chain Qnt, Seru 10.02 mg/dL (0.57-2.63)
== END | disposition home or self-care (01) ==
LOC: LABWHC1 15:12
PROVIDERS: ATTEND Internal Medicine
DX: I12.9 Hypertensive chronic kidney disease with stage 1 through stage 4 chronic kidney disease, or unspecified chronic kidney disease (principal); N18.32 Chronic kidney disease, stage 3b; D63.1 Anemia in chronic kidney disease; E78.2 Mixed hyperlipidemia; J44.9 Chronic obstructive pulmonary disease, unspecified; N40.0 Benign prostatic hyperplasia without lower urinary tract symptoms
CPT/HCPCS: 36415; 80053; 80061; 82306; 82525; 82550; 82570; 82607; 82728; 83010; 83036; 83540; 83550; 83615; 83735; 83883; 83970; 84153; 84156; 84165; 84443; 84550; 85027; 85045; 86334; 86335

== ENCOUNTER → 2024-09-12 | Outpatient (CLI) | payer MEDICARE, OTHER ==
[2024-09-12 19:51] LABS: Beta 2 Microglobulin 10.5 mg/L (0.61-2.37)
== END | disposition home or self-care (01) ==
LOC: LABWHC1 13:38
PROVIDERS: ATTEND Internal Medicine
DX: D89.89 Other specified disorders involving the immune mechanism, not elsewhere classified (principal)
CPT/HCPCS: 36415; 82232; 82784; 85652; 86140